=== PATIENT | female | born 1940 | race Caucasian/White ===

== ENCOUNTER 2020-12-05 07:46 | Outpatient (REF) | payer MEDICARE, SELFPAY ==
--- NOTE | 2020-12-11 08:42 | MHC.AU.ANO ---
Adult Audiological Evaluation Date of Visit: 12/05/20 Traveling Passenger Agent Used: Not Applicable Reason for Appointment: Audiologic evaluation due to increasing hearing difficulties and understanding speech, particularly when background noise is present Does patient feel they have a hearing loss?: Yes If Yes, Which Ear?: Both Ears Has hearing been tested previously?: Yes Previous Hearing Test Results: [facility] many years ago. Test results are not available for review Hearing Handicap Inventory: HHIE SCORE: 20 Based on HHIE score, patient has: Mild to moderate perceived hearing handicap Ear History: Family History of Hearing Loss?: Yes: Father Ear Infections in Childhood: Both Ears History of Ear Wax Buildup: Both Ears Tinnitus/Ringing/Noises in Ears: Both Ears Ear used on the phone: Left Ear Blocked/Full Sensation in Ear(s): Right Ear History of occupational noise exposure?: No Medical History: Medical History: Thyroid Disease, Left Breast Cancer treated with surgery and radiation, Graves Disease Medication List: Procardia, Bentyl, Levothyroxine, Meclizine, Gabapentin, Claritin, Flonase, Fiber, Cranberry pills, Calcium, Vitamins C and D Otoscopy: Right Ear: Unremarkable Left Ear: Small amount of non-occluding cerumen Tympanometry: Tympanometry performed due to: To assess integrity of the middle ear system Right Ear: Normal Middle Ear System (Type A) Left Ear: Normal Middle Ear System (Type A) Otoacoustic Emissions Right Ear Results: Not performed at today's visit. Left Ear Results: Not performed at today's visit. Hearing Evaluation: Transducer(s) Used: Insert Earphones Bone Conduction Method: Conventional Audiometry Stimuli Used: Right Ear: Description of Hearing: Mild dropping to severe sensorineural hearing loss Left Ear: Description of Hearing: Borderline normal dropping to severe sensorineural hearing loss Speech Recognition Threshold (SRT): Method Used: Monitored Live Voice Stimuli Used: Spondee Words Right Ear: 35 dB HL Left Ear: 25 dB HL Word Discrimination: Method: Recorded Lists Word Lists Used: NU-6 Right Ear: 84% at 75 dB HL Left Ear: 84% at 65 dB HL QuickSIN: Binaural Quick SIN Test: 13 dB SNR Loss suggesting Hortensia experiences a moderately-severe degree of difficulty understanding speech with increasing levels of background noise. Recommendations: Trial with amplification is recommended. Medical clearance from a physician is required before fitting. HAE scheduled for 12/12/2020 Provided literature for Phonak hearing aids Audiological re-evaluation in one year. Will send a reminder card. Diagnosis: Primary Diagnosis: H90.3 Bilateral Sensorineural Hearing Loss Secondary Diagnosis: H93.13 Tinnitus, Bilateral Services Performed: Comprehensive Audiological Evaluation (CPT 75218) Tympanometry (CPT 43542) Signature: Provider: Aurelio Sutton, AYAZ-A
--- NOTE | 2020-12-11 08:47 | MHC.AU.MED ---
Medical Clearance for Hearing Instrumentation Date: 12/11/20 Patient Name: Hortensia Godoy Date of : 1940 Primary Care Provider: Referring Provider: Maria Teresa Mathur MD We have seen your patient on 12/05/20 and have determined that they are a candidate for amplification (See accompanying report). Specifically, they would benefit from: Hearing aid use in both ears There is a statute that addresses Medical Evaluation Requirements prior to fitting a patient with a hearing aid. According to [place] statute 265 CMR:6.03(1), (a) General. Except as provided in 265 CMR 6.03(1)(b), a hurl shaker shall not sell a hearing aid unless the prospective user has presented to the hurl shaker a written statement signed by a licensed physician that states that the patient's hearing loss has been medically evaluated and the patient may be considered a candidate for a hearing aid. The medical evaluation must have taken place within the preceding six months. Please note: Due to the [place] Statute referenced above, we cannot accept a signature other than that of a licensed physician. COMSEC MANAGER and PA signatures cannot be accepted. I am in agreement with the above recommendation. There is no medical contraindication for hearing instrumentation. Physician Signature Date Physician Name (Printed)
== END 2020-12-05 07:47 | disposition home or self-care (01) ==
LOC: HO.SH 07:46
PROVIDERS: Visit Provider Internal Medicine
DX: H93.13 Tinnitus, bilateral (principal)
CPT/HCPCS: 92557; 92567

== ENCOUNTER 2020-12-05 08:26 | Outpatient (REF) | payer SELFPAY | END 2020-12-05 08:27 | disposition home or self-care (01) | LOC: HO.HAP 08:26 | PROVIDERS: Visit Provider Internal Medicine Endocrinology, Diabetes & Metabolism | DX: Z13.89 Encounter for screening for other disorder (principal) ==

== ENCOUNTER 2020-12-12 09:50 | Outpatient (REF) | payer SELFPAY ==
--- NOTE | 2020-12-12 11:29 | MHC.AU.HAS ---
Hearing Aid Evaluation Date of Visit: 12/12/20 Astrochemist Used: Not Applicable Historical Information: Description of Hearing: Right Ear - Mild sloping to severe sensorineural hearing loss Left Ear - Borderline normal sloping to severe sensorineural hearing loss. 84% speech understanding in quiet with a score of 13 dB SNR Loss in noise strongly suggesting higher level hearing aid technology would be beneficial. Current personal amplification information, if applicable: None Summary: Hearing Aid Prescription: Based on the individual?s shared listening needs, communication environments, dexterity, desire for connectivity, and personal preferences, the following prescription for amplification has been made: Right ear: Tableman: PhonuberVU Model: Authentic8eo P 90 13T Battery Size: 13 Color: Silver Madden Firesetter: #2 Medium Type of Dome: Vented or power Left ear: Left ear prescription to be same as Right Hearing Aid above: Tableman: Phonak Model: Audeo P 90 13T Battery Size: 13 Color: Silver Madden Firesetter: #2 Medium Type of Dome: Vented Accessories/Assistive Technology Recommended: Promo TV Connector Plan of Care: Patient wishes to purchase hearing aids as prescribed Action Taken/Action Needed: Medical Clearance to be requested from PCP/ENT Comments: Hearing Aid Fitting scheduled for 12/26/2020 Primary Diagnosis: H90.3 Bilateral Sensorineural Hearing Loss Signature: Provider: Aurelio Sutton CCC-A
== END 2020-12-12 09:51 | disposition home or self-care (01) ==
LOC: HO.HAP 09:50
PROVIDERS: Visit Provider Internal Medicine Endocrinology, Diabetes & Metabolism
DX: Z46.1 Encounter for fitting and adjustment of hearing aid (principal); H90.3 Sensorineural hearing loss, bilateral
CPT/HCPCS: 92591

== ENCOUNTER 2020-12-26 09:44 | Outpatient (REF) | payer SELFPAY | END 2020-12-26 09:45 | disposition home or self-care (01) | LOC: HO.HAP 09:44 | PROVIDERS: Visit Provider Internal Medicine Endocrinology, Diabetes & Metabolism | DX: Z46.1 Encounter for fitting and adjustment of hearing aid (principal); H90.3 Sensorineural hearing loss, bilateral | CPT/HCPCS: V5261 ==

== ENCOUNTER 2021-01-09 11:36 | Outpatient (REF) | payer SELFPAY | END 2021-01-09 11:37 | disposition home or self-care (01) | LOC: HO.HAP 11:36 | PROVIDERS: Visit Provider Internal Medicine | DX: Z13.89 Encounter for screening for other disorder (principal) ==

== ENCOUNTER 2021-07-02 09:18 | Outpatient (REF) | payer SELFPAY ==
--- NOTE | 2021-07-02 09:33 | MHC.AU.P13 ---
Hearing Instrument Maintenance Date of Visit: 07/02/21 Right Ear: Remnants Cutter: Phonak Model: Audeo P 90 13T Serial Number: [id number] Repair Warranty: 03/15/2024 Loss and Damage Warranty: 03/15/2024 Battery Size: 13 Color: Silver Madden Granite Chip Terrazzo Finisher: #2 Medium Type of Dome: Medium Vented Type of Wax Guard: CeruShield Dispensed By: [facility] Date of Fittin12/26/2020 Left Ear: Remnants Cutter: Phonak Model: Audeo P 90 13T Serial Number: [id number] Repair Warranty: 03/15/2024 Loss and Damage Warranty: 03/15/2024 Battery Size: 13 Color: Silver Madden Granite Chip Terrazzo Finisher: #2 Medium Type of Dome: Medium Vented Type of Wax Guard: CeruShield Dispensed By: [facility] Date of Fittin12/26/2020 Follow-Up Summary: TANNER Maint - Hearing aids cleaned - wax guards and medium vented domes replaced - both amplifying clearly. Recommendations: Recommendations: Hearing instrument follow-up or maintenance as needed. Diagnosis Code(s): Primary Diagnosis: H90.3 Bilateral Sensorineural Hearing Loss Signature: Provider: NAHID Cadena-HIS
== END 2021-07-02 09:19 | disposition home or self-care (01) ==
LOC: HO.HAP 09:18
PROVIDERS: Visit Provider Internal Medicine
DX: Z13.89 Encounter for screening for other disorder (principal)

== ENCOUNTER 2022-01-07 10:50 | Outpatient (REF) | payer MEDICARE, SELFPAY ==
--- NOTE | 2022-01-13 16:47 | MHC.AU.AHA ---
Adult Audiological Evaluation Date of Visit: 01/07/22 Reason for Appointment: Audiologic re-evaluation to monitor hearing thresholds due to history of Thyroid Disorder which may increase hearing loss. Hortensia has a history of bilateral hearing loss and uses binaural hearing aids. Previous Hearing Test Results: 12/05/2020 [facility] Right ear: Mild sloping to severe sensorineural hearing loss with 84% speech understanding at 75 dB HL Left ear: Borderline normal sloping to severe sensorineural hearing loss with 84% speech discrimination at 65 dB HL. Ear History: Family History of Hearing Loss?: Yes: Father Ear Infections in Childhood: Both Ears History of occupational noise exposure?: No Medical History: Medical History: Cancer, Thyroid Disease, Left Breast Cancer treated with surgery and radiation, Graves Disease Medication List: Bentyl, Levothyroxine, Meclizine, Gabapentin, Claritin, Flonase, Calcium, Vitamins C & D. Muscle Relaxer Hearing Instrument History- Right Ear: Pedigree Researcher: [employer] Component Model: BlogBus P 90 13T Serial Number: [id number] Battery Size: 13 Repair Warranty: 03/15/2024 Loss and Damage Warranty: 03/15/2024 Dispensed By: [facility] Date of Fittin12/26/2020 Hearing Instrument History- Left Ear: Pedigree Researcher: aisle411ak Model: Clarieo P 90 13T Serial Number: [id number] Battery Size: 13 Warranty: 03/15/2024 Loss and Damage Warranty: 03/15/2024 Dispensed By: [facility] Date of Fittin12/26/2020 Otoscopy: Right Ear: Unremarkable Left Ear: Unremarkable Tympanometry: Did not test, previous results indicated normal middle ear function Hearing Evaluation: Transducer(s) Used: Insert Earphones Method: Conventional Audiometry Stimuli Used: Pure Tones Right Ear: Description of Hearing: Mild sloping to severe sensorineural hearing loss Left Ear: Description of Hearing: Borderline normal sloping to severe sensorineural hearing loss Speech Recognition Threshold (SRT): Method Used: Monitored Live Voice Stimuli Used: Spondee Words Right Ear: 30 dB HL Left Ear: 25 dB HL Word Discrimination: Method: Recorded Lists Word Lists Used: NU-6 Right Ear: 80% at 70 dB HL Left Ear: 92% at 65 dB HL Comparison: Compared to the most recent evaluation: Hearing is stable. Recommendations: Audiological re-evaluation in one year. Will send a reminder card. Hearing aid maintenance performed today. Diagnosis: Primary Diagnosis: H90.3 Bilateral Sensorineural Hearing Loss Secondary Diagnosis: H93.13 Tinnitus, Bilateral Services Performed: Pure Tone- Air (CPT 83521) Speech Audiometry Threshold, with Speech Recognition (CPT 24948) Signature: Provider: Aurelio Sutton, AYAZ-A
== END 2022-01-07 10:51 | disposition home or self-care (01) ==
LOC: HO.SH 10:50
PROVIDERS: Visit Provider Internal Medicine
DX: Z01.118 Encounter for examination of ears and hearing with other abnormal findings (principal); H90.3 Sensorineural hearing loss, bilateral; H93.13 Tinnitus, bilateral
CPT/HCPCS: 92552; 92556

== ENCOUNTER 2022-08-28 19:28 | Inpatient (IN) | payer MEDICARE, SELFPAY ==
--- NOTE | 2022-08-28 | ECG_ITS ---
Test Reason : CHEST PAIN Blood Pressure : / mmHG Vent. Rate : 053 BPM Atrial Rate : 052 BPM P-R Int : 000 ms QRS Dur : 080 ms QT Int : 462 ms P-R-T Axes : 000 036 077 degrees QTc Int : 433 ms Junctional bradycardia Cannot rule out Inferior infarct , age undetermined Cannot rule out Anterior infarct , age undetermined Abnormal ECG No previous ECGs available Referred By: Generic ED Physician Electronically Signed By:Sampson Pisano
--- NOTE | ~2022-08-28 | FL_ITS ---
EXAMINATION: XR FLUOROSCOPY WITH IMAGES CLINICAL INFORMATION: Pacer placement. COMPARISON: Chest radiographs 08/30/2022, 08/29/2022. TECHNIQUE: Fluoroscopy Supervised By: Dr. Crystal Martin. Fluoroscopy Time: Under 3 minutes. Cumulative Dose: 48.5 mGy. DAP: 11.3 Gycm2. Images: 1. FINDINGS: There is bipolar pacemaker with atrial and ventricular leads.
--- NOTE | ~2022-08-28 | CT_ITS ---
EXAMINATION: CT ANGIOGRAM OF THE CHEST WITH AND WITHOUT CONTRAST (CT PULMONARY ANGIOGRAM FOR PE) CLINICAL INFORMATION: Reason for Exam tachycardic, elevated dimer, Sob COMPARISON: None TECHNIQUE: Prior to contrast administration, noncontrast localization images were obtained. Subsequently, multidetector volumetric imaging was performed from the thoracic inlet to below the diaphragms following the administration of 80 mL Omnipaque 350 intravenous contrast. No contrast reaction reported Sagittal, coronal, and MIP oblique sagittal reformatted images were obtained on the CT workstation, uploaded to PACS, and reviewed. This CT examination was performed using dose optimization techniques as appropriate, variously including the following: *Automated exposure control *Adjustment of mA and/or kV according to patient size (this includes techniques or standardized protocols for targeted exams where dose is matched to indication/reason for exam; i.e. extremities or head) *Use of iterative reconstruction technique Total exam dose-length product 410 mGy-cm FINDINGS: QUALITY OF STUDY/CONTRAST BOLUS: Satisfactory. PULMONARY ARTERIES: There is no filling defect to suggest a pulmonary embolism. The thoracic inlet is within normal limits. Axillary regions are unremarkable. Partially visualized upper abdominal structures demonstrate a low-density lesion in the liver which is well circumscribed. Likely represents a cyst.. Centrally there is no bowing of the septum. There is no reflux into the hepatic veins. No bulky central adenopathy. Some mild nodes are noted. Some probable mild hilar nodes. Right lung; In the lungs areas of interstitial change and groundglass changes. May be consistent with small airways disease. Pulmonary edema would be a consideration. There is no effusion on the right. 3 mm nodule on image 20. Left lung; Again interstitial markings with areas of groundglass change. 4 mm nodule on image 25. Review of the bone windows does not demonstrate a suspicious finding. CT/CT angio chest PE protocol IMPRESSION: No filling defect to suggest a pulmonary embolism. Lung hankins are characterized by coarse interstitial markings with areas of groundglass change. This could be consistent with small airways disease or subtle areas of infiltrate. Pulmonary edema cannot be excluded. Some small areas of lung nodularity are noted. Low-dose noncontrast follow-up recommended in 6 months.
--- NOTE | ~2022-08-28 | XR_ITS ---
EXAMINATION: XR CHEST CLINICAL INFORMATION: Pacer COMPARISON: 08/29/2022 TECHNIQUE: Frontal view of the chest was obtained. FINDINGS: New left pectoral 2-lead pacemaker with contiguous, intact leads projecting over the expected location of the right atrium and right ventricle. Diffuse coarse interstitial opacity again seen. Small left pleural effusion. No pneumothorax. XR/XR chest 1V IMPRESSION: No pneumothorax after pacer placement.
--- NOTE | ~2022-08-28 | XR_ITS ---
EXAMINATION: XR CHEST CLINICAL INFORMATION: Hypoxia COMPARISON: 08/28/2022 TECHNIQUE: Frontal view of the chest was obtained. FINDINGS: Minimal left basilar opacity. Stable appearance the right upper lung. No evidence for failure The cardiac silhouette is similar to previous. XR/XR chest 1V IMPRESSION: Exam is comparable to previous. Minimal left basilar opacity may be a small acute area of atelectasis or infiltrate.
--- NOTE | ~2022-08-28 | XR_ITS ---
EXAMINATION: XR CHEST CLINICAL INFORMATION: Chest pain COMPARISON: None TECHNIQUE: Frontal view of the chest was obtained. FINDINGS: Some ill-defined opacity in the right upper lung. The left lung is grossly clear. Some markings in the lungs may be chronic. The hilar structures are mildly prominent. The cardiac silhouette is within normal limits. There is no effusion. XR/XR chest 1V IMPRESSION: Findings suggest right upper lobe infiltrate versus chronic changes. There are no films to compare. Follow-up films are recommended after treatment to continue assessment
[2022-08-28 19:39] VITALS: BP 147/87; PULSE 55; RESP 18; TEMP 36.2; O2SAT 97; BMI 25.7
[2022-08-28 19:45] LABS: MANUAL DIFF FLAG NO
[2022-08-28 19:55] LABS: Basophils Percent Auto 0.3 % (0-2); Eosinophils Absolute Auto 0.1 X10*3/uL (0.0-0.4); Eosinophils Percent Auto 1.1 % (0-4); Hematocrit 39.5 % (37.0-47.0); Hemoglobin 13.3 g/dl (12.0-16.0); Imm Gran Abs Auto 0.02 X10*3/uL (0.00-0.03); Imm Gran Pct Auto 0.2 % (0.0-0.4); Lymphocytes Percent Auto 17.6 % (20-40); Mean Corpuscular HGB Conc 33.7 g/dl (31.0-35.0); Mean Corpuscular Hemoglobin 29.7 pg (27.0-33.0); Mean Corpuscular Volume 88.2 fL (80.0-98.0); Mean Platelet Volume 11.1 fL (9.4-12.3); Monocytes Absolute Auto 1.2 X10*3/uL (0.1-1.2); Neutrophils Absolute Auto 7.8 x10*3/uL (2.0-8.3); Neutrophils Percent Auto 69.8 % (45-73); Platelet Count 206 X10*3/uL (160-400); Red Blood Count 4.48 X10*6/uL (4.20-5.50); Red Cell Distribution Width 12.6 % (11.0-16.0); White Blood Count 11.2 X10*3/uL (4.8-10.8)
[2022-08-28 20:05] LABS: Alanine Aminotransferase 10 U/L (0-31); Alkaline Phosphatase 56 U/L (39-117); Anion Gap 14 (12-20); Aspartate Amino Transferase 13 U/L (5-31); Bilirubin Total 0.5 mg/dL (0.0-1.0); Blood Urea Nitrogen 16 mg/dL (9-16); Calcium 9.2 mg/dL (8.4-10.2); Carbon Dioxide 22 mmol/L (22-29); Chloride 107 mmol/L (96-108); Estimated Glomerular Filt Rate > 60; Glucose Random 108 mg/dL (60-115); Potassium 3.9 mmol/L (3.3-5.1); Sodium 139 mmol/L (135-145); Total Protein 6.9 g/dL (6.5-8.0)
[2022-08-28 20:12] LABS: Troponin-I High Sensitivity 7.4 ng/L (<3.5-17.0)
[2022-08-28 21:48] VITALS: BP 124/54; PULSE 58; RESP 20; TEMP 36.7; O2SAT 95
[2022-08-28 21:59] LABS: COVID-19 Test Negative (Negative); IDNOW Serial# 16C4AD1C; IDNOW Serial# BCCEAD1C; Influenza A Negative (Negative); Influenza B2 Negative (Negative)
--- NOTE | 2022-08-28 22:06 | MHC.EDTECH ---
2200 rounding done ,vitals sign taken ,patient son at bedside.
--- NOTE | 2022-08-28 22:37 | ED.CHESTPAIN ---
HPI - Chest Pain General Chief Complaint: Chest Pain Stated Complaint: chest pain Time Seen by Provider: 08/28/22 20:52 Source: patient Mode of arrival: ambulatory Limitations: no limitations History of Present Illness HPI narrative: Patient comes emergency room complaining coughing and 2 days of bilateral chest pain. Patient states that she has been coughing a bit more than usual, no fever chills. Denies palpitations, no N/V/D. Related Data Home Medications Medication Instructions Recorded Confirmed atorvastatin 10 mg tablet 10 mg PO DAILY 03/11/21 dicyclomine 10 mg capsule 10 mg PO TID 03/11/21 fluticasone propionate 50 spray intranasal 03/11/21 mcg/actuation nasal spray,suspension gabapentin 300 mg capsule 300 mg PO TID 03/11/21 letrozole 2.5 mg tablet 2.5 mg PO DAILY 03/11/21 levothyroxine 137 mcg tablet 137 mcg PO DAILY 03/11/21 (Synthroid) meclizine 25 mg tablet 25 mg PO TID PRN 03/11/21 methocarbamol 500 mg tablet mg PO 03/11/21 nifedipine 10 mg capsule 10 mg PO TID 03/11/21 nitrofurantoin macrocrystal 50 mg mg PO 03/11/21 capsule omeprazole 20 mg capsule,delayed 20 mg PO DAILY 03/11/21 release tizanidine 4 mg tablet mg PO 03/11/21 Previous Rx's Medication Instructions Recorded azithromycin 250 mg tablet 250 mg PO DAILY 4 days #4 tabs 08/28/22 Allergies Allergy/AdvReac Type Severity Reaction Status Date / Time sulfamethoxazole Allergy unknown Verified 03/11/21 08:56 [From Bactrim] trimethoprim [From Bactrim] Allergy unknown Verified 03/11/21 08:56 Review of Systems Review of Systems: Constitutional : No Weight loss, No Fever, No Chills, No Night Sweats, No Fatigue, No Malaise ENT/Mouth : No Hearing loss, No Ear Pain, No Nasal Congestion, No Sinus Pain, No Hoarseness, No sore throat, No Rhinorrhea, No Swallowing Difficulty Eyes: No Eye Pain, No Swelling, No Redness, No Foreign Body, No Discharge, No Vision Changes Cardiovascular : By chest pain, no orthopnea, no edema no palpitations Respiratory : Complaining of mild cough, mild shortness of breath, no wheezing Gastrointestinal : No Nausea, No Vomiting, No Diarrhea, No Constipation, No abdominal Pain, No Hematochezia, No Melena Genitourinary : no irregular bleeding, No Dysuria, No Urinary Frequency, No Hematuria, No Urinary Incontinence, No Urgency, No Flank Pain, No Urinary Flow Changes, No Hesitancy Musculoskeletal : No joint pain, No Myalgias, No Joint Swelling Skin : No Skin Lesions, No rash Neuro : No Weakness, No Numbness, No Paresthesias, No Loss of Consciousness, No Dizziness, No Headache Psych : No Anxiety/Panic, No Depression, No SI/HI/AH/VH, No Social Issues, Heme/Lymph: No Bruising, No Bleeding,No Lymphadenopathy Endocrine : No Polyuria, No Polydipsia, No Temperature Intolerance [facility] Past Medical History Medical History (Updated 08/29/22 @ 00:50 by Carie Ohara MD) Hypothyroidism Social History Social History Alcohol intake: current Alcohol intake frequency: a few times a week Alcohol type: wine Smoked in Last 30 Days: No Use of substances other than those prescribed or required for medical reasons: No Advance Directives: No Advance Directives Information Provided: No Physical Exam Vital Signs: Vital Signs: Last Vital Signs Temp 98.1 F 08/28/22 21:48 Pulse 133 H 08/28/22 23:55 Resp 37 H 08/28/22 23:55 BP 112/57 L 08/28/22 23:55 Pulse Ox 93 08/28/22 23:55 O2 Del Method 08/28/22 23:55 BMI result Body Mass Index 25.7 Const: Other: Appearance: Alert. Oriented X3. No acute distress. Eyes: Pupils equal, round and reactive to light. ENT: Pharynx normal. Neck: Normal inspection. Neck supple. No lymph nodes noted. No crepitus CVS: Normal heart rate and rhythm. Pulses normal. Normal S1 and S2 Respiratory: No respiratory distress. Breath sounds normal. No Wheezing. No rales Abdomen: Soft and nontender. No rigidity. No distention. Skin: Skin warm and dry. Normal skin color. Normal skin turgor. Extremities: No lower extremity edema. No Lacerations. No Rash Neuro: Oriented X 3. No motor deficit. No sensory deficit. Moving all extremities. No slurred speech. CN 2 through 12 grossly intact Psych: calm, cooperative, anxious Medications Administered Generic Name Dose Route Start Last Admin Trade Name Osvaldo PRN Reason Stop Dose Admin Calcium Gluconate 2 gm in 100 mls @ 50 mls/hr 08/29/22 00:00 08/29/22 00:28 Calcium Gluconate IV 08/29/22 01:59 50 mls/hr ONCE ONE Administration Discontinued Medications Generic Name Dose Route Start Last Admin Trade Name Osvaldo PRN Reason Stop Dose Admin Acetaminophen 975 mg 08/28/22 23:01 08/28/22 23:06 Acetaminophen 325 Mg Tablet PO 08/28/22 23:02 975 mg ONCE ONE Administration Apixaban 5 mg 08/29/22 00:02 08/29/22 00:31 Apixaban 5 Mg Tablet PO 08/29/22 00:03 5 mg ONCE ONE Administration Azithromycin 500 mg 08/28/22 22:35 08/28/22 22:56 Azithromycin 500 Mg Tablet PO 08/28/22 22:36 500 mg ONCE ONE Administration Sodium Chloride 1,000 mls @ 999 mls/hr 08/28/22 23:16 08/28/22 23:20 Ns IVCONT 08/29/22 00:16 999 mls/hr .Q1H1M ONE Administration Iohexol 65 ml 08/29/22 00:29 08/29/22 00:30 Iohexol 350 Mg/Ml 100 Ml Infus..Btl IV 08/29/22 00:30 65 ml ONCE ONE Administration Metoprolol Tartrate 5 mg 08/28/22 23:59 08/29/22 00:26 Metoprolol Tartrate 5 Mg/5 Ml Vial IVPUSH 08/29/22 00:00 5 mg ONCE ONE Administration Medical Decision Making Medical Decision Making MDM Narrative: -patient's chest x-ray shows chronic changes versus right upper lobe infiltrate. -patient has had new symptoms, slightly elevated white blood cell count, we do not have any other chest x-rays to compare. -given the patient's labs and x-ray and physical presentation, we will go ahead and treat with antibiotics. Patient was given the 1st dose of azithromycin in the emergency room. -patient's oxygen saturation 97% on room air. -patient tested negative for COVID and influenza -troponin 1. Is negative, patient has had symptoms for 2 days, EKG does not show any acute findings -as patient was getting ready to be discharged, I was informed by the patient's nurse that the patient's heart rate went up to 130-150. -at the time of discharge, patient was havingnew onset of palpitations, EKG shows atrial fibrillation. Has no history of AFib. Patient's CHADS2 Vasc score is 3. I discussed with the patient's the risks versus benefits of being on anticoagulation. Patient is agreeable to start Eliquis. -patient's blood pressure is on the softer side, 112/57, heart rate 133. Patient will be given 5 mg IV of metoprolol. In case the patient may need Cardizem, we will treat at this time with calcium gluconate to prevent her blood pressure from dropping significantly Patient just received IV metoprolol, heart rate in the 120s, blood pressure 124 systolic -patient was given 1 dose of IV morphine 1mg -chest CTA pending. troponin #2 and BNP will be obtained shortly -I discussed the patient with Dr. Sol, pt will be admitted. I also asked Dr. Haq to f/u the CTA and the troponin -current vitals: Blood pressure 107/63, heart rate 115, oxygen saturation 93% on room air. -patient's heart rate 120-130 despite 1 dose of metoprolol. Blood pressure 102/62. We will give the patient 1 dose of 0.125 mg push of digoxin. -and the senna and transferring care to my colleague Dr. Haq, BP 101/59, HR 120-130, 97% RA -CTA negative for PE, Trop and BNP pending Differential Diagnosis Differential Diagnoses: The differential diagnosis associated with the presentation includes (COVID, influenza, viral syndrome, pneumonia) Lab Data MDM Lab Attestation statement: I reviewed the patient's lab results. 08/28/22 19:41 08/28/22 19:41 Labs: Lab Results 08/28/22 08/28/22 08/28/22 Range/Units 19:41 19:41 19:41 WBC 11.2 H (4.8-10.8) X10*3/uL RBC 4.48 (4.20-5.50) X10*6/uL Hgb 13.3 (12.0-16.0) g/dl Hct 39.5 (37.0-47.0) % MCV 88.2 (80.0-98.0) fL MCH 29.7 (27.0-33.0) pg MCHC 33.7 (31.0-35.0) g/dl RDW 12.6 (11.0-16.0) % Plt Count 206 (160-400) X10*3/uL MPV 11.1 (9.4-12.3) fL Immature Gran % (Auto) 0.2 (0.0-0.4) % Neut % (Auto) 69.8 (45-73) % Lymph % (Auto) 17.6 L (20-40) % [place] % (Auto) 11.0 (2-11) % Eos % (Auto) 1.1 (0-4) % Baso % (Auto) 0.3 (0-2) % Lymph # (Auto) 2.0 (1.2-4.9) X10*3/uL [place] # (Auto) 1.2 (0.1-1.2) X10*3/uL Eos # (Auto) 0.1 (0.0-0.4) X10*3/uL Baso # (Auto) 0.0 (0.0-0.2) X10*3/uL Abs Immat Gran (auto) 0.02 (0.00-0.03) X10*3/uL Absolute Neuts (auto) 7.8 (2.0-8.3) x10*3/uL Absolute Nucleated RBC 0.000 (0.0-0.012) X10*3/uL Nucleated RBC % (auto) 0.0 (0.0-0.2) /100WBC D-Dimer High Sensitivty NG/ML Sodium 139 (135-145) mmol/L Potassium 3.9 (3.3-5.1) mmol/L Chloride 107 (96-108) mmol/L Carbon Dioxide 22 (22-29) mmol/L Anion Gap 14 (12-20) BUN 16 (9-16) mg/dL Creatinine 0.76 (0.5-1.4) mg/dL Estim Creat Clear Calc 57.0 Estimated GFR > 60 Random Glucose 108 (60-115) mg/dL Calcium 9.2 (8.4-10.2) mg/dL Total Bilirubin 0.5 (0.0-1.0) mg/dL AST 13 (5-31) U/L ALT 10 (0-31) U/L Alkaline Phosphatase 56 (39-117) U/L Troponin I High Sens 7.4 (<3.5-17.0) ng/L Total Protein 6.9 (6.5-8.0) g/dL Albumin 4.0 (3.5-5.0) g/dL COVID-19 (LAZARO) (Negative) COVID-19 Clin Com Influenza Type A (STALIN) (Negative) Influenza Type B (STALIN) (Negative) Influenza A & B Note 08/28/22 08/28/22 08/28/22 Range/Units 21:18 21:18 23:18 WBC (4.8-10.8) X10*3/uL RBC (4.20-5.50) X10*6/uL Hgb (12.0-16.0) g/dl Hct (37.0-47.0) % MCV (80.0-98.0) fL MCH (27.0-33.0) pg MCHC (31.0-35.0) g/dl RDW (11.0-16.0) % Plt Count (160-400) X10*3/uL MPV (9.4-12.3) fL Immature Gran % (Auto) (0.0-0.4) % Neut % (Auto) (45-73) % Lymph % (Auto) (20-40) % [place] % (Auto) (2-11) % Eos % (Auto) (0-4) % Baso % (Auto) (0-2) % Lymph # (Auto) (1.2-4.9) X10*3/uL [place] # (Auto) (0.1-1.2) X10*3/uL Eos # (Auto) (0.0-0.4) X10*3/uL Baso # (Auto) (0.0-0.2) X10*3/uL Abs Immat Gran (auto) (0.00-0.03) X10*3/uL Absolute Neuts (auto) (2.0-8.3) x10*3/uL Absolute Nucleated RBC (0.0-0.012) X10*3/uL Nucleated RBC % (auto) (0.0-0.2) /100WBC D-Dimer High Sensitivty 426 NG/ML Sodium (135-145) mmol/L Potassium (3.3-5.1) mmol/L Chloride (96-108) mmol/L Carbon Dioxide (22-29) mmol/L Anion Gap (12-20) BUN (9-16) mg/dL Creatinine (0.5-1.4) mg/dL Estim Creat Clear Calc Estimated GFR Random Glucose (60-115) mg/dL Calcium (8.4-10.2) mg/dL Total Bilirubin (0.0-1.0) mg/dL AST (5-31) U/L ALT (0-31) U/L Alkaline Phosphatase (39-117) U/L Troponin I High Sens (<3.5-17.0) ng/L Total Protein (6.5-8.0) g/dL Albumin (3.5-5.0) g/dL COVID-19 (LAZARO) Negative (Negative) COVID-19 Clin Com See Note Influenza Type A (STALIN) Negative (Negative) Influenza Type B (STALIN) Negative (Negative) Influenza A & B Note See Note Independent Interpretation I performed an independent interpretation of an: Plain X-Ray (No infiltrates) Radiology Impression Discussion of test interpretation with radiology: I have reviewed the radiologist's reading. Radiologist Impression: IMPRESSION: Findings suggest right upper lobe infiltrate versus chronic changes. There are no films to compare. Follow-up films are recommended after treatment to continue assessment Critical Care Time Critical Care Time Critical Care Time: Yes Total Critical Care Time: 90 Attestation: I have personally provided critical care time. Time includes review of lab data, radiology results, discussion with consultants, and monitoring for potential decompensation. Intervention performed as documented. Discharge Plan Discharge Clinical Impression: Pneumonia, Atrial fibrillation with RVR Patient Disposition: Admitted As Inpatient Instructions: Pneumonia (ED) Additional Instructions: Please follow-up with your primary care physician tomorrow. If you have any worsening or new symptoms, please return to the emergency room or call 911 Prescriptions: New azithromycin 250 mg tablet 250 mg PO DAILY 4 Days Qty: 4 0RF Rx Instructions: start on day 2 of therapy No Action tizanidine 4 mg tablet PO nifedipine 10 mg capsule 10 mg PO TID nitrofurantoin macrocrystal 50 mg capsule PO omeprazole 20 mg capsule,delayed release(DR/EC) 20 mg PO DAILY gabapentin 300 mg capsule 300 mg PO TID atorvastatin 10 mg tablet 10 mg PO DAILY levothyroxine [Synthroid] 137 mcg tablet 137 mcg PO DAILY meclizine 25 mg tablet 25 mg PO TID PRN dicyclomine 10 mg capsule 10 mg PO TID methocarbamol 500 mg tablet PO fluticasone propionate 50 mcg/actuation spray,suspension intranasal letrozole 2.5 mg tablet 2.5 mg PO DAILY cephalexin 500 mg capsule 500 mg PO QID 7 Days Qty: 28 0RF Interventions: ED Discharge Assessment Last Done: 08/28/22 23:05
[2022-08-28 22:46] VITALS: BP 159/95; PULSE 140; RESP 29; O2SAT 94
[2022-08-28 22:56] VITALS: BP 100/85; PULSE 129; RESP 24; O2SAT 94
[2022-08-28] MEDS: Azithromycin 500 MG TABLET PO (22:56)
[2022-08-28] MEDS: Acetaminophen 325 MG TABLET 975 MG PO (23:06)
[2022-08-28] MEDS: 0.9 % Sodium Chloride 1,000 ML 999 ML IVCONT (23:20)
[2022-08-28 23:30] LABS: D Dimer High Sensitivity 426 NG/ML
[2022-08-28 23:55] VITALS: BP 112/57; PULSE 133; RESP 37; O2SAT 93
[2022-08-29] VITALS (39 sets, daily range): BP systolic 62–142; BP diastolic 29–73; PULSE 41–137; RESP 11–31; TEMP 36.9–38.3; O2SAT 90–98; BMI 27.0
--- NOTE | 2022-08-29 | ECG_ITS ---
Test Reason : chest pain Blood Pressure : / mmHG Vent. Rate : 131 BPM Atrial Rate : 000 BPM P-R Int : 000 ms QRS Dur : 080 ms QT Int : 308 ms P-R-T Axes : 000 080 018 degrees QTc Int : 454 ms Atrial fibrillation with rapid ventricular response Low voltage QRS Cannot rule out Anterior infarct (cited on or before 28-AUG-2022) Abnormal ECG When compared with ECG of 28-AUG-2022 19:32, Atrial fibrillation Present Nonspecific T wave abnormality now evident in Inferior leads Nonspecific T wave abnormality no longer evident in Lateral leads Referred By: Luba Sol Electronically Signed By:Sampson Pisano
--- NOTE | 2022-08-29 | ECG_ITS ---
Test Reason : REPEAT RIOS Blood Pressure : / mmHG Vent. Rate : 040 BPM Atrial Rate : 000 BPM P-R Int : 000 ms QRS Dur : 088 ms QT Int : 452 ms P-R-T Axes : 000 064 074 degrees QTc Int : 368 ms Junctional bradycardia Low voltage QRS Cannot rule out Anterior infarct (cited on or before 28-AUG-2022) Abnormal ECG When compared with ECG of 28-AUG-2022 23:24, Junctional rhythm has replaced Atrial fibrillation Vent. rate has decreased BY [address] no longer depressed in Anterior leads Nonspecific T wave abnormality no longer evident in Inferior leads Referred By: Jose Lopez Electronically Signed By:OBED SHEFFIELD MD
[2022-08-29] MEDS: Metoprolol Tartrate 5 MG/5 ML VIAL IVPUSH (00:26)
[2022-08-29] MEDS: Calcium Gluconate/NaCl,Iso-Osm 2 GM/100 ML PLAST..BAG IV (00:28)
[2022-08-29] MEDS: iohexoL 350 MG/ML 100 ML INFUS..BTL 65 ML IV (00:30)
[2022-08-29] MEDS: Apixaban 5 MG TABLET PO (00:31)
--- NOTE | 2022-08-29 00:49 | PC.NURSE ---
Pt blood pressure 124/70 at 0025. Pt ekg showed rapid afib. Administered Metoprolol 5 mg IV per order. Plan check blood pressures q [address] Ohara. Pt maintained approximately at 102/62. Pt c/o crushing/pressure 10/10 chest pain and sob oxygen saturation ranging 94% on room air. Rn applied oxygen suplementation 2 liters via nasal cannula.
[2022-08-29] MEDS: Digoxin 0.5 MG/2 ML AMPUL 0.125 MG IVPUSH (01:02)
[2022-08-29 01:34] LABS: B Type Natriuretic Peptide 438 pg/mL (<100)
--- NOTE | 2022-08-29 01:41 | MHC.EDTECH ---
i put the purewick on her so she doesnt have to get up due to her getting dizzy
[2022-08-29] MEDS: guaiFEN/Codeine SF 200/20/10ML 10 ML LIQUID PO (02:39)
[2022-08-29] MEDS: 0.9 % Sodium Chloride 1,000 ML 999 ML IV (02:39)
[2022-08-29] MEDS: dilTIAZem HCL 50 MG/10 ML VIAL 10 MG IVPUSH (02:42)
--- NOTE | 2022-08-29 03:10 | PC.NURSE ---
Post Cardizem IV administration pt bp is 103/52 pulse dips ocassionally to 74 up to 109. Cortext sent to Dr. Sol with update.
--- NOTE | 2022-08-29 03:31 | PC.NURSE ---
Pt found to be hypotensive (84/43) on the monitor. This RN entered the room to assess the patient. Pt sleeping in bed. Pt then woke up, denies any dizziness or lightheadedness. Pt reported sob only when coughing. Pt not coughing at time of assessment. Blood pressure recycled while awake, bed in slight trendelenburg's position to improve bp to 97/52 MAP 69.
--- NOTE | 2022-08-29 04:27 | PC.NURSE ---
This RN spoke to provider because there was concern about starting a cardizem drip on this pt with systolic BP below 100. Provider directed this RN to start the drip on a lower dose of 2.5 mg/hr compared to the normal starting rate of 10 mg/hr. This RN will continue to monitor pt's BP during infusion.
[2022-08-29] MEDS: ondansetron HCL 4 MG/2 ML VIAL IVPUSH ×2 (04:45→17:30)
[2022-08-29] MEDS: Heparin Sodium,Porcine 5,000 UNIT/ML VIAL 5000 UNIT SUBCUT ×2 (04:46→16:26)
[2022-08-29] MEDS: dilTIAZem HCL 125 MG in 0.9 % Sodium Chloride 100 ML IVCONT (04:50)
--- NOTE | 2022-08-29 05:35 | PC.NURSE ---
Pt being treated throughout the night for afib with RVR. This RN spoke with hospitalist about the pt's HR being consistently high despite previous interventions. Hospitalist directed this RN to give 250 mcg of digoxin in addition to the 2.5 mg/hr infusion of cardizem. Cardizem was disconnected from the pt prior to administration of digoxin. This RN was viewing the pt's HR (120 bpm) on the monitor just prior to the administration of digoxin when the monitor displayed a long pause and then returned with a rate of 37. This RN alerted ED provider and hospitalist. EKG was obtained and showed the pt in a junctional rhythm with rate of 40 BPM. ED provider ordered 0.5 mg of atropine to be given. Pt HR improved to 49 after receiving atropine, with BP of 60/30. Liter of fluid hung and infused with pressure bag. Pacer pads applied. Levophed ordered by ICU provider and administered at a starting rate of 0.05 mcg/kg/min. Levophed increased by 0.02 mcg/kg/min twice until pt's BP reflected a MAP of >65. Pt CAOx4 throughout the entire event. Complaining of mild chest pain, and extreme right shoulder pain. This RN continued to monitor pt with a HR at 52 bpm and BP of 80/40 until pt was transferred to the ICU.
[2022-08-29] MEDS: Atropine Sulfate 1 MG/ML VIAL 0.5 MG IVPUSH (05:45)
--- NOTE | 2022-08-29 06:00 | PC.NURSE ---
Levophed started @ 0600. ICU COMMUNITY MARKETING COORDINATOR @ bedside for primary eval.
[2022-08-29] MEDS: Norepinephrine Bitartrate/D5W 8 MG/250 ML PLAST..BAG 6.59 MG IV (06:02)
--- NOTE | 2022-08-29 06:02 | P.HPHOSP_ITS ---
History of Present Illness Date of Service: 08/29/22 Chief Complaint: chest pain, sob This is an 82-year-old female with past medical history of hypothyroidism, GERD, presents to the hospital with complaints of pleuritic chest pain as well as shortness of breath. Patient reports that she has midsternal chest pain radiating to the back, worse with taking deep inspirations as well as moving, patient reports she also has shortness of breath, dry cough, symptoms started 2 days ago the pain is 10/10, crushing pressure-like, and has been constant. No nausea or vomiting, no abdominal pain, no diarrhea constipation, no urinary symptoms and no lower extremity edema. No orthopnea or PND. On her initial arrival to the ED patient had a heart rate of 55, a blood pressure 147/87, patient was found to have pneumonia on chest x-ray, given antibiotic and was being discharged when her heart rate all of a sudden increase to 140s, with respiratory rate in the high 20s, blood pressure remained stable at that time. Received a call to admit patient for AFib with RVR, new onset. Patient herself and her at bedside deny having any cardiac history patient received 5 mg of metoprolol with no improvement her heart rate, she received 0.25 of digoxin with minimal affect, her blood pressure became hypotensive, but stable to started on small dose of Cardizem drip, patient then converted to bradycardia with a heart rate in the 30s, patient remained alert oriented throughout the episode. labs are significant for WBC count of 11.2, troponin of 7.4 and 14 respectively, BNP of 438, labs otherwise unremarkable CT angiogram of the chest showedNo PE, lungs showed interstitial markings with areas of ground-glass changes suggestive of pulmonary edema and subtle areas of infiltrate patient blood pressure dropped to the 70s over 30s with a heart rate in the 50s after receiving atropine 0.5 mg, ICU was informed and patient will be admitted to the ICU for further management Review of Systems Review of Systems: Yes all other systems are reviewed and are negative [facility] Medical History Hypothyroidism Social History Alcohol intake: current Alcohol intake frequency: a few times a week Alcohol type: wine Smoked in Last 30 Days: No Use of substances other than those prescribed or required for medical reasons: No Advance Directives: No Advance Directives Information Provided: No Meds Allergies Allergy/AdvReac Type Severity Reaction Status Date / Time sulfamethoxazole Allergy unknown Verified 03/11/21 08:56 [From Bactrim] trimethoprim [From Bactrim] Allergy unknown Verified 03/11/21 08:56 Active Medications: Current Medications Acetaminophen (Acetaminophen 325 Mg Tablet) 650 mg PO Q6H PRN PRN Reason: Pain, Mild (Pain Scale 1-3) Furosemide (Furosemide 40 Mg/4 Ml Vial) 40 mg IVPUSH DAILY [facility]; Protocol Heparin Sodium (Porcine) (Heparin Sodium,Porcine 5,000 Unit/Ml Vial) 5,000 unit SUBCUT Q12H [facility] Last Admin: 08/29/22 04:46 Dose: 5,000 unit Diltiazem HCl 125 mg/ Sodium (Chloride) 125 mls @ 0 mls/hr IVCONT .Q0M [facility]; Protocol Last Admin: 08/29/22 04:50 Dose: 2.5 mg/hr, 2.5 mls/hr Norepinephrine Bitartrate (Levophed) 8 mg in 250 mls @ 0 mls/hr IV .Q0M [facility]; Protocol Last Admin: 08/29/22 06:02 Dose: 0.05 mcg/kg/min, 6.59 mls/hr Ondansetron HCl (Ondansetron Hcl 4 Mg/2 Ml Vial) 4 mg IVPUSH Q8H PRN PRN Reason: Nausea Ondansetron HCl (Ondansetron Hcl 4 Mg/2 Ml Vial) 4 mg IVPUSH Q8H PRN PRN Reason: Nausea and Vomiting Last Admin: 08/29/22 04:45 Dose: 4 mg Sodium Chloride (0.9 % Sodium Chloride Flush 3 Ml Syringe) [facility] Medications Medication Instructions Recorded Confirmed Last Taken Type atorvastatin 10 mg tablet 10 mg PO DAILY 03/11/21 08/29/22 08/28/22 History dicyclomine 10 mg capsule 10 mg PO TID 03/11/21 08/29/22 08/28/22 History fluticasone propionate 50 50 mcg intranasal 03/11/21 08/28/22 History mcg/actuation nasal spray,suspension gabapentin 300 mg capsule 400 mg PO TID 03/11/21 08/29/22 08/28/22 History levothyroxine 137 mcg tablet 137 mcg PO DAILY 03/11/21 08/29/22 08/28/22 History (Synthroid) meclizine 25 mg tablet 25 mg PO TID PRN Motion Sickness 03/11/21 08/29/22 Unknown History methocarbamol 500 mg tablet 500 mg PO 3XD 03/11/21 08/29/22 Unknown History nitrofurantoin macrocrystal 50 mg 25 mg PO 3XW 03/11/21 08/29/22 Unknown History capsule omeprazole 20 mg capsule,delayed 20 mg PO DAILY 03/11/21 08/29/22 Unknown History release Physical Exam Vital Signs and Narrative: Vital Signs: Last Vital Signs Temp 98.4 F 08/29/22 04:14 Pulse 105 H 08/29/22 05:14 Resp 24 H 08/29/22 05:14 BP 101/61 08/29/22 05:14 Pulse Ox 94 08/29/22 05:14 O2 Del Method 08/29/22 05:14 O2 Flow Rate 2 08/29/22 05:14 BMI result Body Mass Index 25.7 Const: Other: patient is alert oriented, groaning and moaning, holding or chest General: cooperative and no acute distress Orientation/consciousness: patient oriented x3 Eyes: General: appearance normal, both eyes and all related structures Pupils: Equal, round and reactive pupils present Resp: Effort & Inspection: normal respiratory effort Cardio: Other: tachycardia, regular rhythm GI: Palpation (GI): Soft to palpation Auscultation: normal bowel sounds Skin: General skin exam: no rashes or lesions noted Neuro: General: patient oriented x3 Cranial nerves: Yes Equal, round and reactive pupils present Cognition (Neuro): normal cognition Extrem: Other: no pedal edema General: Yes normal to inspection and Yes no pedal edema Results Labs 08/28/22 19:41 08/28/22 19:41 Labs: Laboratory Results - last 24 hr 08/28/22 08/28/22 08/28/22 19:41 19:41 19:41 MCV 88.2 MCH 29.7 MCHC 33.7 RDW 12.6 Plt Count 206 MPV 11.1 Immature Gran % (Auto) 0.2 Neut % (Auto) 69.8 Lymph % (Auto) 17.6 L [place] % (Auto) 11.0 Eos % (Auto) 1.1 Baso % (Auto) 0.3 Lymph # (Auto) 2.0 [place] # (Auto) 1.2 Eos # (Auto) 0.1 Baso # (Auto) 0.0 Abs Immat Gran (auto) 0.02 Absolute Neuts (auto) 7.8 Absolute Nucleated RBC 0.000 Nucleated RBC % (auto) 0.0 D-Dimer High Sensitivty Anion Gap 14 Estim Creat Clear Calc 57.0 Estimated GFR > 60 Random Glucose 108 Calcium 9.2 Total Bilirubin 0.5 AST 13 ALT 10 Alkaline Phosphatase 56 Troponin I High Sens 7.4 B-Natriuretic Peptide Total Protein 6.9 Albumin 4.0 COVID-19 ([facility]ARO) COVID-19 Clin Com Influenza Type A (STALIN) Influenza Type B (STALIN) Influenza A & B Note 08/28/22 08/28/22 08/28/22 21:18 21:18 23:18 MCV MCH MCHC RDW Plt Count MPV Immature Gran % (Auto) Neut % (Auto) Lymph % (Auto) [place] % (Auto) Eos % (Auto) Baso % (Auto) Lymph # (Auto) [place] # (Auto) Eos # (Auto) Baso # (Auto) Abs Immat Gran (auto) Absolute Neuts (auto) Absolute Nucleated RBC Nucleated RBC % (auto) D-Dimer High Sensitivty 426 Anion Gap Estim Creat Clear Calc Estimated GFR Random Glucose Calcium Total Bilirubin AST ALT Alkaline Phosphatase Troponin I High Sens B-Natriuretic Peptide Total Protein Albumin COVID-19 (LAZARO) Negative COVID-19 Clin Com See Note Influenza Type A (STALIN) Negative Influenza Type B (STALIN) Negative Influenza A & B Note See Note 08/29/22 08/29/22 00:53 00:53 MCV MCH MCHC RDW Plt Count MPV Immature Gran % (Auto) Neut % (Auto) Lymph % (Auto) [place] % (Auto) Eos % (Auto) Baso % (Auto) Lymph # (Auto) [place] # (Auto) Eos # (Auto) Baso # (Auto) Abs Immat Gran (auto) Absolute Neuts (auto) Absolute Nucleated RBC Nucleated RBC % (auto) D-Dimer High Sensitivty Anion Gap Estim Creat Clear Calc Estimated GFR Random Glucose Calcium Total Bilirubin AST ALT Alkaline Phosphatase Troponin I High Sens 14.0 D B-Natriuretic Peptide 438 H Total Protein Albumin COVID-19 (LAZARO) COVID-19 Clin Com Influenza Type A (STALIN) Influenza Type B (STALIN) Influenza A & B Note Imaging Radiologist's Impressions: Impressions Chest X-Ray 08/28/22 21:07 IMPRESSION: Findings suggest right upper lobe infiltrate versus chronic changes. There are no films to compare. Follow-up films are recommended after treatment to continue assessment Chest CTA 08/29/22 00:24 IMPRESSION: No filling defect to suggest a pulmonary embolism. Lung hankins are characterized by coarse interstitial markings with areas of groundglass change. This could be consistent with small airways disease or subtle areas of infiltrate. Pulmonary edema cannot be excluded. Some small areas of lung nodularity are noted. Low-dose noncontrast follow-up recommended in 6 months. Assessment and Plan (1) Atrial fibrillation with RVR: Status: Acute (2) Pneumonia: Status: Acute (3) Elevated brain natriuretic peptide (BNP) level: Status: Acute (4) Pleuritic chest pain: Status: Acute Plan this is an 82-year-old female with past medical history of hypothyroidism presents to the hospital with complaints of chest pain and shortness of breath found to have pneumonia as well as new onset AFib with RVR # pleuritic chest pain - possibly secondary to pneumonia versus PE less likely as CT angiogram negative for PE, aortic dissection / aneurysm less likely, no evidence of CT angiogram - patient has evidence of pulmonary edema as well as infiltrates on CT of the chest - troponin negative x2 - no EKG suggestive of ACS # AFib with RVR - new onset - CHADSVASC score of 3 - patient possibly has sick sinus syndrome as her heart rate initially in the 50s went to the 130s, and now dropped to 30s after receiving various denita blockers - at this time being placed on pacer pads, received atropine with heart rate improving to the 50s, BP low, patient being transferred to ICU - cardiology consulted # elevated BNP - no clinical evidence of volume overload although has evidence of pulmonary edema as well as elevated BNP on lab/imaging - will monitor of Lasix given soft BP - cardiology consulted DVT prophylaxis: Eliquis given for AFib by ED at this time patient is being transferred to ICU for further manageme Time Spent With Patient Time: Total time managing care of this patient today ____ minutes. Quality Stroke Does the patient have a stroke diagnosis?: No VTE Prior VTE?: No VTE Risk Level:: Medical - moderate - high VTE Device Contraindication: Treatment Not Indicated VTE Drug Contraindication: N/A - Med Ordered
[2022-08-29 06:03] LABS: MANUAL DIFF FLAG NO
[2022-08-29 06:21] LABS: Lactic Acid 1.1 mmol/L (0.5-2.0)
[2022-08-29 06:26] LABS: Alanine Aminotransferase 7 U/L (0-31); Albumin Level 2.7 g/dL (3.5-5.0); Alkaline Phosphatase 34 U/L (39-117); Anion Gap 13 (12-20); Aspartate Amino Transferase 10 U/L (5-31); Bilirubin Total 0.7 mg/dL (0.0-1.0); Blood Urea Nitrogen 12 mg/dL (9-16); Calcium 7.3 mg/dL (8.4-10.2); Carbon Dioxide 14 mmol/L (22-29); Chloride 116 mmol/L (96-108); Creatinine Clr Calc Pharmacy 72.3; Estimated Glomerular Filt Rate > 60; Glucose Random 135 mg/dL (60-115); Potassium 3.8 mmol/L (3.3-5.1); Sodium 139 mmol/L (135-145); Total Protein 4.7 g/dL (6.5-8.0)
[2022-08-29 06:28] LABS: Basophils Percent Auto 0.2 % (0-2); Hematocrit 33.7 % (37.0-47.0); Hemoglobin 10.7 g/dl (12.0-16.0); Imm Gran Abs Auto 0.06 X10*3/uL (0.00-0.03); Imm Gran Pct Auto 0.4 % (0.0-0.4); Lymphocytes Absolute Auto 1.7 X10*3/uL (1.2-4.9); Lymphocytes Percent Auto 12.3 % (20-40); Mean Corpuscular HGB Conc 31.8 g/dl (31.0-35.0); Mean Corpuscular Hemoglobin 29.7 pg (27.0-33.0); Mean Corpuscular Volume 93.6 fL (80.0-98.0); Mean Platelet Volume 11.3 fL (9.4-12.3); Monocytes Absolute Auto 1.4 X10*3/uL (0.1-1.2); Monocytes Percent Auto 10.3 % (2-11); Neutrophils Absolute Auto 10.6 x10*3/uL (2.0-8.3); Neutrophils Percent Auto 76.8 % (45-73); Platelet Count 174 X10*3/uL (160-400); Red Cell Distribution Width 12.8 % (11.0-16.0); White Blood Count 13.8 X10*3/uL (4.8-10.8)
[2022-08-29 06:29] LABS: Troponin-I High Sensitivity 15.9 ng/L (<3.5-17.0)
--- NOTE | 2022-08-29 06:46 | PC.NURSE ---
Pt had 400 mL output collected from uMentioned.
[2022-08-29] MEDS: 0.9 % Sodium Chloride Flush 3 ML SYRINGE IVFLUSH ×2 (07:59→16:26)
[2022-08-29] MEDS: Acetaminophen 325 MG TABLET 650 MG PO (09:41)
[2022-08-29 10:16] LABS: Venous Blood Gas Refer to POC result
--- NOTE | 2022-08-29 10:27 | P.PNCC_ITS ---
Subjective Subjective Date of Service: 08/29/22 Interval History: 82-year-old lady with underlying history of hypothyroidism, bradycardia being worked by [facility], admitted on 08/29/2022 with complains of pleuritic chest pain and dyspnea. On ER evaluation patient with AFib with RVR given metoprolol, digoxin, and Cardizem for rate control with development of symptomatic bradycardia requiring initiation of pressor support, administration of atropine, and transferred to intensive care unit. CT angiogram chest with no pulmonary emboli asthma or large infiltrate, however with complaints of cough and mild leukocytosis, empirically covered with Levaquin for possible community- acquired pneumonia. Critical Care Time (minutes): 60 Physical Exam Vital Signs: Vital Signs: Last Vital Signs Temp 99.7 F 08/29/22 10:00 Pulse 47 L 08/29/22 10:00 Resp 14 08/29/22 10:00 BP 135/65 08/29/22 10:15 Pulse Ox 96 08/29/22 10:00 O2 Del Method 08/29/22 10:00 O2 Flow Rate 2 08/29/22 10:00 BMI result Body Mass Index 27.0 Const: General: no acute distress, alert and awake Eyes: Sclerae: sclerae normal EOM: EOMs intact bilaterally Neck: Neck: Yes no lymphadenopathy, Yes trachea midline and Yes supple Resp: Effort & Inspection: normal respiratory effort and no respiratory distress Auscultation: clear to auscultation bilaterally Cardio: Rate: bradycardic Rhythm: regular rhythm Heart sounds: no gallops, no murmurs and no rubs GI: Palpation (GI): Soft to palpation and Other GI palpation findings present ( Nontender) Auscultation: normal bowel sounds Extrem: General: No clubbing, No cyanosis and Yes edema ( Trace bilateral) Objective Data Labs 08/29/22 05:58 08/29/22 05:58 Labs: Laboratory Results - last 24 hr 08/28/22 08/28/22 08/28/22 19:41 19:41 19:41 WBC 11.2 H RBC 4.48 Hgb 13.3 Hct 39.5 MCV 88.2 MCH 29.7 MCHC 33.7 RDW 12.6 Plt Count 206 MPV 11.1 Immature Gran % (Auto) 0.2 Neut % (Auto) 69.8 Lymph % (Auto) 17.6 L [place] % (Auto) 11.0 Eos % (Auto) 1.1 Baso % (Auto) 0.3 Lymph # (Auto) 2.0 [place] # (Auto) 1.2 Eos # (Auto) 0.1 Baso # (Auto) 0.0 Abs Immat Gran (auto) 0.02 Absolute Neuts (auto) 7.8 Absolute Nucleated RBC 0.000 Nucleated RBC % (auto) 0.0 D-Dimer High Sensitivty Sodium 139 Potassium 3.9 Chloride 107 Carbon Dioxide 22 Anion Gap 14 BUN 16 Creatinine 0.76 Estim Creat Clear Calc 57.0 Estimated GFR > 60 Random Glucose 108 Lactic Acid Calcium 9.2 Total Bilirubin 0.5 AST 13 ALT 10 Alkaline Phosphatase 56 Troponin I High Sens 7.4 B-Natriuretic Peptide Total Protein 6.9 Albumin 4.0 COVID-19 (LAZARO) COVID-19 Clin Com Influenza Type A (STALIN) Influenza Type B (STALIN) Influenza A & B Note 08/28/22 08/28/22 08/28/22 21:18 21:18 23:18 WBC RBC Hgb Hct MCV MCH MCHC RDW Plt Count MPV Immature Gran % (Auto) Neut % (Auto) Lymph % (Auto) [place] % (Auto) Eos % (Auto) Baso % (Auto) Lymph # (Auto) [place] # (Auto) Eos # (Auto) Baso # (Auto) Abs Immat Gran (auto) Absolute Neuts (auto) Absolute Nucleated RBC Nucleated RBC % (auto) D-Dimer High Sensitivty 426 Sodium Potassium Chloride Carbon Dioxide Anion Gap BUN Creatinine Estim Creat Clear Calc Estimated GFR Random Glucose Lactic Acid Calcium Total Bilirubin AST ALT Alkaline Phosphatase Troponin I High Sens B-Natriuretic Peptide Total Protein Albumin COVID-19 (LAZARO) Negative COVID-19 Clin Com See Note Influenza Type A (STALIN) Negative Influenza Type B (STALIN) Negative Influenza A & B Note See Note 08/29/22 08/29/22 08/29/22 00:53 00:53 05:58 WBC RBC Hgb Hct MCV MCH MCHC RDW Plt Count MPV Immature Gran % (Auto) Neut % (Auto) Lymph % (Auto) [place] % (Auto) Eos % (Auto) Baso % (Auto) Lymph # (Auto) [place] # (Auto) Eos # (Auto) Baso # (Auto) Abs Immat Gran (auto) Absolute Neuts (auto) Absolute Nucleated RBC Nucleated RBC % (auto) D-Dimer High Sensitivty Sodium Cancelled Potassium Cancelled Chloride Cancelled Carbon Dioxide Cancelled Anion Gap Cancelled BUN Cancelled Creatinine Cancelled Estim Creat Clear Calc Cancelled Estimated GFR Cancelled Random Glucose Cancelled Lactic Acid Calcium Cancelled Total Bilirubin Cancelled AST Cancelled ALT Cancelled Alkaline Phosphatase Cancelled Troponin I High Sens 14.0 D B-Natriuretic Peptide 438 H Total Protein Cancelled Albumin Cancelled COVID-19 (LAZARO) COVID-19 Clin Com Influenza Type A (STALIN) Influenza Type B (STALIN) Influenza A & B Note 08/29/22 08/29/22 08/29/22 05:58 05:58 05:58 WBC 13.8 H RBC 3.60 L Hgb 10.7 L Hct 33.7 L MCV 93.6 D MCH 29.7 MCHC 31.8 RDW 12.8 Plt Count 174 MPV 11.3 Immature Gran % (Auto) 0.4 Neut % (Auto) 76.8 H Lymph % (Auto) 12.3 L [place] % (Auto) 10.3 Eos % (Auto) 0.0 Baso % (Auto) 0.2 Lymph # (Auto) 1.7 [place] # (Auto) 1.4 H Eos # (Auto) 0.0 Baso # (Auto) 0.0 Abs Immat Gran (auto) 0.06 H Absolute Neuts (auto) 10.6 H Absolute Nucleated RBC 0.000 Nucleated RBC % (auto) 0.0 D-Dimer High Sensitivty Sodium 139 Potassium 3.8 Chloride 116 H Carbon Dioxide 14 L Anion Gap 13 BUN 12 Creatinine 0.60 Estim Creat Clear Calc 72.3 Estimated GFR > 60 Random Glucose 135 H Lactic Acid 1.1 Calcium 7.3 L D Total Bilirubin 0.7 AST 10 ALT 7 Alkaline Phosphatase 34 L Troponin I High Sens B-Natriuretic Peptide Total Protein 4.7 L Albumin 2.7 L COVID-19 (LAZARO) COVID-19 Clin Com Influenza Type A (STALIN) Influenza Type B (STALIN) Influenza A & B Note 08/29/22 05:58 WBC RBC Hgb Hct MCV MCH MCHC RDW Plt Count MPV Immature Gran % (Auto) Neut % (Auto) Lymph % (Auto) [place] % (Auto) Eos % (Auto) Baso % (Auto) Lymph # (Auto) [place] # (Auto) Eos # (Auto) Baso # (Auto) Abs Immat Gran (auto) Absolute Neuts (auto) Absolute Nucleated RBC Nucleated RBC % (auto) D-Dimer High Sensitivty Sodium Potassium Chloride Carbon Dioxide Anion Gap BUN Creatinine Estim Creat Clear Calc Estimated GFR Random Glucose Lactic Acid Calcium Total Bilirubin AST ALT Alkaline Phosphatase Troponin I High Sens 15.9 B-Natriuretic Peptide Total Protein Albumin COVID-19 (LAZARO) COVID-19 Clin Com Influenza Type A (STALIN) Influenza Type B (STALIN) Influenza A & B Note Progress Note: A&P Assessment and plan (1) Symptomatic bradycardia: Status: Acute (2) Atrial fibrillation with RVR: Status: Acute Plan Assessment: 82-year-old lady admitted with symptomatic bradycardia, 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 Plan: Neuro: No acute issues. 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 cardiology service appreciated. 2D echocardiogram is pending. Possible underlying congestive heart failure. Pulmonary: No acute issues. Renal: No acute issues. Endo: No acute issues. GI: No acute issues. ID: May have a component of community-acquired pneumonia, empirically covered with Levaquin. Cultures are pending. Heme/Onc: No acute issues. Psych: No acute issues. Miscellaneous: No acute issues. Prophylaxis: Heparin Diet: regular Critical care time spent: 60 minutes Quality Stroke Does the patient have a stroke diagnosis?: No VTE Prior VTE?: No VTE Risk Level:: Medical - moderate - high VTE Device Contraindication: Treatment Not Indicated VTE Drug Contraindication: N/A - Med Ordered
[2022-08-29 10:30] LABS: VBG Base Excess -6.4 mmol/L; VBG HCO3 17 mmol/L (22-26); VBG pCO2 29 mmHg; VBG pH 7.37 (7.32-7.43); VBG pO2 74 mmHg
[2022-08-29] MEDS: levoFLOXacin/D5W 750 MG/150 ML PIGGYBACK 100 MG IV (10:34)
[2022-08-29 10:37] LABS: Anion Gap 13 (12-20); Blood Urea Nitrogen 13 mg/dL (9-16); Calcium 8.8 mg/dL (8.4-10.2); Carbon Dioxide 19 mmol/L (22-29); Chloride 109 mmol/L (96-108); Creatinine Clr Calc Pharmacy 58.3; Estimated Glomerular Filt Rate > 60; Glucose Random 178 mg/dL (60-115); Magnesium 1.5 mg/dL (1.6-2.6); Phosphorus 3.2 mg/dL (2.7-4.5); Sodium 137 mmol/L (135-145)
[2022-08-29 10:40] LABS: B Type Natriuretic Peptide 763 pg/mL (<100)
[2022-08-29 10:42] LABS: Troponin-I High Sensitivity 14.3 ng/L (<3.5-17.0)
--- NOTE | 2022-08-29 10:45 | PHA.MEDREC ---
Pharmacy Consult ? Medication Reconciliation Pharmacy has completed the medication reconciliation. Patient and family member confirmed medications at bedside. Had list from [employer] on their phone.
--- NOTE | 2022-08-29 11:07 | P.CONCA_ITS ---
History of Present Illness History of Present Illness Date of Service: 08/29/22 Requesting physician: Jose Lopez Chief complaint: Tachy-pako syndrome Narrative: 82-year-old female who follows with [facility] for bradycardia. She has asymptomatic sinus bradycardia for long time and previously had discussion about pacemaker placement but did not have significant symptoms and was being monitored by her report. She is presenting with pneumonia. She was complaining of sharp chest pains and shortness of breath. PE was ruled out. She was started on antibiotics. She developed atrial fibrillation with rapid ventricular response. She was given metoprolol IV, digoxin and subsequently was also given Cardizem. She developed symptomatic bradycardia after that with heart rate in 50s. By EKG she was and junctional rhythm but hard to know whether that was atrial fibrillation with complete heart block or not. In any case she has recovered from that and currently has sinus bradycardia. She has been on Levophed. She is denying any dizziness or lightheadedness. No syncope in the past. She is saying she is overall feeling little better. [facility] Past Medical History Medical History (Updated 08/29/22 @ 10:38 by Jose Lopez MD) Graves disease History of radioactive iodine thyroid ablation Hypothyroidism Surgical History Surgical History History of appendectomy History of lumpectomy of left breast Social History Social History Household Members: Spouse Housing: House Do you presently have visiting nurse or other home services: No Alcohol intake: current Alcohol intake frequency: a few times a week Alcohol type: wine Patient Tobacco Use Status: Former Tobacco user Tobacco use type: Cigarette e-Cigarette/Vaping Use: Never Used Second Hand Smoke Exposure: No Meds Allergies Allergy/AdvReac Type Severity Reaction Status Date / Time sulfamethoxazole Allergy unknown Verified 03/11/21 08:56 [From Bactrim] trimethoprim [From Bactrim] Allergy unknown Verified 03/11/21 08:56 Active Medications: Current Medications Acetaminophen (Acetaminophen 325 Mg Tablet) 650 mg PO Q6H PRN PRN Reason: Pain, Mild (Pain Scale 1-3) Last Admin: 08/29/22 09:41 Dose: 650 mg Heparin Sodium (Porcine) (Heparin Sodium,Porcine 5,000 Unit/Ml Vial) 5,000 unit SUBCUT Q12H [facility] Last Admin: 08/29/22 04:46 Dose: 5,000 unit Norepinephrine Bitartrate (Levophed) 8 mg in 250 mls @ 0 mls/hr IV .Q0M [facility]; Protocol Last Titration: 08/29/22 10:15 Dose: 0 mcg/kg/min, 0 mls/hr Levofloxacin (Levaquin) 750 mg in 150 mls @ 100 mls/hr IV Q24H [facility] Last Admin: 08/29/22 10:34 Dose: 100 mls/hr Ondansetron HCl (Ondansetron Hcl 4 Mg/2 Ml Vial) 4 mg IVPUSH Q8H PRN PRN Reason: Nausea Ondansetron HCl (Ondansetron Hcl 4 Mg/2 Ml Vial) 4 mg IVPUSH Q8H PRN PRN Reason: Nausea and Vomiting Last Admin: 08/29/22 04:45 Dose: 4 mg Sodium Chloride (0.9 % Sodium Chloride Flush 3 Ml Syringe) 3 [facility] Last Admin: 08/29/22 07:59 Dose: 3 ml Home Medications Medication Instructions Recorded Confirmed Last Taken Type atorvastatin 10 mg tablet 10 mg PO DAILY 03/11/21 08/29/22 08/28/22 09:00 History dicyclomine 10 mg capsule 10 mg PO TID 03/11/21 08/29/22 08/28/22 09:00 History fluticasone propionate 50 2 spray intranasal BID 03/11/21 08/29/22 08/28/22 09:00 History mcg/actuation nasal spray,suspension levothyroxine 137 mcg tablet 137 mcg PO DAILY@0603/11/21 08/29/22 08/28/22 09:00 History (Synthroid) meclizine 25 mg tablet 25 mg PO TID PRN Motion Sickness 03/11/21 08/29/22 Unknown History methocarbamol 500 mg tablet 500 mg PO TID PRN back spasm 03/11/21 08/29/22 08/28/22 09:00 History nitrofurantoin macrocrystal 50 mg 50 mg PO MOWEFR@0903/11/21 08/29/22 08/27/22 History capsule omeprazole 20 mg capsule,delayed 20 mg PO DAILY@0630 03/11/21 08/29/22 08/28/22 09:00 History release ascorbic acid (vitamin C) 500 mg 500 mg PO BID 08/29/22 08/29/22 08/28/22 09:00 History tablet (Vitamin C) calcium carbonate 600 mg-vitamin 1 tab PO DAILY 08/29/22 08/29/22 08/28/22 09:00 History D3 5 mcg (200 unit) tablet cholecalciferol (vitamin D3) 25 25 mcg PO MOWEFR@0900 08/29/22 08/29/22 08/27/22 History mcg (1,000 unit) tablet (Vitamin D3) cranberry 500 mg capsule 500 mg PO DAILY 08/29/22 08/29/22 08/28/22 09:00 History gabapentin 400 mg capsule 400 mg PO TID 08/29/22 08/29/22 Unknown History meloxicam 15 mg tablet 1 tab PO DAILY PRN pain 08/29/22 08/29/22 Unknown History Physical Exam Vital Signs: Vital Signs: Last Vital Signs Temp 99.9 F 08/29/22 10:57 Pulse 42 L 08/29/22 10:57 Resp 23 H 08/29/22 10:57 BP 115/52 L 08/29/22 10:57 Pulse Ox 94 08/29/22 10:57 O2 Del Method 08/29/22 10:57 O2 Flow Rate 2 08/29/22 10:57 BMI result Body Mass Index 27.0 GENERAL APPEARANCE: in no acute distress, pleasant. NECK: no carotid bruit, no jugular venous distention. SKIN: no suspicious lesions, warm and dry. HEART: no murmurs, regular rate and rhythm. Bradycardic. LUNGS: clear to auscultation anteriorly. ABDOMEN: soft, nontender. EXTREMITIES: no edema. PERIPHERAL PULSES: equal. NEUROLOGIC: No gross deficits, AAO X 3 Objective Labs and Meds 08/29/22 05:58 08/29/22 10:04 Lab results: Laboratory Results - last 24 hr 08/28/22 08/28/22 08/28/22 19:41 19:41 19:41 WBC 11.2 H RBC 4.48 Hgb 13.3 Hct 39.5 MCV 88.2 MCH 29.7 MCHC 33.7 RDW 12.6 Plt Count 206 MPV 11.1 Immature Gran % (Auto) 0.2 Neut % (Auto) 69.8 Lymph % (Auto) 17.6 L [place] % (Auto) 11.0 Eos % (Auto) 1.1 Baso % (Auto) 0.3 Lymph # (Auto) 2.0 [place] # (Auto) 1.2 Eos # (Auto) 0.1 Baso # (Auto) 0.0 Abs Immat Gran (auto) 0.02 Absolute Neuts (auto) 7.8 Absolute Nucleated RBC 0.000 Nucleated RBC % (auto) 0.0 D-Dimer High Sensitivty VBG pH VBG pCO2 VBG pO2 VBG HCO3 VBG O2 Saturation VBG Base Excess Sodium 139 Potassium 3.9 Chloride 107 Carbon Dioxide 22 Anion Gap 14 BUN 16 Creatinine 0.76 Estim Creat Clear Calc 57.0 Estimated GFR > 60 Random Glucose 108 Lactic Acid Calcium 9.2 Phosphorus Magnesium Total Bilirubin 0.5 AST 13 ALT 10 Alkaline Phosphatase 56 Troponin I High Sens 7.4 B-Natriuretic Peptide Total Protein 6.9 Albumin 4.0 COVID-19 (LAZARO) COVID-19 Clin Com Influenza Type A (STALIN) Influenza Type B (STALIN) Influenza A & B Note 08/28/22 08/28/22 08/28/22 21:18 21:18 23:18 WBC RBC Hgb Hct MCV MCH MCHC RDW Plt Count MPV Immature Gran % (Auto) Neut % (Auto) Lymph % (Auto) [place] % (Auto) Eos % (Auto) Baso % (Auto) Lymph # (Auto) [place] # (Auto) Eos # (Auto) Baso # (Auto) Abs Immat Gran (auto) Absolute Neuts (auto) Absolute Nucleated RBC Nucleated RBC % (auto) D-Dimer High Sensitivty 426 VBG pH VBG pCO2 VBG pO2 VBG HCO3 VBG O2 Saturation VBG Base Excess Sodium Potassium Chloride Carbon Dioxide Anion Gap BUN Creatinine Estim Creat Clear Calc Estimated GFR Random Glucose Lactic Acid Calcium Phosphorus Magnesium Total Bilirubin AST ALT Alkaline Phosphatase Troponin I High Sens B-Natriuretic Peptide Total Protein Albumin COVID-19 (LAZARO) Negative COVID-[facility] Clin Com See Note Influenza Type A (STALIN) Negative Influenza Type B (STALIN) Negative Influenza A & B Note See Note 08/29/22 08/29/22 08/29/22 00:53 00:53 05:58 WBC RBC Hgb Hct MCV MCH MCHC RDW Plt Count MPV Immature Gran % (Auto) Neut % (Auto) Lymph % (Auto) [place] % (Auto) Eos % (Auto) Baso % (Auto) Lymph # (Auto) [place] # (Auto) Eos # (Auto) Baso # (Auto) Abs Immat Gran (auto) Absolute Neuts (auto) Absolute Nucleated RBC Nucleated RBC % (auto) D-Dimer High Sensitivty VBG pH VBG pCO2 VBG pO2 VBG HCO3 VBG O2 Saturation VBG Base Excess Sodium Cancelled Potassium Cancelled Chloride Cancelled Carbon Dioxide Cancelled Anion Gap Cancelled BUN Cancelled Creatinine Cancelled Estim Creat Clear Calc Cancelled Estimated GFR Cancelled Random Glucose Cancelled Lactic Acid Calcium Cancelled Phosphorus Magnesium Total Bilirubin Cancelled AST Cancelled ALT Cancelled Alkaline Phosphatase Cancelled Troponin I High Sens 14.0 D B-Natriuretic Peptide 438 H Total Protein Cancelled Albumin Cancelled COVID-19 (LAZARO) COVID-19 Clin Com Influenza Type A (STALIN) Influenza Type B (STALIN) Influenza A & B Note 08/29/22 08/29/22 08/29/22 05:58 05:58 05:58 WBC 13.8 H RBC 3.60 L Hgb 10.7 L Hct 33.7 L MCV 93.6 D MCH 29.7 MCHC 31.8 RDW 12.8 Plt Count 174 MPV 11.3 Immature Gran % (Auto) 0.4 Neut % (Auto) 76.8 H Lymph % (Auto) 12.3 L [place] % (Auto) 10.3 Eos % (Auto) 0.0 Baso % (Auto) 0.2 Lymph # (Auto) 1.7 [place] # (Auto) 1.4 H Eos # (Auto) 0.0 Baso # (Auto) 0.0 Abs Immat Gran (auto) 0.06 H Absolute Neuts (auto) 10.6 H Absolute Nucleated RBC 0.000 Nucleated RBC % (auto) 0.0 D-Dimer High Sensitivty VBG pH VBG pCO2 VBG pO2 VBG HCO3 VBG O2 Saturation VBG Base Excess Sodium 139 Potassium 3.8 Chloride 116 H Carbon Dioxide 14 L Anion Gap 13 BUN 12 Creatinine 0.60 Estim Creat Clear Calc 72.3 Estimated GFR > 60 Random Glucose 135 H Lactic Acid 1.1 Calcium 7.3 L D Phosphorus Magnesium Total Bilirubin 0.7 AST 10 ALT 7 Alkaline Phosphatase 34 L Troponin I High Sens B-Natriuretic Peptide Total Protein 4.7 L Albumin 2.7 L COVID-19 (LAZARO) COVID-19 Clin Com Influenza Type A (STALIN) Influenza Type B (STALIN) Influenza A & B Note 08/29/22 08/29/22 08/29/22 05:58 10:04 10:04 WBC RBC Hgb Hct MCV MCH MCHC RDW Plt Count MPV Immature Gran % (Auto) Neut % (Auto) Lymph % (Auto) [place] % (Auto) Eos % (Auto) Baso % (Auto) Lymph # (Auto) [place] # (Auto) Eos # (Auto) Baso # (Auto) Abs Immat Gran (auto) Absolute Neuts (auto) Absolute Nucleated RBC Nucleated RBC % (auto) D-Dimer High Sensitivty VBG pH VBG pCO2 VBG pO2 VBG HCO3 VBG O2 Saturation VBG Base Excess Sodium 137 Potassium 4.0 Chloride 109 H Carbon Dioxide 19 L Anion Gap 13 BUN 13 Creatinine 0.76 Estim Creat Clear Calc 58.3 Estimated GFR > 60 Random Glucose 178 H Lactic Acid Calcium 8.8 D Phosphorus 3.2 Magnesium 1.5 L Total Bilirubin AST ALT Alkaline Phosphatase Troponin I High Sens 15.9 14.3 B-Natriuretic Peptide Total Protein Albumin COVID-19 (LAZARO) COVID-19 Clin Com Influenza Type A (STALIN) Influenza Type B (STALIN) Influenza A & B Note 08/29/22 08/29/22 10:04 10:12 WBC RBC Hgb Hct MCV MCH MCHC RDW Plt Count MPV Immature Gran % (Auto) Neut % (Auto) Lymph % (Auto) [place] % (Auto) Eos % (Auto) Baso % (Auto) Lymph # (Auto) [place] # (Auto) Eos # (Auto) Baso # (Auto) Abs Immat Gran (auto) Absolute Neuts (auto) Absolute Nucleated RBC Nucleated RBC % (auto) D-Dimer High Sensitivty VBG pH 7.37 VBG pCO2 29 VBG pO2 74 VBG HCO3 17 L VBG O2 Saturation 94.0 VBG Base Excess -6.4 Sodium Potassium Chloride Carbon Dioxide Anion Gap BUN Creatinine Estim Creat Clear Calc Estimated GFR Random Glucose Lactic Acid Calcium Phosphorus Magnesium Total Bilirubin AST ALT Alkaline Phosphatase Troponin I High Sens B-Natriuretic Peptide 763 H Total Protein Albumin COVID-19 (LAZARO) COVID-19 Clin Com Influenza Type A (STALIN) Influenza Type B (STALIN) Influenza A & B Note Imaging Radiologist's impression: Impressions Chest X-Ray 08/28/22 21:07 IMPRESSION: Findings suggest right upper lobe infiltrate versus chronic changes. There are no films to compare. Follow-up films are recommended after treatment to continue assessment Chest CTA 08/29/22 00:24 IMPRESSION: No filling defect to suggest a pulmonary embolism. Lung hankins are characterized by coarse interstitial markings with areas of groundglass change. This could be consistent with small airways disease or subtle areas of infiltrate. Pulmonary edema cannot be excluded. Some small areas of lung nodularity are noted. Low-dose noncontrast follow-up recommended in 6 months. Assessment and Plan (1) Tachy-pako syndrome: Status: Acute (2) Symptomatic bradycardia: Status: Acute Plan 82-year-old female with known history of asymptomatic sinus bradycardia who is presenting with pneumonia. She developed atrial fibrillation with rapid ventricular response and was given medications to control her heart rate and developed bradycardia with hypotension. She was brought to the ICU and was started on Levophed. EKGs documented that system have shown atrial fibrillation and junctional rhythm after that. Difficult to say whether it was junctional rhythm or complete heart block with atrial fibrillation the background. In any case she has recovered from the junctional rhythm is currently in sinus bradycardia. This is her usual rhythm. She has no symptoms. Depending on blood pressure please titrate the Levophed and stop if she can tolerated. Continue medications as before. She had 1 episode of atrial fibrillation so far. Her chads Vasc score is at least 3 based on age and gender. Assess ejection fraction with echocardiography tomorrow. If she has recurrent atrial fibrillation episodes or LV dysfunction on echocardiography out strongly consider anticoagulation in that case. Alternatively she has tears were as of 3 and can be anticoagulated based on the risk score regardless of further workup. I had a detailed discussion with the patient and her family that previously she had asymptomatic sinus bradycardia but with tachy-pako syndrome sometimes a heart rates can fluctuate too much and to safely treat the faster heart rhythms we may have to place a permanent pacemaker. Right now she is stable and does not need it and we can wait and see how her clinical situation evolves. Currently not in heart failure clinically. Thank you for allowing me to participate in the care of your patient. Please feel free to contact me if you have any questions. Time Spent With Patient Time: Total time managing care of this patient today ____ minutes. Procedures Date of Service Date of Service: 08/29/22
[2022-08-29] MEDS: Magnesium Sulfate/H2O 2 GM/50 ML PIGGYBACK IV (12:56)
[2022-08-29] MEDS: Albumin Human 25 % 100 ML IV (12:56)
[2022-08-29] MEDS: Furosemide 20 MG/2 ML VIAL IVPUSH (12:56)
--- NOTE | 2022-08-29 15:44 | MHC.CM.PN ---
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 Met with patient in ICU. She is A+OX4. She lives with her spouse. She is independent with all functional mobility. She does not require DME. Her is her HCP. A copy has been requested. She has been vaccinated x 4. DP home self care. She is open to post hospital services if needed. She will arrange for transportation at discharge.
--- NOTE | 2022-08-29 18:36 | PC.NURSE ---
Pt arrived to the unit from ED at the start of the shift. Pt continues to be on Levophed gtt, unable to wean off at this time. Pt continues to be SB with 1st*AVB on tele (rates from 30s-50s); MD aware. Pt midshift making 0-20cc UO, more concentrated, made aware, IV Lasix 20mg, albumin and 2g of Mg given as ordered; improved UO. Pt initially incontinent of soft pasty stool, able to use bed beard and now is able to get up to the commode with an assist. No distress noted when OOB. Pt weaned off O2 supplement, on RA currently and satting in the mid 90s. Pt continued to c/o of mid sternal CP, unchanged, PRN Tylenol given with minimal effect, MD aware. PRN Nausea given for nausea with good effect, no emesis noted. Pt currently resting in bed with no acute distress. Family members visiting at bedside, updated and all question answered. Will continue to monitor.
[2022-08-29] MEDS: Ketorolac Tromethamine 15 MG/ML VIAL IVPUSH (19:59)
[2022-08-29] MEDS: LORazepam 0.5 MG TABLET PO (20:30)
[2022-08-30] VITALS (23 sets, daily range): BP systolic 94–139; BP diastolic 36–71; PULSE 42–158; RESP 14–28; TEMP 36.8–37.9; O2SAT 91–99; BMI 25.8
[2022-08-30 00:13] LABS: VBG Base Excess -3.3 mmol/L; VBG HCO3 19 mmol/L (22-26); VBG pCO2 28 mmHg; VBG pH 7.44 (7.32-7.43); VBG pO2 90 mmHg
[2022-08-30] MEDS: 0.9 % Sodium Chloride Flush 3 ML SYRINGE IVFLUSH ×3 (00:16→23:47)
[2022-08-30] MEDS: Morphine Sulfate 2 MG/ML CARTRIDGE 1 MG IVPUSH (00:19)
[2022-08-30 00:20] LABS: Basophils Percent Auto 0.2 % (0-2); Eosinophils Percent Auto 0.2 % (0-4); Hematocrit 35.7 % (37.0-47.0); Hemoglobin 11.9 g/dl (12.0-16.0); Imm Gran Abs Auto 0.05 X10*3/uL (0.00-0.03); Imm Gran Pct Auto 0.4 % (0.0-0.4); Lymphocytes Absolute Auto 3.2 X10*3/uL (1.2-4.9); Lymphocytes Percent Auto 22.6 % (20-40); MANUAL DIFF FLAG SCAN; Mean Corpuscular HGB Conc 33.3 g/dl (31.0-35.0); Mean Corpuscular Hemoglobin 29.4 pg (27.0-33.0); Mean Corpuscular Volume 88.1 fL (80.0-98.0); Mean Platelet Volume 11.2 fL (9.4-12.3); Monocytes Absolute Auto 1.5 X10*3/uL (0.1-1.2); Monocytes Percent Auto 10.8 % (2-11); Neutrophils Absolute Auto 9.3 x10*3/uL (2.0-8.3); Neutrophils Percent Auto 65.8 % (45-73); Platelet Count 192 X10*3/uL (160-400); Red Blood Count 4.05 X10*6/uL (4.20-5.50); Red Cell Distribution Width 12.9 % (11.0-16.0); SCAN SMEAR FLAG 1; White Blood Count 14.2 X10*3/uL (4.8-10.8)
[2022-08-30 00:23] LABS: SLIDE REVIEW VERIFIED
[2022-08-30 00:41] LABS: Anion Gap 14 (12-20); Blood Urea Nitrogen 15 mg/dL (9-16); Calcium 8.5 mg/dL (8.4-10.2); Carbon Dioxide 19 mmol/L (22-29); Chloride 107 mmol/L (96-108); Creatinine Clr Calc Pharmacy 54.7; Estimated Glomerular Filt Rate > 60; Glucose Random 100 mg/dL (60-115); Magnesium 1.9 mg/dL (1.6-2.6); Phosphorus 2.3 mg/dL (2.7-4.5); Potassium 3.4 mmol/L (3.3-5.1); Sodium 137 mmol/L (135-145)
[2022-08-30 00:42] LABS: B Type Natriuretic Peptide 740 pg/mL (<100)
[2022-08-30 00:49] LABS: Troponin-I High Sensitivity 133.5 ng/L (<3.5-17.0)
[2022-08-30] MEDS: Potassium Phosphate/NS 15 MMOL/250 ML PLAST..BAG 62.5 MMOL IV (01:08)
[2022-08-30] MEDS: Furosemide 20 MG/2 ML VIAL IVPUSH (01:08)
[2022-08-30 01:13] LABS: Venous Blood Gas Refer to POC result
--- NOTE | 2022-08-30 04:32 | PC.NURSE ---
Addendum entered by Reanna Harris RN 08/30/22 06:19: pt had 6.6 second pause on Dawit mccrary at bedside, new orders for calcium and mag. pacer pads placed on pt. Original Note: assumed care at 1900. pt A&O, c/o tightness in chest, dry cough, sats 88% on room air, lung sounds dim, Dawit Desilverizer made aware new order for toradol 15mg IV, sats remain 90-87%. pt placed on 3L NC no improvment, placed on oxymask 5L, new order for 0.5mg ativan, CXR and labs. BNP 740 new order for 20mg lasix, and new order for morphine 1mg to decreased work of breathing as VBGS showed hyperventilation and 02 decreased to 3LNc . 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
[2022-08-30] MEDS: Heparin Sodium,Porcine 5,000 UNIT/ML VIAL 5000 UNIT SUBCUT (05:16)
[2022-08-30 05:20] LABS: VBG Base Excess -1.1 mmol/L; VBG HCO3 21 mmol/L (22-26); VBG pCO2 27 mmHg; VBG pH 7.48 (7.32-7.43); VBG pO2 76 mmHg
[2022-08-30] MEDS: Norepinephrine Bitartrate/D5W 8 MG/250 ML PLAST..BAG 5.27 MG IV (05:20)
[2022-08-30 05:28] LABS: Venous Blood Gas Refer to POC result
[2022-08-30 05:40] LABS: MANUAL DIFF FLAG NO
[2022-08-30 05:41] LABS: Basophils Absolute Auto 0.1 X10*3/uL (0.0-0.2); Basophils Percent Auto 0.4 % (0-2); Eosinophils Absolute Auto 0.1 X10*3/uL (0.0-0.4); Eosinophils Percent Auto 0.8 % (0-4); Hematocrit 35.7 % (37.0-47.0); Imm Gran Abs Auto 0.04 X10*3/uL (0.00-0.03); Imm Gran Pct Auto 0.3 % (0.0-0.4); Lymphocytes Percent Auto 24.1 % (20-40); Mean Corpuscular HGB Conc 33.6 g/dl (31.0-35.0); Mean Corpuscular Volume 89.3 fL (80.0-98.0); Mean Platelet Volume 11.8 fL (9.4-12.3); Monocytes Absolute Auto 1.1 X10*3/uL (0.1-1.2); Monocytes Percent Auto 8.9 % (2-11); Neutrophils Absolute Auto 8.2 x10*3/uL (2.0-8.3); Neutrophils Percent Auto 65.5 % (45-73); Platelet Count 193 X10*3/uL (160-400); Red Cell Distribution Width 12.8 % (11.0-16.0); White Blood Count 12.5 X10*3/uL (4.8-10.8)
[2022-08-30 05:57] LABS: Albumin Level 3.5 g/dL (3.5-5.0); Anion Gap 13 (12-20); Blood Urea Nitrogen 13 mg/dL (9-16); Calcium 8.2 mg/dL (8.4-10.2); Carbon Dioxide 21 mmol/L (22-29); Chloride 109 mmol/L (96-108); Creatinine Clr Calc Pharmacy 59.8; Estimated Glomerular Filt Rate > 60; Glucose Random 89 mg/dL (60-115); Magnesium 1.7 mg/dL (1.6-2.6); Phosphorus 3.1 mg/dL (2.7-4.5); Potassium 3.6 mmol/L (3.3-5.1); Sodium 139 mmol/L (135-145)
[2022-08-30 06:02] LABS: Troponin-I High Sensitivity 72.1 ng/L (<3.5-17.0)
[2022-08-30] MEDS: Magnesium Sulfate/H2O 2 GM/50 ML PIGGYBACK IV (06:27)
[2022-08-30] MEDS: Calcium Gluconate/NaCl,Iso-Osm 1 GM/50 ML PLAST..BAG IV (06:27)
[2022-08-30] MEDS: DOPamine HCL/D5W 400 MG/250 ML PLAST..BAG 13.2 MG IVCONT (08:09)
--- NOTE | 2022-08-30 09:53 | HO.ANESPROP2 ---
HPI - Anesthesia Eval Consult details Narrative: 82yo female patient for dual pacemaker insertion. H/o hypothyroidism ?thyroid function tests? Used to see nuclear operations specialist but ? retired or left . No follow up recently. Pre-op echocardiogram unable to be done due to increased HR. 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 Thought to be euvolemic. EF reportedly 70%(unsure when from). Hypotension most likely from arrhythmia. Some significant pauses. Needs pacemaker urgently per cardiology. [facility] Active Problems Active Problems: All Active Problems (Updated 08/29/22 @ 10:59 by Sabi Connelly MD) Symptomatic bradycardia (Acute) Tachy-pako syndrome (Acute) Wound infection (Acute) Pneumonia (Acute) Atrial fibrillation with RVR (Acute) Elevated brain natriuretic peptide (BNP) level (Acute) Pleuritic chest pain (Acute) Hypotensive- on levophed, dopamine H/o shingles along sciatic nerve distribution Past Medical History Medical History (Updated 08/30/22 @ 11:25 by Jose Lopez MD) Graves disease History of radioactive iodine thyroid ablation Hypothyroidism Family History Family history of problems with anesthesia: No Surgical History Surgical History (Updated 08/30/22 @ 11:00 by Sabi Connelly MD) History of appendectomy History of lumpectomy of left breast History of tonsillectomy and adenoidectomy History of Problems with Anesthesia: No Social History Social History Household Members: Spouse Housing: House Do you presently have visiting nurse or other home services: No Alcohol intake: current Alcohol intake frequency: a few times a week Alcohol type: wine Patient Tobacco Use Status: Former Tobacco user Tobacco use type: Cigarette e-Cigarette/Vaping Use: Never Used Second Hand Smoke Exposure: No service: No Current occupational status: retired Meds Allergies Allergy/AdvReac Type Severity Reaction Status Date / Time sulfamethoxazole Allergy unknown Verified 03/11/21 08:56 [From Bactrim] trimethoprim [From Bactrim] Allergy unknown Verified 03/11/21 08:56 Active Medications: Current Medications Acetaminophen (Acetaminophen 325 Mg Tablet) 650 mg PO Q6H PRN PRN Reason: Pain, Mild (Pain Scale 1-3) Last Admin: 08/29/22 09:41 Dose: 650 mg Heparin Sodium (Porcine) (Heparin Sodium,Porcine 5,000 Unit/Ml Vial) 5,000 unit SUBCUT Q12H [facility] Last Admin: 08/30/22 05:16 Dose: 5,000 unit Norepinephrine Bitartrate (Levophed) 8 mg in 250 mls @ 0 mls/hr IV .Q0M [facility]; Protocol Last Titration: 08/30/22 09:05 Dose: 0.03 mcg/kg/min, 3.96 mls/hr Levofloxacin (Levaquin) 750 mg in 150 mls @ 100 mls/hr IV Q24H [facility] Last Infusion: 08/29/22 12:04 Dose: Infused Dopamine HCl/Dextrose (Dopamine Hcl/D5w) 400 mg in 250 mls @ 0 mls/hr IVCONT .Q0M [facility]; Protocol Last Titration: 08/30/22 09:03 Dose: 2.5 mcg/kg/min, 6.6 mls/hr Ondansetron HCl (Ondansetron Hcl 4 Mg/2 Ml Vial) 4 mg IVPUSH Q8H PRN PRN Reason: Nausea Last Admin: 08/29/22 17:30 Dose: 4 mg Ondansetron HCl (Ondansetron Hcl 4 Mg/2 Ml Vial) 4 mg IVPUSH Q8H PRN PRN Reason: Nausea and Vomiting Last Admin: 08/29/22 04:45 Dose: 4 mg Sodium Chloride (0.9 % Sodium Chloride Flush 3 Ml Syringe) 3 ml IVFLUSH QSHIFT [facility] Last Admin: 08/30/22 09:08 Dose: Not Given Home Medications Medication Instructions Recorded Confirmed Last Taken Type atorvastatin 10 mg tablet 10 mg PO DAILY 03/11/21 08/29/22 08/28/22 09:00 History dicyclomine 10 mg capsule 10 mg PO TID 03/11/21 08/29/22 08/28/22 09:00 History fluticasone propionate 50 2 spray intranasal BID 03/11/21 08/29/22 08/28/22 09:00 History mcg/actuation nasal spray,suspension levothyroxine 137 mcg tablet 137 mcg PO DAILY@0600 03/11/21 08/29/22 08/28/22 09:00 History (Synthroid) meclizine 25 mg tablet 25 mg PO TID PRN Motion Sickness 03/11/21 08/29/22 Unknown History methocarbamol 500 mg tablet 500 mg PO TID PRN back spasm 03/11/21 08/29/22 08/28/22 09:00 History nitrofurantoin macrocrystal 50 mg 50 mg PO MOWEFR@0900 03/11/21 08/29/22 08/27/22 History capsule omeprazole 20 mg capsule,delayed 20 mg PO DAILY@0630 03/11/21 08/29/22 08/28/22 09:00 History release ascorbic acid (vitamin C) 500 mg 500 mg PO BID 08/29/22 08/29/22 08/28/22 09:00 History tablet (Vitamin C) calcium carbonate 600 mg-vitamin 1 tab PO DAILY 08/29/22 08/29/22 08/28/22 09:00 History D3 5 mcg (200 unit) tablet cholecalciferol (vitamin D3) 25 25 mcg PO MOWEFR@0900 08/29/22 08/29/22 08/27/22 History mcg (1,000 unit) tablet (Vitamin D3) cranberry 500 mg capsule 500 mg PO DAILY 08/29/22 08/29/22 08/28/22 09:00 History gabapentin 400 mg capsule 400 mg PO TID 08/29/22 08/29/22 Unknown History meloxicam 15 mg tablet 1 tab PO DAILY PRN pain 08/29/22 08/29/22 Unknown History Exam Exam Date and Time: August 30, 2022 0953 Height,Weight and Vital Signs: Height 5 ft 5 in Weight 70.4 kg Vital Signs Temp Pulse Resp BP Pulse Ox O2 Del Method O2 Flow Rate 08/30/22 11:37 150 H 08/30/22 11:00 100.2 F 127 H 27 H 110/49 L 93 Nasal Cannula 3 08/30/22 09:03 157 H 08/30/22 10:00 100.0 F 135 H 22 H 111/64 91 L Nasal Cannula 3.0 08/30/22 09:00 99.9 F 158 H 22 H 122/69 92 Nasal Cannula 3.0 08/30/22 08:00 99.9 F 99 27 H 98/71 95 Nasal Cannula 3.0 08/30/22 07:00 99.9 F 111 H 24 H 129/69 94 Nasal Cannula 3.0 08/30/22 00:21 139/49 L 08/30/22 05:55 99.7 F 116 H 28 H 94/64 95 Nasal Cannula 3 08/30/22 04:55 99.9 F 119 H 22 H 109/61 95 Nasal Cannula 3 08/30/22 03:58 99.7 F 125 H 26 H 133/36 L 93 Nasal Cannula 3 08/30/22 02:55 99.5 F 113 H 22 H 118/70 93 Nasal Cannula 3 08/30/22 02:00 99.5 F 110 H 23 H 111/69 94 Nasal Cannula 3 08/30/22 00:57 99.9 F 42 L 19 117/48 L 97 Nasal Cannula 3 08/29/22 23:56 45 L 25 H 131/50 L 90 L Nasal Cannula 6 08/29/22 23:00 100.2 F 46 L 26 H 137/49 L 94 Nasal Cannula 3 08/29/22 22:00 100.4 F 48 L 25 H 123/47 L 93 Nasal Cannula 3 08/29/22 21:00 100.8 F H 45 L 24 H 126/46 L 92 Nasal Cannula 3 08/29/22 20:00 100.9 F H 48 L 15 124/43 L 90 L Room Air 08/29/22 19:00 100.4 F 54 18 133/43 L 90 L Room Air 08/29/22 17:00 100.4 F 48 L 22 H 108/39 L 94 Room Air 08/29/22 16:00 100.2 F 51 19 96/44 L 94 Nasal Cannula 3 08/29/22 15:00 99.9 F 47 L 18 122/29 L 94 Nasal Cannula 3 08/29/22 14:00 99.7 F 47 L 24 H 112/42 L 96 Nasal Cannula 3 08/29/22 13:00 99.7 F 48 L 11 L 109/46 L 98 Nasal Cannula 3 08/29/22 12:22 87/53 L 08/29/22 12:00 99.9 F 48 L 25 H 91/45 L 94 Nasal Cannula 3 08/29/22 18:00 100.8 F H 49 L 24 H 118/67 96 Room Air Last Vital Signs Temp 99.9 F 08/30/22 09:00 Pulse 157 H 08/30/22 09:03 Resp 22 H 08/30/22 09:00 BP 122/69 08/30/22 09:00 Pulse Ox 92 08/30/22 09:00 O2 Del Method 08/30/22 09:00 O2 Flow Rate 3.0 08/30/22 09:00 Pertinent Lab Results Pertinent Lab Results: Laboratory Tests 08/28/22 08/28/22 08/28/22 19:41 19:41 19:41 WBC 11.2 H RBC 4.48 Hgb 13.3 Hct 39.5 MCV 88.2 MCH 29.7 MCHC 33.7 RDW 12.6 Plt Count 206 MPV 11.1 Immature Gran % (Auto) 0.2 Neut % (Auto) 69.8 Lymph % (Auto) 17.6 L [place] % (Auto) 11.0 Eos % (Auto) 1.1 Baso % (Auto) 0.3 Lymph # (Auto) 2.0 [place] # (Auto) 1.2 Eos # (Auto) 0.1 Baso # (Auto) 0.0 Abs Immat Gran (auto) 0.02 Absolute Neuts (auto) 7.8 Absolute Nucleated RBC 0.000 Nucleated RBC % (auto) 0.0 Smear Tech's Comments D-Dimer High Sensitivty VBG pH VBG pCO2 VBG pO2 VBG HCO3 VBG O2 Saturation VBG Base Excess Sodium 139 Potassium 3.9 Chloride 107 Carbon Dioxide 22 Anion Gap 14 BUN 16 Creatinine 0.76 Estim Creat Clear Calc 57.0 Estimated GFR > 60 Random Glucose 108 Lactic Acid Calcium 9.2 Phosphorus Magnesium Total Bilirubin 0.5 AST 13 ALT 10 Alkaline Phosphatase 56 Troponin I High Sens 7.4 B-Natriuretic Peptide Total Protein 6.9 Albumin 4.0 COVID-19 ([facility]) COVID-19 Clin Com Influenza Type A (STALIN) Influenza Type B (STALIN) Influenza A & B Note 08/28/22 08/28/22 08/28/22 21:18 21:18 23:18 WBC RBC Hgb Hct MCV MCH MCHC RDW Plt Count MPV Immature Gran % (Auto) Neut % (Auto) Lymph % (Auto) [place] % (Auto) Eos % (Auto) Baso % (Auto) Lymph # (Auto) [place] # (Auto) Eos # (Auto) Baso # (Auto) Abs Immat Gran (auto) Absolute Neuts (auto) Absolute Nucleated RBC Nucleated RBC % (auto) Smear Tech's Comments D-Dimer High Sensitivty 426 VBG pH VBG pCO2 VBG pO2 VBG HCO3 VBG O2 Saturation VBG Base Excess Sodium Potassium Chloride Carbon Dioxide Anion Gap BUN Creatinine Estim Creat Clear Calc Estimated GFR Random Glucose Lactic Acid Calcium Phosphorus Magnesium Total Bilirubin AST ALT Alkaline Phosphatase Troponin I High Sens B-Natriuretic Peptide Total Protein Albumin COVID-19 ([facility]ARO) Negative COVID-19 Clin Com See Note Influenza Type A (STALIN) Negative Influenza Type B (STALIN) Negative Influenza A & B Note See Note 08/29/22 08/29/22 08/29/22 00:53 00:53 05:58 WBC RBC Hgb Hct MCV MCH MCHC RDW Plt Count MPV Immature Gran % (Auto) Neut % (Auto) Lymph % (Auto) [place] % (Auto) Eos % (Auto) Baso % (Auto) Lymph # (Auto) [place] # (Auto) Eos # (Auto) Baso # (Auto) Abs Immat Gran (auto) Absolute Neuts (auto) Absolute Nucleated RBC Nucleated RBC % (auto) Smear Tech's Comments D-Dimer High Sensitivty VBG pH VBG pCO2 VBG pO2 VBG HCO3 VBG O2 Saturation VBG Base Excess Sodium Cancelled Potassium Cancelled Chloride Cancelled Carbon Dioxide Cancelled Anion Gap Cancelled BUN Cancelled Creatinine Cancelled Estim Creat Clear Calc Cancelled Estimated GFR Cancelled Random Glucose Cancelled Lactic Acid Calcium Cancelled Phosphorus Magnesium Total Bilirubin Cancelled AST Cancelled ALT Cancelled Alkaline Phosphatase Cancelled Troponin I High Sens 14.0 D B-Natriuretic Peptide 438 H Total Protein Cancelled Albumin Cancelled COVID-19 ([facility]ARO) COVID-19 Clin Com Influenza Type A (STALIN) Influenza Type B (STALIN) Influenza A & B Note 08/29/22 08/29/22 08/29/22 05:58 05:58 05:58 WBC 13.8 H RBC 3.60 L Hgb 10.7 L Hct 33.7 L MCV 93.6 D MCH 29.7 MCHC 31.8 RDW 12.8 Plt Count 174 MPV 11.3 Immature Gran % (Auto) 0.4 Neut % (Auto) 76.8 H Lymph % (Auto) 12.3 L [place] % (Auto) 10.3 Eos % (Auto) 0.0 Baso % (Auto) 0.2 Lymph # (Auto) 1.7 [place] # (Auto) 1.4 H Eos # (Auto) 0.0 Baso # (Auto) 0.0 Abs Immat Gran (auto) 0.06 H Absolute Neuts (auto) 10.6 H Absolute Nucleated RBC 0.000 Nucleated RBC % (auto) 0.0 Smear Tech's Comments D-Dimer High Sensitivty VBG pH VBG pCO2 VBG pO2 VBG HCO3 VBG O2 Saturation VBG Base Excess Sodium 139 Potassium 3.8 Chloride 116 H Carbon Dioxide 14 L Anion Gap 13 BUN 12 Creatinine 0.60 Estim Creat Clear Calc 72.3 Estimated GFR > 60 Random Glucose 135 H Lactic Acid 1.1 Calcium 7.3 L D Phosphorus Magnesium Total Bilirubin 0.7 AST 10 ALT 7 Alkaline Phosphatase 34 L Troponin I High Sens B-Natriuretic Peptide Total Protein 4.7 L Albumin 2.7 L COVID-19 ([facility]O) COVID-19 Clin Com Influenza Type A (STALIN) Influenza Type B (STALIN) Influenza A & B Note 08/29/22 08/29/22 08/29/22 05:58 10:04 10:04 WBC RBC Hgb Hct MCV MCH MCHC RDW Plt Count MPV Immature Gran % (Auto) Neut % (Auto) Lymph % (Auto) [place] % (Auto) Eos % (Auto) Baso % (Auto) Lymph # (Auto) [place] # (Auto) Eos # (Auto) Baso # (Auto) Abs Immat Gran (auto) Absolute Neuts (auto) Absolute Nucleated RBC Nucleated RBC % (auto) Smear Tech's Comments D-Dimer High Sensitivty VBG pH VBG pCO2 VBG pO2 VBG HCO3 VBG O2 Saturation VBG Base Excess Sodium 137 Potassium 4.0 Chloride 109 H Carbon Dioxide 19 L Anion Gap 13 BUN 13 Creatinine 0.76 Estim Creat Clear Calc 58.3 Estimated GFR > 60 Random Glucose 178 H Lactic Acid Calcium 8.8 D Phosphorus 3.2 Magnesium 1.5 L Total Bilirubin AST ALT Alkaline Phosphatase Troponin I High Sens 15.9 14.3 B-Natriuretic Peptide Total Protein Albumin COVID-19 ([facility]O) COVID-19 Clin Com Influenza Type A (STALIN) Influenza Type B (STALIN) Influenza A & B Note 08/29/22 08/29/22 08/30/22 10:04 10:12 00:01 WBC RBC Hgb Hct MCV MCH MCHC RDW Plt Count MPV Immature Gran % (Auto) Neut % (Auto) Lymph % (Auto) [place] % (Auto) Eos % (Auto) Baso % (Auto) Lymph # (Auto) [place] # (Auto) Eos # (Auto) Baso # (Auto) Abs Immat Gran (auto) Absolute Neuts (auto) Absolute Nucleated RBC Nucleated RBC % (auto) Smear Tech's Comments D-Dimer High Sensitivty VBG pH 7.37 VBG pCO2 29 VBG pO2 74 VBG HCO3 17 L VBG O2 Saturation 94.0 VBG Base Excess -6.4 Sodium 137 Potassium 3.4 Chloride 107 Carbon Dioxide 19 L Anion Gap 14 BUN 15 Creatinine 0.81 Estim Creat Clear Calc 54.7 Estimated GFR > 60 Random Glucose 100 Lactic Acid Calcium 8.5 Phosphorus 2.3 L Magnesium 1.9 Total Bilirubin AST ALT Alkaline Phosphatase Troponin I High Sens B-Natriuretic Peptide 763 H Total Protein Albumin COVID-19 ([facility]O) COVID-19 Clin Com Influenza Type A (STALIN) Influenza Type B (STALIN) Influenza A & B Note 08/30/22 08/30/22 08/30/22 00:01 00:01 00:01 WBC 14.2 H RBC 4.05 L Hgb 11.9 L Hct 35.7 L MCV 88.1 D MCH 29.4 MCHC 33.3 RDW 12.9 Plt Count 192 MPV 11.2 Immature Gran % (Auto) 0.4 Neut % (Auto) 65.8 Lymph % (Auto) 22.6 [place] % (Auto) 10.8 Eos % (Auto) 0.2 Baso % (Auto) 0.2 Lymph # (Auto) 3.2 [place] # (Auto) 1.5 H Eos # (Auto) 0.0 Baso # (Auto) 0.0 Abs Immat Gran (auto) 0.05 H Absolute Neuts (auto) 9.3 H Absolute Nucleated RBC 0.000 Nucleated RBC % (auto) 0.0 Smear Tech's Comments VERIFIED D-Dimer High Sensitivty VBG pH VBG pCO2 VBG pO2 VBG HCO3 VBG O2 Saturation VBG Base Excess Sodium Potassium Chloride Carbon Dioxide Anion Gap BUN Creatinine Estim Creat Clear Calc Estimated GFR Random Glucose Lactic Acid Calcium Phosphorus Magnesium Total Bilirubin AST ALT Alkaline Phosphatase Troponin I High Sens 133.5 H* D B-Natriuretic Peptide 740 H Total Protein Albumin COVID-19 ([facility]O) COVID-19 Clin Com Influenza Type A (STALIN) Influenza Type B (STALIN) Influenza A & B Note 08/30/22 08/30/22 08/30/22 00:05 05:12 05:15 WBC 12.5 H RBC 4.00 L Hgb 12.0 Hct 35.7 L MCV 89.3 MCH 30.0 MCHC 33.6 RDW 12.8 Plt Count 193 MPV 11.8 Immature Gran % (Auto) 0.3 Neut % (Auto) 65.5 Lymph % (Auto) 24.1 [place] % (Auto) 8.9 Eos % (Auto) 0.8 Baso % (Auto) 0.4 Lymph # (Auto) 3.0 [place] # (Auto) 1.1 Eos # (Auto) 0.1 Baso # (Auto) 0.1 Abs Immat Gran (auto) 0.04 H Absolute Neuts (auto) 8.2 Absolute Nucleated RBC 0.000 Nucleated RBC % (auto) 0.0 Smear Tech's Comments D-Dimer High Sensitivty VBG pH 7.44 H 7.48 H VBG pCO2 28 27 VBG pO2 90 76 VBG HCO3 19 L 21 L VBG O2 Saturation 97.0 95.0 VBG Base Excess -3.3 -1.1 Sodium Potassium Chloride Carbon Dioxide Anion Gap BUN Creatinine Estim Creat Clear Calc Estimated GFR Random Glucose Lactic Acid Calcium Phosphorus Magnesium Total Bilirubin AST ALT Alkaline Phosphatase Troponin I High Sens B-Natriuretic Peptide Total Protein Albumin COVID-19 ([facility]O) COVID-19 Clin Com Influenza Type A (STALIN) Influenza Type B (STALIN) Influenza A & B Note 08/30/22 08/30/22 05:15 05:15 WBC RBC Hgb Hct MCV MCH MCHC RDW Plt Count MPV Immature Gran % (Auto) Neut % (Auto) Lymph % (Auto) [place] % (Auto) Eos % (Auto) Baso % (Auto) Lymph # (Auto) [place] # (Auto) Eos # (Auto) Baso # (Auto) Abs Immat Gran (auto) Absolute Neuts (auto) Absolute Nucleated RBC Nucleated RBC % (auto) Smear Tech's Comments D-Dimer High Sensitivty VBG pH VBG pCO2 VBG pO2 VBG HCO3 VBG O2 Saturation VBG Base Excess Sodium 139 Potassium 3.6 Chloride 109 H Carbon Dioxide 21 L Anion Gap 13 BUN 13 Creatinine 0.74 Estim Creat Clear Calc 59.8 Estimated GFR > 60 Random Glucose 89 Lactic Acid Calcium 8.2 L Phosphorus 3.1 Magnesium 1.7 Total Bilirubin AST ALT Alkaline Phosphatase Troponin I High Sens 72.1 H* B-Natriuretic Peptide Total Protein Albumin 3.5 COVID-19 ([facility]) COVID-19 Clin Com Influenza Type A (STALIN) Influenza Type B (STALIN) Influenza A & B Note Narrative Narrative: Date of Service: 08/28/22 Procedure(s): XR chest 1V CLINICAL INFORMATION: Chest pain FINDINGS: Some ill-defined opacity in the right upper lung. The left lung is grossly clear. Some markings in the lungs may be chronic. The hilar structures are mildly prominent. The cardiac silhouette is within normal limits. There is no effusion. IMPRESSION: Findings suggest right upper lobe infiltrate versus chronic changes. There are no films to compare. Follow-up films are recommended after treatment to continue assessment Date of Service: 08/29/22 Procedure(s): CT angio chest PE protocol IMPRESSION: No filling defect to suggest a pulmonary embolism. ? Lung hankins are characterized by coarse interstitial markings with areas of groundglass change. This could be consistent with small airways disease or subtle areas of infiltrate. Pulmonary edema cannot be excluded. ? Some small areas of lung nodularity are noted. Low-dose noncontrast follow-up recommended in 6 months. Airway Mallampati Class: III (Small mouth. Narrow palate) TM Dist: >3cm Neck ROM: Limited (Some limitation but acceptable extension) Loose/Missing/Broken Teeth: No (Denies broken,loose, missing teeth) Heart: Irregular Lungs: CTAB Assessment and Plan Assessment Anesthesia Assessment: Anesthesia Plan Discussed and Chart Reviewed Final Anesthetic Review Family History of Problems with Anesthesia: No History of Problems with Anesthesia: No NPO: Yes ASA Class: IV and Emergency Final Preanesthetic Review: No Changes in Pt Med Stat, Meds/Allgs Chart Reviewed, Consent Obtained/Reviewed and Anes Risks/Benef Reviewed Patient Risk: High Procedure Risk: High Assessment/Block/Sedation in SS: Assess/Block/Sedation-SS Anesthetic Plan Anesthetic Plan: MAC: Disposition: Inp. Admit - ICU
--- NOTE | 2022-08-30 10:09 | P.PNCA_ITS ---
Subjective Subjective Date of Service: 08/30/22 Principal diagnosis: tachy-pako syndrome Interval history: this morning patient developed significant pauses with 7 seconds some pauses appear to be post-conversion pauses followed by junctional rhythm some pauses were following sinus rhythm. She was then started on dopamine to maintain heart rate because she is symptomatic with dropping in a blood pressure in the 90s. This led to atrial fibrillation rapid ventricular response. She symptomatic with this and complains of palpitations not feeling well overall and uncomfortable. Denies any shortness of breath or chest pain. She has been treated for pneumonia at this point in time. Review of Systems Constitutional: Reports no additional constitutional complaints Cardiovascular: Denies chest pain, Denies lightheadedness, Denies Loss of Consciousness, Reports palpitations and Denies dyspnea Respiratory: Reports no additional respiratory complaints and Denies dyspnea Gastrointestinal: Reports no additional gastrointestinal complaints Genitourinary: Reports no additional female genitourinary complaints Musculoskeletal: Reports no additional musculoskeletal complaints Skin/Breast: Reports system reviewed and no additional complaints, except as docu Endocrine: Reports palpitations Physical Exam Vital Signs: Last Vital Signs Temp 99.9 F 08/30/22 09:00 Pulse 157 H 08/30/22 09:03 Resp 22 H 08/30/22 09:00 BP 122/69 08/30/22 09:00 Pulse Ox 92 08/30/22 09:00 O2 Del Method 08/30/22 09:00 O2 Flow Rate 3.0 08/30/22 09:00 BMI result Body Mass Index 25.8 Const General: cooperative, no acute distress, alert, awake and anxious Nutritional Appearance: average body habitus Orientation/consciousness: patient oriented x3 Neck Neck: Yes trachea midline, Yes supple and Yes no JVD Resp Effort & Inspection: normal respiratory effort Auscultation: clear to auscultation bilaterally Cardio Jugular venous distension: no JVD Rate: tachycardic Rhythm: abnormal rhythm irregularly irregular Heart sounds: S1 normal heart sound present, S2 normal heart sound present, no click, no gallops and no murmurs GI Auscultation: normal bowel sounds Skin General skin exam: no rashes or lesions noted Neuro General: patient oriented x3 and no focal motor deficits Extrem General: Yes no clubbing, cyanosis or edema Objective Labs and Meds 08/30/22 05:15 08/30/22 05:15 Lab results: Laboratory Results - last 24 hr 08/29/22 08/29/22 08/29/22 10:04 10:04 10:04 WBC RBC Hgb Hct MCV MCH MCHC RDW Plt Count MPV Immature Gran % (Auto) Neut % (Auto) Lymph % (Auto) [place] % (Auto) Eos % (Auto) Baso % (Auto) Lymph # (Auto) [place] # (Auto) Eos # (Auto) Baso # (Auto) Abs Immat Gran (auto) Absolute Neuts (auto) Absolute Nucleated RBC Nucleated RBC % (auto) Smear Tech's Comments VBG pH VBG pCO2 VBG pO2 VBG HCO3 VBG O2 Saturation VBG Base Excess Sodium 137 Potassium 4.0 Chloride 109 H Carbon Dioxide 19 L Anion Gap 13 BUN 13 Creatinine 0.76 Estim Creat Clear Calc 58.3 Estimated GFR > 60 Random Glucose 178 H Calcium 8.8 D Phosphorus 3.2 Magnesium 1.5 L Troponin I High Sens 14.3 B-Natriuretic Peptide 763 H Albumin 08/29/22 08/30/22 08/30/22 10:12 00:01 00:01 WBC RBC Hgb Hct MCV MCH MCHC RDW Plt Count MPV Immature Gran % (Auto) Neut % (Auto) Lymph % (Auto) [place] % (Auto) Eos % (Auto) Baso % (Auto) Lymph # (Auto) [place] # (Auto) Eos # (Auto) Baso # (Auto) Abs Immat Gran (auto) Absolute Neuts (auto) Absolute Nucleated RBC Nucleated RBC % (auto) Smear Tech's Comments VBG pH 7.37 VBG pCO2 29 VBG pO2 74 VBG HCO3 17 L VBG O2 Saturation 94.0 VBG Base Excess -6.4 Sodium 137 Potassium 3.4 Chloride 107 Carbon Dioxide 19 L Anion Gap 14 BUN 15 Creatinine 0.81 Estim Creat Clear Calc 54.7 Estimated GFR > 60 Random Glucose 100 Calcium 8.5 Phosphorus 2.3 L Magnesium 1.9 Troponin I High Sens 133.5 H* D B-Natriuretic Peptide Albumin 08/30/22 08/30/22 08/30/22 00:01 00:01 00:05 WBC 14.2 H RBC 4.05 L Hgb 11.9 L Hct 35.7 L MCV 88.1 D MCH 29.4 MCHC 33.3 RDW 12.9 Plt Count 192 MPV 11.2 Immature Gran % (Auto) 0.4 Neut % (Auto) 65.8 Lymph % (Auto) 22.6 [place] % (Auto) 10.8 Eos % (Auto) 0.2 Baso % (Auto) 0.2 Lymph # (Auto) 3.2 [place] # (Auto) 1.5 H Eos # (Auto) 0.0 Baso # (Auto) 0.0 Abs Immat Gran (auto) 0.05 H Absolute Neuts (auto) 9.3 H Absolute Nucleated RBC 0.000 Nucleated RBC % (auto) 0.0 Smear Tech's Comments VERIFIED VBG pH 7.44 H VBG pCO2 28 VBG pO2 90 VBG HCO3 19 L VBG O2 Saturation 97.0 VBG Base Excess -3.3 Sodium Potassium Chloride Carbon Dioxide Anion Gap BUN Creatinine Estim Creat Clear Calc Estimated GFR Random Glucose Calcium Phosphorus Magnesium Troponin I High Sens B-Natriuretic Peptide 740 H Albumin 08/30/22 08/30/22 08/30/22 05:12 05:15 05:15 WBC 12.5 H RBC 4.00 L Hgb 12.0 Hct 35.7 L MCV 89.3 MCH 30.0 MCHC 33.6 RDW 12.8 Plt Count 193 MPV 11.8 Immature Gran % (Auto) 0.3 Neut % (Auto) 65.5 Lymph % (Auto) 24.1 [place] % (Auto) 8.9 Eos % (Auto) 0.8 Baso % (Auto) 0.4 Lymph # (Auto) 3.0 [place] # (Auto) 1.1 Eos # (Auto) 0.1 Baso # (Auto) 0.1 Abs Immat Gran (auto) 0.04 H Absolute Neuts (auto) 8.2 Absolute Nucleated RBC 0.000 Nucleated RBC % (auto) 0.0 Smear Tech's Comments VBG pH 7.48 H VBG pCO2 27 VBG pO2 76 VBG HCO3 21 L VBG O2 Saturation 95.0 VBG Base Excess -1.1 Sodium 139 Potassium 3.6 Chloride 109 H Carbon Dioxide 21 L Anion Gap 13 BUN 13 Creatinine 0.74 Estim Creat Clear Calc 59.8 Estimated GFR > 60 Random Glucose 89 Calcium 8.2 L Phosphorus 3.1 Magnesium 1.7 Troponin I High Sens B-Natriuretic Peptide Albumin 3.5 08/30/22 05:15 WBC RBC Hgb Hct MCV MCH MCHC RDW Plt Count MPV Immature Gran % (Auto) Neut % (Auto) Lymph % (Auto) [place] % (Auto) Eos % (Auto) Baso % (Auto) Lymph # (Auto) [place] # (Auto) Eos # (Auto) Baso # (Auto) Abs Immat Gran (auto) Absolute Neuts (auto) Absolute Nucleated RBC Nucleated RBC % (auto) Smear Tech's Comments VBG pH VBG pCO2 VBG pO2 VBG HCO3 VBG O2 Saturation VBG Base Excess Sodium Potassium Chloride Carbon Dioxide Anion Gap BUN Creatinine Estim Creat Clear Calc Estimated GFR Random Glucose Calcium Phosphorus Magnesium Troponin I High Sens 72.1 H* B-Natriuretic Peptide Albumin Imaging Radiologist's impression: Impressions Chest X-Ray 08/29/22 23:40 IMPRESSION: Exam is comparable to previous. Minimal left basilar opacity may be a small acute area of atelectasis or infiltrate. Progress Note: A&P Assessment and plan (1) Sick sinus syndrome: Status: Acute Assessment and Plan: patient with prior history of sinus bradycardia presents with pneumonia and chest pain and noted to have marked pauses followed by rapid heart rate. Overall findings consistent with sick sinus syndrome. She requires pacemaker placement, dual chamber and then subsequent management of her tachyarrhythmia. I had a very detailed discussion with her and her family members at bedside about the need for pacemaker including risk, benefits, alternatives 2nd opinion. Discussed with Dr. Martin and will be implanting pacemaker later today. Patient is agreeable to this management plan. Continue to hold anticoagulation. Continue NPO. Once the pacemaker is implanted we will be able to pursue rate control more aggressively to improve her symptoms. Also once cleared for anticoagulation can pursue rhythm control at that point time but will require EIML prior to pursuing that including cardioversion. (2) Atrial fibrillation with RVR: Status: Acute Assessment and Plan: Symptomatic atrial fibrillation rapid ventricular response might be exacerbated by use of dopamine. Please is lower the dose of dopamine infusion. Continue Levophed and low-dose dopamine to maintain blood pressure. For now void any rate lowering medications given her significant pauses. Also hold off on oral anticoagulation till cleared by thoracic surgery. Once pacemaker is implanted will pursue more aggressive rate control approach. Will continue to follow with you. Time Spent With Patient Time: Total time managing care of this patient today ____ minutes. Progress Note: Quality Stroke Does the patient have a stroke diagnosis?: No Procedures Date of Service Date of Service: 08/30/22
[2022-08-30] MEDS: levoFLOXacin/D5W 750 MG/150 ML PIGGYBACK 100 MG IV (11:23)
--- NOTE | 2022-08-30 11:23 | PM.CCPN ---
Subjective Subjective Date of Service: 08/30/22 Interval History: 82-year-old lady with underlying history of hypothyroidism, bradycardia being worked by [facility], admitted on 08/29/2022 with complains of pleuritic chest pain and dyspnea. On ER evaluation patient with AFib with RVR given metoprolol, digoxin, and Cardizem for rate control with development of symptomatic bradycardia requiring initiation of pressor support, administration of atropine, and transferred to intensive care unit. CT angiogram chest with no pulmonary emboli asthma or large infiltrate, however with complaints of cough and mild leukocytosis, empirically covered with Levaquin for possible community-acquired pneumonia. Overnight switching between tachycardia and bradycardia, better response to dopamine. Critical Care Time (minutes): 45 Physical Exam Vital Signs: Vital Signs: Last Vital Signs Temp 100.2 F 08/30/22 11:00 Pulse 127 H 08/30/22 11:00 Resp 27 H 08/30/22 11:00 BP 110/49 L 08/30/22 11:00 Pulse Ox 93 08/30/22 11:00 O2 Del Method 08/30/22 11:00 O2 Flow Rate 3 08/30/22 11:00 BMI result Body Mass Index 25.8 Const: General: no acute distress, alert and awake Eyes: Sclerae: sclerae normal EOM: EOMs intact bilaterally Neck: Neck: Yes no lymphadenopathy, Yes trachea midline and Yes supple Resp: Effort & Inspection: normal respiratory effort and no respiratory distress Auscultation: clear to auscultation bilaterally Cardio: Rate: Other ( Tachy-pako) Rhythm: regular rhythm and abnormal rhythm Heart sounds: no gallops, no murmurs and no rubs GI: Palpation (GI): Soft to palpation and Other GI palpation findings present ( Nontender) Auscultation: normal bowel sounds Extrem: General: No clubbing, No cyanosis and Yes edema ( trace bilateral) Objective Data Labs 08/30/22 05:15 08/30/22 05:15 Labs: Laboratory Results - last 24 hr 08/30/22 08/30/22 08/30/22 00:01 00:01 00:01 WBC RBC Hgb Hct MCV MCH MCHC RDW Plt Count MPV Immature Gran % (Auto) Neut % (Auto) Lymph % (Auto) [place] % (Auto) Eos % (Auto) Baso % (Auto) Lymph # (Auto) [place] # (Auto) Eos # (Auto) Baso # (Auto) Abs Immat Gran (auto) Absolute Neuts (auto) Absolute Nucleated RBC Nucleated RBC % (auto) Smear Tech's Comments VBG pH VBG pCO2 VBG pO2 VBG HCO3 VBG O2 Saturation VBG Base Excess Sodium 137 Potassium 3.4 Chloride 107 Carbon Dioxide 19 L Anion Gap 14 BUN 15 Creatinine 0.81 Estim Creat Clear Calc 54.7 Estimated GFR > 60 Random Glucose 100 Calcium 8.5 Phosphorus 2.3 L Magnesium 1.9 Troponin I High Sens 133.5 H* D B-Natriuretic Peptide 740 H Albumin 08/30/22 08/30/22 08/30/22 00:01 00:05 05:12 WBC 14.2 H RBC 4.05 L Hgb 11.9 L Hct 35.7 L MCV 88.1 D MCH 29.4 MCHC 33.3 RDW 12.9 Plt Count 192 MPV 11.2 Immature Gran % (Auto) 0.4 Neut % (Auto) 65.8 Lymph % (Auto) 22.6 [place] % (Auto) 10.8 Eos % (Auto) 0.2 Baso % (Auto) 0.2 Lymph # (Auto) 3.2 [place] # (Auto) 1.5 H Eos # (Auto) 0.0 Baso # (Auto) 0.0 Abs Immat Gran (auto) 0.05 H Absolute Neuts (auto) 9.3 H Absolute Nucleated RBC 0.000 Nucleated RBC % (auto) 0.0 Smear Tech's Comments VERIFIED VBG pH 7.44 H 7.48 H VBG pCO2 28 27 VBG pO2 90 76 VBG HCO3 19 L 21 L VBG O2 Saturation 97.0 95.0 VBG Base Excess -3.3 -1.1 Sodium Potassium Chloride Carbon Dioxide Anion Gap BUN Creatinine Estim Creat Clear Calc Estimated GFR Random Glucose Calcium Phosphorus Magnesium Troponin I High Sens B-Natriuretic Peptide Albumin 08/30/22 08/30/22 08/30/22 05:15 05:15 05:15 WBC 12.5 H RBC 4.00 L Hgb 12.0 Hct 35.7 L MCV 89.3 MCH 30.0 MCHC 33.6 RDW 12.8 Plt Count 193 MPV 11.8 Immature Gran % (Auto) 0.3 Neut % (Auto) 65.5 Lymph % (Auto) 24.1 [place] % (Auto) 8.9 Eos % (Auto) 0.8 Baso % (Auto) 0.4 Lymph # (Auto) 3.0 [place] # (Auto) 1.1 Eos # (Auto) 0.1 Baso # (Auto) 0.1 Abs Immat Gran (auto) 0.04 H Absolute Neuts (auto) 8.2 Absolute Nucleated RBC 0.000 Nucleated RBC % (auto) 0.0 Smear Tech's Comments VBG pH VBG pCO2 VBG pO2 VBG HCO3 VBG O2 Saturation VBG Base Excess Sodium 139 Potassium 3.6 Chloride 109 H Carbon Dioxide 21 L Anion Gap 13 BUN 13 Creatinine 0.74 Estim Creat Clear Calc 59.8 Estimated GFR > 60 Random Glucose 89 Calcium 8.2 L Phosphorus 3.1 Magnesium 1.7 Troponin I High Sens 72.1 H* B-Natriuretic Peptide Albumin 3.5 Progress Note: A&P Assessment and plan (1) Raynauds phenomenon: Status: Acute (2) Sick sinus syndrome: Status: Acute (3) Atrial fibrillation with RVR: Status: Acute Plan Assessment: 82-year-old lady admitted with symptomatic bradycardia, 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 Plan: Neuro: No acute issues. Cardiac: Symptomatic bradycardia requiring pressor support, underlying tachy-pako syndrome, planned for placement of permanent pacemaker today. Cardiology service appreciated. 2D echocardiogram is pending. Possible underlying congestive heart failure. Pulmonary: No acute issues. Renal: No acute issues. Endo: No acute issues. GI: No acute issues. ID: May have a component of community-acquired pneumonia, empirically covered with Levaquin. Cultures are pending. Heme/Onc: No acute issues. Psych: No acute issues. Miscellaneous: No acute issues. Prophylaxis: Heparin Diet: regular Critical care time spent: 45 minutes Quality Stroke Does the patient have a stroke diagnosis?: No VTE Prior VTE?: No VTE Risk Level:: Medical - moderate - high VTE Device Contraindication: Treatment Not Indicated VTE Drug Contraindication: N/A - Med Ordered
--- NOTE | 2022-08-30 13:25 | PC.NURSE ---
Addendum entered by Ольга Clark RN 08/30/22 20:11: INCISION SITE C/D/I, OPEN TO AIR, SLING IN PLACE LEVOPHED AND DOPAMINE GTT TURNED OFF AT 1614 TITRATED 02 FROM 3L - 2L NC HEART RHYTHM GOES FROM APACED IN THE 60S TO AFIB 130S - MD AWARE Original Note: OFF UNIT TO OR FOR PACEMAKER
[2022-08-30 13:56] LABS: Thyroid Stimulating Hormone 2.33 uIU/mL (0.32-4.0)
--- NOTE | 2022-08-30 15:03 | W.PM.OPN ---
Operative Note Operative Note Date of Service: 08/30/22 Narrative: Preoperative diagnosis: Sick sinus syndrome Postoperative diagnosis: Same Operation: Placement of dual-chamber permanent pacemaker with fluoroscopic guidance Surgeon: Crystal Martin MD Specimens: None EBL: 5 cc Operative findings: The pacemaker placed was a [employer] MRI serial [id number]. The atrial lead was a [employer] serial number [id number] . The ventricular lead was a [employer] serial number [id number]. Parameters in the right atrial lead sensing was 1.5 atrial flutter with impedance of 480. In the ventricular lead threshold was 0.5 volts at 0.4 milliseconds with an impedance of 499 Ohms. Patient tolerated procedure well. Operation in detail: The patient was brought to the operating room, placed supine on the operating room table, anesthesia moderate of ices were placed, and the patient was gently sedated. A time-out was performed confirming the correct patient site and procedure. After injection of local anesthetic, a 3 cm incision was made in the left infraclavicular region and carried down to the pectoralis fascia with electrocautery. The patient was then placed in Trendelenburg and an 18 gauge needle was used to access subclavian vein on the 1st take. And a wire was placed into the right atrium under fluoroscopic guidance. A 2nd 18 gauge needle was then used to access the subclavian vein again on the 1st ache and a wire was placed under fluoroscopic guidance and parked in the right atrium. The patient was then taken out of Trendelenburg and a pocket was formed using blunt and electrocautery dissection. The 1st 6 [place] sheath was then placed over wire and the wire and dilator were removed. The ventricular lead was then placed through the sheath and parked in the right atrium and the peel-away sheath was removed. After several attempts using a curved stylet we were eventually able to access the right ventricle and the tip of the lead was positioned at the right ventricular apex. The endocardial screw was deployed and the lead was tested with excellent parameters above. This lead was then secured with silk sutures to the pectoralis fascia. The 2nd 6 [place] sheath was then placed over the 2nd wire and a wire dilator removed. The atrial lead was then placed and parked in the right atrium. AJ stylet was used to position this in the right atrial appendage. The endocardial screws deployed and the lead was tested with excellent parameters above. This lead was also secured with silk sutures to the pectoralis fascia. The pocket was then copiously irrigated with antibiotic solution. The leads were then placed in their appropriate receptacles and the pacemaker was tested again with excellent parameters. The generator and excess lead was then placed into the pocket. The wound was then closed with a deep running 3-0 Vicryl suture followed by running 3-0 Vicryl suture and Dermabond glue in the skin. The patient was then brought back to the ICU in stable condition.
--- NOTE | 2022-08-30 15:09 | PM.CNGS ---
History of Present Illness Consult details Consult date: 08/30/22 Requesting physician: Jl Starks Narrative: 82-year-old woman with baseline heart rate in the 50s did develop atrial fibrillation with rates as high as 150s. She was admitted to the hospital and with rate control medicines she did have significant pauses that were symptomatic. When I saw are in the ICU she is alert and oriented looking well but on dopamine and Levophed. While speaking to her, her heart rate did vary from 40 for to 150s in atrial fibrillation. She denies chest pain, syncope, presyncopal symptoms, shortness of breath but does report a intermittent cough without hemoptysis. Other than above, 12 point review of systems was done and documented separately in the office chart with detailed social and family history. [facility] Past Medical History Medical History Graves disease History of radioactive iodine thyroid ablation Hypothyroidism Surgical History Surgical History History of appendectomy History of lumpectomy of left breast History of tonsillectomy and adenoidectomy Social History Social History Household Members: Spouse Housing: House Do you presently have visiting nurse or other home services: No Alcohol intake: current Alcohol intake frequency: a few times a week Alcohol type: wine Patient Tobacco Use Status: Former Tobacco user Tobacco use type: Cigarette e-Cigarette/Vaping Use: Never Used Second Hand Smoke Exposure: No service: No Current occupational status: retired Meds Allergies Allergy/AdvReac Type Severity Reaction Status Date / Time sulfamethoxazole Allergy unknown Verified 03/11/21 08:56 [From Bactrim] trimethoprim [From Bactrim] Allergy unknown Verified 03/11/21 08:56 Active Medications: Current Medications Acetaminophen (Acetaminophen 325 Mg Tablet) 650 mg PO Q6H PRN PRN Reason: Pain, Mild (Pain Scale 1-3) Last Admin: 08/29/22 09:41 Dose: 650 mg Heparin Sodium (Porcine) (Heparin Sodium,Porcine 5,000 Unit/Ml Vial) 5,000 unit SUBCUT Q12H ELIANE Last Admin: 08/30/22 11:36 Dose: Not Given Norepinephrine Bitartrate (Levophed) 8 mg in 250 mls @ 0 mls/hr IV .Q0M [facility]; Protocol Last Titration: 08/30/22 09:05 Dose: 0.03 mcg/kg/min, 3.96 mls/hr Levofloxacin (Levaquin) 750 mg in 150 mls @ 100 mls/hr IV Q24H [facility] Last Infusion: 08/30/22 12:57 Dose: Infused Dopamine HCl/Dextrose (Dopamine Hcl/D5w) 400 mg in 250 mls @ 0 mls/hr IVCONT .Q0M [facility]; Protocol Last Titration: 08/30/22 11:37 Dose: 1 mcg/kg/min, 2.64 mls/hr Lactated Ringer's (Lr) 500 mls @ 20 mls/hr IVCONT .Q24H ELIANE Levothyroxine Sodium 112 mcg/ (Levothyroxine Sodium 25 mcg) 137 mcg PO DAILY@0600 [facility] Ondansetron HCl (Ondansetron Hcl 4 Mg/2 Ml Vial) 4 mg IVPUSH Q8H PRN PRN Reason: Nausea Last Admin: 08/29/22 17:30 Dose: 4 mg Ondansetron HCl (Ondansetron Hcl 4 Mg/2 Ml Vial) 4 mg IVPUSH Q8H PRN PRN Reason: Nausea and Vomiting Last Admin: 08/29/22 04:45 Dose: 4 mg Sodium Chloride (0.9 % Sodium Chloride Flush 3 Ml Syringe) [facility] Last Admin: 08/30/22 09:08 Dose: Not Given Home Medications Medication Instructions Recorded Confirmed Last Taken Type atorvastatin 10 mg tablet 10 mg PO DAILY 03/11/21 08/29/22 08/28/22 09:00 History dicyclomine 10 mg capsule 10 mg PO TID 03/11/21 08/29/22 08/28/22 09:00 History fluticasone propionate 50 2 spray intranasal BID 03/11/21 08/29/22 08/28/22 09:00 History mcg/actuation nasal spray,suspension levothyroxine 137 mcg tablet 137 mcg PO DAILY@0600 03/11/21 08/29/22 08/28/22 09:00 History (Synthroid) meclizine 25 mg tablet 25 mg PO TID PRN Motion Sickness 03/11/21 08/29/22 Unknown History methocarbamol 500 mg tablet 500 mg PO TID PRN back spasm 03/11/21 08/29/22 08/28/22 09:00 History nitrofurantoin macrocrystal 50 mg 50 mg PO MOWEFR@0900 03/11/21 08/29/22 08/27/22 History capsule omeprazole 20 mg capsule,delayed 20 mg PO DAILY@0630 03/11/21 08/29/22 08/28/22 09:00 History release ascorbic acid (vitamin C) 500 mg 500 mg PO BID 08/29/22 08/29/22 08/28/22 09:00 History tablet (Vitamin C) calcium carbonate 600 mg-vitamin 1 tab PO DAILY 08/29/22 08/29/22 08/28/22 09:00 History D3 5 mcg (200 unit) tablet cholecalciferol (vitamin D3) 25 25 mcg PO MOWEFR@0900 08/29/22 08/29/22 08/27/22 History mcg (1,000 unit) tablet (Vitamin D3) cranberry 500 mg capsule 500 mg PO DAILY 08/29/22 08/29/22 08/28/22 09:00 History gabapentin 400 mg capsule 400 mg PO TID 08/29/22 08/29/22 Unknown History meloxicam 15 mg tablet 1 tab PO DAILY PRN pain 08/29/22 08/29/22 Unknown History Physical Exam Vital Signs: Vital Signs: Last Vital Signs Temp 100.2 F 08/30/22 13:00 Pulse 55 08/30/22 13:00 Resp 24 H 08/30/22 13:00 BP 112/52 L 08/30/22 13:00 Pulse Ox 96 08/30/22 13:00 O2 Del Method 08/30/22 13:00 O2 Flow Rate 3 08/30/22 13:00 BMI result Body Mass Index 25.8 General: No acute distress HEENT: Moist mucous membranes, normocephalic, pupils equal round and reactive to light. Neck: No thyromegaly, supple, no JVD Lymph: No cervical, supraclavicular, or other lymphadenopathy Chest: No chest wall abnormalities or deformities Heart: Irregular in at time of exam 140 to 50 as a rate Lungs: Clear to auscultation bilaterally Abdomen: Soft, nontender, normal bowel sounds Extremities: No edema, cyanosis, or clubbing. Full range of motion Neuro: Grossly intact, alert and oriented x3, and nonfocal Skin: Warm and dry no rashes Affect: Normal Results Labs 08/30/22 05:15 08/30/22 05:15 Labs: Abnormal lab results 08/30/22 08/30/22 08/30/22 Range/Units 00:01 00:01 00:01 WBC (4.8-10.8) X10*3/uL RBC (4.20-5.50) X10*6/uL Hgb (12.0-16.0) g/dl Hct (37.0-47.0) % [place] # (Auto) (0.1-1.2) X10*3/uL Abs Immat Gran (auto) (0.00-0.03) X10*3/uL Absolute Neuts (auto) (2.0-8.3) x10*3/uL VBG pH (7.32-7.43) VBG HCO3 (22-26) mmol/L Chloride (96-108) mmol/L Carbon Dioxide 19 L (22-29) mmol/L Calcium (8.4-10.2) mg/dL Phosphorus 2.3 L (2.7-4.5) mg/dL Troponin I High Sens 133.5 H* D (<3.5-17.0) ng/L B-Natriuretic Peptide 740 H (<100) pg/mL 08/30/22 08/30/22 08/30/22 Range/Units 00:01 00:05 05:12 WBC 14.2 H (4.8-10.8) X10*3/uL RBC 4.05 L (4.20-5.50) X10*6/uL Hgb 11.9 L (12.0-16.0) g/dl Hct 35.7 L (37.0-47.0) % [place] # (Auto) 1.5 H (0.1-1.2) X10*3/uL Abs Immat Gran (auto) 0.05 H (0.00-0.03) X10*3/uL Absolute Neuts (auto) 9.3 H (2.0-8.3) x10*3/uL VBG pH 7.44 H 7.48 H (7.32-7.43) VBG HCO3 19 L 21 L (22-26) mmol/L Chloride (96-108) mmol/L Carbon Dioxide (22-29) mmol/L Calcium (8.4-10.2) mg/dL Phosphorus (2.7-4.5) mg/dL Troponin I High Sens (<3.5-17.0) ng/L B-Natriuretic Peptide (<100) pg/mL 08/30/22 08/30/22 08/30/22 Range/Units 05:15 05:15 05:15 WBC 12.5 H (4.8-10.8) X10*3/uL RBC 4.00 L (4.20-5.50) X10*6/uL Hgb (12.0-16.0) g/dl Hct 35.7 L (37.0-47.0) % [place] # (Auto) (0.1-1.2) X10*3/uL Abs Immat Gran (auto) 0.04 H (0.00-0.03) X10*3/uL Absolute Neuts (auto) (2.0-8.3) x10*3/uL VBG pH (7.32-7.43) VBG HCO3 (22-26) mmol/L Chloride 109 H (96-108) mmol/L Carbon Dioxide 21 L (22-29) mmol/L Calcium 8.2 L (8.4-10.2) mg/dL Phosphorus (2.7-4.5) mg/dL Troponin I High Sens 72.1 H* (<3.5-17.0) ng/L B-Natriuretic Peptide (<100) pg/mL Short CBC 08/30/22 08/30/22 Range/Units 00:01 05:15 WBC 14.2 H 12.5 H (4.8-10.8) X10*3/uL Hgb 11.9 L 12.0 (12.0-16.0) g/dl Hct 35.7 L 35.7 L (37.0-47.0) % Plt Count 192 193 (160-400) X10*3/uL BMP 08/30/22 08/30/22 00:01 05:15 Sodium 137 139 Potassium 3.4 3.6 Chloride 107 109 H Carbon Dioxide 19 L 21 L BUN 15 13 Creatinine 0.81 0.74 Calcium 8.5 8.2 L Liver Function 08/30/22 Range/Units 05:15 Albumin 3.5 (3.5-5.0) g/dL All other labs normal. Imaging Chest x-ray: image reviewed EKG: report reviewed and image reviewed Assessment and Plan (1) Sick sinus syndrome: Status: Acute 82-year-old woman with sick sinus syndrome with significant pauses when there was any treatment of her rapid atrial fibrillation. Does appear after rate limiting medicine given that she was in a junctional rhythm quite possibly complete heart block during that time. I discussed all of this with the patient and her family which they seemed understand. I do agree that a dual-chamber permanent pacemaker needs to be placed on urgent basis. I discussed the risks, benefits, and alternatives of a dual-chamber pacemaker which she understood and agreed to proceed. The risks discussed include but are not limited to infection, bleeding, pneumothorax, arrhythmia, and . She has been NPO and plan is to go to the operating room shortly. We will afterwards, she will need a sling for the left arm for 2 days and will have restrictions on movement of that left arm above the level of her shoulder or reaching behind herself for 6 weeks. The leads will be tested again tomorrow morning. (2) Symptomatic bradycardia: Status: Acute Time Spent With Patient Time: Total time managing care of this patient today ____ minutes. Procedures Date of Service Date of Service: 08/30/22
[2022-08-30] MEDS: guaiFEN/Codeine SF 200/20/10ML 10 ML LIQUID 5 ML PO (16:47)
[2022-08-30] MEDS: Lactated Ringers 500 ML 20 ML IVCONT (16:49)
[2022-08-30] MEDS: LORazepam 0.5 MG TABLET PO (21:35)
[2022-08-31] VITALS (15 sets, daily range): BP systolic 97–143; BP diastolic 61–92; PULSE 62–140; RESP 15–18; TEMP 36.4–36.7; O2SAT 91–96; BMI 27.1
[2022-08-31] MEDS: Heparin Sodium,Porcine 5,000 UNIT/ML VIAL 5000 UNIT SUBCUT ×2 (04:46→15:30)
[2022-08-31] MEDS: Levothyroxine Sodium 112 MCG, Levothyroxine Sodium 25 MCG 137 MCG PO (04:47)
[2022-08-31] MEDS: guaiFEN/Codeine SF 200/20/10ML 10 ML LIQUID 5 ML PO (04:49)
--- NOTE | 2022-08-31 04:50 | MHC.PIE ---
P.Afib I.Pt rhythm returned to AFIB,HR 107-130,BP 127/92.Pt sleeping,denied palpitations/symptoms.Dr Coronado updated at which point pt converted back to APACED rhythm.No new orders at this time. E.Cont to monitor
[2022-08-31 06:39] LABS: MANUAL DIFF FLAG NO
[2022-08-31 06:43] LABS: Venous Blood Gas Refer to POC result
[2022-08-31 06:44] LABS: VBG Base Excess -1.8 mmol/L; VBG HCO3 21 mmol/L (22-26); VBG pCO2 29 mmHg; VBG pH 7.45 (7.32-7.43); VBG pO2 99 mmHg
[2022-08-31 06:52] LABS: Basophils Percent Auto 0.2 % (0-2); Eosinophils Absolute Auto 0.2 X10*3/uL (0.0-0.4); Eosinophils Percent Auto 2.2 % (0-4); Hematocrit 36.1 % (37.0-47.0); Imm Gran Abs Auto 0.02 X10*3/uL (0.00-0.03); Imm Gran Pct Auto 0.2 % (0.0-0.4); Lymphocytes Absolute Auto 1.9 X10*3/uL (1.2-4.9); Lymphocytes Percent Auto 21.3 % (20-40); Mean Corpuscular HGB Conc 33.2 g/dl (31.0-35.0); Mean Corpuscular Volume 87.2 fL (80.0-98.0); Mean Platelet Volume 10.7 fL (9.4-12.3); Monocytes Absolute Auto 0.7 X10*3/uL (0.1-1.2); Neutrophils Absolute Auto 6.2 x10*3/uL (2.0-8.3); Neutrophils Percent Auto 68.1 % (45-73); Platelet Count 200 X10*3/uL (160-400); Red Blood Count 4.14 X10*6/uL (4.20-5.50); Red Cell Distribution Width 12.5 % (11.0-16.0); White Blood Count 9.1 X10*3/uL (4.8-10.8)
--- NOTE | 2022-08-31 07:00 | CA_ITS ---
Transthoracic Echocardiogram Patient (Last, First, Middle): Hortensia Godoy, Gender: Female Date of : 1940 Age: 82 Procedure Date: 08/31/2022 Procedure Type: Transthoracic Echocardiogram Location: [facility] [place] Height: 165.1 cm Weight: 70.31 kg BSA: 1.78 m2 Heart Rate: bpm BP: 131 / 67 mmHg Supervisor Fine Grading: TO Referring MD: oJse Lopez MD Director Channel: Jl Starks MD Symptoms: hypoxia, AFib Study Quality: Technically Difficult ECG Rhythm: Atrial Fibrillation with intermittent ventricular Conclusions: - 1. Technically difficult study due to rapid heart rate as well as off axis views 2. LV systolic function is mildly to moderately depressed, could be underestimated due to rapid atrial fibrillation 3. Mildly dilated left atrium 4. Poorly visualized cardiac valves with normal cardiac valvular Doppler 5. Normal calculated RV systolic pressure Findings Procedure Information Contrast agent, definity, is being given per protocol without apparent complications. The study quality is limited by the presence of bandages. Left Ventricle The left ventricular systolic function is mild to moderately decreased. The visually estimated ejection fraction is between 40-45%. There is paradoxical septal motion consistent with a right ventricular pacemaker. Diastolic function is indeterminate on the basis of available data. Right Ventricle Normal right ventricular cavity size. There is a pacemaker wire seen in the right ventricle. Atria The left atrium is mildly dilated. Interatrial shunt cannot be excluded. The right atrium was not well visualized. Aortic Valve The aortic valve was not well visualized. There is mild calcification of the aortic valve. There is no aortic valve stenosis. There is no aortic valve regurgitation. Mitral Valve The mitral valve was not well visualized. There is mild mitral annular calcification. There is trace mitral valve regurgitation. There is no mitral valve stenosis. Pulmonic Valve The pulmonic valve was not well visualized. Tricuspid Valve The tricuspid valve was not well visualized. There is trace tricuspid valve regurgitation. The right ventricular systolic pressure is normal. The right ventricular systolic pressure is 25 mmHg. Normal right atrial pressure. Great Vessels All visible segments of the aorta are normal in size. The pulmonary artery was not well visualized. Venous The inferior vena cava is normal in size and collapses greater than 50% with inspiration. Prior Study Comparison No prior study available for comparison. Measurements 2D Linear Measurements IVSd: 1.35 0.6-0.9/0.6-1.0 cm LVIDd: 3.94 3.9-5.3/4.2-5.9 cm LVIDd Index: 2.21 2.4-3.2/2.2-3.1 cm/m2 LVIDs: 3.02 2.0-3.6 cm LVPWd: 0.91 0.7-1.1 cm LA Diam: 3.20 2.7-3.8/3.0-4.0 cm LAIDs Index: 1.80 1.5-2.3 cm/m2 LV Mass: 184.13 67-162/88-224 g LV Mass Index: 103.44 43-95/49-115 g/m2 LVOT Diam: 2.00 3.0+(-)1.3 cm 2D Systolic Function EF 4C: 41.90 >55% EF 2C: 48.90 >55% EF BiP: 42.40 >55% Mitral Valve MV Pk E: 0.78 MV Decel Time: 242.00 E'Lateral: 10.00 E/E' Lat: 7.80 PHT: 71.00 MVA PHT: 3.10 Decel Routt: 3.21 Aortic Valve AoV Pk Nato: 1.03 AoV Pk Grad: 4.00 LVOT LVOT Pk Nato: 0.83 LVOT Mn [place]ato: 0.57 LVOT VTI: 0.12 LVOT Pk Grad: 3.00 LVOT Mn Grad: 2.00 LVOT Diam: 2.00 LVOT Area: 3.14 Diastolic Function MV Pk E: 0.78 E' Laterial: 10.00 E/E' Lat: 7.80 Right Ventricle TAPSE (mm): 16.50 TVS' Nato: 8.99 Tricuspid Valve TR Pk [place]: 2.35 TR Pk Grad: 22.00 RA Press: 3.00 RVSP: 25.00 Great Vessels Aorta Sinus of Valsalva: 3.97 2.0-3.[address] [place]: 2.69 1.7-3.4 cm Ao Asc: 3.30 2.1-3.4 cm Updated in Other Vendor System with Status of Final Jl Starks MD electronically signed on 08/31/2022 4:51:13 PM with status of Final
[2022-08-31 07:52] LABS: Albumin Level 3.2 g/dL (3.5-5.0); Anion Gap 14 (12-20); Blood Urea Nitrogen 14 mg/dL (9-16); Carbon Dioxide 20 mmol/L (22-29); Chloride 107 mmol/L (96-108); Creatinine Clr Calc Pharmacy 68.3; Estimated Glomerular Filt Rate > 60; Glucose Random 82 mg/dL (60-115); Magnesium 1.9 mg/dL (1.6-2.6); Phosphorus 2.2 mg/dL (2.7-4.5); Potassium 3.6 mmol/L (3.3-5.1); Sodium 137 mmol/L (135-145)
[2022-08-31] MEDS: Ascorbic Acid 500 MG TABLET PO ×2 (08:57→21:21)
[2022-08-31] MEDS: Gabapentin 100 MG CAPSULE 200 MG PO ×3 (08:57→21:21)
[2022-08-31] MEDS: Dicyclomine HCl 10 MG CAPSULE PO ×3 (08:57→21:21)
[2022-08-31] MEDS: Atorvastatin Calcium 10 MG TABLET PO (08:57)
[2022-08-31] MEDS: Acetaminophen 325 MG TABLET 650 MG PO ×3 (08:58→21:52)
[2022-08-31] MEDS: 0.9 % Sodium Chloride Flush 3 ML SYRINGE IVFLUSH ×2 (09:04→15:32)
[2022-08-31] MEDS: Meclizine HCl 25 MG TABLET PO (09:04)
[2022-08-31] MEDS: levoFLOXacin/D5W 750 MG/150 ML PIGGYBACK 100 MG IV (09:22)
[2022-08-31] MEDS: ondansetron HCL 4 MG/2 ML VIAL IVPUSH (09:32)
[2022-08-31] MEDS: Digoxin 0.5 MG/2 ML AMPUL 0.25 MG IVPUSH (10:06)
[2022-08-31] MEDS: Metoprolol Tartrate 25 MG TABLET PO (13:13)
--- NOTE | 2022-08-31 13:29 | PM.PNCARD ---
Subjective Subjective Date of Service: 08/31/22 Principal diagnosis: tachy-pako syndrome Interval history: patient having mild symptoms related atrial fibrillation still flow is fluttering chest pain no lightheadedness. Underwent dual-chamber pacemaker yesterday. Pacer pocket appears benign. Pacemaker lead function is stable. Remains in atrial fibrillation rapid ventricular response with softer blood pressure. No lightheadedness. Review of Systems Constitutional: Reports no additional constitutional complaints Cardiovascular: Denies chest pain, Denies leg edema, Denies lightheadedness, Denies Loss of Consciousness, Reports palpitations and Denies dyspnea Respiratory: Reports no additional respiratory complaints and Denies dyspnea Gastrointestinal: Reports no additional gastrointestinal complaints Genitourinary: Reports no additional female genitourinary complaints Musculoskeletal: Reports no additional musculoskeletal complaints Endocrine: Reports no additional endocrine complaints and Reports palpitations Physical Exam Vital Signs: Last Vital Signs Temp 97.6 F 08/31/22 12:00 Pulse 134 H 08/31/22 13:12 Resp 18 08/31/22 13:12 BP 116/86 08/31/22 13:12 Pulse Ox 93 08/31/22 13:12 O2 Del Method 08/31/22 13:12 O2 Flow Rate 2 08/31/22 04:00 BMI result Body Mass Index 27.1 Const General: cooperative, comfortable, no acute distress, awake and Physically active Nutritional Appearance: average body habitus Orientation/consciousness: patient oriented x3 Neck Neck: Yes trachea midline, Yes supple and Yes no JVD Resp Effort & Inspection: normal respiratory effort Auscultation: no crackles, no rales and diminished lung sounds Cardio Jugular venous distension: no JVD Rate: tachycardic Rhythm: abnormal rhythm irregularly irregular Heart sounds: S1 normal heart sound present, S2 normal heart sound present, no click, no gallops and no murmurs GI Auscultation: normal bowel sounds Skin General skin exam: no rashes or lesions noted Neuro General: patient oriented x3 and no focal motor deficits Extrem General: Yes no clubbing, cyanosis or edema Objective Labs and Meds 08/31/22 06:35 08/31/22 06:35 Lab results: Laboratory Results - last 24 hr 08/30/22 08/31/22 08/31/22 05:15 06:35 06:35 WBC 9.1 RBC 4.14 L Hgb 12.0 Hct 36.1 L MCV 87.2 MCH 29.0 MCHC 33.2 RDW 12.5 Plt Count 200 MPV 10.7 Immature Gran % (Auto) 0.2 Neut % (Auto) 68.1 Lymph % (Auto) 21.3 [place] % (Auto) 8.0 Eos % (Auto) 2.2 Baso % (Auto) 0.2 Lymph # (Auto) 1.9 [place] # (Auto) 0.7 Eos # (Auto) 0.2 Baso # (Auto) 0.0 Abs Immat Gran (auto) 0.02 Absolute Neuts (auto) 6.2 Absolute Nucleated RBC 0.000 Nucleated RBC % (auto) 0.0 VBG pH VBG pCO2 VBG pO2 VBG HCO3 VBG O2 Saturation VBG Base Excess Sodium 137 Potassium 3.6 Chloride 107 Carbon Dioxide 20 L Anion Gap 14 BUN 14 Creatinine 0.65 Estim Creat Clear Calc 68.3 Estimated GFR > 60 Random Glucose 82 Calcium 8.0 L Phosphorus 2.2 L Magnesium 1.9 Albumin 3.2 L TSH 2.33 08/31/22 06:38 WBC RBC Hgb Hct MCV MCH MCHC RDW Plt Count MPV Immature Gran % (Auto) Neut % (Auto) Lymph % (Auto) [place] % (Auto) Eos % (Auto) Baso % (Auto) Lymph # (Auto) [place] # (Auto) Eos # (Auto) Baso # (Auto) Abs Immat Gran (auto) Absolute Neuts (auto) Absolute Nucleated RBC Nucleated RBC % (auto) VBG pH 7.45 H VBG pCO2 29 VBG pO2 99 VBG HCO3 21 L VBG O2 Saturation 99.0 VBG Base Excess -1.8 Sodium Potassium Chloride Carbon Dioxide Anion Gap BUN Creatinine Estim Creat Clear Calc Estimated GFR Random Glucose Calcium Phosphorus Magnesium Albumin TSH Imaging Radiologist's impression: Impressions Chest X-Ray 08/30/22 15:20 IMPRESSION: No pneumothorax after pacer placement. Progress Note: A&P Assessment and plan (1) Sick sinus syndrome: Status: Acute Assessment and Plan: Sick sinus syndrome with significant pauses status post dual-chamber pacemaker placement. Pacemaker is working well. Will continue monitor after cardioversion to assess for atrial sensing and ventricular sensing which is appropriate as well as pacing lead impedance. Long-term follow-up in the clinic in 6 weeks times. (2) Atrial fibrillation with RVR: Status: Acute Assessment and Plan: Atrial fibrillation rapid ventricular response, symptomatic. Blood pressure is on the softer side. No signs or symptoms of heart failure. P.o. metoprolol 12.5 mg q.6 hours, closely monitor blood pressure. Also start IV digoxin 0.25 mg q.6 hours x3 doses. If rate remains difficult to control may require EMIL guided cardioversion, Only after clearance by thoracic surgery for oral anticoagulation therapy which I hope can be started this evening. Keep her NPO past midnight. Plan was discussed in details with the patient and patient's family at bedside. They understand agree. Will continue to follow with you. Time Spent With Patient Time: Total time managing care of this patient today ____ minutes. Progress Note: Quality Stroke Does the patient have a stroke diagnosis?: No Procedures Date of Service Date of Service: 08/31/22
--- NOTE | 2022-08-31 14:15 | HO.POSTANES ---
Post Anesthesia Evaluation Post Anesthesia Evaluation Vital Signs: Vital Signs Temp Pulse Resp BP Pulse Ox O2 Del Method O2 Flow Rate 08/31/22 13:58 127 H 131/67 08/31/22 13:49 133 H 08/31/22 13:12 134 H 18 116/86 93 Room Air 08/31/22 12:00 97.6 F 120 H 18 128/68 94 Room Air 08/31/22 10:34 133 H 18 117/82 94 Room Air 08/31/22 10:19 138 H 16 127/67 91 L Room Air 08/31/22 09:39 140 H 18 97/76 93 Room Air 08/31/22 07:43 97.6 F 75 18 96 Room Air 08/31/22 04:00 97.9 F 126 H 18 127/92 H 94 Nasal Cannula 2 Anesthesia: Monitored Mental Status: Awake Pain Control: Satisfactory Nausea/Vomiting: None Hydration: Adequate Anesthesia-Related Issues: No Anes. Related Issues
--- NOTE | 2022-08-31 14:56 | HO.PM.IMPN ---
Subjective Subjective Date of Service: 08/31/22 Interval History: the patient was seen and evaluated this morning Laying in bed, feels comfortable overall HR running fast 120-140s , Afib w rvr Denies any fever, chills or shortness of breath No reported other overnight events. Review of Systems Review of Systems: Yes all other systems are reviewed and are negative Physical Exam Vital Signs: Vital Signs: Last Vital Signs Temp 97.6 F 08/31/22 12:00 Pulse 127 H 08/31/22 13:58 Resp 18 08/31/22 13:12 BP 131/67 08/31/22 13:58 Pulse Ox 93 08/31/22 13:12 O2 Del Method 08/31/22 13:12 O2 Flow Rate 2 08/31/22 04:00 BMI result Body Mass Index 27.1 Const: Other: Constitutional : Awake, interactive, not in distress Neck : Normal inspection, Supple Cardiovascular : Irregular irregular, tachycardia, no JVP, no lower extremity edema Respiratory : good bilateral air entry, no crackles, wheezes or rhonchi Gastrointestinal: soft, lax, Normal bowel sounds, Non tender Skin : Warm, Dry, chest wall surgical wound looks clean, no drainage noted Neurological : Alert & oriented x3, No focal deficit Objective Data Active Medications Acetaminophen (Acetaminophen 325 Mg Tablet) 650 mg PO Q6H PRN PRN Reason: Pain, Mild (Pain Scale 1-3) Last Admin: 08/31/22 08:58 Dose: 650 mg Documented By: ROM Ascorbic Acid (Ascorbic Acid 500 Mg Tablet) 500 mg PO BID [facility] Last Admin: 08/31/22 08:57 Dose: 500 mg Documented By: ROM Atorvastatin Calcium (Atorvastatin Calcium 10 Mg Tablet) 10 mg PO DAILY [facility] Last Admin: 08/31/22 08:57 Dose: 10 mg Documented By: ROM Dicyclomine HCl (Dicyclomine Hcl 10 Mg Capsule) 10 mg PO TID [facility] Last Admin: 08/31/22 08:57 Dose: 10 mg Documented By: ROM Digoxin (Digoxin 0.5 Mg/2 Ml Ampul) 0.125 mg IVPUSH Q6H [facility] Stop: 08/31/22 22:01 Fluticasone Propionate (Fluticasone Propionate Nasal 16 Gm [place]) 2 spray NOSTRIL-B BID [facility] Last Admin: 08/31/22 09:44 Dose: Not Given Documented By: ROM Non-Admin Reason: Med Not Available Gabapentin (Gabapentin 100 Mg Capsule) 200 mg PO TID [facility] Last Admin: 08/31/22 08:57 Dose: 200 mg Documented By: ROM Guaifenesin/Codeine Phosphate (Guaifen/Codeine Sf 200/20/10ml 10 Ml Liquid) 5 ml PO Q4H PRN PRN Reason: Cough Last Admin: 08/31/22 04:49 Dose: 5 ml Documented By: NEAL Heparin Sodium (Porcine) (Heparin Sodium,Porcine 5,000 Unit/Ml Vial) 5,000 unit SUBCUT Q12H [facility] Last Admin: 08/31/22 04:46 Dose: 5,000 unit Documented By: NEAL Levofloxacin (Levaquin) 750 mg in 150 mls @ 100 mls/hr IV Q24H [facility] Last Infusion: 08/31/22 11:05 Dose: 0 mls/hr Documented By: ROM Levothyroxine Sodium 112 mcg/ (Levothyroxine Sodium 25 mcg) 137 mcg PO DAILY@0600 [facility] Last Admin: 08/31/22 04:47 Dose: 137 mcg Documented By: NEAL Meclizine HCl (Meclizine Hcl 25 Mg Tablet) 25 mg PO TID PRN PRN Reason: Motion Sickness Last Admin: 08/31/22 09:04 Dose: 25 mg Documented By: ROM Metoprolol Tartrate (Metoprolol Tartrate 25 Mg Tablet) 25 mg PO BID [facility]; Protocol Last Admin: 08/31/22 13:13 Dose: 25 mg Documented By: ROM Omeprazole (Omeprazole 20 Mg Capsule.Dr) 20 mg PO DAILY@0630 [facility] Ondansetron HCl (Ondansetron Hcl 4 Mg/2 Ml Vial) 4 mg IVPUSH Q8H PRN PRN Reason: Nausea Last Admin: 08/31/22 09:32 Dose: 4 mg Documented By: ROM Ondansetron HCl (Ondansetron Hcl 4 Mg/2 Ml Vial) 4 mg IVPUSH Q8H PRN PRN Reason: Nausea and Vomiting Last Admin: 08/29/22 04:45 Dose: 4 mg Documented By: SUKH Sodium Chloride (0.9 % Sodium Chloride Flush 3 Ml Syringe) 3 ml IVFLUSH QSHIFT [facility] Last Admin: 08/31/22 09:04 Dose: 3 ml Documented By: ROM Vitamin D (Cholecalciferol (Vitamin D3) 25 Mcg Tablet) 25 mcg PO MOWEFR@0900 [facility] Labs 08/31/22 06:35 08/31/22 06:35 Labs: Laboratory Results - last 24 hr 08/31/22 08/31/22 08/31/22 06:35 06:35 06:38 MCV 87.2 MCH 29.0 MCHC 33.2 RDW 12.5 Plt Count 200 MPV 10.7 Immature Gran % (Auto) 0.2 Neut % (Auto) 68.1 Lymph % (Auto) 21.3 [place] % (Auto) 8.0 Eos % (Auto) 2.2 Baso % (Auto) 0.2 Lymph # (Auto) 1.9 [place] # (Auto) 0.7 Eos # (Auto) 0.2 Baso # (Auto) 0.0 Abs Immat Gran (auto) 0.02 Absolute Neuts (auto) 6.2 Absolute Nucleated RBC 0.000 Nucleated RBC % (auto) 0.0 VBG pH 7.45 H VBG pCO2 29 VBG pO2 99 VBG HCO3 21 L VBG O2 Saturation 99.0 VBG Base Excess -1.8 Anion Gap 14 Estim Creat Clear Calc 68.3 Estimated GFR > 60 Random Glucose 82 Calcium 8.0 L Phosphorus 2.2 L Magnesium 1.9 Albumin 3.2 L Microbiology Microbiology Results: Microbiology 08/29/22 10:04 Blood Culture - Preliminary Blood - Venous No growth after 48 hours. 08/29/22 10:04 Blood Culture - Preliminary Blood - Venous No growth after 48 hours. Assessment and Plan (1) Sick sinus syndrome: Status: Acute (2) Atrial fibrillation with RVR: Status: Acute (3) Pneumonia: Status: Acute Plan An 82 years old lady with PMH of hypothyroidism, tachy-pako syndrome admitted for pleuritic chest pain and dyspnea. Found to be in AFib with RVR in ED, received metoprolol digoxin Cardizem which goes symptomatic bradycardia requiring initiation of pressor support. Symptomatic bradycardia 2/2 tachy-pako syndrome post ppm placement Pod 1 Pending to echo Thoracic surgery to decide when to restart anticoagulation Atrial fibrillation with RVR Loaded with digoxin Low-dose metoprolol Cardiology team following To start anticoagulation once cleared by thoracic team Community-acquired pneumonia On room air Continue Levaquin HLD Continue statin Hypothyroidism Continue levothyroxine DVT PPX SCDs The patient will need overnight hospital stay for management of AFib with RVR. Time Spent With Patient Time: Total time managing care of this patient today ____ minutes. Quality Stroke Does the patient have a stroke diagnosis?: No VTE Prior VTE?: No VTE Risk Level:: Medical - moderate - high VTE Device Contraindication: Treatment Not Indicated VTE Drug Contraindication: N/A - Med Ordered
[2022-08-31] MEDS: Digoxin 0.5 MG/2 ML AMPUL 0.125 MG IVPUSH ×2 (15:31→21:21)
--- NOTE | 2022-08-31 17:06 | PC.NURSE ---
Beasley out at this time.
[2022-08-31] MEDS: Metoprolol Tartrate 12.5 MG HALFTAB PO (18:03)
[2022-08-31] MEDS: Fluticasone Propionate Nasal 16 GM SPRAY 2 SPRAY NOSTRIL-B (21:35)
[2022-08-31] MEDS: diphenhydrAMINE HCL 25 MG CAPSULE 50 MG PO (21:52)
[2022-09-01] VITALS: BP 131/68; PULSE 63; RESP 20; TEMP 36.7; O2SAT 94
[2022-09-01] MEDS: Metoprolol Tartrate 12.5 MG HALFTAB PO ×3 (01:25→12:20)
[2022-09-01] MEDS: 0.9 % Sodium Chloride Flush 3 ML SYRINGE IVFLUSH ×2 (01:25→10:00)
[2022-09-01 03:09] VITALS: BP 150/70; PULSE 61; RESP 20; TEMP 36.4; O2SAT 93
[2022-09-01] MEDS: Omeprazole 20 MG CAPSULE.DR PO (05:08)
[2022-09-01] MEDS: Levothyroxine Sodium 112 MCG, Levothyroxine Sodium 25 MCG 137 MCG PO (05:08)
[2022-09-01] MEDS: Heparin Sodium,Porcine 5,000 UNIT/ML VIAL 5000 UNIT SUBCUT (05:09)
[2022-09-01 05:13] VITALS: BMI 28.2
[2022-09-01 06:55] LABS: Hemoglobin 12.9 g/dl (12.0-16.0); Mean Corpuscular HGB Conc 33.9 g/dl (31.0-35.0); Mean Corpuscular Hemoglobin 29.3 pg (27.0-33.0); Mean Corpuscular Volume 86.4 fL (80.0-98.0); Mean Platelet Volume 10.8 fL (9.4-12.3); Platelet Count 192 X10*3/uL (160-400); Red Cell Distribution Width 12.4 % (11.0-16.0); White Blood Count 8.2 X10*3/uL (4.8-10.8)
[2022-09-01 07:14] LABS: Anion Gap 13 (12-20); Blood Urea Nitrogen 13 mg/dL (9-16); Calcium 8.3 mg/dL (8.4-10.2); Carbon Dioxide 20 mmol/L (22-29); Chloride 108 mmol/L (96-108); Creatinine Clr Calc Pharmacy 69.6; Estimated Glomerular Filt Rate > 60; Glucose Random 84 mg/dL (60-115); Potassium 4.3 mmol/L (3.3-5.1); Sodium 137 mmol/L (135-145)
[2022-09-01 07:51] VITALS: BP 136/75; PULSE 71; RESP 20; TEMP 36.6; O2SAT 94
--- NOTE | 2022-09-01 09:41 | MHC.CM.PN ---
DP Home self care. Patient will arrange for transportation home. She is an ICU step down. DX Tacky-Carlos syndrome. CM will follow for a change in needs @ discharge.
[2022-09-01] MEDS: Ascorbic Acid 500 MG TABLET PO (09:44)
[2022-09-01] MEDS: Cholecalciferol (Vitamin D3) 25 MCG TABLET PO (09:44)
[2022-09-01] MEDS: Atorvastatin Calcium 10 MG TABLET PO (09:44)
[2022-09-01] MEDS: Dicyclomine HCl 10 MG CAPSULE PO ×2 (09:44→15:03)
[2022-09-01] MEDS: Gabapentin 100 MG CAPSULE 200 MG PO ×2 (09:44→15:03)
[2022-09-01] MEDS: levoFLOXacin/D5W 750 MG/150 ML PIGGYBACK 100 MG IV (09:45)
[2022-09-01] MEDS: Fluticasone Propionate Nasal 16 GM SPRAY 2 SPRAY NOSTRIL-B (09:51)
--- NOTE | 2022-09-01 10:49 | P.PNCA_ITS ---
Subjective Subjective Date of Service: 09/01/22 Principal diagnosis: tachy-pako syndrome Interval history: Patient converted to sinus rhythm last evening. Currently not having any cardiac symptoms. Denies any irregular fast heart rate. Denies any shortness of breath or chest pain. No lightheadedness. Remains in a paced rhythm. Review of Systems Constitutional: Reports no additional constitutional complaints Cardiovascular: Reports no additional cardiovascular complaints Respiratory: Reports cough Gastrointestinal: Reports no additional gastrointestinal complaints Genitourinary: Reports no additional female genitourinary complaints Skin/Breast: Reports system reviewed and no additional complaints, except as docu Psychiatric: Reports anxiety Physical Exam Vital Signs: Last Vital Signs Temp 97.9 F 09/01/22 07:51 Pulse 71 09/01/22 07:51 Resp 20 09/01/22 07:51 BP 136/75 09/01/22 07:51 Pulse Ox 94 09/01/22 07:51 O2 Del Method 09/01/22 07:51 O2 Flow Rate 2 08/31/22 04:00 BMI result Body Mass Index 28.2 Const General: cooperative, comfortable, no acute distress, alert and awake Nutritional Appearance: average body habitus Orientation/consciousness: patient oriented x3 Limitations: no limitations Neck Neck: Yes trachea midline, Yes supple and Yes no JVD Resp Effort & Inspection: normal respiratory effort Auscultation: clear to auscultation bilaterally Cardio Jugular venous distension: no JVD Rate: regular rate Rhythm: regular rhythm Heart sounds: S1 normal heart sound present, S2 normal heart sound present, no click, no gallops, no murmurs and no rubs Skin General skin exam: no rashes or lesions noted Neuro General: patient oriented x3 and no focal motor deficits Extrem General: Yes no clubbing, cyanosis or edema Objective Labs and Meds 09/01/22 06:12 09/01/22 06:12 Lab results: Laboratory Results - last 24 hr 09/01/22 09/01/22 06:12 06:12 WBC 8.2 RBC 4.40 Hgb 12.9 Hct 38.0 MCV 86.4 MCH 29.3 MCHC 33.9 RDW 12.4 Plt Count 192 MPV 10.8 Absolute Nucleated RBC 0.000 Nucleated RBC % (auto) 0.0 Sodium 137 Potassium 4.3 Chloride 108 Carbon Dioxide 20 L Anion Gap 13 BUN 13 Creatinine 0.65 Estim Creat Clear Calc 69.6 Estimated GFR > 60 Random Glucose 84 Calcium 8.3 L Progress Note: A&P Assessment and plan (1) Sick sinus syndrome: Status: Acute Assessment and Plan: Patient with sick sinus syndrome with significant pauses symptoms and hypertension. Status post dual-chamber [employer] pacemaker which is working well. Programmed adequately. Will follow up in the clinic for chronic program in 6 weeks time. (2) Paroxysmal atrial fibrillation: Status: Acute Assessment and Plan: Paroxysmal atrial fibrillation which has persisted for few days, most likely triggered by her acute medical illness. Clinically doing well and converted to sinus rhythm. Start Eliquis 5 mg b.i.d.. Switch to Multaq 400 mg b.i.d. as antiarrhythmic due to maintain rhythm. Switch to metoprolol 25 mg b.i.d.. From cardiac perspective can be discharged home. Will set up for follow-up in the clinic in 2 weeks time (3) Cardiomyopathy: Status: Acute Assessment and Plan: [id number] LV systolic dysfunction most likely related to atrial fibrillation. No signs or symptoms of heart failure. Will pursue rhythm c ontrol as above. Metoprolol for neurohormonal modulation. No signs or symptoms of heart failure at this point time. Follow-up with limited echo of and 6 weeks time. Will sign of the case and follow-up as outpatient. Time Spent With Patient Time: Total time managing care of this patient today ____ minutes. Progress Note: Quality Stroke Does the patient have a stroke diagnosis?: No Procedures Date of Service Date of Service: 09/01/22
[2022-09-01 11:26] VITALS: BP 151/70; PULSE 65; RESP 20; TEMP 37.1; O2SAT 95
[2022-09-01] MEDS: Acetaminophen 325 MG TABLET 650 MG PO (12:14)
--- NOTE | 2022-09-01 12:25 | P.DS_ITS ---
DS: Providers Provider Date of Service: 09/01/22 Date of admission: 08/29/22 04:25 Primary care physician: Maria Teresa Mathur MD Consults: 08/29/22 05:39 Consult to Cardiology Routine Consulting Provider: Sampson Pisano Reason for consultation: a fib chf Has provider been notified: No DS: Diagnosis Discharge Diagnosis (1) Sick sinus syndrome: Status: Acute (2) Paroxysmal atrial fibrillation: Status: Acute (3) Cardiomyopathy: Status: Acute DS: Summary Hospital Course Hospital Course: from initial hpi: ?82-year-old female with past medical history of hypothyroidism, GERD, presents to the hospital with complaints of pleuritic chest pain as well as shortness of breath.? Patient reports that she has midsternal chest pain radiating to the back, worse with taking deep inspirations as well as moving, ? patient reports she also has shortness of breath, dry cough, symptoms started 2 days ago the pain is 10/10, crushing pressure-like, and has been constant.? No nausea or vomiting, no abdominal pain, no diarrhea constipation, no urinary symptoms and no lower extremity edema.? No orthopnea or PND. On her initial arrival to the ED patient had a heart rate of 55, a blood pressure 147/87, patient was found to have pneumonia on chest x-ray, given antibiotic and was being discharged when her heart rate all of a sudden increase to 140s, with respiratory rate in the high 20s, blood pressure remained stable at that time.? Received a call to admit patient for AFib with RVR, new onset.? Patient herself and her at bedside deny having any cardiac history ?patient received 5 mg of metoprolol with no improvement her heart rate, she received 0.25 of digoxin with minimal affect, her blood pressure became hypo tensive, but stable to started on small dose of Cardizem drip, patient then converted to bradycardia with a heart rate in the 30s, patient remained alert oriented throughout the episode. ?labs are significant for WBC count of 11.2, troponin of? 7.4 and 14 respectively, BNP of 438, labs otherwise unremarkable ? CT angiogram of the chest showedNo PE, lungs showed interstitial markings with areas of ground-glass changes suggestive of pulmonary edema and subtle areas of infiltrate ?patient blood pressure dropped to the 70s over 30s with a heart rate in the 50s after receiving atropine 0.5 mg, ICU was informed and patient will be admitted to the ICU for further management hospital course: Patient was admitted for paroxysmal atrial fibrillation with rapid ventricular response complicated by sinus bradycardia and hypotension requiring ICU pressor support. She was then weaned off pressors and downgraded to medical floor. Patient underwent pacemaker placement. Echocardiogram revealed cardiomyopathy likely related AFib. Patient then converted spontaneously while on metoprolol. She will continue metoprolol 25 mg b.i.d., started on Multaq 400 mg b.i.d., Eliquis 5 mg b.i.d. on admission is concern for community-acquired pneumonia. She was treated with levofloxacin, will continue 3 more days of cefuroxime. For hyperlipidemia she was continued on statin. For hypothyroidism she was continued on Synthroid. Patient is feeling much better will be discharged home. Time Spent with Patient Time attestation: Total time managing care of this patient today ____ minutes. Discharge coordination time: Greater than 30 minutes Quality: Safe Use of Opioids Does Pt have an Active Cancer Diagnosis on the Problem List?: No Quality: Stroke Does the patient have a stroke diagnosis?: No Physical Exam Vital Signs: Vital Signs: Last Vital Signs Temp 98.8 F 09/01/22 11:26 Pulse 65 09/01/22 11:26 Resp 20 09/01/22 11:26 BP 151/70 H 09/01/22 11:26 Pulse Ox 95 09/01/22 11:26 O2 Del Method 09/01/22 11:26 O2 Flow Rate 2 08/31/22 04:00 BMI result Body Mass Index 28.2 Const: General: cooperative, comfortable, no acute distress, alert and awake Nutritional Appearance: average body habitus Orientation/consciousness: patient oriented x3 Limitations: no limitations Neck: Neck: Yes trachea midline, Yes supple and Yes no JVD Resp: Effort & Inspection: normal respiratory effort Auscultation: clear to auscultation bilaterally Cardio: Jugular venous distension: no JVD Rate: regular rate Rhythm: regular rhythm Heart sounds: S1 normal heart sound present, S2 normal heart sound present, no click, no gallops, no murmurs and no rubs Skin: General skin exam: no rashes or lesions noted Neuro: General: patient oriented x3 and no focal motor deficits Extrem: General: Yes no clubbing, cyanosis or edema DS: Data Data Completed and Pending Labs on day of discharge: Laboratory Results - last 24 hr 09/01/22 09/01/22 06:12 06:12 WBC 8.2 RBC 4.40 Hgb 12.9 Hct 38.0 MCV 86.4 MCH 29.3 MCHC 33.9 RDW 12.4 Plt Count 192 MPV 10.8 Absolute Nucleated RBC 0.000 Nucleated RBC % (auto) 0.0 Sodium 137 Potassium 4.3 Chloride 108 Carbon Dioxide 20 L Anion Gap 13 BUN 13 Creatinine 0.65 Estim Creat Clear Calc 69.6 Estimated GFR > 60 Random Glucose 84 Calcium 8.3 L Preliminary micro results at discharge 08/29/22 10:04 Blood Culture - Preliminary Blood - Venous No growth after 48 hours. 08/29/22 10:04 Blood Culture - Preliminary Blood - Venous No growth after 48 hours. Discharge Plan Discharge Anticipated Discharge Date/Time: 09/01/22 12:21 Patient Disposition: Home, Self-Care Discharge Diagnosis: afib - tachy pako Referrals: Maria Teresa Mathur MD [Primary Care Provider] - 1 Week Discharge Medications: New Eliquis 5 mg Tablet 5 mg PO BID Qty: 60 0RF Multaq 400 mg Tablet 400 mg PO BID Qty: 60 0RF cefuroxime axetil 500 mg tablet 500 mg PO BID Qty: 6 0RF metoprolol tartrate 25 mg tablet 25 mg PO BID Qty: 60 0RF Continued meloxicam 15 mg tablet 1 tab PO DAILY PRN (Reason: pain) calcium carbonate-vitamin D3 600 mg-5 mcg (200 unit) Tablet 1 tab PO DAILY ascorbic acid (vitamin C) [Vitamin C] 500 mg Tablet 500 mg PO BID cranberry 500 mg Capsule 500 mg PO DAILY Rx Instructions: administer with meals cholecalciferol (vitamin D3) [Vitamin D3] 25 mcg (1,000 unit) Tablet 25 mcg PO MOWEFR@0900 gabapentin 400 mg Capsule 400 mg PO TID nitrofurantoin macrocrystal 50 mg capsule 50 mg PO MOWEFR@0900 Rx Instructions: Tuesday omeprazole 20 mg capsule,delayed release(DR/EC) 20 mg PO DAILY@0630 atorvastatin 10 mg tablet 10 mg PO DAILY levothyroxine [Synthroid] 137 mcg tablet 137 mcg PO DAILY@0600 meclizine 25 mg tablet 25 mg PO TID PRN (Reason: Motion Sickness) dicyclomine 10 mg capsule 10 mg PO TID methocarbamol 500 mg tablet 500 mg PO TID PRN (Reason: back spasm) fluticasone propionate 50 mcg/actuation spray,suspension 2 spray intranasal BID Rx Instructions: inhale 2 sprays into each nostril Discharge Orders: Discharge Order (Routine); Ordered 09/01/22 Ordered By: Miguel A Bardales Diet: Advance to usual diet Activity on Discharge: As tolerated Stand Alone Forms: Patient Portal Discharge page Activity Restrictions/Additional Instructions: Please follow-up with your primary care physician tomorrow. If you have any worsening or new symptoms, please return to the emergency room or call 911 Post-Pacemaker Insertion Instructions: ACTIVITY: * ARM MOVEMENT RESTRICTIONS: No lifting your left arm over your head or behind your back, no pushing/pulling/lifting anything >10lb with your left arm for 6- 8 weeks. This ensures the pacemaker wires stay in place and do not get pulled out accidentally. Make sure you are doing gentle range of motion exercises with the left arm (such as pendulum exercise) to make sure your elbow and shoulder do not get frozen up. * ARM SLING: Keep the sling on until 09/02/2022. You may then take the sling off and leave it off. HOWEVER, if you are noticing a difficulty limiting your left arm movement (as outline above) then wear your sling during the day to make sure you are adhering to the restrictions above. * Ask your doctor when you can expect to return to work. * You can still exercise. It is good for your body and your heart. Talk with your doctor about an exercise plan. INCISION CARE: * You may shower starting 09/02/2022. Sponge bathe only until then. * Do not submerge yourself in water (baths, pools, etc.) for 2 weeks. * Monitor the incision for increased redness, swelling, bruising, pain, open area, or drainage. OTHER PRECAUTIONS: * Before you receive any treatment, tell all healthcare providers (including your dentist) that you have a pacemaker. * You will be given an ID card that contains information about your pacemaker. Always carry this card with you. You can show this card if your pacemaker sets off a metal detector. You should also show it to avoid screening with a hand-held security wand. * Keep your cell phone away from your pacemaker. Do not carry the phone in your shirt pocket, even it if is turned off. * Avoid strong magnets. Examples are those used in MRI's or in hand-held security wands. * Avoid strong electrical hankins. Examples are those made by radio transmitting towers, ham radios, and heavy-duty electrical equipment. * Avoid leaning over the open glez of a running car. A running engine creates an electrical field. Most household and yard appliances will not cause any problems. If you use any large power tools, such as an industrial agricultural research technologist, talk with your doctor. WHEN TO CALL YOUR DOCTOR: Call your doctor immediately if you have any of the following: * Dizziness * Chest pain * Lack of energy * Fainting spells * Twitching chest muscles * Rapid pule or pounding heartbeat * Shortness of breath * Pain around your pacemaker * Fever above 100.4 F (38 C) or other signs of infection (redness, swelling, drainage, or warmth at the incision site). * Hiccups that will not stop FOLLOWUP APPOINTMENTS: * You have an appointment with Dr. Martin at the [facility] on 09/17/2022 @ 11:15am to followup on your pacemaker. [facility], 1st floor near Main entrance [facility] * The Thoracic Surgery office number is if you have any questions or concerns. * Call your bottle carrier to make an appointment for the next couple weeks. Make regular follow-up appointments with your doctor. He or she will check the pacemaker to make sure it is working properly. Care Plan Goals: recovery Health Concerns: afib tachy pako, pna Plan of Treatment: 3 more days of ceftin, meds as above Assessment: see above Patient Instructions: Pneumonia (ED)
--- NOTE | 2022-09-01 12:52 | MHC.CM.PN ---
IMM 09/01/22 Patient has been evaluated by PT. The recommendation is home self care. No services indicated. Patient will transport home via family transport, this afternoon.
== END 2022-09-01 15:30 | disposition home or self-care (01) | DRG 242 ==
LOC: HO.ED 08-29 00:50 → HO.EDOVER 08-29 04:29 → HO.ICU 08-29 06:40 → HO.IMC 08-30 19:45
PROVIDERS: Internal Medicine Pulmonary Disease; Registered Nurse Community Health; Student in an Organized Health Care Education/Training Program; Surgery; Admitting Provider Internal Medicine; Emergency Provider Emergency Medicine; PCP Internal Medicine; Visit Provider Internal Medicine
PROC: 0JH606Z Insertion of Pacemaker, Dual Chamber into Chest Subcutaneous Tissue and Fascia, Open Approach (ICD-10-PCS; principal; 2022-08-30 13:00)
DX: I49.5 Sick sinus syndrome (principal); J18.9 Pneumonia, unspecified organism; I73.00 Raynaud's syndrome without gangrene; I48.0 Paroxysmal atrial fibrillation; I42.9 Cardiomyopathy, unspecified; E89.0 Postprocedural hypothyroidism; I95.9 Hypotension, unspecified; Z20.822 Contact with and (suspected) exposure to COVID-19; Z87.891 Personal history of nicotine dependence; Z88.2 Allergy status to sulfonamides; Z79.51 Long term (current) use of inhaled steroids; Z79.890 Hormone replacement therapy; Z79.899 Other long term (current) drug therapy
CPT/HCPCS: 36415; 71045; 71275; 80048; 80053; 82040; 82803; 83605; 83735; 83880; 84100; 84443; 84484; 85025; 85027; 85379; 87040; 87502; 87635; 93005; 93306; 97162; 99285; C1758; C1785; C1892; C1898; J0461; J0611; J0690; J1160; J1265; J1643; J1885; J1940; J1956; J2250; J2270; J2405; J2795; J3010; J3370; J3475; P9047; Q9957; Q9967

== ENCOUNTER → 2022-09-17 11:11 | Outpatient (BNVA) | payer MEDICARE, SELFPAY | PROVIDERS: PCP Internal Medicine; Visit Provider Surgery | DX: Z13.89 Encounter for screening for other disorder (principal) ==

== ENCOUNTER → 2022-09-22 14:51 | Outpatient (BNVA) | payer MEDICARE, SELFPAY | PROVIDERS: PCP Internal Medicine; Visit Provider Nurse Practitioner Family | DX: I49.5 Sick sinus syndrome (principal); I42.9 Cardiomyopathy, unspecified; I48.0 Paroxysmal atrial fibrillation; Z95.0 Presence of cardiac pacemaker | CPT/HCPCS: 93005; 99212 ==

== ENCOUNTER → 2022-10-12 08:48 | Outpatient (REF) | payer MEDICARE, SELFPAY ==
--- NOTE | 2022-10-12 08:51 | CA_ITS ---
Transthoracic Echocardiogram Limited Patient (Last, First, Middle): Hortensia Godoy, Gender: Female Date of : 1940 Age: 82 Procedure Date: 10/12/2022 Procedure Type: Transthoracic Echocardiogram Limited Location: OP Height: 165.1 cm Weight: 70.31 kg BSA: 1.78 m2 Heart Rate: bpm BP: 122 / 68 mmHg Chainer: LEVI Referring MD: Jl Starks MD Caretaker Grounds: Jl Starks MD Symptoms: I42.9 - Cardiomyopathy, unspecified Study Quality: Fair/Good on Apical views ECG Rhythm: Sinus Conclusions: - Normal LV systolic function with mild LVH with impaired relaxation filling pattern Findings Left Ventricle Normal left ventricular size and systolic function. There is mildly increased left ventricular wall thickness. The visually estimated ejection fraction is between 60-65%. Spectral Doppler is indicative of an impaired relaxation filling pattern. E/E prime ratio is between 8 and 15 consistent with indeterminate filling pressures. Peak GLS is -17.1%, within normal limits Right Ventricle Normal right ventricular cavity size and systolic function. Tricuspid Valve The right ventricular systolic pressure is normal. The right ventricular systolic pressure is 30 mmHg. Prior Study Comparison Significant changes compared to prior study dated: 08/31/2022. LV systolic function is normalized Measurements 2D Linear Measurements IVSd: 1.20 0.6-0.9/0.6-1.0 cm LVIDd: 3.39 3.9-5.3/4.2-5.9 cm LVIDd Index: 1.90 2.4-3.2/2.2-3.1 cm/m2 LVIDs: 2.18 2.0-3.6 cm LVPWd: 1.21 0.7-1.1 cm LV Mass: 162.40 67-162/88-224 g LV Mass Index: 91.24 43-95/49-115 g/m2 LVOT Diam: 2.00 3.0+(-)1.3 cm 2D Systolic Function EF 4C: 56.30 >55% EF 2C: 58.40 >55% LVOT LVOT Diam: 2.00 LVOT Area: 3.14 Right Ventricle TAPSE (mm): 20.00 TVS' [place]: 11.00 Tricuspid Valve TR Pk [place]: 2.61 TR Pk Grad: 27.00 RA Press: 3.00 RVSP: 30.00 Updated in Other Vendor System with Status of Final Jl Starks MD electronically signed on 10/14/2022 8:36:57 AM with status of Final
== END ==
LOC: HO.CARD 08:48
PROVIDERS: PCP Internal Medicine; Visit Provider Internal Medicine Cardiovascular Disease
DX: I42.9 Cardiomyopathy, unspecified (principal); I48.0 Paroxysmal atrial fibrillation; I49.5 Sick sinus syndrome
CPT/HCPCS: 93308; 93356

== ENCOUNTER → 2022-10-18 13:59 | Outpatient (BNVA) | payer MEDICARE, SELFPAY | PROVIDERS: PCP Internal Medicine; Visit Provider Nurse Practitioner Family | DX: I48.0 Paroxysmal atrial fibrillation (principal); I42.9 Cardiomyopathy, unspecified; Z45.018 Encounter for adjustment and management of other part of cardiac pacemaker; Z86.79 Personal history of other diseases of the circulatory system; Z79.01 Long term (current) use of anticoagulants; Z79.899 Other long term (current) drug therapy | CPT/HCPCS: 93280; 99212 ==

== ENCOUNTER 2022-11-12 14:49 | Outpatient (REF) | payer MEDICARE, SELFPAY ==
--- NOTE | 2022-11-12 15:18 | MHC.AU.HA3 ---
Hearing Instrument Follow-Up- Binaural Date of Visit: 11/12/22 Right Ear: Vickey, Model, Color, Serial Number: Good Roman [id number] SN: [id number] Color: Silver Madden Tube Machine Operator Repair Warranty: 03/15/2024 Tube Machine Operator Loss and Damage Warranty: 03/15/2024 Battery Size: 13 Director Of Casino Marketing/Slim Tube: #2 Medium Earmold/Dome/CShell/SlimTip:Medium vented dome Type of Wax Guard: CeruShield Dispensed By: [facility] Date of Fittin12/26/2020 Left Ear: Vickey, Model, Color, Serial Number: Good Roman [id number] SN: [id number] Color: Silver Madden Tube Machine Operator Repair Warranty: 03/15/2024 Tube Machine Operator Loss and Damage Warranty: 03/15/2024 Battery Size: 13 Director Of Casino Marketing/Slim Tube: #2 Medium Earmold/Dome/CShell/SlimTip: Medium vented dome Type of Wax Guard: CeruShield Dispensed By: [facility] Date of Fittin12/26/2020 Follow-Up Summary: Right airborne mission systems wire broken into two pieces. Left airborne mission systems flimsy and discolored. Cleaned both hearing aids and replaced both receivers under warranty. Also replaced domes and retention tails. Provided Hortensia with printed instruction booklet at her request for directions on how to clean her hearing aids. Advised that manual is for rechargeable hearing aids; however, cleaning instructions are the same for her 13T hearing aids. Otherwise, she is happy with her hearing aids and has no other concerns at this time. Ordered replacement receivers under warranty to replace used stock. Recommendations: Hearing instrument maintenance in 6 months, or sooner if needed. Please contact our clinic with any questions or concerns. Diagnosis Code(s): Primary Diagnosis: H90.3 Bilateral Sensorineural Hearing Loss Signature: Provider: Lucy Funez, [facility]
== END 2022-11-12 14:50 | disposition home or self-care (01) ==
LOC: HO.HAP 14:49
PROVIDERS: Visit Provider Internal Medicine
DX: Z13.89 Encounter for screening for other disorder (principal)

== ENCOUNTER → 2023-01-25 08:52 | Outpatient (BNVA) | payer MEDICARE, SELFPAY | PROVIDERS: Visit Provider Nurse Practitioner Family | DX: I45.89 Other specified conduction disorders (principal) | CPT/HCPCS: 93005; 99211 ==

== ENCOUNTER 2023-04-25 11:07 | Outpatient (AMB) | payer MEDICARE, SELFPAY ==
[2023-04-25 11:09] VITALS: BP 120/70; PULSE 61; BMI 26.0
--- NOTE | 2023-04-25 11:09 | A.OFFVIS_ITS ---
Intake Vital Signs 04/25/23 11:09 Height 5 ft 5 in Weight 156 lb 8.451 oz BMI 26.0 BP 120/70 Blood Pressure Location Lt brachial Position Sitting Pulse 61 Intake Visit Reasons: 6 mth f/u with pacer check Intake Note: 6 month follow-up [facility] c/o diarrhea weekly and butter fly in chest at times and cough Robotics Mechanic Required: No Cephalometric Technician: Cephalometric Technician Present Accompanied by: Son Allergies sulfamethoxazole [From Bactrim] Allergy (Verified 09/22/22 15:15) unknown trimethoprim [From Bactrim] Allergy (Verified 09/22/22 15:15) unknown Medication List - Last Reconciled 04/25/23 by Jl Starks MD albuterol sulfate 90 mcg/actuation 2 puffs inhalation Q6H PRN apixaban (Eliquis) 5 mg PO BID ascorbic acid (vitamin C) (Vitamin C) 500 mg PO BID atorvastatin 10 mg PO DAILY calcium carbonate-vitamin D3 600 mg-5 mcg (200 unit) 1 tab PO DAILY cholecalciferol (vitamin D3) (Vitamin D3) 25 mcg PO MOWEFR@0900 cranberry 500 mg PO DAILY dicyclomine 10 mg PO BID dronedarone (Multaq) 400 mg PO BID fluticasone propionate 50 mcg/actuation 2 sprays intranasal BID PRN gabapentin 400 mg PO TID hyoscyamine sulfate 0.125 mg PO Q4H PRN levothyroxine 150 mcg PO DAILY loratadine (Allergy Relief (loratadine)) 10 mg PO DAILY PRN meclizine 25 mg PO TID PRN meloxicam 15 mg PO DAILY PRN methocarbamol 500 mg PO TID PRN metoprolol tartrate 25 mg PO BID nitrofurantoin macrocrystal 50 mg PO MOWEFR@0900 omeprazole 20 mg PO DAILY@0630 pantoprazole 20 mg PO DAILY HPI HPI Comments History of Present Illness Details Hortensia comes for follow-up. She is accompanied by her son. She has been doing well from cardiac perspective. No recurrent hospitalization related to heart failure atrial fibrillation. Denies any prolonged palpitations. Remains active. Comes for pacemaker evaluation today. No bleeding issues or neurologic events. Denies orthopnea, PND, leg edema. [facility] Medical History Osteopenia Pacemaker (~08/2022) Graves disease History of radioactive iodine thyroid ablation Hypothyroidism Surgical History History of basal cell carcinoma (BCC) excision History of pacemaker (~2022) History of tonsillectomy and adenoidectomy History of appendectomy History of lumpectomy of left breast Family History Mother Breast cancer Father Hypertension Social History Household Members: Spouse Housing: House Do you presently have visiting nurse or other home services: No Alcohol intake: current Alcohol intake frequency: a few times a week Alcohol type: wine Patient Tobacco Use Status: Former Tobacco user Tobacco use type: Cigarette e-Cigarette/Vaping Use: Never Used Second Hand Smoke Exposure: No service: No Current occupational status: retired Review of Systems Const Denies chills, Denies fatigue, Denies fever(s), Denies frequent falls, Denies weakness, Denies weight gain and Denies weight loss ENT Denies dizziness Card Denies chest pain, Denies leg edema, Denies lightheadedness, Denies palpitation s, Denies dyspnea, Denies dyspnea on exertion, Denies orthopnea and Denies other (loss of consciousness) Resp Denies cough, Denies dyspnea and Denies dyspnea on exertion GI Denies hematochezia and Denies change in stool character Musc Denies abnormal gait, Denies muscle weakness, Denies numbness, Denies radiating pain into limb and Denies tingling Neuro Denies abnormal gait, Denies dizziness, Denies frequent falls, Denies numbness, Denies tingling and Denies weakness Endo Denies fatigue and Denies palpitations Physical Exam Vital Signs: Last Vital Signs Pulse 61 04/25/23 11:09 BP 120/70 04/25/23 11:09 BMI result Body Mass Index 26.0 Const General: cooperative, healthy appearing, comfortable and no acute distress Orientation/consciousness: patient oriented x3 Neck Neck: Yes normal visual inspection Chest Other: pacemaker site Left upper chest intact, well healed, no swelling, nontender Resp Effort & Inspection: normal respiratory effort Auscultation: clear to auscultation bilaterally, no crackles, no rales, no rhonchi and no wheezes Cardio Jugular venous distension: no JVD Rate: regular rate Rhythm: regular rhythm Heart sounds: S1 normal heart sound present, S2 normal heart sound present and no rubs GI Inspection: Yes normal to inspection Neuro General: patient oriented x3 Extrem General: Yes normal to inspection, No no pedal edema and No calf tenderness Psych Appearance: grossly normal Mental Status: mental status grossly normal Speech and movement: Normal speech and movement present Office Procedures Cardiac Device Check Cardiac Device Check Details: Dual-chamber [facility] pacemaker in place. Programmed in DDDR at 60 beats per minute. Atrial pacing 100% of time. Minimal ventricular pacing noted. No episodes of atrial fibrillation noted. Atrial ventricular pacing thresholds adequate and in our capture mode. Atrial sensing could not be checked. Ventricular sensing was adequate. Pacing lead impedance is stable. Battery life is excellent about 10 and half years 22116-[id number] Cardiac Device Check, pacemaker dual lead Procedure code (CPT) selection complete EKG Details: EKG shows atrially paced, ventricular sensed rhythm with low-voltage QRS. QT i nterval is within normal limits [id number], Complete Assessment & Plan Assessment & Plan (1) Pacemaker: Onset Date: ~08/2022 Comment: ([facility] DCPP - placed 08/30/2022) Code(s): Z95.0 - Presence of cardiac pacemaker Plan: Cardiac pacemaker in-situ with patient pacer dependent in the atrium. Pacemaker is working well. Reprogrammed for adequate function. Will follow up in the clinic in 6 months time. Follow-up remotely in 3 months time. (2) Paroxysmal atrial fibrillation: Onset Date: ~08/2022 Code(s): I48.0 - Paroxysmal atrial fibrillation Plan: Paroxysmal atrial fibrillation doing very well with rhythm control approach. Currently tolerating Multaq therapy. Continue the same. Will check remote telemetry every 3 months to assess atrial fibrillation burden. Otherwise follow up in the clinic in 6 months time with EKG. Continue full oral anticoagulation, currently on Eliquis 5 mg b.i.d.. Semi annual renal function test should be pursued. Avoidance of stimulants was discussed continue aggressive blood pressure control. 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 However ischemia needs to be ruled out will suggest exercise myocardial perfusion imaging if tolerated otherwise follow with vasodilating myocardial perfusion imaging. Continue aggressive risk factor modification. Continue rhythm control approach as above. Continue metoprolol therapy. Signs and symptoms of heart failure were discussed. Follow up in the clinic in 6 months time, sooner p.r.n.. Thank you for allowing me to partake in her care Orders: Orders CA stress test Today I42.9 - Cardiomyopathy, unspecified NM cardiolite stress test 2 Weeks I42.9 - Cardiomyopathy, unspecified Coding Level of Care Code Est Pt Level 4 (12643) Diagnoses Pacemaker Z95.0 Paroxysmal atrial fibrillation I48.0 Cardiomyopathy I42.9 CPT Codes Cardiac Device Check - Cardiac Device 2: 05421-[id number] Cardiac Device Check, pacemaker dual lead ([id number]) EKG - CPT: 92094-Ycjabanvfrhulbgzy, Complete ([id number])
== END 2023-04-25 11:35 | disposition home or self-care (01) ==
PROVIDERS: Visit Provider Internal Medicine Cardiovascular Disease
DX: I48.0 Paroxysmal atrial fibrillation (principal); I42.9 Cardiomyopathy, unspecified; Z95.0 Presence of cardiac pacemaker
CPT/HCPCS: 93280; 99214

== ENCOUNTER → 2023-04-25 11:07 | Outpatient (BNVA) | payer MEDICARE, SELFPAY | PROVIDERS: Visit Provider Internal Medicine Cardiovascular Disease | DX: I48.0 Paroxysmal atrial fibrillation (principal); I42.9 Cardiomyopathy, unspecified; Z79.01 Long term (current) use of anticoagulants; Z79.899 Other long term (current) drug therapy; Z45.018 Encounter for adjustment and management of other part of cardiac pacemaker | CPT/HCPCS: 93005; 93280; 99212 ==

== ENCOUNTER 2023-05-18 14:09 | Outpatient (REF) | payer SELFPAY | END 2023-05-18 14:10 | disposition home or self-care (01) | LOC: HO.HAP 14:09 | PROVIDERS: Visit Provider Internal Medicine | DX: Z46.1 Encounter for fitting and adjustment of hearing aid (principal); H90.3 Sensorineural hearing loss, bilateral | CPT/HCPCS: 92592 ==

== ENCOUNTER → 2023-06-21 07:56 | Outpatient (REF) | payer MEDICARE, SELFPAY ==
--- NOTE | ~2023-06-21 | NM_ITS ---
Myocardial perfusion study Indication: Cardiomyopathy to evaluate for myocardial ischemia Technique: The patient was brought in for a Lexiscan perfusion study on 06/21/2023. Patient performed low-level exercise and was injected 0.4 mg of Lexiscan intravenously. Within a minute of injection, 25 mCi of sestamibi was given intravenously. Images were obtained using the SPECT gamma camera interlaced with the gating device. Images were obtained in supine position. Resting perfusion study was performed on 06/22/2023. Patient was administered 25 mCi of sestamibi intravenously at rest. Images were then obtained in supine position. Images obtained with and without CT attenuation. Total DLP 157 mGy-cm Images were processed with the software and compared side to side in short axis, horizontal long axis and vertical long axis views. Findings: The stress perfusion study showed non attenuated images show mildly reduced though inferolateral and lateral wall of the LV myocardium. Remainder of the LV myocardium is normally perfused. Attenuation corrected images show mildly reduced uptake in the distal inferolateral and lateral wall of the LV myocardium as well as mildly reduced uptake in the apex of the LV myocardium.. The gated study shows normal LV systolic function with calculated LVEF of 71%. LV cavity is normal size. The gated study shows normal systolic wall thickening and contraction of segments. Resting study shows non attenuated images show normal uptake of radiotracer in all segments of LV myocardium corrected images show mildly reduced uptake in the apex of the LV myocardium. Gating at rest reveals normal systolic wall motion with ejection fraction at 71%. The findings are consistent with mild intensity small size reversible defect in the basal inferolateral lateral wall of the LV myocardium is just of ischemia. NM/NM cardiolite stress test Impression: 1. Myocardial perfusion imaging study shows small size mild intensity basal inferolateral and lateral wall ischemia 2. Gated LVEF is 71% 3. Transient ischemic dilatation not present EKG is nondiagnostic for ischemia
--- NOTE | 2023-06-21 08:00 | CA_ITS ---
Acquisition Time: 2023-06-21 08:07:27 Total Exercise Time: 00:02:15 Test Indications: CARDIOMYOPATHY Medications: Protocol: EDILBERTO Max HR: 088 BPM 63% of Pred: 138 BPM Max BP: 126/058 mmHG Max Work Load: 4.6 METS Exercise wstress test exercise 2 min 15 sec of Edilberto protcol achieving 61% MPHR, with mild to moderate SOB, no chest discomfort, without arrhythmias, with normotensive response to exercise, with nondiagnoisitic EKGs. Once breathing returned to normal test changed to Lexiscan. Pharmacolgical stress test with Lexiscan injection while sitting and kicking her legs, without anginal symptoms, without arrhythmias, with normotensive response to injection, with nopndiagnlosiitic EKGs. Aminophylline 75mg IVP given to reverse Lexiscan. Nuclear images pending. Test reviewed with Dr. Starks, Referred By: Jl Starks Overread By: Mary Kate White
== END ==
LOC: HO.CARD 07:56
PROVIDERS: PCP Internal Medicine; Visit Provider Internal Medicine Cardiovascular Disease
DX: I42.9 Cardiomyopathy, unspecified (principal)
CPT/HCPCS: 78452; 93017; A9500; J0280; J2785

== ENCOUNTER → 2023-06-21 08:00 | Outpatient (BNV) | payer MEDICARE, SELFPAY | PROVIDERS: PCP Internal Medicine; Visit Provider Nurse Practitioner | DX: I25.10 Atherosclerotic heart disease of native coronary artery without angina pectoris (principal) | CPT/HCPCS: 78452; 93016; 93018 ==

== ENCOUNTER 2023-07-13 07:55 | Outpatient (REF) | payer MEDICARE, SELFPAY ==
--- NOTE | 2023-07-13 12:50 | MHC.AU.HA3 ---
Hearing Instrument Follow-Up- Binaural Date of Visit: 07/13/23 Right Ear: Vickey, Model, Color, Serial Number: Good Roman [id number] SN: [id number] Color: Silver Madden Cranberry Farm Supervisor Repair Warranty: 03/15/2024 Cranberry Farm Supervisor Loss and Damage Warranty: 03/15/2024 Battery Size: 13 Air Value Tester/Slim Tube: 2M Earmold/Dome/CShell/SlimTip:Medium power dome with retention tail Type of Wax Guard: CeruShield Dispensed By: [facility] Date of Fittin12/26/2020 Left Ear: Vickey, Model, Color, Serial Number: Good Roman [id number] SN: [id number] Color: Silver Madden Cranberry Farm Supervisor Repair Warranty: 03/15/2024 Cranberry Farm Supervisor Loss and Damage Warranty: 03/15/2024 Battery Size: 13 Air Value Tester/Slim Tube: #2 Medium Earmold/Dome/CShell/SlimTip: Medium power dome with retention tail Type of Wax Guard: CeruShield Dispensed By: [facility] Date of Fittin12/26/2020 Follow-Up Summary: Hortensia returned for updated hearing test and reprogramming. Hortensia noted over the past few months, she has not been hearing as well, even with her hearing aids. Initial feedback curve was limiting high frequency gain significantly. Switched to medium power dome with improvement in feedback curve. Reran real ear measures with more appropriate match to target. Then decreased to 90% gain level due to perceived loudness. Hortensia noticed an immediate improvement in sound quality. Provided 6 extra power domes. Recommendations: Hearing instrument follow-up or maintenance as needed. Please contact our clinic with any questions or concerns. Patient will call if problems persist. Diagnosis Code(s): Primary Diagnosis: H90.3 Bilateral Sensorineural Hearing Loss Signature: Provider: Lucy Funez, [facility]
== END 2023-07-13 07:56 | disposition home or self-care (01) ==
LOC: HO.SH 07:55
PROVIDERS: Visit Provider Internal Medicine
DX: Z01.118 Encounter for examination of ears and hearing with other abnormal findings (principal); H90.3 Sensorineural hearing loss, bilateral
CPT/HCPCS: 92557

== ENCOUNTER 2023-11-01 10:49 | Outpatient (AMB) | payer MEDICARE, SELFPAY ==
[2023-11-01 10:52] VITALS: BP 130/72; PULSE 60; BMI 24.9
--- NOTE | 2023-11-01 10:52 | A.OFFVIS_ITS ---
Intake Vital Signs 11/01/23 10:52 Height 5 ft 5 in Weight 149 lb 14.629 oz BMI 24.9 BP 130/72 Blood Pressure Location Lt brachial Position Sitting Pulse 60 Intake Visit Reasons: 6 mth fu w/ [facility] Intake Note: 6 month follow-up with [facility] feeling good Filing Or Registry Clerk Required: No Tomb Maker Helper: Tomb Maker Helper Present Accompanied by: Son Allergies sulfamethoxazole [From Bactrim] Allergy (Verified 09/22/22 15:15) unknown trimethoprim [From Bactrim] Allergy (Verified 09/22/22 15:15) unknown Medication List - Last Reconciled 11/01/23 by Jl Starks MD albuterol sulfate 90 mcg/actuation 2 puffs inhalation Q6H PRN apixaban (Eliquis) 5 mg PO BID ascorbic acid (vitamin C) (Vitamin C) 500 mg PO BID atorvastatin 10 mg PO DAILY calcium carbonate-vitamin D3 600 mg-5 mcg (200 unit) 1 tab PO DAILY cholecalciferol (vitamin D3) (Vitamin D3) 25 mcg PO MOWEFR@0900 cranberry 500 mg PO DAILY dicyclomine 10 mg PO BID dronedarone (Multaq) 400 mg PO BID fluticasone propionate 50 mcg/actuation 2 sprays intranasal BID PRN gabapentin 400 mg PO TID hyoscyamine sulfate 0.125 mg PO Q4H PRN levothyroxine 150 mcg PO DAILY loratadine (Allergy Relief (loratadine)) 10 mg PO DAILY PRN meclizine 25 mg PO TID PRN meloxicam 15 mg PO DAILY PRN methocarbamol 500 mg PO TID PRN metoprolol tartrate 25 mg PO BID nitrofurantoin macrocrystal 50 mg PO MOWEFR@0900 omeprazole 20 mg PO DAILY@0630 HPI HPI Comments History of Present Illness Details Hortensia comes for follow-up, accompanied by her son. She has been overall doing well. She says she has been getting more tired and also short of breath when she goes up a flight of stairs. She does not exercise much. Denies any orthopnea, PND, leg edema. Denies any bleeding issues or neurologic events. She has issues with balance but has not had any falls. She denies any prolonged palpitations irregular heartbeat. [facility], [facility] Medical History Osteopenia Pacemaker (~08/2022) Graves disease History of radioactive iodine thyroid ablation Hypothyroidism Surgical History History of basal cell carcinoma (BCC) excision History of pacemaker (~2022) History of tonsillectomy and adenoidectomy History of appendectomy History of lumpectomy of left breast Family History Mother Breast cancer Father Hypertension Social History Household Members: Spouse Housing: House Do you presently have visiting nurse or other home services: No Alcohol intake: current Alcohol intake frequency: a few times a week Alcohol type: wine Patient Tobacco Use Status: Former Tobacco user Tobacco use type: Cigarette e-Cigarette/Vaping Use: Never Used Second Hand Smoke Exposure: No service: No Current occupational status: retired Review of Systems Const Denies chills, Denies fatigue, Denies fever(s), Denies frequent falls, Denies weakness, Denies weight gain and Denies weight loss ENT Denies dizziness Card Denies chest pain, Denies leg edema, Denies lightheadedness, Denies palpitations, Denies dyspnea, Denies dyspnea on exertion, Denies orthopnea and Denies other (loss of consciousness) Resp Denies cough, Denies dyspnea and Denies dyspnea on exertion GI Denies hematochezia and Denies change in stool character Musc Denies abnormal gait, Denies muscle weakness, Denies numbness, Denies radiating pain into limb and Denies tingling Neuro Denies abnormal gait, Denies dizziness, Denies frequent falls, Denies numbness, Denies tingling and Denies weakness Endo Denies fatigue and Denies palpitations Physical Exam Vital Signs: Last Vital Signs Pulse 60 11/01/23 10:52 BP 130/72 11/01/23 10:52 BMI result Body Mass Index 24.9 Const General: cooperative, healthy appearing, comfortable and no acute distress Orientation/consciousness: patient oriented x3 Neck Neck: Yes normal visual inspection Chest Other: pacemaker site Left upper chest intact, well healed, no swelling, nontender Resp Effort & Inspection: normal respiratory effort Auscultation: clear to auscultation bilaterally, no crackles, no rales, no rhonchi and no wheezes Cardio Jugular venous distension: no JVD Rate: regular rate Rhythm: regular rhythm Heart sounds: S1 normal heart sound present, S2 normal heart sound present and no rubs GI Inspection: Yes normal to inspection Neuro General: patient oriented x3 Extrem General: Yes normal to inspection, No no pedal edema and No calf tenderness Psych Appearance: grossly normal Mental Status: mental status grossly normal Speech and movement: Normal speech and movement present Office Procedures Cardiac Device Check Cardiac Device Check Details: [facility] dual-chamber pacemaker in place with pacing mode DDDR with aggressive rate response. Atrial ventricular pacing thresholds are adequate and in our capture mode. Atrial sensing could not be checked. Ventricular sensing is adequate. Pacing lead impedance is stable. No episodes of atrial fibrillation noted. Atrial pacing almost 100% of the time. Battery life is excellent at 10 and half years 50150-[id number] Cardiac Device Check, pacemaker dual lead Procedure code (CPT) selection complete EKG Details: EKG shows atrially paced ventricularly sensed rhythm with low-voltage QRS poor poor R-wave progression due to lead placement with normal QT interval [id number], Complete Assessment & Plan Assessment & Plan (1) Paroxysmal atrial fibrillation: Onset Date: ~08/2022 Code(s): I48.0 - Paroxysmal atrial fibrillation Plan: Paroxysmal atrial fibrillation which has done very well with rhythm control approach with no recurrence on current antiarrhythmic drug therapy with Multaq. Continue the same. Will continue monitor for development of atrial fibrillation by pacer telemetry. Follow up in the clinic in 6 months time. Continue full oral anticoagulation with Eliquis. Require semi annual renal function test and annual CBC. This will be scheduled today. (2) Pacemaker: Onset Date: ~08/2022 Comment: ([facility] DCPP - placed 08/30/2022) Code(s): Z95.0 - Presence of cardiac pacemaker Plan: Cardiac pacemaker in-situ for sick sinus syndrome. Pacemaker is working well. Patient is atrially pacer dependent. Pacemaker will be followed every 3 months remotely. Follow up in the clinic in 6 months time. (3) Cardiomyopathy: Onset Date: ~08/2022 Code(s): I42.9 - Cardiomyopathy, unspecified Plan: Cardiomyopathy process in the setting of atrial fibrillation. LV systolic function has normalized. Follow-up echocardiogram in 6 months time. Continue metoprolol therapy for neurohormonal modulation. Continue rhythm control approach as above. Avoidance of cardiotoxic agent was discussed. Her shortness of breath and fatigue most likely related to deconditioning. Encouraged to maintain activity level. Will follow up in the clinic in 6 months time, sooner p.r.n.. Thank you for allowing me to partake in her care Orders: Orders Complete Blood Count no Diff Today I42.9 - Cardiomyopathy, unspecified, I48.0 - Paroxysmal atrial fibrillation, I49.5 - Sick sinus syndrome Basic Metabolic Panel Today I42.9 - Cardiomyopathy, unspecified, I48.0 - Paroxysmal atrial fibrillation, I49.5 - Sick sinus syndrome B Type Natriuretic Peptide Today I42.9 - Cardiomyopathy, unspecified, I48.0 - Paroxysmal atrial fibrillation, I49.5 - Sick sinus syndrome Coding Level of Care Code Est Pt Level 4 (40689) Diagnoses Paroxysmal atrial fibrillation I48.0 Pacemaker Z95.0 Cardiomyopathy I42.9 CPT Codes Cardiac Device Check - Cardiac Device 2: [id number] Cardiac Device Check, pacemaker dual lead ([id number]) EKG - CPT: 87272-Iekianeutdiwzpzlk, Complete ([id number])
== END 2023-11-01 11:16 | disposition home or self-care (01) ==
PROVIDERS: PCP Internal Medicine; Visit Provider Internal Medicine Cardiovascular Disease
DX: I48.0 Paroxysmal atrial fibrillation (principal); I42.9 Cardiomyopathy, unspecified; Z95.0 Presence of cardiac pacemaker
CPT/HCPCS: 93010; 93280; 99214

== ENCOUNTER 2023-11-01 10:49 | Outpatient (REF) | payer MEDICARE, SELFPAY ==
[2023-11-01 12:46] LABS: Hematocrit 39.7 % (37.0-47.0); Hemoglobin 13.1 g/dl (12.0-16.0); Mean Corpuscular Hemoglobin 30.2 pg (27.0-33.0); Mean Corpuscular Volume 91.5 fL (80.0-98.0); Mean Platelet Volume 10.3 fL (9.4-12.3); Platelet Count 216 X10*3/uL (160-400); Red Blood Count 4.34 X10*6/uL (4.20-5.50); Red Cell Distribution Width 13.2 % (11.0-16.0); White Blood Count 6.8 X10*3/uL (4.8-10.8)
[2023-11-01 13:13] LABS: B Type Natriuretic Peptide 234 pg/mL (<100)
[2023-11-01 13:23] LABS: Anion Gap 13 (12-20); Blood Urea Nitrogen 8 mg/dL (9-16); Calcium 8.9 mg/dL (8.4-10.2); Carbon Dioxide 23 mmol/L (22-29); Chloride 109 mmol/L (96-108); Estimated Glomerular Filt Rate > 60; Glucose Random 88 mg/dL (60-115); Potassium 4.7 mmol/L (3.3-5.1); Sodium 140 mmol/L (135-145)
== END 2023-11-01 10:50 | disposition home or self-care (01) ==
LOC: HO.LAB 10:49
PROVIDERS: PCP Internal Medicine; Visit Provider Internal Medicine Cardiovascular Disease
DX: I49.5 Sick sinus syndrome (principal); I48.0 Paroxysmal atrial fibrillation; I42.9 Cardiomyopathy, unspecified; Z45.018 Encounter for adjustment and management of other part of cardiac pacemaker
CPT/HCPCS: 36415; 80048; 83880; 85027; 93005; 93280; 99212

== ENCOUNTER 2024-01-11 08:22 | Outpatient (REF) | payer SELFPAY | END 2024-01-11 08:23 | disposition home or self-care (01) | LOC: HO.HAP 08:22 | PROVIDERS: Visit Provider Internal Medicine | DX: Z13.89 Encounter for screening for other disorder (principal) ==

== ENCOUNTER 2024-01-18 09:00 | Outpatient (RCR) | payer MEDICARE, SELFPAY | END 2024-01-18 09:58 | disposition home or self-care (01) | LOC: HO.PT 09:00 | PROVIDERS: PCP Internal Medicine; Visit Provider Student in an Organized Health Care Education/Training Program | DX: M54.16 Radiculopathy, lumbar region (principal) | CPT/HCPCS: 97110; 97140; 97161 ==

== ENCOUNTER 2024-01-24 12:39 | Outpatient (REF) | payer MEDICARE, SELFPAY | END 2024-01-24 12:40 | disposition home or self-care (01) | LOC: HO.HAP 12:39 | PROVIDERS: Visit Provider Internal Medicine | DX: Z13.89 Encounter for screening for other disorder (principal) ==

== ENCOUNTER → 2024-04-26 09:08 | Outpatient (REF) | payer MEDICARE, SELFPAY ==
--- NOTE | 2024-04-26 09:14 | CA_ITS ---
Transthoracic Echocardiogram Patient (Last, First, Middle): Hortensia Godoy, Gender: Female Date of : 1940 Age: 84 Procedure Date: 04/26/2024 Procedure Type: Transthoracic Echocardiogram Location: OP Height: 165.1 cm Weight: 64.86 kg BSA: 1.72 m2 Heart Rate: bpm BP: 130 / 78 mmHg [employer] Office Route Aide: TO Referring MD: Jl Starks MD [place]: Jl Starks MD Symptoms: I42.9 - Cardiomyopathy, unspecified Study Quality: Fair ECG Rhythm: Sinus Conclusions: - 1. Low normal LV ejection fraction 50-55% with impaired relaxation filling pattern 2. Normal cardiac valvular Dopplers 3. Normal RV systolic pressure 4. No gross pericardial effusion Findings Procedure Information The study quality is limited by lung artifact. Left Ventricle Normal left ventricular cavity size. There is normal left ventricular wall thickness. The left ventricular systolic function is low normal. The visually estimated ejection fraction is between 50-55%. Spectral Doppler is indicative of an impaired relaxation filling pattern. Elevated filling pressures. E/E prime ratio is >15, consistent with elevated filling pressures. Right Ventricle Normal right ventricular cavity size and systolic function. There is a pacemaker wire seen in the right ventricle. Atria The left atrium is normal in size. Interatrial shunt cannot be excluded. The right atrium was not well visualized. Aortic Valve Normal aortic valve structure and function. There is no aortic valve stenosis. There is no aortic valve regurgitation. Mitral Valve There is mild anterior and posterior mitral leaflet thickening. There is mild mitral annular calcification. There is trace mitral valve regurgitation. There is no mitral valve stenosis. Pulmonic Valve The pulmonic valve was not well visualized. Tricuspid Valve Likely normal tricuspid valve structure and function. There is trace tricuspid valve regurgitation. The right ventricular systolic pressure is normal. The right ventricular systolic pressure is 28 mmHg. Normal right atrial pressure. There is no evidence of pulmonary hypertension. Great Vessels All visible segments of the aorta are normal in size. The pulmonary artery was not well visualized. There is no dilatation of the ascending aorta measuring 3.20 cm. Venous The inferior vena cava is normal in size and collapses greater than 50% with inspiration. Pericardium/Pleural There is no evidence of pericardial effusion. Prior Study Comparison Changes noted compared to prior study dated: 10/12/2022. LV systolic function is reduced Measurements 2D Linear Measurements IVSd: 1.13 0.6-0.9/0.6-1.0 cm LVIDd: 3.99 3.9-5.3/4.2-5.9 cm LVIDd Index: 2.32 2.4-3.2/2.2-3.1 cm/m2 LVIDs: 2.83 2.0-3.6 cm LVPWd: 0.83 0.7-1.1 cm LA Diam: 3.60 2.7-3.8/3.0-4.0 cm LAIDs Index: 2.09 1.5-2.3 cm/m2 LV Mass: 152.90 67-162/88-224 g LV Mass Index: 88.89 43-95/49-115 g/m2 LVOT Diam: 2.00 3.0+(-)1.3 cm 2D Systolic Function EF 4C: 50.00 >55% EF 2C: 52.00 >55% EF BiP: 50.60 >55% Mitral Valve MV Pk E: 0.65 MV PK A: 1.04 MV Decel Time: 323.00 E/A: 0.60 E'Lateral: 3.15 E'Medial: 3.15 E/E' Med: 20.70 E/E' Lat: 20.70 PHT: 94.00 MVA PHT: 2.34 Decel Grayson: 2.02 Aortic Valve AoV Pk Nato: 1.32 AoV Mn Nato: 0.88 AoV VTI: 0.26 AoV Pk Grad: 7.00 Aov Mn Grad: 4.00 USHA Cont.VTI: 2.11 LVOT LVOT Pk Nato: 0.89 LVOT Mn Nato: 0.54 LVOT VTI: 0.18 LVOT Pk Grad: 3.00 LVOT Mn Grad: 1.00 LVOT Diam: 2.00 LVOT Area: 3.14 Diastolic Function MV Pk E: 0.65 MV Pk A: 1.04 E/A: 0.60 E'Medial: 3.15 E/E' Med: 20.70 E' Laterial: 3.15 E/E' Lat: 20.70 Right Ventricle TAPSE (mm): 23.90 TVS' Nato: 12.40 Tricuspid Valve TR Pk Nato: 2.52 TR Pk Grad: 25.00 RA Press: 3.00 RVSP: 28.00 Great Vessels Aorta Sinus of Valsalva: 3.78 2.0-3.[address] [place]: 2.84 1.7-3.4 cm Ao Asc: 3.20 2.1-3.4 cm Ao Arch: 2.70 Updated in Other Vendor System with Status of Final Jl Starks MD electronically signed on 04/26/2024 3:24:39 PM with status of Final
== END ==
LOC: HO.CARD 09:08
PROVIDERS: PCP Internal Medicine; Visit Provider Internal Medicine Cardiovascular Disease
DX: I42.9 Cardiomyopathy, unspecified (principal)
CPT/HCPCS: 93306

== ENCOUNTER → 2024-04-26 09:14 | Outpatient (BNV) | payer MEDICARE, SELFPAY | PROVIDERS: PCP Internal Medicine; Visit Provider Internal Medicine Cardiovascular Disease | DX: I34.81 Nonrheumatic mitral (valve) annulus calcification (principal) | CPT/HCPCS: 93306 ==

== ENCOUNTER 2024-05-07 10:16 | Outpatient (AMB) | payer MEDICARE, SELFPAY ==
[2024-05-07 10:21] VITALS: BP 128/78; PULSE 74; BMI 24.2
--- NOTE | 2024-05-07 10:21 | A.OFFVIS_ITS ---
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 Accompanied by: Son Allergies sulfamethoxazole [From Bactrim] Allergy (Verified 09/22/22 15:15) unknown trimethoprim [From Bactrim] Allergy (Verified 09/22/22 15:15) unknown Medication List - Last Reconciled 05/07/24 by Jl Starks MD albuterol sulfate 90 mcg/actuation 2 puffs inhalation Q6H PRN apixaban (Eliquis) TAKE 1 TABLET (5 MG) ORALLY 2 TIMES A DAY ascorbic acid (vitamin C) (Vitamin C) 500 mg PO BID atorvastatin 10 mg PO DAILY calcium carbonate-vitamin D3 600 mg-5 mcg (200 unit) 1 tab PO DAILY cholecalciferol (vitamin D3) (Vitamin D3) 25 mcg PO MOWEFR@0900 cranberry 500 mg PO DAILY dicyclomine 10 mg PO BID dronedarone (Multaq) 400 mg PO BID fluticasone propionate 50 mcg/actuation 2 sprays intranasal BID PRN gabapentin 400 mg PO TID hyoscyamine sulfate 0.125 mg PO Q4H PRN levothyroxine 150 mcg PO DAILY loratadine (Allergy Relief (loratadine)) 10 mg PO DAILY PRN meclizine 25 mg PO TID PRN meloxicam 15 mg PO DAILY PRN methocarbamol 500 mg PO TID PRN metoprolol tartrate 25 mg PO BID nitrofurantoin macrocrystal 50 mg PO MOWEFR@0900 omeprazole 20 mg PO DAILY@0630 HPI Comments Details: Hortensia comes for follow-up, accompanied by her son. She has been doing very well from cardiac perspective. She denies any worsening symptoms of heart failure. No prolonged palpitation irregular heartbeat. No bleeding issues or neurologic events. She maintains activity of daily living without issues. She does not participate in regular physical exercise. Although denies any chest pain. No lightheadedness, syncope. No bleeding issues or neurologic events. She does have issues with cost of medications although she is able to acquire them. [facility] Medical History Osteopenia Pacemaker (~08/2022) Graves disease History of radioactive iodine thyroid ablation Hypothyroidism Surgical History History of basal cell carcinoma (BCC) excision History of pacemaker (~2022) History of tonsillectomy and adenoidectomy History of appendectomy History of lumpectomy of left breast Family History Mother Breast cancer Father Hypertension Social History Household Members: Spouse Housing: House Do you presently have visiting nurse or other home services: No Alcohol intake: current Alcohol intake frequency: a few times a week Alcohol type: wine Patient Tobacco Use Status: Former Tobacco user Tobacco use type: Cigarette e-Cigarette/Vaping Use: Never Used Second Hand Smoke Exposure: No service: No Current occupational status: retired Review of Systems Const Denies chills, Denies fatigue, Denies fever(s), Denies frequent falls, Denies weakness, Denies weight gain and Denies weight loss ENT Denies dizziness Card Denies chest pain, Denies leg edema, Denies lightheadedness, Denies palpitatio ns, Denies dyspnea, Denies dyspnea on exertion, Denies orthopnea and Denies other (loss of consciousness) Resp Denies cough, Denies dyspnea and Denies dyspnea on exertion GI Denies hematochezia and Denies change in stool character Musc Denies abnormal gait, Denies muscle weakness, Denies numbness, Denies radiating pain into limb and Denies tingling Neuro Denies abnormal gait, Denies dizziness, Denies frequent falls, Denies numbness, Denies tingling and Denies weakness Endo Denies fatigue and Denies palpitations Physical Exam Vital Signs: Last Vital Signs Pulse 74 05/07/24 10:21 BP 128/78 05/07/24 10:21 BMI result Body Mass Index 24.2 Const General: cooperative, healthy appearing, comfortable and no acute distress Orientation/consciousness: patient oriented x3 Neck Neck: Yes normal visual inspection Chest Other: pacemaker site Left upper chest intact, well healed, no swelling, nontender Resp Effort & Inspection: normal respiratory effort Auscultation: clear to auscultation bilaterally, no crackles, no rales, no rhonchi and no wheezes Cardio Jugular venous distension: no JVD Rate: regular rate Rhythm: regular rhythm Heart sounds: S1 normal heart sound present, S2 normal heart sound present and no rubs GI Inspection: Yes normal to inspection Neuro General: patient oriented x3 Extrem General: Yes normal to inspection, No no pedal edema and No calf tenderness Psych Appearance: grossly normal Mental Status: mental status grossly normal Speech and movement: Normal speech and movement present Office Procedures Cardiac Device Check Cardiac Device Check Details: Dual-chamber [facility]ir pacemaker in place. Programmed in DDDR at 60 beats per minute. Atrial pacing 100% time. One very brief episodes of atrial fibrillation noted lasted 10 seconds. Atrial ventricular capture thresholds excellent and in our capture mode. Atrial ventricular sensing is adequate. Pacing lead impedance is stable. Battery life is 8.8 years. [id number] Cardiac Device Check, pacemaker dual lead Procedure code (CPT) selection complete EKG Details: EKG shows atrially paced, ventricularly sensed rhythm with PACs with poor R-wave progression most likely lead placement [id number], Complete Assessment & Plan Assessment & Plan (1) Paroxysmal atrial fibrillation: Onset Date: ~08/2022 Code(s): I48.0 - Paroxysmal atrial fibrillation Category: Medical Plan: Paroxysmal atrial fibrillation has done extremely well with rhythm control approach with improved advised LV systolic function by echocardiogram. See below. Continue aggressive rhythm control approach. Has tolerated Multaq therapy well. Continue the same. I would avoid changing her therapy at this point time unless cost comes significant issues. We discussed the options with sotalol/Tikosyn and/or amiodarone. Continue full oral anticoagulation, currently on Eliquis 5 mg b.i.d.. Semi annual renal function test should be pursued. Will continue monitor for atrial fibrillation through pacer telemetry. Avoidance of stimulants was discussed. (2) Pacemaker: Onset Date: ~08/2022 Comment: (St. Abdulkadir DCPP - placed 08/30/2022) Code(s): Z95.0 - Presence of cardiac pacemaker Category: Medical Plan: Cardiac pacemaker in-situ for sick sinus syndrome. Pacemaker working well. Will follow remotely every 3 months. (3) Cardiomyopathy: Onset Date: ~08/2022 Code(s): I42.9 - Cardiomyopathy, unspecified Category: Medical Plan: Cardiomyopathy process with last echocardiogram showing low normal LV ejection fraction. This has normalized since maintaining rhythm. She is doing clinically very well from this perspective. Continue aggressive rhythm control approach. Continue metoprolol therapy for neurohormonal modulation. Avoidance of cardiotoxic agent was discussed. Signs and symptoms of heart failure were discussed. Follow up in the clinic in 6 months time, sooner p.r.n.. Thank you for allowing me to partake in the care Coding Level of Care Code Est Pt Level 4 (02666) Diagnoses Paroxysmal atrial fibrillation I48.0 Pacemaker Z95.0 Cardiomyopathy I42.9 CPT Codes Cardiac Device Check - Cardiac Device 2: [id number] Cardiac Device Check, pacemaker dual lead ([id number]) EKG - CPT: 76344-[id number], Complete ([id number])
== END 2024-05-07 10:56 | disposition home or self-care (01) ==
PROVIDERS: PCP Internal Medicine; Visit Provider Internal Medicine Cardiovascular Disease
DX: I48.0 Paroxysmal atrial fibrillation (principal); Z95.0 Presence of cardiac pacemaker; I42.9 Cardiomyopathy, unspecified
CPT/HCPCS: 93010; 93280; 99214

== ENCOUNTER → 2024-05-07 10:16 | Outpatient (BNVA) | payer MEDICARE, SELFPAY | PROVIDERS: PCP Internal Medicine; Visit Provider Internal Medicine Cardiovascular Disease | DX: I48.0 Paroxysmal atrial fibrillation (principal); I42.9 Cardiomyopathy, unspecified; I49.1 Atrial premature depolarization | CPT/HCPCS: 93005; 93280; 99212 ==

== ENCOUNTER 2024-07-26 08:47 | Outpatient (AMB) | payer MEDICARE, SELFPAY ==
[2024-07-26 08:50] VITALS: BP 126/69; PULSE 59; BMI 24.4
--- NOTE | 2024-07-26 08:50 | MHC.OFFVIS ---
Vital Signs 07/26/24 08:50 Height 5 ft 5 in Weight 146 lb 13.246 oz BMI 24.4 BP 126/69 Blood Pressure Location Rt brachial Position Sitting Pulse 59 Intake Visit Reasons: Unintentional weight loss Intake Note: New patient in office today referred to GI for unintentional weight loss. CC: Patient states that she had lost 10 lb in over a year but she gained them back. She reports having diarrhea since she began taking her heart medications. She has tried Metamucil and probiotics but has not seen any improvement. Per patient she has diarrhea 2-3 per week. Last colonoscopy about 7 years ago per Pt at [facility]. Denies other GI symptoms today. 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 Accompanied by: Self / Same As Patient Allergies Sulfa (Sulfonamide Antibiotics) Allergy (Unknown, Verified 07/26/24 09:00) Unknown sulfamethoxazole [From Bactrim] Allergy (Verified 07/26/24 09:00) unknown trimethoprim [From Bactrim] Allergy (Verified 07/26/24 09:00) unknown Medication List - Last Reconciled 07/26/24 by TC Hunt albuterol sulfate 90 mcg/actuation 2 puffs inhalation Q6H PRN apixaban (Eliquis) TAKE 1 TABLET (5 MG) ORALLY 2 TIMES A DAY ascorbic acid (vitamin C) (Vitamin C) 500 mg PO .qd atorvastatin 10 mg PO DAILY calcium carbonate-vitamin D3 600 mg-5 mcg (200 unit) 1 tab PO DAILY cholecalciferol (vitamin D3) (Vitamin D3) 25 mcg PO MOWEFR@0900 cranberry 500 mg PO DAILY dronedarone (Multaq) 400 mg PO BID fluticasone propionate 50 mcg/actuation 2 sprays intranasal BID PRN gabapentin 400 mg PO TID hyoscyamine sulfate 0.125 mg PO Q4H PRN levothyroxine 150 mcg PO DAILY loperamide (Imodium A-D) 2 mg PO Q6H PRN loratadine (Allergy Relief (loratadine)) 10 mg PO DAILY PRN meclizine 25 mg PO TID PRN metoprolol tartrate 25 mg PO BID nitrofurantoin macrocrystal 50 mg PO MOWEFR@0900 omeprazole 20 mg PO DAILY@0630 HPI HPI Unintentional weight loss: Details: 84-year-old female here for initial evaluation of weight loss. She is referred by [facility] in [place]. PMX AFib Sick sinus syndrome Asthma History of breast cancer Raynaud's disease Lumbar degenerative disc disease with history of compression fracture History of basal cell carcinoma Osteopenia IBS Hypothyroid/status post treatment for Graves disease GERD High cholesterol * SURGICAL HISTORY Thyroid ablation via radioactive iodine Pacemaker incision Tonsillectomy and adenoidectomy Appendectomy Lumpectomy left breast Basal cell carcinoma excision * ALLERGIES Bactrim * [employer] LABS: Laboratory Tests 11/01/23 11:54 WBC 6.8 Hgb 13.1 Hct 39.7 Plt Count 216 Estimated GFR > 60 NO CHEM PANEL OR THYROID!! -FRIENDSHIP 03/2024 CT ABDOMEN AND PELVIS UPPER ABDOMEN: The liver is decreased in attenuation when compared with the spleen. There are multiple, too small to characterize, hypodensities within the liver. There is a 1.0 cm left hepatic lobe cyst. Trace intrahepatic biliary dilation. Gallbladder, pancreas and spleen are within normal limits. Small hiatal hernia. LOWER GI: The bowel was without obstruction or inflammation. Mild diverticulosis without diverticulitis. There is no free air or free fluid. The terminal ileum is within normal limits. Subcentimeter lymph nodes within the abdomen and pelvis. A 1.1 cm portacaval node. TODAY'S VISIT Apparently she has had diarrhea since starting Eliquis and metoprolol, and Multaq. She has been taking imodium but irregularly, this has been a problem for a out 2 years. She knows that when she has a soft bowel movement then she the next movement will be diarrheal. However she does have unexpected bouts of diarrhea like for instance when she went to a holiday republican. This makes it very hard for her to plan her life understandably. This is been going on for over 2 years so the possibility of an infection is remote at best. There is no known family history of severe bowel disorder such as IBD, and she does still have a gallbladder so I feel this probably is a medication/iatrogenic side effect. I reassure her that there is nothing wrong with taking Imodium and it probably is 1 of the better medications that will not interact with her important anticoagulation drugs etc.. I encouraged her to try to find a schedule to take it on so that her bowels are more regular in her life is more predictable. She can do anything from half a tablet today to 1 tablet a day to a half alternating for the tablet etc. etc. whatever her body seems to require. With this she will experiment with this for about 8 weeks milk it back together and I will see what I can do to help her refined the process if she still having troubles. [facility] Medical History (Updated 07/26/24 @ 14:21 by TC Hunt) IBS (irritable bowel syndrome) Basal cell carcinoma Lumbar compression fracture History of breast cancer Osteopenia Pacemaker (~08/2022) Graves disease History of radioactive iodine thyroid ablation Hypothyroidism Surgical History H/O colonoscopy History of basal cell carcinoma (BCC) excision History of pacemaker (~2022) History of tonsillectomy and adenoidectomy History of appendectomy History of lumpectomy of left breast Family History Mother Breast cancer Father Hypertension Social History Household Members: Spouse Housing: House Do you presently have visiting nurse or other home services: No Alcohol intake: current Alcohol intake frequency: a few times a week Alcohol type: wine Patient Tobacco Use Status: Former Tobacco user Tobacco use type: Cigarette e-Cigarette/Vaping Use: Never Used Second Hand Smoke Exposure: No service: No Current occupational status: retired Review of Systems Const Denies fatigue, Denies fever(s), Denies night sweats, Denies poor appetite and Denies weight loss Eyes Details: glasses Reports requires corrective lenses ENT Reports Normal hearing present, Denies dental pain, Denies dysphagia, Denies hearing loss, Denies mouth pain, Denies odynophagia, Denies throat swelling, Denies tongue swelling and Reports other (Dentition adequate) Card Reports no additional complaints Resp Reports no additional complaints GI Details: Denies abdominal pain, Denies melena, Denies bloating, Denies hematochezia, Denies constipation, Denies GI cramping, Denies dysphagia, Denies excessive flatus, Denies early satiety, Denies heartburn, Reports diarrhea, Denies nausea, Denies odynophagia, Denies vomiting and Denies hematemesis Skin/Breast Denies pruritus, Denies lesions, Denies rash and Denies jaundice Neuro Reports Normal hearing present and Denies Abnormal speech present Endo Denies fatigue Aller/Immun Denies throat swelling and Denies tongue swelling Physical Exam Vital Signs: Last Vital Signs Pulse 59 07/26/24 08:50 BP 126/69 07/26/24 08:50 BMI result Body Mass Index 24.4 Const General: cooperative, no acute distress, well developed and well groomed Nutritional Appearance: average body habitus and well nourished Orientation/consciousness: oriented to person, oriented to place and oriented to time Limitations: No language barrier HEENT Head: Yes normocephalic and Yes atraumatic Eyes General: appearance normal, both eyes and all related structures Pupils: Equal, round and reactive pupils present Neck Neck: Yes normal visual inspection and Yes no lymphadenopathy Thyroid: Thyroid normal Resp Effort & Inspection: normal respiratory effort and able to speak in complete sentences Auscultation: clear to auscultation bilaterally Cardio Rate: regular rate Rhythm: regular rhythm Heart sounds: Normal, physiologic split S2 sound present Peripheral pulses: radial pulses present and posterior tibial pulses present GI Inspection: No distended, No Abdominal panniculus present and Yes scar Palpation (GI): Soft to palpation, nontender, no guarding, not rigid and No hepatosplenomegaly present Percussion: Yes normal to percussion Auscultation: normal bowel sounds Rectal Exam - Female: deferred Abdomen image: 1. surgical scar Skin General skin exam: no rashes or lesions noted, turgor normal, skin not dry, no jaundice, No spider nevi and no striae Rashes: no rashes Nails: normal Neuro General: oriented to person, oriented to place and oriented to time Cranial nerves: Yes Equal, round and reactive pupils present and Yes Normal hearing present Speech: No Abnormal speech present Extrem General: Yes normal to inspection, No clubbing, No cyanosis and No edema Psych Appearance: grossly normal and well kempt Mental Status: mental status grossly normal Speech and movement: Normal speech and movement present Affect: normal affect Attitude: cooperative Thought process: Normal thought process present and not confabulating Thought content: Normal thought content present Insight: Fair insight present (Psych) Judgement: Fair judgement present (Psych) Assessment & Plan Assessment & Plan (1) Diarrhea due to drug: Code(s): K52.1 - Toxic gastroenteritis and colitis Category: Medical (2) Weight loss: Comment: Seems to have resolved Code(s): R63.4 - Abnormal weight loss Category: Medical Plan Apparently she has had diarrhea since starting Eliquis and metoprolol, and Multaq. She has been taking imodium but irregularly, this has been a problem for a out 2 years. She knows that when she has a soft bowel movement then she the next movement will be diarrheal. However she does have unexpected bouts of diarrhea like for instance when she went to a holiday republican. This makes it very hard for her to plan her life understandably. This is been going on for over 2 years so the possibility of an infection is remote at best. There is no known family history of severe bowel disorder such as IBD, and she does still have a gallbladder so I feel this probably is a medication/iatrogenic side effect. I reassure her that there is nothing wrong with taking Imodium and it probably is 1 of the better medications that will not interact with her important anticoagulation drugs etc.. I encouraged her to try to find a schedule to take it on so that her bowels are more regular in her life is more predictable. She can do anything from half a tablet today to 1 tablet a day to a half alternating for the tablet etc. etc. whatever her body seems to require. With this she will experiment with this for about 8 weeks milk it back together and I will see what I can do to help her refined the process if she still having troubles. Coding Level of Care Code New Pt Level 3 (06824) Diagnoses Diarrhea due to drug K52.1 Weight loss R63.4
--- OUTSIDE RECORDS SUMMARY | 2024-07-26 09:02 | XMS_ITS | Clinical Summary ---
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 Name Role Phone FRANCOISE JACINTO, DIANE Unavailable Unavailable MARISOL FRONT OFFICE COORDINATOR, BENJAMIN Unavailable Unavailable RAFAEL ESPINOSA, GERMAINE Unavailable Unavailable CHLOE FRONT OFFICE COORDINATOR, MARTY Unavailable Unavailabl e KALETINA FRONT OFFICE COORDINATOR, VINCENT Unavailable Unavailab le Payers Payer Name Policy Type Policy Number Effective Date Expira tion Date [facility] ADV [id number] MEDICARE - [facility]/OR - PD [id number] Problems Condition Name Condition Details Condition Category Status Onset Date Resolution Date Last Treatment Date Treating Clinician Comments ENCNTR FOR SURGICAL AFTCR FOLLOWING SURGERY ON THE CIRC SYS Active 08-30 00:00: 00 SICK SINUS SYNDROME Active 08-15 00:00: 00 PAROXYSMAL ATRIAL FIBRILLATION Active 08-15 00:00: 00 CARDIOMYOPAT HY, UNSPECIFIED Active 08-15 00:00: 00 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 08-15 00:00: 00 HYPERTENSIVE HEART DISEASE WITHOUT HEART FAILURE Active 08-15 00:00: 00 HYPOTENSION, UNSPECIFIED Active 08-15 00:00: 00 HYPOTHYROIDI SM, UNSPECIFIED Active 08-15 00:00: 00 GASTRO-ESOPH AGEAL REFLUX DISEASE WITHOUT ESOPHAGITIS Active 08-15 00:00: 00 HYPERLIPIDEM IA, UNSPECIFIED Active 08-15 00:00: 00 PRESENCE OF CARDIAC PACEMAKER Active 08-15 00:00: 00 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 Ordering Clinician Indication Dosage Frequency Signature (SIG) Comments Components cefuroxime axetil 500 mg tablet 09-01 00:00: 00 09-08 00:00 :00 No [id number] Per instruc tions Per instructio ns (route: oral) Med Classific ation: Anti-Infe ctive Agents Eliquis 5 mg tablet 09-01 00:00: 00 Yes [id number] 1 tablet 2 TIMES DAILY 1 tablet 2 TIMES DAILY (route: oral) Med Classific ation: Hematolog ical Agents metoprolol tartrate 25 mg tablet 09-01 00:00: 00 Yes [id number] 1 tablet 2 TIMES DAILY 1 tablet 2 TIMES DAILY (route: oral) Med Classific ation: Cardiovas cular Therapy Agents Multaq 400 mg tablet 09-01 00:00: 00 Yes [id number] 1 tablet 2 TIMES DAILY 1 tablet 2 TIMES DAILY (route: oral) Med Classific ation: Cardiovas cular Therapy Agents azithromyci n 250 mg tablet 08-29 00:00: 00 09-08 00:00 :00 No [id number] Per instruc tions Per instructio ns (route: oral) Med Classific ation: Anti-Infe ctive Agents methocarbam ol 500 mg tablet 08-15 00:00: 00 Yes [id number] Per instruc tions 3 (THREE) TIMES A DAY NEEDED Per instructio ns 3 (THREE) TIMES A DAY NEEDED (route: oral) Med Classific ation: Locomotor System omeprazole 20 mg capsule,del ayed release 2021-08 00:00: 00 Yes [id number] 1 capsule DAILY 1 capsule DAILY (route: oral) Med Classific ation: Gastroint estinal Therapy Agents albuterol sulfate HFA 90 mcg/actuati on aerosol inhaler 09-08 00:00: 00 Yes [id number] 2 puff 4 TIMES DAILY 2 puff 4 TIMES DAILY (route: inhalation ) Med Classific ation: Respirato ry Therapy Agents calcium carbonate 320 mg calcium (750 mg) chewable tablet 09-08 00:00: 00 Yes [id number] 1 tablet DAILY 1 tablet DAILY (route: oral) Med Classific ation: Gastroint estinal Therapy Agents dicyclomine 10 mg capsule 09-08 00:00: 00 Yes [id number] 1 capsule 3 TIMES DAILY 1 capsule 3 TIMES DAILY (route: oral) Med Classific ation: Gastroint estinal Therapy Agents Flonase Allergy Relief 50 mcg/actuati on nasal spray,suspe nsion 09-08 00:00: 00 Yes [id number] 2 spray 2 TIMES DAILY 2 spray 2 TIMES DAILY (route: nasal) Med Classific ation: Respirato ry Therapy Agents gabapentin 400 mg capsule 09-08 00:00: 00 Yes [id number] 1 capsule 3 TIMES DAILY 1 capsule 3 TIMES DAILY (route: oral) Med Classific ation: Central Nervous System Agents Levo-T 137 mcg tablet 09-08 00:00: 00 Yes [id number] 1 tablet DAILY 1 tablet DAILY (route: oral) Med Classific ation: Endocrine Lipitor 10 mg tablet 09-08 00:00: 00 Yes [id number] 1 tablet DAILY 1 tablet DAILY (route: oral) Med Classific ation: Cardiovas cular Therapy Agents loratadine 10 mg tablet 09-08 00:00: 00 Yes [id number] 1 tablet DAILY 1 tablet DAILY (route: oral) Med Classific ation: Respirato ry Therapy Agents Macrodantin 25 mg capsule 09-08 00:00: 00 Yes [id number] 1 capsule 3 TIMES A WEEK 1 capsule 3 TIMES A WEEK (route: oral) Med Classific ation: Genitouri nary Therapy meclizine 25 mg tablet 09-08 00:00: 00 Yes [id number] 1 tablet DAILY 1 tablet DAILY (route: oral) Med Classific ation: Gastroint estinal Therapy Agents Tylenol Extra Strength 500 mg tablet 09-08 00:00: 00 Yes [id number] 2 tablet 4 TIMES DAILY 2 tablet 4 TIMES DAILY (route: oral) Med Classific ation: Analgesic , Anti-infl ammatory or Antipyret ic Vitamin C 1,000 mg tablet 09-08 00:00: 00 Yes [id number] 1 tablet 2 TIMES DAILY 1 tablet 2 TIMES DAILY (route: oral) Med Classific ation: Electroly te Balance-N utritiona l Products Vitamin D3 25 mcg (1,000 unit) tablet 09-08 00:00: 00 Yes [id number] 1 tablet 3 TIMES A WEEK 1 tablet 3 TIMES A WEEK (route: oral) Med Classific ation: Electroly te Balance-N utritiona l Products Vital Signs Vital Name Observation Time Observation Value Commen ts Temperature 2022-10-13 09:09:00.000 97.6 [degF] Temperature 2022-10-06 18:07:00.000 98.6 [degF] Temperature 2022-09-29 08:05:00.000 97.5 [degF] Temperature 2022-09-21 19:43:00.000 98.6 [degF] Temperature 2022-09-15 18:18:00.000 98.6 [degF] Temperature 2022-09-13 14:04:00.000 96.6 [degF] Temperature 2022-09-08 19:55:00.000 98.1 [degF] BMI (%) 2022-09-08 19:55:00.000 25 kg/m2 Height 2022-09-08 19:55:00.000 65 [in_us] Pulse 2022-10-13 09:09:00.000 60 /min Pulse 2022-10-06 18:07:00.000 60 /min Pulse 2022-09-29 08:05:00.000 66 /min Pulse 2022-09-21 19:43:00.000 62 /min Pulse 2022-09-15 18:21:00.000 62 /min Pulse 2022-09-13 14:04:00.000 60 /min Pulse 2022-09-08 19:55:00.000 60 /min O2 Saturation (%) 2022-10-13 09:09:00.000 98 % O2 Saturation (%) 2022-09-13 14:04:00.000 99 % O2 Saturation (%) 2022-09-08 19:55:00.000 100 % Respirations 2022-10-13 09:09:00.000 20 /min Respirations 2022-10-06 18:07:00.000 18 /min Respirations 2022-09-29 08:05:00.000 18 /min Respirations 2022-09-21 19:43:00.000 18 /min Respirations 2022-09-15 18:18:00.000 18 /min Respirations 2022-09-13 14:04:00.000 20 /min Respirations 2022-09-08 19:55:00.000 20 /min Weight (lbs) 2022-09-15 19:19:00.000 155 [lb_av] Weight (lbs) 2022-09-08 19:55:00.000 155 [lb_av] Systolic Blood Pressure 2022-10-13 09:09:00.000 116 mm [Hg] Systolic Blood Pressure 2022-10-06 18:07:00.000 112 mm [Hg] Systolic Blood Pressure 2022-09-29 08:05:00.000 140 mm [Hg] Systolic Blood Pressure 2022-09-21 19:43:00.000 128 mm [Hg] Systolic Blood Pressure 2022-09-15 18:20:00.000 126 mm [Hg] Systolic Blood Pressure 2022-09-13 14:04:00.000 100 mm [Hg] Systolic Blood Pressure 2022-09-08 19:55:00.000 124 mm [Hg] Diastolic Blood Pressure 2022-10-13 09:09:00.000 72 mm [Hg] Diastolic Blood Pressure 2022-10-06 18:07:00.000 60 mm [Hg] Diastolic Blood Pressure 2022-09-29 08:05:00.000 80 mm [Hg] Diastolic Blood Pressure 2022-09-21 19:43:00.000 78 mm [Hg] Diastolic Blood Pressure 2022-09-15 18:20:00.000 72 mm [Hg] Diastolic Blood Pressure 2022-09-13 14:04:00.000 60 mm [Hg] Diastolic Blood Pressure 2022-09-08 19:55:00.000 78 mm [Hg] Plan of Treatment Planned Activity Planned Date Details Comments Future Scheduled Test SKILLED NU RSE TO EVALUATE PATIENT, IDENTIFY PRIMARY AND CO-MORBID CONDITIONS CODED PER CODING GUIDELINES, AND DEVELOP PATIENT SPECIFIC PLAN OF CARE THAT INCLUDES PATIENT GOAL FOR HOME HEALTH. CLINICAL SUMMARY (SOC THE PATIENT IS RECEIVING HOMECARE DUE TO RECENT PACEMAKER PLACEMENT, NEW AFIB, RECENT PNEUMONIA. RECENT HOSPITALIZATION/INPATIENT ADMISSION RELATED TO: SHORTNESS OF BREATH, TACKY RIOS SYNDROME, AFIB, PACEMAKER SURGERY AND PNEUMONIA NEW OR CHANGED MEDICATIONS: ELOQUIS, METOPROLOL AND MECLIZINE. ANTIBIOTICS DISCONTINUED YESTERDAY THE DAY BEFORE THIS ADMISSION PATIENT LIVING SITUATION/CAREGIVER STATUS: LIVES WITH SPOUSE RECENT FALLS: NO FALLS SUMMARIZE SKILLED NEED: ASSESS AND TEACH DISEASE PROCESS FOR SICK SINUS SYNDROME, AFIB AND PNEUMONIA. MEDICATION TEACH AND RESPONSE, TEACH DIETARY NEEDS FOR CARDIAC, PAIN MANAGEMENT, HOME SAFETY, AND FALL PREVENTION. TEACH DEEP BREATHING, AND ADVERSE SYMPTOMS TO NOTIFY MD / HEALTHCARE ADDITIONAL DISCIPLINES NEEDED OR DECLINED ORDERED SERVICES: PHYSICAL THERAPY EVAL NEEDED [code = SKILLED NURSE TO EVALUATE PATIENT, IDENTIFY PRIMARY AND CO-MORBID CONDITIONS CODED PER CODING GUIDELINES, AND DEVELOP PATIENT SPECIFIC PLAN OF CARE THAT INCLUDES PATIENT GOAL FOR HOME HEALTH. CLINICAL SUMMARY (SOC THE PATIENT IS RECEIVING HOMECARE DUE TO RECENT PACEMAKER PLACEMENT, NEW AFIB, RECENT PNEUMONIA. RECENT HOSPITALIZATION/INPATIENT ADMISSION RELATED TO: SHORTNESS OF BREATH, TACKY RIOS SYNDROME, AFIB, PACEMAKER SURGERY AND PNEUMONIA NEW OR CHANGED MEDICATIONS: ELOQUIS, METOPROLOL AND MECLIZINE. ANTIBIOTICS DISCONTINUED YESTERDAY THE DAY BEFORE THIS ADMISSION PATIENT LIVING SITUATION/CAREGIVER STATUS: LIVES WITH SPOUSE RECENT FALLS: NO FALLS SUMMARIZE SKILLED NEED: ASSESS AND TEACH DISEASE PROCESS FOR SICK SINUS SYNDROME, AFIB AND PNEUMONIA. MEDICATION TEACH AND RESPONSE, TEACH DIETARY NEEDS FOR CARDIAC, PAIN MANAGEMENT, HOME SAFETY, AND FALL PREVENTION. TEACH DEEP BREATHING, AND ADVERSE SYMPTOMS TO NOTIFY MD / HEALTHCARE ADDITIONAL DISCIPLINES NEEDED OR DECLINED ORDERED SERVICES: PHYSICAL THERAPY EVAL NEEDED] Future Scheduled Test SKILLED NU RSE TO REVIEW PATIENT MEDICATIONS. INSTRUCT PATIENT/CAREGIVER ON MONITORING OF EFFECTIVENESS, ADVERSE DRUG REACTIONS, SIDE EFFECTS OF ALL MEDICATIONS (PRESCRIPTION/-OTC), AND HOW AND WHEN TO REPORT PROBLEMS. [code = SKILLED NURSE TO REVIEW PATIENT MEDICATIONS. INSTRUCT PATIENT/CAREGIVER ON MONITORING OF EFFECTIVENESS, ADVERSE DRUG REACTIONS, SIDE EFFECTS OF ALL MEDICATIONS (PRESCRIPTION/-OTC), AND HOW AND WHEN TO REPORT PROBLEMS.] Future Scheduled Test SKILLED NU RSE TO PERFORM HOME SAFETY AND FALL ASSESSMENT AND PROVIDE INSTRUCTION TO IMPLEMENT HOME SAFETY AND FALL PREVENTION STRATEGIES. [code = SKILLED NURSE TO PERFORM HOME SAFETY AND FALL ASSESSMENT AND PROVIDE INSTRUCTION TO IMPLEMENT HOME SAFETY AND FALL PREVENTION STRATEGIES.] Future Scheduled Test PATIENT TANNER S A RISK OF HOSPITALIZATION AND ED USE. SKILLED NURSE TO ESTABLISH SUPPORT MEASURES TO MINIMIZE RISK OF HOSPITALIZATION AND ED USE, AND INSTRUCT PATIENT/CAREGIVER ON METHODS TO REDUCE AVOIDABLE HOSPITALIZATION AND ED USE. [code = PATIENT HAS A RISK OF HOSPITALIZATION AND ED USE. SKILLED NURSE TO ESTABLISH SUPPORT MEASURES TO MINIMIZE RISK OF HOSPITALIZATION AND ED USE, AND INSTRUCT PATIENT/CAREGIVER ON METHODS TO REDUCE AVOIDABLE HOSPITALIZATION AND ED USE.] Future Scheduled Test SKILLED NU RSE TO PROVIDE INSTRUCTION TO PATIENT/CAREGIVER RELATED TO DISCHARGE PLANNING. [code = SKILLED NURSE TO PROVIDE INSTRUCTION TO PATIENT/CAREGIVER RELATED TO DISCHARGE PLANNING. ] Future Scheduled Test SKILLED NU RSE FOR O/A, TEACHING, AND MANAGEMENT OF SSS, TACHY/BRADYCARDIA, CARDIOMYOPATHY, PACEMAKER, HYPERTENSIVE HEART DISEASE WITHOUT HEART FAILURE [code = SKILLED NURSE FOR O/A, TEACHING, AND MANAGEMENT OF SSS, TACHY/BRADYCARDIA, CARDIOMYOPATHY, PACEMAKER, HYPERTENSIVE HEART DISEASE WITHOUT HEART FAILURE] Future Scheduled Test SKILLED NU RSE FOR OBSERVATION AND ASSESSMENT OF PATIENTS PAIN LEVEL AND EFFECTIVENESS OF PAIN MANAGEMENT REGIMEN. SKILLED NURSE TO INSTRUCT PATIENT/CAREGIVER REGARDING PHARMACOLOGIC AND NON-PHARMACOLOGIC PAIN CONTROL MEASURES. SKILLED NURSE TO REPORT TO PHYSICIAN IF PAIN IS UNCONTROLLED WITH CURRENT PAIN MANAGEMENT REGIMEN. [code = SKILLED NURSE FOR OBSERVATION AND ASSESSMENT OF PATIENTS PAIN LEVEL AND EFFECTIVENESS OF PAIN MANAGEMENT REGIMEN. SKILLED NURSE TO INSTRUCT PATIENT/CAREGIVER REGARDING PHARMACOLOGIC AND NON-PHARMACOLOGIC PAIN CONTROL MEASURES. SKILLED NURSE TO REPORT TO PHYSICIAN IF PAIN IS UNCONTROLLED WITH CURRENT PAIN MANAGEMENT REGIMEN.] Future Scheduled Test SKILLED NU RSE FOR O/A, TEACHING RELATED TO GERD FOR EARLY IDENTIFICATION OF EXACERBATION OF DISEASE PROCESS. [code = SKILLED NURSE FOR O/A, TEACHING RELATED TO GERD FOR EARLY IDENTIFICATION OF EXACERBATION OF DISEASE PROCESS.] Future Scheduled Test SKILLED NU RSE FOR O/A AND TEACHING OF ENDOCRINE SYSTEM TO IDENTIFY CHANGES ASSOCIATED WITH EXACERBATION OF HYPOTHYROIDISM FOR EARLY INTERVENTION OF COMPLICATIONS. [code = SKILLED NURSE FOR O/A AND TEACHING OF ENDOCRINE SYSTEM TO IDENTIFY CHANGES ASSOCIATED WITH EXACERBATION OF HYPOTHYROIDISM FOR EARLY INTERVENTION OF COMPLICATIONS.] Future Scheduled Test SKILLED NU RSE TO ASSESS PATIENT'S SKIN INTEGRITY AND INSTRUCT PATIENT/CAREGIVER ON MEASURES TO PREVENT PRESSURE ULCERS [code = SKILLED NURSE TO ASSESS PATIENT'S SKIN INTEGRITY AND INSTRUCT PATIENT/CAREGIVER ON MEASURES TO PREVENT PRESSURE ULCERS] Future Scheduled Test PHYSICAL T HERAPIST TO EVALUATE PATIENT FOR STRENGTH AND GAIT TRAINING [code = PHYSICAL THERAPIST TO EVALUATE PATIENT FOR STRENGTH AND GAIT TRAINING ] Future Scheduled Test INSTRUCTED PATIENT/CAREGIVER ON SIGNS AND SYMPTOMS, RISK FACTORS, COMPLICATIONS, AND MANAGEMENT OF ATRIAL FIBRILLATION. [code = INSTRUCTED PATIENT/CAREGIVER ON SIGNS AND SYMPTOMS, RISK FACTORS, COMPLICATIONS, AND MANAGEMENT OF ATRIAL FIBRILLATION.] Future Scheduled Test VIRTUAL SIT FREQUENCY: 1-5 PER WEEK X 2 WEEKS, AND 5 PRN VIRTUAL VISITS MAY BE PERFORMED UTILIZING TELECOMMUNICATIONS SYSTEM TO OPTIMIZE SKILLED SERVICES FURNISHED ON THE PLAN OF CARE. SKILLED NURSE TO ESTABLISH SUPPORT MEASURES TO MINIMIZE RISK OF REHOSPITALIZATION, AND INSTRUCT PATIENT/CAREGIVER ON METHODS TO REDUCE AVOIDABLE HOSPITALIZATION. [code = VIRTUAL VISIT FREQUENCY: 1-5 PER WEEK X 2 WEEKS, AND 5 PRN VIRTUAL VISITS MAY BE PERFORMED UTILIZING TELECOMMUNICATIONS SYSTEM TO OPTIMIZE SKILLED SERVICES FURNISHED ON THE PLAN OF CARE. SKILLED NURSE TO ESTABLISH SUPPORT MEASURES TO MINIMIZE RISK OF REHOSPITALIZATION, AND INSTRUCT PATIENT/CAREGIVER ON METHODS TO REDUCE AVOIDABLE HOSPITALIZATION.] Future Scheduled Test PHYSICAL T HERAPY TO EVALUATE AND TREAT. PHYSICAL THERAPY EVALUATION PERFORMED. NO ADDITIONAL VISITS REQUIRED. 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 DX: NEW AFIB, RECENT PNEUMONIA. PACEMAKER PLACEMENT, NEW AFIB AND RECENT PNEUMONIA. PLOF: ACTIVE, AMB WITHOUT AD INCLUDING WALKS AROUND THE BLOCK, INDEP WITH STAIR NEGOTIATION, DROVE. PATIENT REPORTS NO RECENT FALLS. PATIENT LIVES IN 2 STORY HOME WITH EDUIN. 7 STEPS WITH RAIL PLUS 1 THRESHOLD STEP TO ENTER/EXIT HOME. 16 STAIRS WITH RAIL TO 2ND FLOOR, TO ACCESS FULL BATH AND BEDROOM. CLOF: DME: RAISED TOILET SEAT, HAS VARIOUS DME IN BASEMENT BUT NOT USING BILAT LE WFL, BILAT LE STRENGTH: 4 TO 5/5 INDEPENDENT WITH TRANSFERS, INDEPENDENT AMB IN HOME, INDEPENDENT WITH STAIR NEGOTIATION. TUG =12 SEC. SAFETY EDUCATION: PATIENT STATED DESIRE TO RETURN TO WALKING AROUND NEIGHBORHOOD WITH NEIGHBOR, ADVISED PATIENT TO CARRY CELL PHONE REVIEWED PRECAUTIONS LEFT LE S/P PACEMAKER PLACEMENT WITH PATIENT STATING SOMETIMES FORGETS. PATIENT IS AT HIGH FUNCTIONAL LEVEL, INDEPENDENT WITH TRANSFERS, AMBULATION AND STAIR NEGOTIATION, PHYSICAL THERAPY EVALUATION ONLY WITH NO ADDITIONAL VISITS REQUIRED AT THIS TIME. PATIENT INFORMED ABOUT PATIENT STATUS AND EVALUATION ONLY, VERBALIZED ACCEPTANCE. MD NOTIFIED ABOUT PATIENT STATUS AND EVALUATION ONLY. PATIENT CURRENTLY HOMEBOUND OUTDOOR AMBULATION DISTANCE LIMITED BY RECENT PACEMAKER PLACEMENT. [code = PHYSICAL THERAPY TO EVALUATE AND TREAT. PHYSICAL THERAPY EVALUATION PERFORMED. NO ADDITIONAL VISITS REQUIRED. 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 MD DX: NEW AFIB, RECENT PNEUMONIA. PACEMAKER PLACEMENT, NEW AFIB AND RECENT PNEUMONIA. PLOF: ACTIVE, AMB WITHOUT AD INCLUDING WALKS AROUND THE BLOCK, INDEP WITH STAIR NEGOTIATION, DROVE. PATIENT REPORTS NO RECENT FALLS. PATIENT LIVES IN 2 STORY HOME WITH EDUIN. 7 STEPS WITH RAIL PLUS 1 THRESHOLD STEP TO ENTER/EXIT HOME. 16 STAIRS WITH RAIL TO 2ND FLOOR, TO ACCESS FULL BATH AND BEDROOM. CLOF: DME: RAISED TOILET SEAT, HAS VARIOUS DME IN BASEMENT BUT NOT USING BILAT LE WFL, BILAT LE STRENGTH: 4 TO 5/5 INDEPENDENT WITH TRANSFERS, INDEPENDENT AMB IN HOME, INDEPENDENT WITH STAIR NEGOTIATION. TUG =12 SEC. SAFETY EDUCATION: PATIENT STATED DESIRE TO RETURN TO WALKING AROUND NEIGHBORHOOD WITH NEIGHBOR, ADVISED PATIENT TO CARRY CELL PHONE REVIEWED PRECAUTIONS LEFT LE S/P PACEMAKER PLACEMENT WITH PATIENT STATING SOMETIMES FORGETS. PATIENT IS AT HIGH FUNCTIONAL LEVEL, INDEPENDENT WITH TRANSFERS, AMBULATION AND STAIR NEGOTIATION, PHYSICAL THERAPY EVALUATION ONLY WITH NO ADDITIONAL VISITS REQUIRED AT THIS TIME. PATIENT INFORMED ABOUT PATIENT STATUS AND EVALUATION ONLY, VERBALIZED ACCEPTANCE. MD NOTIFIED ABOUT PATIENT STATUS AND EVALUATION ONLY. PATIENT CURRENTLY HOMEBOUND OUTDOOR AMBULATION DISTANCE LIMITED BY RECENT PACEMAKER PLACEMENT.] Future Scheduled Test SKILLED NU RSE FOR O/A RELATED TO SIGNS AND SYMPTOMS OF INFECTION AND TO PROVIDE TEACHING REGARDING INFECTION CONTROL MEASURES DUE TO RECURRENT PNA. [code = SKILLED NURSE FOR O/A RELATED TO SIGNS AND SYMPTOMS OF INFECTION AND TO PROVIDE TEACHING REGARDING INFECTION CONTROL MEASURES DUE TO RECURRENT PNA.] Future Scheduled Test SKILLED NU RSE FOR O/A AND SKILLED TEACHING IN MANAGEMENT OF RAYNAUD'S SYNDROME [code = SKILLED NURSE FOR O/A AND SKILLED TEACHING IN MANAGEMENT OF RAYNAUD'S SYNDROME] Future Scheduled Test SKILLED NU RSE FOR O/A AND TEACHING ON SIGNS AND SYMPTOMS AND MANAGEMENT OF HYPOTENSION [code = SKILLED NURSE FOR O/A AND TEACHING ON SIGNS AND SYMPTOMS AND MANAGEMENT OF HYPOTENSION] Goal 2022-10-13 Patient Goal - MORE ACTIVITY Goal Provider Goal - A PLAN OF CARE WILL BE ESTABLISHED THAT MEETS PATIENT'S PRISON NEEDS AND INCLUDES PATIENT GOAL FOR HOME HEALTH. Goal Provider Goal - PATIENT/CAREGIVER WILL VERBALIZE UNDERSTANDING OF EDUCATION PROVIDED ON MEDICATIONS BY THE END OF THE CERTIFICATION PERIOD. Goal Provider Goal - PATIENT/CAREGIVER WILL VERBALIZE/DEMONSTRATE EFFECTIVE HOME SAFETY AND FALL PREVENTION STRATEGIES THROUGHOUT CERTIFICATION PERIOD. Goal Provider Goal - PATIENT WILL HAVE SUPPORT MEASURES ESTABLISHED TO PREVENT HOSPITALIZATION AND ED USE AND PATIENT/CAREGIVER WILL VERBALIZE/DEMONSTRATE METHODS TO REDUCE AVOIDABLE HOSPITALIZATION AND ED USE BY THE END OF THE EPISODE. Goal Provider Goal - PATIENT/CAREGIVER WILL VERBALIZE UNDERSTANDING OF DISCHARGE PLANNING INSTRUCTIONS BY DATE OF DISCHARGE. Goal Provider Goal - PATIENT/CAREGIVER WILL VERBALIZE/DEMONSTRATE MANAGEMENT OF CARDIAC DISEASE PROCESS AND EXACERBATIONS WILL BE IDENTIFIED AND PROMPTLY REPORTED THROUGHOUT THE CERTIFICATION PERIOD. Goal Provider Goal - PATIENT/CAREGIVER WILL DEMONSTRATE UNDERSTANDING OF PHARMACOLOGIC AND NONPHARMACOLOGIC PAIN CONTROL MEASURES AND PATIENT WILL HAVE IMPROVEMENT IN PAIN INTERFERING WITH ACTIVITY EVIDENCED BY PAIN CONTROLLED AT LEVEL OF 7 OR LESS BY END OF CERTIFICATION PERIOD. Goal Provider Goal - EXACERBATIONS OF GASTROINTESTINAL DISEASE WILL BE PROMPTLY IDENTIFIED AND INTERVENTIONS IMPLEMENTED TO MINIMIZE RISKS TO PATIENT BY THE END OF THE EPISODE. Goal Provider Goal - PATIENT/CAREGIVER WILL VERBALIZE SIGNS AND SYMPTOMS OF EXACERBATION TO REPORT TO NURSE/PHYSICIAN. CHANGES IN ENDOCRINE SYSTEM WILL BE IDENTIFIED AND REPORTED TO PHYSICIAN FOR PROMPT INTERVENTION THROUGHOUT THE CERTIFICATION PERIOD. Goal Provider Goal - PATIENT/CAREGIVER WILL VERBALIZE UNDERSTANDING OF PRESSURE ULCER PREVENTION BY END OFCERTIFICATION. Goal Provider Goal - A PHYSICAL THERAPY EVALUATION TO BE COMPLETED WITH RECOMMENDATIONS AND/OR WRITTEN PLAN OF TREATMENT ESTABLISHED FOR PHYSICIANS SIGNATURE. Goal Provider Goal - PATIENT/CAREGIVER WILL VERBALIZE UNDERSTANDING OF SIGNS AND SYMPTOMS, COMPLICATIONS, AND MANAGEMENT OF ATRIAL FIBRILLATION THROUGHOUT THE CERTIFICATION PERIOD. Goal Provider Goal - PATIENT/CAREGIVER WILL UTILIZE VIRTUAL VISITS TO ACHIEVE GOALS OUTLINED ON THE PLAN OF CARE. PATIENT WILL HAVE SUPPORT MEASURES ESTABLISHED TO PREVENT HOSPITALIZATION AND PATIENT/CAREGIVER WILL VERBALIZE/DEMONSTRATE METHODS TO REDUCE AVOIDABLE HOSPITALIZATION THROUGHOUT THE CERTIFICATION PERIOD. Goal Provider Goal - NONE Goal Provider Goal - PATIENT/CAREGIVER WILL VERBALIZE/DEMONSTRATE INFECTION CONTROL MEASURES AND SIGNS AND SYMPTOMS OF INFECTION WILL BE IDENTIFIED AND PHYSICIAN NOTIFIED FOR PROMPT INTERVENTION THROUGHOUT THE CERTIFICATION PERIOD. Goal Provider Goal - EXACERBATIONS/COMPLICATIONS OF CIRCULATORY PROBLEMS WILL BE IDENTIFIED AND INTERVENTIONS INITIATED TO AVOID COMPLICATIONS THROUGHOUT THE CERTIFICATION PERIOD. Goal Provider Goal - PATIENT/CAREGIVER WILL VERBALIZE SIGNS AND SYMPTOMS OF HYPOTENSION AND WILL BE ABLE TO DEMONSTRATE ABILITY TO MANAGE EXACERBATION BY END OF EPISODE Reason for Visit INDEPENDENT IN THE COMMUNITY Encounters Start Date/Time End Date/Time Encounter Type Admission Type Attending [facility] Care Department Encounter ID Discharge Date Discharge Status Discharge Condition Discharge Reason Percent Goals Met 2022-09-08 00:00:00 2022-10-13 00:00:00 Outpatient NEW ADMISSION [facility] [id number] 00:00:00 DISCHARGE TO HOME OR SELF CARE INDEPENDEN T IN THE COMMUNITY GOALS MET ( ONLY) 100.00
== END 2024-07-26 10:25 | disposition home or self-care (01) ==
PROVIDERS: PCP Internal Medicine; Visit Provider Nurse Practitioner
DX: K52.1 Toxic gastroenteritis and colitis (principal); R63.4 Abnormal weight loss
CPT/HCPCS: 99203

== ENCOUNTER → 2024-07-26 08:47 | Outpatient (BNVA) | payer MEDICARE, SELFPAY | PROVIDERS: PCP Internal Medicine; Visit Provider Nurse Practitioner | DX: K52.1 Toxic gastroenteritis and colitis (principal); R63.4 Abnormal weight loss | CPT/HCPCS: 99202 ==

== ENCOUNTER 2024-08-18 09:46 | Emergency (ER) | payer MEDICARE, SELFPAY ==
--- NOTE | ~2024-08-18 | XR_ITS ---
CLINICAL HISTORY: cough, cp 2 views chest Comparison: CR/AK/SR - XR CHEST 1V - 08/30/22 15:13 EST Findings: Cardiac and mediastinal contours are stable. Mild interstitial prominence with scattered peribronchial thickening. No focal consolidation. No effusion. No pneumothorax. No acute osseous finding. Impression: Mild interstitial prominence with scattered peribronchial thickening. No focal consolidation. This document has been electronically signed by: Ney Albert MD on 08/18/2024 10:26:15
--- OUTSIDE RECORDS SUMMARY | 2024-08-18 09:49 | XMS_ITS | Data Portability ---
Demographics Address [address] [place] [address] Home Phone Email Address Preferred Language en Marital Status Congregational Affiliation Unknown Race White Ethnic Group Not or Lati no Author Organization [place] - [employer] [facility], [id number] Address [address] [facility] [address] [place] [address] Care Team Providers Care Domestic Maid Name Role Phone DIANE OWUSU Primary Care Provider Assessment Encounter Date Assessment Date Assessment LastModified by Organization Details LastModified Time 07/17/2024 07/17/2024 -OF NOTE, patient is on ANTI-COAGULATI ON (ELIQUIS) -patient doing well with her radicular pain, after most recent MOSES; encouraged continuing with PT/HEP -continue gabapentin 400mg??BID -continue tizanidine 2mg TID PRN -f/up in??3 months -10??minutes was used for chart review, interviewing/e xamining, and counseling the patient during today's visit, and patient denies having any other further questions/conc erns ?? Thank you for allowing us to participate in your patient's care. Please do not hesitate to contact me if you have any questions or concerns regarding her treatment. [email or web address] Not available 07/17/2024 11:52:28 Plan of Treatment Reminders Order Date Submit Date Provider Last Modified By Organization Details Last Modified Time Details Appointments None recorded. Lab None recorded. Referral None recorded. Procedures None recorded. Surgeries None recorded. Imaging None recorded. Medication Orders gabapentin 400 mg capsule 2023 024 [facility], [facility], [place], [address], 11:53:08 Patient TargetsNo targets recorded. Patient InstructionsNo instructions recorded. Reason for Referral None Reported. Problems Name Problem SNOMED Code Status Onset Date Resolution Date Notes Provider Name and Address Organization Details Recorded Time Lumbar radiculopathy 897671417 Active 2023 Dennis Gonzalez MD null, [facility] 4 11:51:55 Lumbar spondylosis 030083153 Active 2023 Dennis Gonzalez MD null, [facility] 4 11:52:02 Problem Notes None recorded. Medical Equipment None Reported. Allergies Allergen ID Allergen Name Allergen Category Reaction Reaction Severity Criticality Documentation Date Start Date Code Code System Note Provider Name and Address Organization Details Recorded Time 1860 Bactrim medicatio n Not available Not available Not available 07/16/2024 49231 9 RxNorm Gina Garibay null, [facility] 4 10:36:16 Medications Name Sig Start Date Stop Date Status Note LastModified by Organization Details LastModified Time methocarbamol 500 mg tablet active Not Available Not Availabl e Not Available nitrofurantoi n macrocrystal 50 mg capsule active Not Available Not Availabl e Not Available tizanidine 2 mg tablet TAKE 1 TABLET BY MOUTH 3 (THREE) TIMES A DAY NEEDED (MUSCLE SPASMS). active Not Available Not Available No t Available clindamycin HCl 300 mg capsule TAKE 1 CAPSULE BY MOUTH THREE TIMES A DAY active Not Available Not Available No t Available atorvastatin 10 mg tablet active Not Available Not Available Not Available gabapentin 400 mg capsule Take 1 capsule twice a day by oral route. 2023 active Not Available Not Available Not Avai lable meclizine 25 mg tablet active Not Available Not Available No t Available cephalexin 500 mg capsule TAKE 1 CAPSULE BY MOUTH TWICE A DAY FOR 10 DAYS active Not Available Not Available No t Available levothyroxine 150 mcg tablet TAKE 1 TABLET BY MOUTH EVERY DAY active Not Available Not Available No t Available omeprazole 20 mg capsule,delay ed release active Not Available Not Available N ot Available albuterol sulfate HFA 90 mcg/actuation aerosol inhaler INHALE 2 PUFFS INTO THE LUNGS EVERY 4 HOURS NEEDED FOR COUGH OR WHEEZING. active Not Available Not Available No t Available fluticasone propionate 50 mcg/actuation nasal spray,suspens ion active Not Available Not Available Not Available amoxicillin 875 mg-potassium clavulanate 125 mg tablet TAKE 1 TABLET BY MOUTH 2 TIMES A DAY FOR 7 DAYS. TAKE WITH A DAILY PROBIOTIC active Not Available Not Available No t Available metoprolol tartrate 25 mg tablet TAKE 1 TABLET BY MOUTH TWICE A DAY active Not Available Not Available No t Available Multaq 400 mg tablet TAKE 1 TABLET BY MOUTH TWICE A DAY active Not Available Not Available No t Available Eliquis 5 mg tablet TAKE 1 TABLET (5 MG) ORALLY 2 TIMES A DAY active Not Available Not Available No t Available Vitals None Recorded Social History None recorded. Functional Status None recorded. Mental Status None recorded. Family History Nothing Reported. Medical History No medical history recorded. Gynecological HistoryNo gynecological history recorded. Obstetrics History GPAL:G 0 P 0 0 0 0 Past Encounters Encounter ID Performer Location Encounter Start Date Encounter Closed Date Diagnosis/Indication Diagnosis SNOMED-CT Code Diagnosis ICD10 Code 6092 Dennis Gonzalez MD [id number] [address] [facility] [address] [place] [address] 07/17/2024 07:24:54 07/17/2024 12:02:21 Lumbar radiculopathy 305890505 M54.16 Lumbar spondylosis 82381 0009 M47.896 Health Concerns Section Related Observation LastModified by Organization Detai ls LastModified Time None Recorded Concern Status LastModified by Organization Details LastModified Time None Recorded Advance Directives Directive None Recorded Payers Encounter Date Sequence Insurance Name Policy Number Policy Talbot Covered Member ID Talbot Member ID Guarantor Name 07/17/2024 1 [facility]: [place] P[place] BLUE (MEDICARE REPLACEMENT PPO) [id number] Hortensia Ames Page [id number] Notes Date Note Type Note Provider Name and Address Organization Details Recorded Time 07/17/2024 text/html [place] [facility]??is a pleasant 84??y.o.??year old female, who?has a past medical history of Breast cancer (HCC), Disease of thyroid gland, GERD (gastroesophageal reflux disease), Graves disease, and Skin cancer, a-fib s/p pacemaker and ON ANTI-COAGULATION.??w ho presents with moderate??low back and bilateral feet/lower calf??pain. ??She states the low back pain has been present for >10 years, and the feet/lower calf pain has been present for ~1-2 months.??Current pain medications:??OTC NSAID's, gabapentin??400mg??B ID, tizanidine??Previous Medications and doses tried/effect:??tizan idine--sleepy, methocarbamol--insur ance no longer covers??Previous Nerve Block or Injection:??L5/S1 MOSES (2019): did help, but patient was having different symptoms at that timeRight-sided L3/4, L4/5, and L5/S1 facet joint steroid injection (04/23/21): >90% pain relief??for several monthsRight-sided L3/4, L4/5, and L5/S1 facet joint steroid injection (11/20/21): minimal relief (performed by different pain MD)Right-sided L3/4, L4/5, and L5/S1 facet joint steroid injection (03/24/22): >90% pain relief??for several monthsL5/S1 interlaminar MOSES (R>L) (05/17/23): 80% reliefL4/5 interlaminar MOSES (R>L) (12/13/23): 75% relief?I personally reviewed prior radiological services. I also obtained relevant old records and reviewed lab data.??Imaging Studies:??MRI lumbar spine (02/2021):??FINDINGS: Conus medullaris terminates at the [L2-3] level, and demonstrates normal signal. There is no abnormal thickening or clumping of the cauda equina nerve roots. There is normal alignment of the lumbar spine. Mild compression L1 vertebral body is stable. There is signal change of the bone marrow the endplates at L4-5 and L5-S1, consistent with degenerative change.There is disc desiccation at every level. At T12-L1, no significant disc herniation or central spinal canal stenosis. ??There is mild disc ??bulging, mild left neural foraminal narrowing, ligamentous bulging and mild facet arthropathy.At L1-L2, no significant disc herniation, central spinal canal stenosis or neuroforaminal narrowing. ??There is mild disc bulging, ligamentous bulging and mild facet arthropathy.At L2-L3, no significant disc herniation or central spinal canal stenosis. ??There is mild left neural foraminal narrowing, ligamentous bulging and facet arthropathy.At L3-L4, there is disc bulging with bilateral lateral disc bulging, marked ligamentous bulging, mild facet arthropathy, and moderate bilateral neural foraminal narrowing. There is no ??central spinal canal stenosis.At L4-L5, there is severe disc space narrowing, marked ligamentous bulging, moderate facet arthropathy, and moderate bilateral neural foraminal narrowing. ??There is no central spinal canal stenosis.At L5-S1, there is severe disc space narrowing,, posterior and lateral disc bulging, ligamentous bulging, moderate facet arthropathy, and moderate bilateral neural foraminal narrowing, right greater than left. ??There is no central spinal canal stenosis.There are perineural cysts in the neural foramen bilaterally at the T10-T11 level on the sagittal sequences. There is a perineural cyst near the right neural foramen at the T11-T12 level on the sagittal sequences. There is a 1.2 x 1.3 cm perineural cyst in the right side of the canal at the S2 level. There is a 1.1 x 1.5 cm perineural cyst in the canal at the S3 level.??IMPRESSION: ??Multilevel bony and discogenic degenerative changes as described. ??This is not significantly changed compared with the previous study.?05/02/24: Spoke with patient over telephone. She reports that her pain is relatively well-controlled. She is currently taking gabapentin 400 mg twice daily. She denies any side effects associated with her current medication regimen. No drowsiness, tiredness, sleepiness, or sedation. She did find that when she tried to decrease the dosage of the gabapentin even more she was starting to notice more pain in her legs. She does also occasionally take the tizanidine to help with her muscle spasms, which have been helpful. She reports that her pain is currently a 2 out of 10. This is a medically necessary visit as the patient would typically be seen in the office, however, due to the current COVID-19 pandemic, the patient verbally agreed to a virtual phone visit in place of a physical appointment.??The patient was informed that provider would take precautions to ensure privacy of PHI as much as possible. The patient was informed that??they??can opt out or refuse services at anytime.??Visit included:- substantial medical advice- revising treatment plan- prescribing/revising medications, if prescribed.- providing self-care/patient education information for new and/or chronic health problem 07/17/24: Spoke with patient over telephone. She reports that overall pain is relatively well-controlled. She is currently taking gabapentin twice a day. She denies any side effects associated with her current medication regimen. She denies any weakness in her lower extremities. No bowel or bladder incontinence. No saddle anesthesia. She reports her pain is currently a 1 out of 10. Dennis Gonzalez MD [facility], [place] - [facility] 07/17/2024 11:53:31 OBGyn Episode No OBEpisode recorded.
--- OUTSIDE RECORDS SUMMARY | 2024-08-18 09:49 | XMS_ITS | Clinical Summary ---
Demographics Address [address] [place] [address] Preferred Language [place]an Marital Status Unknown Confucianist Affiliation Unknown Race Unknown Ethnic Group Unknown Author Organization Unknown Care Team Providers Care Plant Taxonomy Teacher Name Role Phone FRANCOISE JACINTO, DIANE Unavailable Unavailable MARISOL BIOMETRICS INSTRUCTOR, BENJAMIN Unavailable Unavailable RAFAEL ESPINOSA, GERMAINE Unavailable Unavailable CHLOE BIOMETRICS INSTRUCTOR, MARTY Unavailable Unavailabl e KALETINA BIOMETRICS INSTRUCTOR, VINCENT Unavailable Unavailab le Payers Payer Name Policy Type Policy Number Effective Date Expira tion Date [facility] ADV [id number] MEDICARE - [facility] [id number] Problems Condition Name Condition Details Condition Category [...] OF CARDIAC PACEMAKER Active 08-15 00:00: 00 ASSISTED (CURRENT) USE OF ANTICOAGULAN TS Active 08-15 00:00: 00 ASSISTED (CURRENT) USE OF ANTIBIOTICS Active 08-15 00:00: [...] 09-01 00:00: 00 09-08 00:00 :00 No [id number] Per instruc tions Per instructio ns (route: oral) Med Classific ation: Anti-Infe ctive Agents Eliquis 5 mg tablet 09-01 00:00: 00 Yes [id number] 1 tablet 2 TIMES DAILY 1 tablet 2 TIMES DAILY (route: oral) Med Classific ation: Hematolog ical Agents metoprolol tartrate 25 mg tablet 09-01 00:00: 00 Yes [id number] 1 tablet 2 TIMES DAILY 1 tablet 2 TIMES DAILY (route: oral) Med Classific ation: Cardiovas cular Therapy Agents Multaq 400 mg tablet 09-01 00:00: 00 Yes [id number] 1 tablet 2 TIMES DAILY 1 tablet 2 TIMES DAILY (route: oral) Med Classific ation: Cardiovas cular Therapy Agents azithromyci n 250 mg tablet 08-29 00:00: 00 09-08 00:00 :00 No [id number] Per instruc tions Per instructio ns (route: oral) Med Classific ation: Anti-Infe ctive Agents methocarbam ol 500 mg tablet 08-15 00:00: 00 Yes [id number] Per instruc tions 3 (THREE) TIMES A DAY NEEDED Per instructio ns 3 (THREE) TIMES A DAY NEEDED (route: oral) Med Classific ation: Locomotor System omeprazole 20 mg capsule,del ayed release 2021-08 00:00: 00 Yes [id number] 1 capsule DAILY 1 capsule DAILY (route: oral) Med Classific ation: Gastroint estinal Therapy Agents albuterol sulfate HFA 90 mcg/actuati on aerosol inhaler 09-08 00:00: 00 Yes [id number] 2 puff 4 TIMES DAILY 2 puff 4 TIMES DAILY (route: inhalation ) Med Classific ation: Respirato ry Therapy Agents calcium carbonate 320 mg calcium (750 mg) chewable tablet 09-08 00:00: 00 Yes [id number] 1 tablet DAILY 1 tablet DAILY (route: oral) Med Classific ation: Gastroint estinal Therapy Agents dicyclomine 10 mg capsule 09-08 00:00: 00 Yes [id number] 1 capsule 3 TIMES DAILY 1 capsule 3 TIMES DAILY (route: oral) Med Classific ation: Gastroint estinal Therapy Agents Flonase Allergy Relief 50 mcg/actuati on nasal spray,suspe nsion 09-08 00:00: 00 Yes [id number] 2 spray 2 TIMES DAILY 2 spray 2 TIMES DAILY (route: nasal) Med Classific ation: Respirato ry Therapy Agents gabapentin 400 mg capsule 09-08 00:00: 00 Yes [id number] 1 capsule 3 TIMES DAILY 1 capsule 3 TIMES DAILY (route: oral) Med Classific ation: Central Nervous System Agents Levo-T 137 mcg tablet 09-08 00:00: 00 Yes [id number] 1 tablet DAILY 1 tablet DAILY (route: oral) Med Classific ation: Endocrine Lipitor 10 mg tablet 09-08 00:00: 00 Yes [id number] 1 tablet DAILY 1 tablet DAILY (route: oral) Med Classific ation: Cardiovas cular Therapy Agents loratadine 10 mg tablet 09-08 00:00: 00 Yes [id number] 1 tablet DAILY 1 tablet DAILY (route: oral) Med Classific ation: Respirato ry Therapy Agents Macrodantin 25 mg capsule 09-08 00:00: 00 Yes [id number] 1 capsule 3 TIMES A WEEK 1 capsule 3 TIMES A WEEK (route: oral) Med Classific ation: Genitouri nary Therapy meclizine 25 mg tablet 09-08 00:00: 00 Yes [id number] 1 tablet DAILY 1 tablet DAILY (route: oral) Med Classific ation: Gastroint estinal Therapy Agents Tylenol Extra Strength 500 mg tablet 09-08 00:00: 00 Yes [id number] 2 tablet 4 TIMES DAILY 2 tablet 4 TIMES DAILY (route: oral) Med Classific ation: Analgesic , Anti-infl ammatory or Antipyret ic Vitamin C 1,000 mg tablet 09-08 00:00: 00 Yes [id number] 1 tablet 2 TIMES DAILY 1 tablet 2 TIMES DAILY (route: oral) Med Classific ation: Electroly te Balance-N utritiona l Products Vitamin D3 25 mcg (1,000 unit) tablet 09-08 00:00: 00 Yes [id number] 1 tablet 3 TIMES A WEEK 1 [...] 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 [place] [facility] [place] RELATED TO SOB, TACHY RIOS [...] 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 [place] [facility] [place]09[facility]01[place]22 RELATED TO SOB, TACHY RIOS [...] CARE WILL BE ESTABLISHED THAT MEETS PATIENT'S [facility] NEEDS AND INCLUDES PATIENT GOAL FOR HOME [...] End Date/Time Encounter Type Admission Type Attending [facility] Care Department Encounter ID Discharge Date Discharge Status Discharge Condition Discharge Reason Percent Goals Met 2022-09-08 00:00:00 2022-10-13 00:00:00 Outpatient NEW ADMISSION [facility] [id number] 0614-03-01 00:00:00 DISCHARGE TO HOME OR SELF CARE INDEPENDEN T IN THE COMMUNITY GOALS MET ( ONLY) 100.00
--- OUTSIDE RECORDS SUMMARY | 2024-08-18 09:49 | XMS_ITS | Continuity of Care Document ---
Demographics Address [address] [place] [address] Home Phone Email Address Preferred Language en Marital Status Confucianism Affiliation Unknown Race White Ethnic Group Not or Lati no Author Organization [place] - [email or web address] [facility] [id number] Address [address] [address] Care Team Providers Care Industrial Engineer Name Role Phone DIANE OWUSU Primary Care Provider [phone] Assessment Encounter Date Assessment Date Assessment LastModified [...] any questions or concerns regarding her treatment. [email or web address] Not available 07/17/2024 11:52:28 Plan of Treatment Reminders Order Date Submit Date Provider Last Modified By Organization Details Last Modified Time Details Appointments None recorded. Lab None recorded. Referral None recorded. Procedures None recorded. Surgeries None recorded. Imaging None recorded. Medication Orders gabapentin 400 mg capsule 2023 024 [facility], [facility], [place], [address], 11:53:08 Patient TargetsNo targets recorded. Patient InstructionsNo instructions recorded. Reason for Referral None Reported. Problems Name Problem SNOMED Code Status Onset Date Resolution Date Notes Provider Name and Address Organization Details Recorded Time Lumbar radiculopathy 513863509 Active 2023 Dennis Gonzalez MD null, [facility] 4 11:51:55 Lumbar spondylosis 517740421 Active 2023 Dennis Gonzalez MD null, [facility] 4 11:52:02 Problem Notes None recorded. Medical Equipment None Reported. Allergies Allergen ID Allergen Name Allergen Category Reaction Reaction Severity Criticality Documentation Date Start Date Code Code System Note Provider Name and Address Organization Details Recorded Time 1860 Bactrim medicatio n Not available Not available Not available 07/16/2024 73373 9 RxNorm Gina Garibay null, [facility] 4 10:36:16 Medications Name Sig Start Date [...] Diagnosis ICD10 Code 6092 Dennis Gonzalez MD [id number] [address] [facility] [address] [place] [address] 07/17/2024 07:24:54 07/17/2024 12:02:21 Lumbar radiculopathy 783834198 M54.16 Lumbar spondylosis 50859 0009 M47.896 Health Concerns Section Related Observation LastModified by Organization Detai ls LastModified Time None Recorded Concern Status LastModified by Organization Details LastModified Time None Recorded Payers Encounter Date Sequence Insurance Name Policy Number Policy Talbot Covered Member ID Talbot Member ID Guarantor Name 07/17/2024 1 [facility] BLUE (MEDICARE REPLACEMENT PPO) [id number] Hortensia Ames Page [id number] [place] Page Notes Date Note Type Note Provider Name and Address Organization Details Recorded Time 07/17/2024 text/html [place] [facility]??is a pleasant 84??y.o.??year old female, who?has [...] 1 out of 10. Dennis Gonzalez MD [facility], [place] [facility] 07/17/2024 11:53:31 OBGyn Episode No OBEpisode recorded.
--- OUTSIDE RECORDS SUMMARY | 2024-08-18 09:49 | XMS_ITS | Clinical Summary ---
Demographics Address [address] [place] [address] Preferred Language Romanian Marital Status Unknown Adventist Affiliation Unknown Race Unknown Ethnic Group Unknown Author Organization Unknown Care Team Providers Care Pipe Fitter Gas Pipe Name Role Phone FRANCOISE JACINTO, DIANE Unavailable Unavailable MARISOL GYROSCOPIC INSTRUMENT TESTER, BENJAMIN Unavailable Unavailable RAFAEL ESPINOSA, GERMAINE Unavailable Unavailable CHLOE GYROSCOPIC INSTRUMENT TESTER, MARTY Unavailable Unavailabl e KALETINA GYROSCOPIC INSTRUMENT TESTER, VINCENT Unavailable Unavailab le Payers Payer Name Policy Type Policy Number Effective Date Expira tion Date [facility] ADV [id number] MEDICARE - [facility] - [place] [id number] Problems Condition Name Condition Details Condition Category [...] OF CARDIAC PACEMAKER Active 08-15 00:00: 00 CORRECTION (CURRENT) USE OF ANTICOAGULAN TS Active 08-15 00:00: 00 CORRECTION (CURRENT) USE OF ANTIBIOTICS Active 08-15 00:00: [...] 09-01 00:00: 00 09-08 00:00 :00 No [id number] Per instruc tions Per instructio ns (route: oral) Med Classific ation: Anti-Infe ctive Agents Eliquis 5 mg tablet 09-01 00:00: 00 Yes [id number] 1 tablet 2 TIMES DAILY 1 tablet 2 TIMES DAILY (route: oral) Med Classific ation: Hematolog ical Agents metoprolol tartrate 25 mg tablet 09-01 00:00: 00 Yes [id number] 1 tablet 2 TIMES DAILY 1 tablet 2 TIMES DAILY (route: oral) Med Classific ation: Cardiovas cular Therapy Agents Multaq 400 mg tablet 09-01 00:00: 00 Yes [id number] 1 tablet 2 TIMES DAILY 1 tablet 2 TIMES DAILY (route: oral) Med Classific ation: Cardiovas cular Therapy Agents azithromyci n 250 mg tablet 08-29 00:00: 00 09-08 00:00 :00 No [id number] Per instruc tions Per instructio ns (route: oral) Med Classific ation: Anti-Infe ctive Agents methocarbam ol 500 mg tablet 08-15 00:00: 00 Yes [id number] Per instruc tions 3 (THREE) TIMES A DAY NEEDED Per instructio ns 3 (THREE) TIMES A DAY NEEDED (route: oral) Med Classific ation: Locomotor System omeprazole 20 mg capsule,del ayed release 2021-08 00:00: 00 Yes [id number] 1 capsule DAILY 1 capsule DAILY (route: oral) Med Classific ation: Gastroint estinal Therapy Agents albuterol sulfate HFA 90 mcg/actuati on aerosol inhaler 09-08 00:00: 00 Yes [id number] 2 puff 4 TIMES DAILY 2 puff 4 TIMES DAILY (route: inhalation ) Med Classific ation: Respirato ry Therapy Agents calcium carbonate 320 mg calcium (750 mg) chewable tablet 09-08 00:00: 00 Yes [id number] 1 tablet DAILY 1 tablet DAILY (route: oral) Med Classific ation: Gastroint estinal Therapy Agents dicyclomine 10 mg capsule 09-08 00:00: 00 Yes [id number] 1 capsule 3 TIMES DAILY 1 capsule 3 TIMES DAILY (route: oral) Med Classific ation: Gastroint estinal Therapy Agents Flonase Allergy Relief 50 mcg/actuati on nasal spray,suspe nsion 09-08 00:00: 00 Yes [id number] 2 spray 2 TIMES DAILY 2 spray 2 TIMES DAILY (route: nasal) Med Classific ation: Respirato ry Therapy Agents gabapentin 400 mg capsule 09-08 00:00: 00 Yes [id number] 1 capsule 3 TIMES DAILY 1 capsule 3 TIMES DAILY (route: oral) Med Classific ation: Central Nervous System Agents Levo-T 137 mcg tablet 09-08 00:00: 00 Yes [id number] 1 tablet DAILY 1 tablet DAILY (route: oral) Med Classific ation: Endocrine Lipitor 10 mg tablet 09-08 00:00: 00 Yes [id number] 1 tablet DAILY 1 tablet DAILY (route: oral) Med Classific ation: Cardiovas cular Therapy Agents loratadine 10 mg tablet 09-08 00:00: 00 Yes [id number] 1 tablet DAILY 1 tablet DAILY (route: oral) Med Classific ation: Respirato ry Therapy Agents Macrodantin 25 mg capsule 09-08 00:00: 00 Yes [id number] 1 capsule 3 TIMES A WEEK 1 capsule 3 TIMES A WEEK (route: oral) Med Classific ation: Genitouri nary Therapy meclizine 25 mg tablet 09-08 00:00: 00 Yes [id number] 1 tablet DAILY 1 tablet DAILY (route: oral) Med Classific ation: Gastroint estinal Therapy Agents Tylenol Extra Strength 500 mg tablet 09-08 00:00: 00 Yes [id number] 2 tablet 4 TIMES DAILY 2 tablet 4 TIMES DAILY (route: oral) Med Classific ation: Analgesic , Anti-infl ammatory or Antipyret ic Vitamin C 1,000 mg tablet 09-08 00:00: 00 Yes [id number] 1 tablet 2 TIMES DAILY 1 tablet 2 TIMES DAILY (route: oral) Med Classific ation: Electroly te Balance-N utritiona l Products Vitamin D3 25 mcg (1,000 unit) tablet 09-08 00:00: 00 Yes [id number] 1 tablet 3 TIMES A WEEK 1 [...] 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 AFTER [facility] [facility] [place]09[place]22 RELATED TO SOB, TACHY RIOS [...] 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 [facility] [place]/28-09/01/22 RELATED TO SOB, TACHY RIOS [...] CARE WILL BE ESTABLISHED THAT MEETS PATIENT'S NURSING HOME NEEDS AND INCLUDES PATIENT GOAL FOR HOME [...] End Date/Time Encounter Type Admission Type Attending [facility] Care Department Encounter ID Discharge Date Discharge Status Discharge Condition Discharge Reason Percent Goals Met 2022-09-08 00:00:00 2022-10-13 00:00:00 Outpatient NEW ADMISSION [facility] [id number] 00:00:00 DISCHARGE TO HOME OR SELF CARE INDEPENDEN T IN THE COMMUNITY GOALS MET ( ONLY) 100.00
[2024-08-18 09:51] VITALS: BP 142/56; PULSE 61; RESP 18; TEMP 36.7; O2SAT 94; BMI 24.1
--- NOTE | 2024-08-18 09:58 | ECG_ITS ---
Test Reason : CHEST PAIN/SOB Blood Pressure : / mmHG Vent. Rate : 061 BPM Atrial Rate : 061 BPM P-R Int : 210 ms QRS Dur : 068 ms QT Int : 420 ms P-R-T Axes : 050 037 023 degrees QTc Int : 422 ms Atrial-paced rhythm with prolonged AV conduction with Fusion complexes Low voltage QRS Cannot rule out Anterior infarct (cited on or before 28-AUG-2022) Abnormal ECG When compared with ECG of 29-AUG-2022 05:35, Electronic atrial pacemaker has replaced Junctional rhythm Vent. rate has increased BY [address] now depressed in Anterior leads T wave inversion now evident in Anterior leads QT has lengthened Referred By: Generic ED Physician Electronically Signed By:OBED SHEFFIELD MD
[2024-08-18 10:43] LABS: IDNOW Serial# 58CA691E; Strep A Nucleic Acid Negative (Negative)
--- OUTSIDE RECORDS SUMMARY | 2024-08-18 10:45 | XMS_ITS | Clinical Summary ---
Demographics Address [address] [place] [address] Preferred Language Iranian Marital Status Unknown Jain Affiliation Unknown Race Unknown Ethnic Group Unknown Author Organization Unknown Care Team Providers Care Car Seat Upholsterer Name Role Phone FRANCOISE JACINTO, DIANE Unavailable Unavailable MARISOL WANIGAN CLERK, BENJAMIN Unavailable Unavailable RAFAEL ESPINOSA, GERMAINE Unavailable Unavailable CHLOE WANIGAN CLERK, MARTY Unavailable Unavailabl e KALETINA WANIGAN CLERK, VINCENT Unavailable Unavailab le Payers Payer Name Policy Type Policy Number Effective Date Expira tion Date [facility] ADV [id number] MEDICARE - [facility] - [place] [id number] Problems Condition Name Condition Details Condition Category [...] OF CARDIAC PACEMAKER Active 08-15 00:00: 00 SHELTER (CURRENT) USE OF ANTICOAGULAN TS Active 08-15 00:00: 00 SHELTER (CURRENT) USE OF ANTIBIOTICS Active 08-15 00:00: [...] 09-01 00:00: 00 09-08 00:00 :00 No [id number] Per instruc tions Per instructio ns (route: oral) Med Classific ation: Anti-Infe ctive Agents Eliquis 5 mg tablet 09-01 00:00: 00 Yes [id number] 1 tablet 2 TIMES DAILY 1 tablet 2 TIMES DAILY (route: oral) Med Classific ation: Hematolog ical Agents metoprolol tartrate 25 mg tablet 09-01 00:00: 00 Yes [id number] 1 tablet 2 TIMES DAILY 1 tablet 2 TIMES DAILY (route: oral) Med Classific ation: Cardiovas cular Therapy Agents Multaq 400 mg tablet 09-01 00:00: 00 Yes [id number] 1 tablet 2 TIMES DAILY 1 tablet 2 TIMES DAILY (route: oral) Med Classific ation: Cardiovas cular Therapy Agents azithromyci n 250 mg tablet 08-29 00:00: 00 09-08 00:00 :00 No [id number] Per instruc tions Per instructio ns (route: oral) Med Classific ation: Anti-Infe ctive Agents methocarbam ol 500 mg tablet 08-15 00:00: 00 Yes [id number] Per instruc tions 3 (THREE) TIMES A DAY NEEDED Per instructio ns 3 (THREE) TIMES A DAY NEEDED (route: oral) Med Classific ation: Locomotor System omeprazole 20 mg capsule,del ayed release 2021-08 00:00: 00 Yes [id number] 1 capsule DAILY 1 capsule DAILY (route: oral) Med Classific ation: Gastroint estinal Therapy Agents albuterol sulfate HFA 90 mcg/actuati on aerosol inhaler 09-08 00:00: 00 Yes [id number] 2 puff 4 TIMES DAILY 2 puff 4 TIMES DAILY (route: inhalation ) Med Classific ation: Respirato ry Therapy Agents calcium carbonate 320 mg calcium (750 mg) chewable tablet 09-08 00:00: 00 Yes [id number] 1 tablet DAILY 1 tablet DAILY (route: oral) Med Classific ation: Gastroint estinal Therapy Agents dicyclomine 10 mg capsule 09-08 00:00: 00 Yes [id number] 1 capsule 3 TIMES DAILY 1 capsule 3 TIMES DAILY (route: oral) Med Classific ation: Gastroint estinal Therapy Agents Flonase Allergy Relief 50 mcg/actuati on nasal spray,suspe nsion 09-08 00:00: 00 Yes [id number] 2 spray 2 TIMES DAILY 2 spray 2 TIMES DAILY (route: nasal) Med Classific ation: Respirato ry Therapy Agents gabapentin 400 mg capsule 09-08 00:00: 00 Yes [id number] 1 capsule 3 TIMES DAILY 1 capsule 3 TIMES DAILY (route: oral) Med Classific ation: Central Nervous System Agents Levo-T 137 mcg tablet 09-08 00:00: 00 Yes [id number] 1 tablet DAILY 1 tablet DAILY (route: oral) Med Classific ation: Endocrine Lipitor 10 mg tablet 09-08 00:00: 00 Yes [id number] 1 tablet DAILY 1 tablet DAILY (route: oral) Med Classific ation: Cardiovas cular Therapy Agents loratadine 10 mg tablet 09-08 00:00: 00 Yes [id number] 1 tablet DAILY 1 tablet DAILY (route: oral) Med Classific ation: Respirato ry Therapy Agents Macrodantin 25 mg capsule 09-08 00:00: 00 Yes [id number] 1 capsule 3 TIMES A WEEK 1 capsule 3 TIMES A WEEK (route: oral) Med Classific ation: Genitouri nary Therapy meclizine 25 mg tablet 09-08 00:00: 00 Yes [id number] 1 tablet DAILY 1 tablet DAILY (route: oral) Med Classific ation: Gastroint estinal Therapy Agents Tylenol Extra Strength 500 mg tablet 09-08 00:00: 00 Yes [id number] 2 tablet 4 TIMES DAILY 2 tablet 4 TIMES DAILY (route: oral) Med Classific ation: Analgesic , Anti-infl ammatory or Antipyret ic Vitamin C 1,000 mg tablet 09-08 00:00: 00 Yes [id number] 1 tablet 2 TIMES DAILY 1 tablet 2 TIMES DAILY (route: oral) Med Classific ation: Electroly te Balance-N utritiona l Products Vitamin D3 25 mcg (1,000 unit) tablet 09-08 00:00: 00 Yes [id number] 1 tablet 3 TIMES A WEEK 1 [...] 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 [place] [facility] [facility] [place] [facility] [place] 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 [place] [facility] [...] CARE WILL BE ESTABLISHED THAT MEETS PATIENT'S FDC NEEDS AND INCLUDES PATIENT GOAL FOR HOME [...] End Date/Time Encounter Type Admission Type Attending [facility] Care Department Encounter ID Discharge Date Discharge Status Discharge Condition Discharge Reason Percent Goals Met 2022-09-08 00:00:00 2022-10-13 00:00:00 Outpatient NEW ADMISSION [facility] [id number] 3549-03-01 00:00:00 DISCHARGE TO HOME OR SELF CARE INDEPENDEN T IN THE COMMUNITY GOALS MET ( ONLY) 100.00
--- OUTSIDE RECORDS SUMMARY | 2024-08-18 10:45 | XMS_ITS | Clinical Summary ---
Demographics Address [address] [place] [address] Preferred Language [place] Marital Status Unknown Advent Affiliation Unknown Race Unknown Ethnic Group Unknown Author Organization Unknown Care Team Providers Care Allocation Analyst Name Role Phone FRANCOISE JACINTO, DIANE Unavailable Unavailable MARISOL PHYSICIAN CODING SPECIALIST, BENJAMIN Unavailable Unavailable RAFAEL ESPINOSA, GERMAINE Unavailable Unavailable CHLOE PHYSICIAN CODING SPECIALIST, MARTY Unavailable Unavailabl e KALETINA PHYSICIAN CODING SPECIALIST, VINCENT Unavailable Unavailab le Payers Payer Name Policy Type Policy Number Effective Date Expira tion Date [facility] ADV [id number] MEDICARE - [facility] [id number] Problems Condition Name Condition Details Condition Category [...] OF CARDIAC PACEMAKER Active 08-15 00:00: 00 [facility] (CURRENT) USE OF ANTICOAGULAN TS Active 08-15 00:00: 00 [facility] (CURRENT) USE OF ANTIBIOTICS Active 08-15 00:00: [...] 09-01 00:00: 00 09-08 00:00 :00 No [id number] Per instruc tions Per instructio ns (route: oral) Med Classific ation: Anti-Infe ctive Agents Eliquis 5 mg tablet 09-01 00:00: 00 Yes [id number] 1 tablet 2 TIMES DAILY 1 tablet 2 TIMES DAILY (route: oral) Med Classific ation: Hematolog ical Agents metoprolol tartrate 25 mg tablet 09-01 00:00: 00 Yes [id number] 1 tablet 2 TIMES DAILY 1 tablet 2 TIMES DAILY (route: oral) Med Classific ation: Cardiovas cular Therapy Agents Multaq 400 mg tablet 09-01 00:00: 00 Yes [id number] 1 tablet 2 TIMES DAILY 1 tablet 2 TIMES DAILY (route: oral) Med Classific ation: Cardiovas cular Therapy Agents azithromyci n 250 mg tablet 08-29 00:00: 00 09-08 00:00 :00 No [id number] Per instruc tions Per instructio ns (route: oral) Med Classific ation: Anti-Infe ctive Agents methocarbam ol 500 mg tablet 08-15 00:00: 00 Yes [id number] Per instruc tions 3 (THREE) TIMES A DAY NEEDED Per instructio ns 3 (THREE) TIMES A DAY NEEDED (route: oral) Med Classific ation: Locomotor System omeprazole 20 mg capsule,del ayed release 2021-08 00:00: 00 Yes [id number] 1 capsule DAILY 1 capsule DAILY (route: oral) Med Classific ation: Gastroint estinal Therapy Agents albuterol sulfate HFA 90 mcg/actuati on aerosol inhaler 09-08 00:00: 00 Yes [id number] 2 puff 4 TIMES DAILY 2 puff 4 TIMES DAILY (route: inhalation ) Med Classific ation: Respirato ry Therapy Agents calcium carbonate 320 mg calcium (750 mg) chewable tablet 09-08 00:00: 00 Yes [id number] 1 tablet DAILY 1 tablet DAILY (route: oral) Med Classific ation: Gastroint estinal Therapy Agents dicyclomine 10 mg capsule 09-08 00:00: 00 Yes [id number] 1 capsule 3 TIMES DAILY 1 capsule 3 TIMES DAILY (route: oral) Med Classific ation: Gastroint estinal Therapy Agents Flonase Allergy Relief 50 mcg/actuati on nasal spray,suspe nsion 09-08 00:00: 00 Yes [id number] 2 spray 2 TIMES DAILY 2 spray 2 TIMES DAILY (route: nasal) Med Classific ation: Respirato ry Therapy Agents gabapentin 400 mg capsule 09-08 00:00: 00 Yes [id number] 1 capsule 3 TIMES DAILY 1 capsule 3 TIMES DAILY (route: oral) Med Classific ation: Central Nervous System Agents Levo-T 137 mcg tablet 09-08 00:00: 00 Yes [id number] 1 tablet DAILY 1 tablet DAILY (route: oral) Med Classific ation: Endocrine Lipitor 10 mg tablet 09-08 00:00: 00 Yes [id number] 1 tablet DAILY 1 tablet DAILY (route: oral) Med Classific ation: Cardiovas cular Therapy Agents loratadine 10 mg tablet 09-08 00:00: 00 Yes [id number] 1 tablet DAILY 1 tablet DAILY (route: oral) Med Classific ation: Respirato ry Therapy Agents Macrodantin 25 mg capsule 09-08 00:00: 00 Yes [id number] 1 capsule 3 TIMES A WEEK 1 capsule 3 TIMES A WEEK (route: oral) Med Classific ation: Genitouri nary Therapy meclizine 25 mg tablet 09-08 00:00: 00 Yes [id number] 1 tablet DAILY 1 tablet DAILY (route: oral) Med Classific ation: Gastroint estinal Therapy Agents Tylenol Extra Strength 500 mg tablet 09-08 00:00: 00 Yes [id number] 2 tablet 4 TIMES DAILY 2 tablet 4 TIMES DAILY (route: oral) Med Classific ation: Analgesic , Anti-infl ammatory or Antipyret ic Vitamin C 1,000 mg tablet 09-08 00:00: 00 Yes [id number] 1 tablet 2 TIMES DAILY 1 tablet 2 TIMES DAILY (route: oral) Med Classific ation: Electroly te Balance-N utritiona l Products Vitamin D3 25 mcg (1,000 unit) tablet 09-08 00:00: 00 Yes [id number] 1 tablet 3 TIMES A WEEK 1 [...] 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 [place] [facility] [place] RELATED TO SOB, TACHY RIOS [...] 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 [place] [facility] [place]09[place]01/22 RELATED TO SOB, TACHY RIOS [...] CARE WILL BE ESTABLISHED THAT MEETS PATIENT'S SNF NEEDS AND INCLUDES PATIENT GOAL FOR HOME [...] End Date/Time Encounter Type Admission Type Attending [facility] Care Department Encounter ID Discharge Date Discharge Status Discharge Condition Discharge Reason Percent Goals Met 2022-09-08 00:00:00 2022-10-13 00:00:00 Outpatient NEW ADMISSION [facility] [id number] 00:00:00 DISCHARGE TO HOME OR SELF CARE INDEPENDEN T IN THE COMMUNITY GOALS MET ( ONLY) 100.00
--- NOTE | 2024-08-18 10:50 | ED.URI ---
HPI - URI/Sore Throat General Chief Complaint: Upper Respiratory Symptoms Stated Complaint: diff breathing Time Seen by Provider: 08/18/24 10:42 Source: patient and family Mode of arrival: ambulatory Limitations: no limitations History of Present Illness ED Provider: Rica Pandya APRN HPI Narrative: 84 yo female with history of afib on eliquis, pacemaker, asthma, hypothyroidism, high cholesterol here with complaints of 3 days of cough, congestion, hoarse voice, sore throat, chest discomfort with coughing. Initially, had temp of 100F. No shortness of breath, vomiting, diarrhea, abdominal pain, chills, body aches, skin rash, leg swelling or leg pain. No recent travel/sick contact. Related Data Home Medications ?Medication ?Instructions ?Recorded ?Confirmed atorvastatin 10 mg tablet 10 mg PO DAILY 03/11/21 07/26/24 meclizine 25 mg tablet 25 mg PO TID PRN Motion Sickness 03/11/21 07/26/24 nitrofurantoin macrocrystal 50 mg 50 mg PO MOWEFR@0900 03/11/21 07/26/24 capsule omeprazole 20 mg capsule,delayed 20 mg PO DAILY@0630 03/11/21 07/26/24 release calcium 600 mg (as 1 tab PO DAILY 08/29/22 07/26/24 carbonate)-vitamin D3 5 mcg (200 unit) tablet cholecalciferol (vitamin D3) 25 25 mcg PO MOWEFR@0900 08/29/22 07/26/24 mcg (1,000 unit) tablet (Vitamin D3) cranberry 500 mg capsule 500 mg PO DAILY 08/29/22 07/26/24 gabapentin 400 mg capsule 400 mg PO TID 08/29/22 07/26/24 albuterol sulfate 90 mcg/actuation 2 puff inhalation Q6H PRN 09/22/22 07/26/24 aerosol inhaler fluticasone propionate 50 2 spray intranasal BID PRN 09/22/22 07/26/24 mcg/actuation nasal spray,suspension loratadine 10 mg tablet (Allergy 10 mg PO DAILY PRN 09/22/22 07/26/24 Relief (loratadine)) hyoscyamine sulfate 0.125 mg tablet 0.125 mg PO Q4H PRN cramps 04/25/23 07/26/24 levothyroxine 150 mcg tablet 150 mcg PO DAILY 04/25/23 07/26/24 ascorbic acid (vitamin C) 500 mg 500 mg PO .qd 07/26/24 07/26/24 tablet (Vitamin C) loperamide 2 mg tablet (Imodium 2 mg PO Q6H PRN 07/26/24 07/26/24 A-D) Previous Rx's ?Medication ?Instructions ?Recorded apixaban 5 mg tablet (Eliquis) See Rx Instructions .Route 03/19/24 .COMPLEX #60 tabs dronedarone 400 mg tablet (Multaq) 400 mg PO BID #180 tabs 07/09/24 metoprolol tartrate 25 mg tablet 25 mg PO BID #180 tabs 07/30/24 Allergies Allergy/AdvReac Type Severity Reaction Status Date / Time Sulfa (Sulfonamide Allergy Unknown Unknown Verified 08/18/24 09:53 Antibiotics) sulfamethoxazole Allergy unknown Verified 08/18/24 09:53 [From Bactrim] trimethoprim [From Bactrim] Allergy unknown Verified 08/18/24 09:53 Review of Systems Review of Systems: Yes all other systems are reviewed and are negative Constitutional: Constitutional: Reports no additional constitutional complaints, Denies body ache(s), Denies chills, Reports fever(s), Denies headache(s) and Denies weakness Eyes: Eyes: Reports no additional eye complaints and Denies change in vision ENT: Reports system reviewed and no additional complaints, except as documented, Denies dizziness, Denies headache(s), Denies nasal congestion, Denies nasal discharge, Denies neck pain and Reports sore throat Cardiovascular: Cardiovascular: Reports no additional cardiovascular complaints, Reports chest pain, Denies leg edema and Denies dyspnea Respiratory: Respiratory: Reports no additional respiratory complaints, Reports cough and Denies dyspnea Gastrointestinal: Gastrointestinal: Reports no additional gastrointestinal complaints, Denies abdominal pain, Denies diarrhea, Denies nausea and Denies vomiting Genitourinary: Genitourinary: Reports no additional female genitourinary complaints and Denies urinary incontinence Musculoskeletal: Musculoskeletal: Reports no additional musculoskeletal complaints, Denies back pain, Denies arthralgias, Denies joint swelling, Denies neck pain, Denies numbness and Denies tingling Integumentary/Breasts: Skin/Breast: Reports system reviewed and no additional complaints, except as docu and Denies rash Neurologic: Reports system reviewed and no additional complaints, except as documented, Denies Abnormal speech present, Denies dizziness, Denies headache(s), Denies numbness, Denies tingling and Denies weakness PMFSH Past Medical History Attestation statement: The following information was validated with the patient. Source: old records reviewed and nursing notes reviewed Medical History IBS (irritable bowel syndrome) Basal cell carcinoma Lumbar compression fracture History of breast cancer Osteopenia Pacemaker (~08/2022) Graves disease History of radioactive iodine thyroid ablation Hypothyroidism Surgical History H/O colonoscopy History of basal cell carcinoma (BCC) excision History of pacemaker (~2022) History of tonsillectomy and adenoidectomy History of appendectomy History of lumpectomy of left breast Family History Family History Mother Breast cancer Father Hypertension Social History Social History Household Members: Spouse Housing: House Do you presently have visiting nurse or other home services: No Alcohol intake: current Alcohol intake frequency: a few times a week Alcohol type: wine Patient Tobacco Use Status: Former Tobacco user Tobacco use type: Cigarette e-Cigarette/Vaping Use: Never Used Second Hand Smoke Exposure: No Advance Directives: Yes Advance Directives on File: Yes Advance Directives Date on File: 08/18/24 Do you have a plan to hurt others: No Plan service: No Current occupational status: retired Physical Exam Vital Signs: Vital Signs: Last Vital Signs Temp 98.1 F 08/18/24 09:51 Pulse 61 08/18/24 09:51 Resp 18 08/18/24 09:51 BP 142/56 H 08/18/24 09:51 Pulse Ox 94 08/18/24 09:51 O2 Del Method Room Air 08/18/24 09:51 BMI result Body Mass Index 24.1 Const: General: cooperative, healthy appearing, comfortable and no acute distress Orientation/consciousness: patient oriented x3 Limitations: no limitations HEENT: Head: Yes normal to inspection Ears: hearing grossly normal bilaterally and TM's normal bilaterally General nose exam: Normal external nose present Face and sinus: Yes normal facial exam Mouth: Normal oral and palatal mucosa present Throat: Yes posterior oropharynx normal, Yes tonsils normal and Yes uvula midline Eyes: General: appearance normal, both eyes and all related structures Pupils: Equal, round and reactive pupils present Neck: Neck: Yes normal visual inspection, Yes full ROM, Yes no lymphadenopathy and Yes no meningeal signs Chest: Chest palpation & inspection: normal inspection of the chest Resp: Effort & Inspection: normal respiratory effort Auscultation: clear to auscultation bilaterally Cardio: Rate: regular rate Rhythm: regular rhythm Peripheral pulses: Peripheral pulses 2+ throughout GI: Inspection: Yes normal to inspection Palpation (GI): Soft to palpation and nontender Auscultation: normal bowel sounds Back/Spine/Pelvis: Thoracic/Lumbar Spine: thoracic and lumbar spine normal to inspection Skin: General skin exam: no rashes or lesions noted Neuro: General: patient oriented x3, no meningeal signs, no focal motor deficits and normal sensation to monofilament Cranial nerves: Yes Equal, round and reactive pupils present Cognition (Neuro): normal cognition Speech: No Abnormal speech present Gait exam (Neuro): Normal gait present Motor exam (neuro): 5/5 motor strength present throughout Extrem: General: Yes normal to inspection, Yes no pedal edema and Yes no calf tenderness Course Course Course Narrative: Influenza A positive. Patient did several laps around the emergency room with oxygen at lowest 90% but feels well. I believe she can go home and continue supportive measures. Reviewed this with the patient and the family. They are comfortable plan of care. Reviewed worrisome signs and symptoms of when to return to the emergency room. Comfortable plan for discharge home Medical Decision Making Medical Decision Making MDM Narrative: 84 yo female with history of afib on eliquis, pacemaker, asthma, hypothyroidism, high cholesterol here with complaints of 3 days of cough, congestion, hoarse voice, sore throat, chest discomfort with coughing. Initially, had temp of 100F. Exam is benign. VSS Likely viral syndrome Will obtain CXR, viral testing Differential Diagnosis Differential Diagnoses: The differential diagnosis associated with the presentation includes viral syndrome, PNA, influenza Admission/Observation Consideration of admission/observation: Escalation of care including admission/observation considered Flu A positive. No hypoxia or tachypnea requiring supplemental oxygen or admission. Will discharge home with supportive measures Lab Data MDM Lab Attestation statement: I reviewed the patient's lab results. Labs: Lab Results 08/18/24 Range/Units 10:20 Influenza Type A (PCR) POSITIVE A (Negative) Influenza Type B (PCR) NEGATIVE (Negative) RSV RNA Qual (PCR) NEGATIVE (Negative) SARS-CoV-2 RNA (RT-PCR) NEGATIVE (Negative) S. pyogenes GrpA STALIN Negative (Negative) Independent Interpretation I performed an independent interpretation of an: EKG and Plain X-Ray Interpretation: I independently reviewed the EKG which shows an a paced rhythm with a rate of 60 I independently reviewed the chest x-ray and agree with the radiologist's Radiology Impression Discussion of test interpretation with radiology: I have reviewed the radiologist's reading. Radiologist Impression: [place] [id number] XRay Report Signed Patient: Hortensia Godoy MR#: [id number] : 1940 Acct:[id number] Age/Sex: 84 / F ADM Date: 08/18/24 Loc: .ED Attending Dr: Ordering Physician: Generic ED Physician Date of Service: 08/18/24 Procedure(s): XR chest 2V Accession Number(s): [id number] cc: Generic ED Physician; Maria Teresa Mathur MD~ CLINICAL HISTORY: cough, cp 2 views chest Comparison: CR/NH/SR - XR CHEST 1V - 08/30/22 15:13 EST Findings: Cardiac and mediastinal contours are stable. Mild interstitial prominence with scattered peribronchial thickening. No focal consolidation. No effusion. No pneumothorax. No acute osseous finding. Impression: Mild interstitial prominence with scattered peribronchial thickening. No focal consolidation. This document has been electronically signed by: Ney Albert MD on 08/18/2024 10:26:15 Independent Historian Clinical information obtained from an independent historian. History obtained from or confirmed by: Other (Son) Tests considered The following testing was considered but not selected: No risk factors for PE. No hypoxia or tachypnea or clinical findings concerning for DVT requiring CT imaging Prescription Management I considered prescription management with: Antibiotic Discussed Tamiflu. patient declined after we spoke of possible side effects Discharge Plan Discharge Clinical Impression: Influenza Patient Disposition: Home, Self-Care Instructions: Influenza (ED) Additional Instructions: Take Tylenol for pain as needed Increase fluids at home You may buy [id number] cough medication or use a tbsp of honey to help with cough You may also use your albuterol 2 puffs every 4 hours as needed Return to the emergency room for any worsening symptoms Prescriptions: No Action Eliquis 5 mg tablet See Rx Instructions .ROUTE .COMPLEX Qty: 60 5RF Dose Instruction: TAKE 1 TABLET (5 MG) ORALLY 2 TIMES A DAY Rx Instructions: TAKE 1 TABLET (5 MG) ORALLY 2 TIMES A DAY Multaq 400 mg tablet 400 mg PO BID Qty: 180 3RF metoprolol tartrate 25 mg tablet 25 mg PO BID Qty: 180 3RF calcium carbonate-vitamin D3 600 mg-5 mcg (200 unit) Tablet 1 tab PO DAILY cranberry 500 mg Capsule 500 mg PO DAILY Rx Instructions: administer with meals cholecalciferol (vitamin D3) [Vitamin D3] 25 mcg (1,000 unit) Tablet 25 mcg PO MOWEFR@0900 gabapentin 400 mg Capsule 400 mg PO TID ascorbic acid (vitamin C) [Vitamin C] 500 mg tablet 500 mg PO .qd nitrofurantoin macrocrystal 50 mg capsule 50 mg PO MOWEFR@0900 Rx Instructions: Tuesday omeprazole 20 mg capsule,delayed release(DR/EC) 20 mg PO DAILY@0630 atorvastatin 10 mg tablet 10 mg PO DAILY meclizine 25 mg tablet 25 mg PO TID PRN (Reason: Motion Sickness) fluticasone propionate 50 mcg/actuation spray,suspension 2 spray intranasal BID PRN Rx Instructions: inhale 2 sprays into each nostril hyoscyamine sulfate 0.125 mg tablet 0.125 mg PO Q4H PRN (Reason: cramps) levothyroxine 150 mcg tablet 150 mcg PO DAILY loratadine [Allergy Relief (loratadine)] 10 mg tablet 10 mg PO DAILY PRN albuterol sulfate 90 mcg/actuation HFA aerosol inhaler 2 puff inhalation Q6H PRN loperamide [Imodium A-D] 2 mg tablet 2 mg PO Q6H PRN Referrals: Maria Teresa Mathur MD [Primary Care Provider] - 1 week Print Language: [place]
[2024-08-18 11:23] LABS: Influenza A PCR POSITIVE (Negative); Influenza B PCR NEGATIVE (Negative); Resp Syncy Virus RNA Qual PCR NEGATIVE (Negative); SARS COV2 PCR INHOUSE NEGATIVE (Negative)
[2024-08-18 11:45] VITALS: BP 131/56; PULSE 60; RESP 20; TEMP 36.1; O2SAT 96
== END 2024-08-18 11:52 | disposition home or self-care (01) ==
PROVIDERS: Emergency Provider Emergency Medicine; PCP Internal Medicine
DX: J10.1 Influenza due to other identified influenza virus with other respiratory manifestations (principal); R05.9 Cough, unspecified; R06.02 Shortness of breath; Z03.818 Encounter for observation for suspected exposure to other biological agents ruled out
CPT/HCPCS: 0241U; 71046; 87651; 93005; 99283; 99284

== ENCOUNTER → 2024-08-18 09:58 | Outpatient (BNV) | payer MEDICARE, SELFPAY | PROVIDERS: Emergency Provider Emergency Medicine; PCP Internal Medicine; Visit Provider Internal Medicine Cardiovascular Disease | DX: I49.1 Atrial premature depolarization (principal) | CPT/HCPCS: 93010 ==

== ENCOUNTER → 2024-08-18 10:10 | Outpatient (BNV) | payer MEDICARE, SELFPAY | PROVIDERS: Emergency Provider Emergency Medicine; PCP Internal Medicine; Visit Provider Radiology Vascular & Interventional Radiology | DX: R07.9 Chest pain, unspecified (principal); R05.9 Cough, unspecified | CPT/HCPCS: 71046 ==

== ENCOUNTER 2024-11-02 09:34 | Outpatient (AMB) | payer MEDICARE, SELFPAY ==
[2024-11-02 09:41] VITALS: BP 122/62; PULSE 60; BMI 23.8
--- NOTE | 2024-11-02 09:41 | MHC.OFFVIS ---
Vital Signs 11/02/24 09:41 Height 5 ft 5 in Weight 143 lb 4.807 oz BMI 23.8 BP 122/62 Blood Pressure Location Rt radial Position Sitting Pulse 60 Pulse Source Monitor Intake Visit Reasons: 6 Mth/pacer check Allergies Sulfa (Sulfonamide Antibiotics) Allergy (Unknown, Verified 08/18/24 09:53) Unknown sulfamethoxazole [From Bactrim] Allergy (Verified 08/18/24 09:53) unknown trimethoprim [From Bactrim] Allergy (Verified 08/18/24 09:53) unknown Medication List - Last Reconciled 11/02/24 by Jl Starks MD albuterol sulfate 90 mcg/actuation 2 puffs inhalation Q6H PRN apixaban (Eliquis) 5 mg PO BID ascorbic acid (vitamin C) (Vitamin C) 500 mg PO .qd atorvastatin 10 mg PO DAILY calcium carbonate-vitamin D3 600 mg-5 mcg (200 unit) 1 tab PO DAILY cholecalciferol (vitamin D3) (Vitamin D3) 25 mcg PO MOWEFR@0900 cranberry 500 mg PO DAILY dronedarone (Multaq) 400 mg PO BID fluticasone propionate 50 mcg/actuation 2 sprays intranasal BID PRN gabapentin 400 mg PO TID hyoscyamine sulfate 0.125 mg PO Q4H PRN levothyroxine 150 mcg PO DAILY loperamide (Imodium A-D) 2 mg PO Q6H PRN loratadine (Allergy Relief (loratadine)) 10 mg PO DAILY meclizine 25 mg PO TID metoprolol tartrate 25 mg PO BID nitrofurantoin macrocrystal 50 mg PO MOWEFR@0900 omeprazole 20 mg PO DAILY@0630 HPI Comments Details: Hortensia comes for follow-up. She is accompanied by her son. She complains of orthostatic lightheadedness but has not had any falls or syncope related to it. She also has imbalance when she walks at a slower pace not when she walks with a fossa pace. No prolonged palpitation irregular heartbeat. No orthopnea, PND, leg edema. She complains of left-sided precordial dull ache radiating total left arm intermittently, happens on a daily basis lasting 5 minutes. This is not necessarily related to be under stressful situation with exercise. She does not drink much water during the day. [facility] Medical History IBS (irritable bowel syndrome) Basal cell carcinoma Lumbar compression fracture History of breast cancer Osteopenia Pacemaker (~08/2022) Graves disease History of radioactive iodine thyroid ablation Hypothyroidism Surgical History H/O colonoscopy History of basal cell carcinoma (BCC) excision History of pacemaker (~2022) History of tonsillectomy and adenoidectomy History of appendectomy History of lumpectomy of left breast Family History Mother Breast cancer Father Hypertension Social History Household Members: Spouse Housing: House Do you presently have visiting nurse or other home services: No Alcohol intake: current Alcohol intake frequency: a few times a week Alcohol type: wine Patient Tobacco Use Status: Former Tobacco user Tobacco use type: Cigarette e-Cigarette/Vaping Use: Never Used Second Hand Smoke Exposure: No Advance Directives Date on File: 08/18/24 service: No Current occupational status: retired Review of Systems Const Denies weakness ENT Denies dizziness Card Denies chest pain, Denies chest pain with activity, Denies syncope, Denies rapid heart rate, Denies pedal edema, Denies edema, Denies leg edema, Denies lightheadedness, Denies palpitations, Denies dyspnea, Denies dyspnea on exertion and Denies orthopnea Resp Denies cough, Denies dyspnea and Denies dyspnea on exertion GI Denies hematochezia and Denies change in stool character Musc Denies abnormal gait, Denies muscle cramps, Denies muscle weakness, Denies numbness, Denies radiating pain into limb and Denies tingling Neuro Denies abnormal gait, Denies dizziness, Denies syncope, Denies numbness, Denies tingling and Denies weakness Endo Denies palpitations Physical Exam Vital Signs: Last Vital Signs Pulse 60 11/02/24 09:41 BP 122/62 11/02/24 09:41 BMI result Body Mass Index 23.8 Const General: cooperative, healthy appearing, comfortable and no acute distress Orientation/consciousness: patient oriented x3 Neck Neck: Yes normal visual inspection Chest Other: pacemaker site Left upper chest intact, well healed, no swelling, nontender Resp Effort & Inspection: normal respiratory effort Auscultation: clear to auscultation bilaterally, no crackles, no rales, no rhonchi and no wheezes Cardio Jugular venous distension: no JVD Rate: regular rate Rhythm: regular rhythm Heart sounds: S1 normal heart sound present, S2 normal heart sound present and no rubs GI Inspection: Yes normal to inspection Neuro General: patient oriented x3 Extrem General: Yes normal to inspection, No no pedal edema and No calf tenderness Psych Appearance: grossly normal Mental Status: mental status grossly normal Speech and movement: Normal speech and movement present Office Procedures Cardiac Device Check Cardiac Device Check Details: Dual-chamber [employer] pacemaker in place. Programmed in DDDR at 60 beats per minute. Atrial pacing 100% time. No episodes of atrial fibrillation noted. Atrial ventricular pacing thresholds are adequate. Atrial ventricular sensing is adequate. Pacing lead impedance is stable. Battery life is at 8.3 years [id number] Cardiac Device Check, pacemaker dual lead Procedure code (CPT) selection complete EKG Details: EKG shows atrially paced, ventricularly sensed rhythm with low-voltage QRS with poor R-wave progression most likely lead placement [id number], Complete Assessment & Plan Assessment & Plan (1) Atypical chest pain: Code(s): R07.89 - Other chest pain Category: Medical Plan: Atypical chest pain this elderly woman this likely due with myocardial ischemia although this can not be entirely ruled out. Will suggest a vasodilating myocardial perfusion imaging to further assess for the same. (2) Orthostatic dizziness: Code(s): R42 - Dizziness and giddiness Plan: Orthostatic dizziness could be due to relative hypovolemia and poor oral intake of water. Advised to increase her water intake. Orthostatic precautions were discussed. Advised to monitor blood pressure at various times at home and provide us with a log in a month's time. May need adjustment of her antihypertensive therapy. (3) Paroxysmal atrial fibrillation: Onset Date: ~08/2022 Code(s): I48.0 - Paroxysmal atrial fibrillation Category: Medical Plan: Paroxysmal atrial fibrillation which has remained suppressed on current therapy with dronedarone metoprolol. Has done well with rhythm control approach with normalization of LV ejection fraction. Continue aggressive rhythm control approach. Will continue monitor by pacer telemetry. Continue full oral anticoagulation, currently on Eliquis 5 mg b.i.d.. Semi annual renal function test and annual CBC should be checked. Follow up with EKG in 6 months time. (4) Pacemaker: Onset Date: ~08/2022 Comment: ([employer]ulkad[employer] DCPP - placed 08/30/2022) Code(s): Z95.0 - Presence of cardiac pacemaker Category: Medical Plan: Cardiac pacemaker in-situ for sick sinus syndrome. Pacemaker is working well. Reprogrammed for adequate function. Will follow remotely every 3 months. Follow up in the clinic in 6 months time, sooner p.r.n.. Thank you for allowing me to partake in her care Orders: Orders Basic Metabolic Panel Today I48.0 - Paroxysmal atrial fibrillation CA lexiscan stress w sammy Today R07.89 - Other chest pain Coding Level of Care Code Est Pt Level 4 (03478) Complex EM visit Add On G2211 Diagnoses Atypical chest pain R07.89 Orthostatic dizziness R42 Paroxysmal atrial fibrillation I48.0 Pacemaker Z95.0 CPT Codes Cardiac Device Check - Cardiac Device 2: [id number] Cardiac Device Check, pacemaker dual lead ([id number]) EKG - CPT: 74966-[id number], Complete ([id number])
--- OUTSIDE RECORDS SUMMARY | 2024-11-02 10:55 | XMS_ITS | Clinical Summary ---
Demographics Address [address] [place] [address] Home Phone Email Address Preferred Language Romansh Marital Status Jehovah'S Witness Affiliation Unknown Race White Ethnic Group Not or Lati no Author Organization [facility] Address [address] [place] [address] Care Team Providers Care Back Up Scan Coordinator Name Role Phone Maria Teresa Mathur MD Primary Care Provider [phone] Allergies Active Allergy Reactions Criticality Noted Date Comments Sulfamethoxazole-Trimethoprim Hives 2019 Medications Medication Sig Dispensed Refills Start Date End Date Status nitrofurantoin (MACRODANTIN) 50 MG capsule Take 1 capsule (50 mg total) by mouth 3 (three) times a week. 0 Active fluticasone (FLONASE) 50 MCG/ACT nasal spray spray/apply 1 spray in each nostril daily. 0 Active dicyclomine (BENTYL) 10 MG capsule Take 10 mg by mouth 3 (three) times a day. 0 Active Levothyroxine Sodium 137 MCG CAPS Take 137 mcg by mouth daily. 0 Active omeprazole (PriLOSEC) 20 MG capsule Take 1 capsule (20 mg total) by mouth daily. 0 Active atorvastatin (LIPITOR) tablet 10 mg Take 1 tablet (10 mg total) by mouth every evening. 0 Active meclizine (ANTIVERT) 25 MG tablet Take 1 tablet (25 mg total) by mouth 3 (three) times a day as needed. 0 Active Albuterol Sulfate 108 (90 Base) MCG/ACT AEPB Inhale into the lungs. 0 Active aspirin EC 81 MG tablet Take 81 mg by mouth daily. 0 Active letrozole (FEMARA) 2.5 MG tablet Take 2.5 mg by mouth daily. 0 Active Ascorbic Acid ER 1000 MG TBCR Take 1 tablet (1,000 mg total) by mouth daily. 0 Active vitamin D3 (VITAMIN D3) 25 MCG (1000 UT) tablet Take 1 tablet (1,000 Units total) by mouth daily. 0 Active Naproxen Sodium 220 MG CAPS Take 220 mg by mouth 3 (three) times a day. 0 Active cetirizine (ZyrTEC) 10 MG tablet Take 10 mg by mouth daily. 0 Active Calcium Carbonate-Vit D-Min (CALCIUM 1200 PO) Take by mouth. 0 Active CRANBERRY PO Take by mouth. 0 Active meloxicam (MOBIC) 15 MG tablet TAKE 1 TABLET BY MOUTH EVERY DAY NEEDED FOR PAIN 30 tablet 0 08/18/2022 Active Additional Information Patient not taking.Reported on 01/13/2023 metaxalone (SKELAXIN) 800 MG tablet Take 1 tablet (800 mg total) by mouth 3 (three) times a day. 90 tablet 1 12/13/2023 Active gabapentin (NEURONTIN) 400 MG capsule Take 1 capsule (400 mg total) by mouth 2 (two) times a day. 180 capsule 1 05/02/2024 Active tiZANidine (ZANAFLEX) 2 MG tablet Take 1 tablet (2 mg total) by mouth 3 (three) times a day as needed (muscle spasms). 90 tablet 0 05/02/2024 Active Active Problems No known active problems Family History Medical History Relation Name Comments Breast cancer Mother Relation Name Status Comments Father Mother Social History Tobacco Use Types Packs/Day Years Used Date Smoking Tobacco: Former Cigarettes 1 16 Smokeless Tobacco: Never Alcohol Use Standard Drinks/Week Comments Yes 0 (1 standard drink = 0.6 oz pur e alcohol) cocktail once daily Sex and Gender Information Value Date Recorded Sex Assigned at Not on file Gender Identity Not on file Sexual Orientation Not on file Job Start Date Occupation Industry Not on file Not on file Not on file Last Filed Vital Signs Vital Sign Reading Time Taken Comments Blood Pressure 129/76 11/29/2023 1:00 PM EDT Pulse 61 11/29/2023 1:00 PM EDT Temperature 36.5 ??C (97.7 ??F) 11/29/2023 1:00 PM ED T Respiratory Rate 16 11/20/2021 10:33 AM EDT Oxygen Saturation 100% 01/13/2023 9:55 AM EDT Inhaled Oxygen Concentration - - Weight 70.1 kg (154 lb 9.6 oz) 01/13/2023 9:55 A M EDT Height 165.1 cm (5' 5 ) 01/13/2023 9:55 AM EDT Body Mass Index 25.73 01/13/2023 9:55 AM EDT Plan of Treatment Health Maintenance Due Date Last Done Comments Depression Screening 1953 Preventative Health Evaluation 1959 DTap / Tdap / Td (1 - Tdap) 1960 Shingrix-Zoster Vaccine (1 of 2) 1991 Fall Risk Assessment 2006 Osteoporosis Screening (DEXA Scan) 2006 Pneumococcal Vaccine (1 of 1 - PCV) 2006 RSV Adult > 60+ Yrs or Pregn ant (1 - 1-dose 75+ series) 2016 COVID-19 Vaccine (2 - 2023-2 5 season) 2024 03/02/2022 Influenza Vaccine (#1) 2024 Hepatitis B Vaccines Aged Out No long er eligible based on patient's age to complete this topic RSV Ped < 20 months Aged Out No longe r eligible based on patient's age to complete this topic Guarantor Name Account Type Relation to Patient Date of Phone Billing Address Hortensia Godoy Personal/Family Self [address] [place] [address] Hortensia Godoy Personal/Family Self [address] [place] [address] JayneVidyaHortensia [employer]/AUT[employer] Self 1940 [address] [place] [address] Advance Directives For more information, please contact: [phone] Documents on File Type Date Recorded Patient Lens Block Gauger Expl anation Advance Directive and Living Will 05/09/2023 INJ APPROVAL DOS 05/17/2023 Care Teams Back Up Scan Coordinator Relationship Specialty Start Date End Date Maria Teresa Mathur MD PCP - General Internal Medicine 04/25/20
--- OUTSIDE RECORDS SUMMARY | 2024-11-02 10:55 | XMS_ITS ---
Demographics Address [address] [place] [address] Phone Unavailable Preferred Language Unknown Marital Status Unknown Moravian Affiliation Unknown Race Unknown Ethnic Group Unknown [facility] Organization Unknown History of Medication Use Medication Directions Dispensed Refills Start Date End Date Stat Eliquis 5 mg tablet TAKE 1 TABLET BY MOUTH TWICE A DAY active cetirizine 10 mg tablet Take 10 mg by mouth daily. active atorvastatin 10 mg tablet TAKE 1 TABLET DAILY. active albuterol sulfate 90 mcg/actuation breath activated powder inhaler Inhale into the lungs. active nitrofurantoin macrocrystal 50 mg capsule TAKE 1 CAPSULE THREE TIMES A WEEK ON TUESDAY, TUESDAY AND TUESDAY AT BEDTIME active gabapentin 400 mg capsule Take 1 capsule twice a day by oral route. 10/30/2024 active fluticasone propionate 50 mcg/actuation nasal spray,suspension spray/apply 1 spray in each nostril daily. active gabapentin 400 mg capsule active tizanidine 2 mg tablet Take 1 tablet (2 mg total) by mouth 3 (three) times a day as needed (muscle spasms). 05/02/2024 active letrozole 2.5 mg tablet Take 2.5 mg by mouth daily. active meloxicam 15 mg tablet TAKE 1 TABLET BY MOUTH EVERY DAY NEEDED FOR PAIN 08/18/2022 active Multaq 400 mg tablet TAKE 1 TABLET BY MOUTH TWICE A DAY active dicyclomine 10 mg capsule Take 10 mg by mouth 3 (three) times a day. active meclizine 25 mg tablet TAKE 1 TABLET 3 TIMES A DAYAS NEEDED FOR MOTION SICKNESS. active levothyroxine 150 mcg tablet TAKE 1 TABLET BY MOUTH EVERY DAY active aspirin 81 mg tablet,delayed release Take 81 mg by mouth daily. active metoprolol tartrate 25 mg tablet TAKE 1 TABLET BY MOUTH TWICE A DAY active levothyroxine 137 mcg capsule Take 137 mcg by mouth daily. active methocarbamol 500 mg tablet active metaxalone 800 mg tablet Take 1 tablet (800 mg total) by mouth 3 (three) times a day. 12/13/2023 active albuterol sulfate HFA 90 mcg/actuation aerosol inhaler INHALE 2 PUFFS INTO THE LUNGS EVERY 4 HOURS NEEDED FOR COUGH OR WHEEZING. active clindamycin HCl 300 mg capsule TAKE 1 CAPSULE BY MOUTH THREE TIMES A DAY active cephalexin 500 mg capsule TAKE 1 CAPSULE BY MOUTH TWICE A DAY FOR 10 DAYS active amoxicillin 875 mg-potassium clavulanate 125 mg tablet TAKE 1 TABLET BY MOUTH 2 TIMES A DAY FOR 7 DAYS. TAKE WITH A DAILY PROBIOTIC active cholecalciferol (vitamin D3) 25 mcg (1,000 unit) tablet Take 1 tablet (1,000 Units total) by mouth daily. active naproxen sodium 220 mg capsule Take 220 mg by mouth 3 (three) times a day. active ascorbic acid buffered ER 1,000 mg tablet,extended release Take 1 tablet (1,000 mg total) by mouth daily. active omeprazole 20 mg capsule,delayed release TAKE 1 CAPSULE DAILY. active Allergies Allergen Reaction Severity Comment Documented Date Source Statu s SULFAMETHOXAZOLE-TRIMETHOPRI M hives [facility] Problems Problem Status Onset Date Problem Type Date of Resoluti on Source Lumbar spondylosis active 2024-07-17 [facility]Act [facility] Lumbar radiculopathy active 2024-07-17 ProblemAct [facility] Encounters Encounter Type Encounter Reason Primary Diagnosis Location Date [facility] 07/17/2024 Care Team Organization Name Specialty Phone Email Start Date End [facility] te [facility] 0 11/01/2024
--- OUTSIDE RECORDS SUMMARY | 2024-11-02 10:56 | XMS_ITS | Clinical Summary ---
Demographics Address [address] [place] [address] Home Phone Mobile Phone Email Address Email Address Preferred Language en Marital Status Hindu Affiliation Unknown Race White Ethnic Group Not or Lati no Author Organization [address] Address [address] [place] [address] Phone Support Name Relationship Address Phone Kirill Godoy Spouse [address] [place] [address] Kirill Godoy Personal Relationship [address] [place] [address] Care Team Providers Care Marketing Production Specialist Name Role Phone Maria Teresa Mathur MD Primary Care Provider [phone] Allergies Active Allergy Reactions Criticality Noted Date Comments Sulfamethoxazole-Trimethoprim 2005 Hives/Urticaria Sulfamethoxazole 08/28/2021 Trimethoprim 08/28/2021 Medications GUAIFENESIN ORAL Take by mouth. Activ e loratadine (CLARITIN) 10 mg tablet Take 1 Tablet by mouth daily. Active apixaban (ELIQUIS) 5 mg tablet TAKE 1 TABLET BY MOUTH 2 TIMES A DAY 09/01/19 23 Active dronedarone (Multaq) 400 mg tablet TAKE 1 TABLET BY MOUTH 2 TIMES A DAY 09/01/19 23 Active metoprolol tartrate (LOPRESSOR) 25 mg tablet TAKE 1 TABLET BY MOUTH 2 TIMES A DAY 09/01/19 23 Active methocarbamoL (ROBAXIN) 500 mg tablet Take 1 Tablet by mouth 3 times daily. 07/13/20 22 Active nitrofurantoin (MACRODANTIN) 25 mg capsule Take 1 Capsule by mouth three times a week. Mon, Wed, Fri Active gabapentin (NEURONTIN) 400 mg capsule Take 1 capsule by mouth 3 times daily. 07/13/20 21 Active ascorbic acid (VITAMIN C ORAL) Take by mouth 2 times daily. Active DIETARY SUPPLEMENT ORAL Take by mouth three times a week. Active calcium carbonate/juan antonio min D3 (CALCIUM + D ORAL) Take by mouth daily. Active CRANBERRY ORAL Take by mouth. Cranberry supplement for urinary health Active levothyroxine (SYNTHROID, LEVOTHROID) 150 mcg tablet TAKE 1 TABLET BY MOUTH EVERY DAY 90 tablet 1 07/13/20 24 Active albuterol HFA (PROAIR HFA ; PROVENTIL HFA ; VENTOLIN HFA) 90 mcg/actuation inhaler INHALE 2 PUFFS INTO THE LUNGS EVERY 4 HOURS NEEDED FOR COUGH OR WHEEZING. 8.5 each 07/31/20 24 Active atorvastatin (LIPITOR) 10 mg tablet TAKE 1 TABLET DAILY. 90 tablet 1 07/31/20 24 Active meclizine (ANTIVERT) 25 mg tablet TAKE 1 TABLET 3 TIMES A DAYAS NEEDED FOR MOTION SICKNESS. 270 tablet 1 07/31/20 24 Active omeprazole (PriLOSEC) [address] capsule TAKE 1 CAPSULE DAILY. 90 capsule 1 07/31/20 24 Active fluticasone propionate (FLONASE) 50 mcg/actuation nasal spray USE 1 SPRAY IN EACH NOSTRILTWICE DAILY 48 g 1 10/25/19 25 Active fluticasone propionate (FLONASE) 50 mcg/actuation nasal spray USE 1 SPRAY IN EACH NOSTRILTWICE DAILY 05/02/20 24 025 Discontinued Active Problems Problem Noted Date Diagnosed Date Atrial fibrillation with rapid ventricular respo nse 09/09/2022 Overview (05/17/2024): Under the setting of pneumonia, hospitalization August 2022, bradycardia/hypotension requiring ICU pressor support, status post pacer Sick sinus syndrome 09/09/2022 Overview (05/17/2024): A. 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 IBS (irritable bowel syndrome) 06/04/2008 Diverticulosis of colon 05/25/2006 Overview (05/17/2024): (without mention of hemorrhage) minimal diverticulosis, lower half of the bowel, identified at screening colonoscopy 05.25.06. Allergic rhinitis 11/25/2005 Overview (05/17/2024): cause unspecified Hypothyroidism 09/06/2005 Overview (05/17/2024): S/P FUENTES treatment for Grave's Disease Mixed hyperlipidemia 09/06/2005 GERD (gastroesophageal reflux disease) 6 Encounters Date Type Department Care Team Description 08/20/2024 Telephone Adult Medicine [address] [address] Maria Teresa Mathur MD ER Follow-Up from Last 3 Months Immunizations Name Administration Dates Next Due H1N1 Inj 11/04/2009 Influenza, Unspecified 10/11/2023,2022,05/18/2021,04/07,05/02/2019,05/22/2018,05/20/2017 ,06/02/2016,05/13/2015,07/31/2014,05/17,05/22/2012,04/26/2011, 9,05/06/2008,06/01/2007,06/15/2006 Pfizer SARS-CoV-2 COVID-19, mRNA, LNP-S, preservative free 03/02/2022,05/18/2021,10/14/2020,09/23 Pneumococcal conjugate 13 va lent (Prevnar 13, PCV13) 2mo and older 11/25/2015 Pneumococcal polysaccharide 23 valent (Pneumovax 23) 2yo and older 04/10/2007 Td, Unspecified 03/17/2006 Tdap Tetanus diptheria acell ular pertussis (Boostrix; Adacel) 7yo and older 11/17/2016 Zoster recombinant (Shingrix ) 19yo and older 06/30/2020,05/13/2020,05/13/2020,04/07,04/07/2020 Surgical History Surgery Date Site/Laterality Comments TONSILLECTOMY PROCEDURE: HISTORICAL TONSILLECTOMY APPENDECTOMY PROCEDURE: HISTORICAL APPENDECTOMY TUBAL LIGATION PROCEDURE: HISTORICAL TUBAL LIGATION ESOPHAGOGASTRODUODENOSCOPY 04/06/2001 PROCEDURE: NM ESOPHAGOGASTRODUODENOSCOPY TRANSORAL DIAGNOSTIC; COMMENT: Normal on H2 clotilde rx. FLEXIBLE SIGMOIDOSCOPY 06/16/2001 PROCEDURE: HISTORICAL FLEXIBLE SIGMOIDOSCOPY; COMMENT: Negative to 30 cm. COLONOSCOPY 05/25/2006 PROCEDURE: HISTORICAL COLONOSCOPY; COMMENT: diverticulosis OTHER SURGICAL HISTORY PROCEDURE: ---- OTHER ----; COMMENT: BCE left nose OOPHORECTOMY PROCEDURE: HISTORICAL OOPHORECTOMY; COMMENT: unilateral BREAST BIOPSY Right PROCEDURE: BX BREAST; PERC NEEDLE CORE W/IMAG GUID; COMMENT: cyst b9 BREAST BIOPSY 2014 Left PROCEDURE: BX BREAST; PERC NEEDLE CORE W/IMAG GUID; COMMENT: ca BREAST SURGERY 2014 Left PROCEDURE: NM UNLISTED PROCEDURE BREAST; COMMENT: lumpectomy COLONOSCOPY 01/20/2017 PROCEDURE: HISTORICAL COLONOSCOPY; COMMENT: Negative screening examination. OTHER SURGICAL HISTORY PROCEDURE: HISTORICAL MELANOMA Medical History Medical History Date Comments Unspecified hypothyroidism 09/06/2005 DX:Un specified hypothyroidism Heartburn 09/06/2005 DX:Heartburn Mixed hyperlipidemia 09/06/2005 DX:Mixed hy perlipidemia Allergic rhinitis, cause unspecified DX:Allergic rhinitis, cause unspecified Diverticulosis of colon (wit hout mention of hemorrhage) 05/25/2006 DX:Diverticulosis of colon ( without mention of hemorrhage); COMMENT: minimal diverticulosis, lower half of the bowel, identified at screening colonoscopy 05.25.06. Special screening for malign ant neoplasms, colon 05/25/2006 DX:Special screening for mal ignant neoplasms, colon; COMMENT: negative screening colonoscopy 05.25.06. No colon cancer screening necessary until 2015. IBS (irritable bowel syndrome) 06/04/2008 D X:IBS (irritable bowel syndrome) Bradycardia DX:Bradycardia Overweight(278.02) 11/14/2010 DX:Overweight (278.02) Other specified personal his tory presenting hazards to health(V15.89) DX:Other specifie d personal history presenting hazards to health(V15.89); COMMENT: basal cell face Unspecified malignant neopla sm of skin of other and unspecified parts of face DX:Unspecified malignant evelyn plasm of skin of other and unspecified parts of face History of basal cell carcinoma 11/13/2013 DX:History of basal cell carcinoma; COMMENT: 04/27 right lower eyelid Breast cancer, stage 1, estr ogen receptor positive 12/26/2014 DX:Breast cancer, stage 1, e strogen receptor positive (HCC); COMMENT: left History of actinic keratoses 12/13/2014 DX: History of actinic keratoses; COMMENT: 11/27 right cheek Raynaud's disease without gangrene 10/24/2020 DX:Raynaud's disease without gangrene Abdominal cramping DX:Abdominal cramping Family History Medical History Relation Name Comments Arthritis Maternal Grandmother Relation Name Status Comments Daughter Alive 1 daughter age 44, hernia, weight issues Father CAD, HTN 90 yea rs old Maternal Grandfather (Age 60's) DC Maternal Grandmother (Age 62) RA Paternal Grandfather (Age 70) DC Paternal Grandmother (Age 86) Al zheimer/Arthritis Sister Alive 1 sister age 57 , good health Son Alive 1 son age 43, g ood health Social History Tobacco Use Types Packs/Day Years Used Date Smoking Tobacco: Former Cigarettes 1 12.4 0 1967 - 08/15/1979 Smokeless Tobacco: Never Tobacco Cessation:Counseling Given: Not Answered Alcohol Use Standard Drinks/Week Comments Yes 0 (1 standard drink = 0.6 oz pur e alcohol) Comments Unknown Sex and Gender Information Value Date Recorded Sex Assigned at Female 06/16/2024 2:25 PM EDT Legal Sex Female 2:28 AM EST Gender Identity Female 06/16/2024 2:25 PM EDT Sexual Orientation Not on file Obstetrics History Last Filed Vital Signs Vital Sign Reading Time Taken Comments Blood Pressure 134/60 06/26/2024 10:58 AM EST Pulse 60 06/26/2024 10:58 AM EST Temperature 36.4 ??C (97.5 ??F) 06/26/2024 10:[address] Respiratory Rate 14 06/26/2024 10:58 AM EST Oxygen Saturation 99% 06/26/2024 10:58 AM EST Inhaled Oxygen Concentration - - Weight 65.8 kg (145 lb) 06/26/2024 10:58 AM EST Height 165.1 cm (5' 5 ) 06/26/2024 10:58 AM EST Body Mass Index 24.13 06/26/2024 10:58 AM EST Plan of Treatment Upcoming Encounters Date Type Department Care Team (Late st Contact Info) Description 02/20/2025 10:40 AM EDT Appointment Radiology Department - [address] [phone] 02/25/2025 9:00 AM EDT Office Visit Adult Medicine [place] - [address] [phone] Maria Teresa Mathur MD [address] [place] [address] Health Maintenance Due Date Last Done Comments RSV Immunization Patients 60+ Years Old (1 - 1-dose 75+ series) 2016 Cholesterol Screening (Lipid Panel) 07/22/2022 07/14/1999 Depression Screening 07/22/2022 Falls Risk Assessment 07/22/2022 Medicare Annual Wellness Visit 07/22/2022 Social Influencers of Health Screening 07/22/2022 Hypertension/CHF/CAD Annual BMP Blood Test 09/13/2023 07/14/1999 COVID-19 Vaccine ( season) 2024 03/02/2022, 05/18/2021, 10/14/2020, Additional history exists Influenza Vaccine (#1) 2024 , 08/27/2022, 05/18/2021, Additional history exists DTaP,Tdap,and Td Vaccines (3 - Td or Tdap) 11/17/2026 11/17/2016, 03/17/2006 Osteoporosis Screening (Bone Density Screening) 01/07/2032 01/06/2022, 11/06/2020, 09/17/2019, Additional history exists Pneumococcal Vaccine: 50+ Years Completed 11/25/2015, 04/10/2007 Zoster Vaccines Completed 06/30/2020, 04/16, 05/13/2020, Additional history exists HIB Vaccines Aged Out No longer eligi ble based on patient's age to complete this topic HPV Vaccines Aged Out No longer eligi ble based on patient's age to complete this topic Hepatitis A Vaccines Aged Out No long er eligible based on patient's age to complete this topic Hepatitis B Vaccines Aged Out No long er eligible based on patient's age to complete this topic IPV Vaccines Aged Out No longer eligi ble based on patient's age to complete this topic MMR Vaccines Aged Out No longer eligi ble based on patient's age to complete this topic Meningococcal ACWY Vaccine Aged Out N o longer eligible based on patient's age to complete this topic Meningococcal B Vacine Aged Out No lo nger eligible based on patient's age to complete this topic RSV Immunization Patients Under 20 months Aged Out No longer eligible based on patient's age to complete this topic Varicella Vaccines Aged Out No longer eligible based on patient's age to complete this topic Procedures Procedure Name Priority Date/Time Associated Diagnosis Comments [facility] DEXA AXIAL SKELETON Routine 01/06/2022 4:15 PM EDT Encounter for screening for osteoporosis ANNUAL BMP BLOOD TEST Routine 07/14/1999 LIPID PANEL Routine 07/14/1999 from Last 3 Months or Most Recently Relevant to Health Maintenance Results * [facility] DEXA AXIAL SKELETON (01/06/2022 4:15 PM EDT) Anatomical Region Laterality Modality Mammography 01/06/2022 11:0 2 AM EDT Narrative 01/06/2022 4:15 PM EDT [facility] Diagnostic Imaging Department [address] [place] [id number] Patient: ??MURTAZA GODOY ?/Age/Sex: 1940 - 81 - F Unit#: ??[id number] ? Location/Status: ??SPDIMAM/REG CLI ? Mnemonic/Ordering Site: ??MAMDEXAAX/SPMAM Ordering Physician: ??KEL EMMANUEL MD Emily Dexa Axial Skeleton - 01/06/22 - 1259 HISTORY: Post menopausal woman with hormone depletion for screening bone densitometry. The patient is on calcium supplement. TECHNIQUE: Bone densitometry is performed utilizing dual energy x-ray absorptiometry (DEXA) in the [employer] unit. The lumbar spine is evaluated in the AP projection and L1 through L4 are utilized. The proximal femora are evaluated in the AP projection bilaterally. FINDINGS: AP spine: Bone mineral density: 0.935 gm/cm2 T-score: -1.9 Z-score: -0.2 Dual Femur (mean): Bone mineral density: 1.024 gm/cm2 T-score: 0.1 Z-score: 2.1 IMPRESSION: Osteopenia in the lumbar spine. Normal bone mineralization in the bilateral hips. [id number] A report detailing these results has been enclosed. Dictating Physician: ??MARIO ALBERTO DUMONT MD Electronically Signed by: ??MARIO ALBERTO DUMONT MD Dic Date/Time: ??01/06/22 1614 Sign date/Time: ??01/06/22 1615 Procedure Note Mario Alberto Dumont MD - 08/04/2022 [facility] Diagnostic Imaging Department [address] [place] [address] Patient: MURTAZA GODOY.O.B./Age/Sex: 1940 - 81 - F Unit#: [id number] Location/Status: SPDIMAM/REG CLI Mnemonic/Ordering Site[facility] Ordering Physician: KEL EMMANUEL MD [facility] Dexa Axial Skeleton - 01/06/22 - 1259 HISTORY: Post menopausal woman with hormone depletion for screening bone densitometry. The patient is on calcium supplement. TECHNIQUE: Bone densitometry is performed utilizing dual energy x-ray absorptiometry (DEXA) in the [employer] unit. The lumbar spine isevaluated in the AP projection and L1 through L4 are utilized. The proximal femoraare evaluated in the AP projection bilaterally. FINDINGS: AP spine: Bone mineral density: 0.935 gm/cm2 T-score: -1.9 Z-score: -0.2 Dual Femur (mean): Bone mineral density: 1.024 gm/cm2 T-score: 0.1 Z-score: 2.1 IMPRESSION: Osteopenia in the lumbar spine. Normal bone mineralization in the bilateral hips. [id number] A report detailing these results has been enclosed. Dictating Physician: MARIO ALBERTO DUMONT MD Electronically Signed by: MARIO ALBERTO DUMONT MD Dic Date/Time: 01/06/221613 Sign date/Time: 01/06/221614 Kel Emmanuel MD IMG BI PROCEDURES Final Result * Annual BMP Blood Test (07/14/1999) Annual BMP Blood Test Abstracted Historical Provider HEALTH MAINTENANCE Final Result * (ABNORMAL) Lipid panel (07/14/1999) Pathologist [facility] LDL/HDL Ratio 4 0 - 4 Triglycerides 78 <=200 mg/dL Cholesterol 258(A) <=200 mg/dL HDL 68 >=34 mg/dL LDL Cholesterol 174(A) 0 - 130 mg/dL Blood Venous blood specimen / Unknown Historical Provider LAB BLOOD ORDERABLES Noa l Result from Last 3 Months or Most Recently Relevant to Health Maintenance Insurance * Guarantor: Murtaza Godoy Account Type Relation to Patient Date of Phone Billing Address Personal/Family Self 1940 [address] [place] [address] [employer] - [place] MEDICARE ADVANTAGE * Guarantor: Murtaza Godoy Account Type Relation to Patient Date of Phone Billing Address Personal/Family Self 1940 [address] [place] [address] Advance Directives Documents on File Type Date Recorded 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
--- OUTSIDE RECORDS SUMMARY | 2024-11-02 10:56 | XMS_ITS | Data Portability ---
Demographics Address [address] [place] [address] Home Phone Email Address Preferred Language en Marital Status Scientologist Affiliation Unknown Race White Ethnic Group Not or Lati no Author Organization [place] [facility] [employer] [facility], [id number] Address [address] [facility] [address] [place] [address] Care Team Providers Care Service Provider Name Role Phone FRANCOISE REEJONI Primary Care Provider Assessment Encounter Date Assessment Date Assessment LastModified by Organization Details LastModified Time 07/17/2024 07/17/2024 -OF NOTE, patient is on ANTI-COAGULATI ON (ELIQUIS) -patient doing well with her radicular pain, after most recent MOSES; encouraged continuing with PT/HEP -continue gabapentin 400mg? ? ?BID -continue tizanidine 2mg TID PRN -f/up in? ? ?3 months -10? ? ?minutes was used for chart review, interviewing/e xamining, and counseling the patient during today's visit, and patient denies having any other further questions/conc erns ? ? ? Thank you for allowing us to participate in your patient's care. Please do not hesitate to contact me if you have any questions or concerns regarding her treatment. [email or web address] Not available 07/17/2024 11:52:28 10/30/2024 10/30/2024 -OF NOTE, patient is on ANTI-COAGULATI ON (ELIQUIS) -patient doing well with her radicular pain, after most recent MOSES; encouraged continuing with PT/HEP -continue gabapentin 400mg? ? ?BID -continue tizanidine 2mg TID PRN -f/up in? ? ?3 months -12? ? ?minutes was used for chart review, interviewing/e xamining, and counseling the patient during today's visit, and patient denies having any other further questions/conc erns ? ? ? Thank you for allowing us to participate in your patient's care. Please do not hesitate to contact me if you have any questions or concerns regarding her treatment. [email or web address] Not available 10/30/2024 11:01:05 Plan of Treatment Reminders Order Date Submit Date Provider Last Modified By Organization Details Last Modified Time Details Appointments None recorded. Lab None recorded. Referral None recorded. Procedures None recorded. Surgeries None recorded. Imaging None recorded. Medication Orders gabapentin 400 mg capsule 2024 025 [facility], [facility] [place], [id number], 5 11:01:07 gabapentin 400 mg capsule 2023 024 [facility], [place], [id number], 4 11:53:08 Patient TargetsNo targets recorded. Patient InstructionsNo instructions recorded. Reason for Referral None Reported. Problems Name Problem SNOMED Code Status Onset Date Resolution Date Notes Provider Name and Address Organization Details Recorded Time Lumbar radiculopathy 440660903 Active 2023 Dennis Gonzalez MD null, [facility] 4 11:51:55 Lumbar spondylosis 124780004 Active 2023 Dennis Gonzalez MD null, [facility] 4 11:52:02 Problem Notes None recorded. Procedures Surgical History Date Name Laterality Status Provider Name and Address Organization Details Recorded Time Upper gi endoscopy w/suture completed Not Available [facility] 10/23/2024 03:39:32 Dig or surv colsco completed Not Available [facility] 10/23/2024 03:39:33 Appendectomy completed Not Available [facility] 10/23/2024 03:39:33 Imaging Results None recorded. Procedure Notes None recorded. Medical Equipment None Reported. Allergies Allergen ID Allergen Name Allergen Category Reaction Reaction Severity Criticality Documentation Date Start Date Code Code System Note Provider Name and Address Organization Details Recorded Time 1860 Bactrim medicatio n Not available Not available Not available 07/16/2024 72350 9 RxNoheather alex [facility] 4 10:36:16 89546 sulfameth oxazole / trimethop rim medicatio n hives Not available Not available 09/25/20242019 97867 RxNorm React ion: Hives ; Comme nt: dfnam e: Graciela ; dmini t: Kwadwo; dlnam e: Fidencio re; Physi cian_ Addr1 : [address]; Physi cian_ Addr2 : [facility]; Physi cian_ City: [place]; Physi cian_ State : [place]; Physi cian_ Posta lCode : [id number] ; Physi cian_ Phone : tel:[phone]; Physi cian_ Fax: fax:[phone]; Physi cian_ Suffi x: RN; Physi cian_ Speci alty: Fermin curtis Nurse ; ; Not Available [facility] 5 15:05:35 Medications Name Sig Start Date Stop Date Status Note LastModified by Organization Details LastModified Time methocarba mol 500 mg tablet active Not Available Not Available Not Available nitrofuran toin macrocryst al 50 mg capsule TAKE 1 CAPSULE THREE TIMES A WEEK ON TUESDAY, TUESDAY AND TUESDAY AT BEDTIME active Not Available Not Available No t Available tizanidine 2 mg tablet Take 1 tablet (2 mg total) by mouth 3 (three) times a day as needed (muscle spasms). 2023 active NPI: [id number]; Not Available Not Available Not Available clindamyci n HCl 300 mg capsule TAKE 1 CAPSULE BY MOUTH THREE TIMES A DAY active Not Available Not Available No t Available cetirizine 10 mg tablet Take 10 mg by mouth daily. active NPI: [id number] 2; Not Available Not Available Not Available atorvastat in 10 mg tablet TAKE 1 TABLET DAILY. active Not Available Not Available No t Available meloxicam 15 mg tablet TAKE 1 TABLET BY MOUTH EVERY DAY NEEDED FOR PAIN 2022 active dfname: Dennis; dminit: Hui; dlname: Carlos; Physician _Addr1: [address]; Physician _Addr2: [facility]; Physician _City: [place]; Physician _State: [place]; Physician _PostalCo de: [id number]; NPI: [id number]; Physician _Suffix: ; Physician _Phone: tel: [phone]; Physician _Fax: fax: [phone]; Physician _Specialt y: Anesthesi ology; Not Available Not Available Not Available ascorbic acid buffered ER 1,000 mg tablet,ext ended release Take 1 tablet (1,000 mg total) by mouth daily. active NPI: [id number] 2; Not Available Not Available Not Available gabapentin 400 mg capsule Take 1 capsule twice a day by oral route. 2024 active Not Available Not Available Not Avai lable aspirin 81 mg tablet,del ayed release Take 81 mg by mouth daily. active NPI: [id number] 2; Not Available Not Available Not Available meclizine 25 mg tablet TAKE 1 TABLET 3 TIMES A DAYAS NEEDED FOR MOTION SICKNESS. active Not Available Not Available No t Available cephalexin 500 mg capsule TAKE 1 CAPSULE BY MOUTH TWICE A DAY FOR 10 DAYS active Not Available Not Available No t Available levothyrox ine 150 mcg tablet TAKE 1 TABLET BY MOUTH EVERY DAY active Not Available Not Available No t Available omeprazole 20 mg capsule,de layed release TAKE 1 CAPSULE DAILY. active Not Available Not Available No t Available letrozole 2.5 mg tablet Take 2.5 mg by mouth daily. active NPI: [id number] 2; Not Available Not Available Not Available albuterol sulfate HFA 90 mcg/actuat ion aerosol inhaler INHALE 2 PUFFS INTO THE LUNGS EVERY 4 HOURS NEEDED FOR COUGH OR WHEEZING. active Not Available Not Available No t Available fluticason e propionate 50 mcg/actuat ion nasal spray,susp ension spray/jose ly 1 spray in each nostril daily. active Not Available Not Available No t Available dicyclomin e 10 mg capsule Take 10 mg by mouth 3 (three) times a day. active NPI: [id number] 2; Not Available Not Available Not Available amoxicilli n 875 mg-potassi um clavulanat e 125 mg tablet TAKE 1 TABLET BY MOUTH 2 TIMES A DAY FOR 7 DAYS. TAKE WITH A DAILY PROBIOTIC active Not Available Not Available No t Available metaxalone 800 mg tablet Take 1 tablet (800 mg total) by mouth 3 (three) times a day. 2023 active NPI: [id number] 0; Not Available Not Available Not Available metoprolol tartrate 25 mg tablet TAKE 1 TABLET BY MOUTH TWICE A DAY active Not Available Not Available No t Available cholecalci ferol (vitamin D3) 25 mcg (1,000 unit) tablet Take 1 tablet (1,000 Units total) by mouth daily. active NPI: [id number] 2; Not Available Not Available Not Available Multaq 400 mg tablet TAKE 1 TABLET BY MOUTH TWICE A DAY active Not Available Not Available No t Available levothyrox ine 137 mcg capsule Take 137 mcg by mouth daily. active NPI: [id number] 2; Not Available Not Available Not Available naproxen sodium 220 mg capsule Take 220 mg by mouth 3 (three) times a day. active NPI: [id number] 2; Not Available Not Available Not Available Eliquis 5 mg tablet TAKE 1 TABLET BY MOUTH TWICE A DAY active Not Available Not Available No t Available albuterol sulfate 90 mcg/actuat ion breath activated powder inhaler Inhale into the lungs. active NPI: [id number] 2; Not Available Not Available Not Available Vitals None Recorded Social History Question Answer Notes LastModified by [facility] Details LastModified Time Tobacco Smoking Status Current Every Day Smoker Not Available [facility] 10/23/2024 03:38:02 What Is Your Level Of Alcohol Consumption? Occasional [email or web address] Information not available 10/23/2024 Sex: Unknown Functional Status None recorded. Mental Status None recorded. Family History Relationship Description Onset Age of this Age Resolved Age Notes LastModified by Organization Details LastModified Time Mother Carcinoma in situ of other site of breast Breast cancer ; Member s: Mother [email or web address] Not available 10/23/2024 03:38:21 Medical History Condition Response Allergies/Hayfever Y Diabetes N Anxiety N Head Trauma/Injury N Hernia N Acid Reflux (GERD) Y Migraines N Asthma Y Depression N Substance Use N Back Injury N Ulcers N Heart Attack (CA) N Hypertension Y Gynecological HistoryNo gynecological history recorded. Obstetrics History GPAL:G 0 P 0 0 0 0 Past Encounters Encounter ID Performer Location Encounter Start Date Encounter Closed Date Diagnosis/Indication Diagnosis SNOMED-CT Code Diagnosis ICD10 Code Diagnosis Note [id number] Dennis Gonzalez MD [id number] [address] [place] [address] 07/17/2024 07:24:54 07/17/2024 12:02:21 Lumbar radiculopathy 380817720 M54.16 Lumbar spondylosis 25334 0009 M47.896 [id number] Dennis Gonzalez MD [id number] [address] [place] [address] 10/30/2024 07:16:17 10/30/2024 11:10:53 Lumbar radiculopathy 846539915 M54.16 Lumbar spondylosis 47361 0009 M47.896 Health Concerns Section Related Observation LastModified by Organization Detai ls LastModified Time None Recorded Concern Status LastModified by Organization Details LastModified Time None Recorded Advance Directives Directive None Recorded Payers Encounter Date Sequence Insurance Name Policy Number Policy Talbot Covered Member ID Talbot Member ID Guarantor Name 07/17/2024 1 [facility]: MEDICARE [place]PO BLUE (MEDICARE REPLACEMENT PPO) [id number] Joes J Page [id number] Hortensia Page 10/30/2024 1 [facility]: [place] (MEDICARE REPLACEMENT PPO) [id number] Hortensia J Page [id number] Joes Page Notes Date Note Type Note Provider Name and Address Organization Details Recorded Time 07/17/2024 text/html Hortensia Page? ? ?is a pleasant 84? ? ?y.o.? ? ?year old female, who?has a past medical history of Breast cancer (HCC), Disease of thyroid gland, GERD (gastroesophageal reflux disease), Graves disease, and Skin cancer, a-fib s/p pacemaker and ON ANTI-COAGULATION.? ? ?who presents with moderate? ? ?low back and bilateral feet/lower calf? ? ?pain. ? ? ?She states the low back pain has been present for >10 years, and the feet/lower calf pain has been present for ~1-2 months.? ? ?Current pain medications:? ? ?OTC NSAID's, gabapentin? ? ?400mg? ? ?BID, tizanidine? ? ?Previous Medications and doses tried/effect:? ? ?tizanidine--sleepy, methocarbamol--insur ance no longer covers? ? ?Previous Nerve Block or Injection:? ? ?L5/S1 MOSES (2019): did help, but patient was having different symptoms at that timeRight-sided L3/4, L4/5, and L5/S1 facet joint steroid injection (04/23/21): >90% pain relief? ? ?for several monthsRight-sided L3/4, L4/5, and L5/S1 facet joint steroid injection (11/20/21): minimal relief (performed by different pain MD)Right-sided L3/4, L4/5, and L5/S1 facet joint steroid injection (03/24/22): >90% pain relief? ? ?for several monthsL5/S1 interlaminar MOSES (R>L) (05/17/23): 80% reliefL4/5 interlaminar MOSES (R>L) (12/13/23): 75% relief?I personally reviewed prior radiological services. I also obtained relevant old records and reviewed lab data.? ? ?Imaging Studies:? ? ?MRI lumbar spine (02/2021):? ? ?FINDINGS: Conus medullaris terminates at the [L2-3] level, [...] disc herniation or central spinal canal stenosis. ? ? ?There is mild disc ? ? ?bulging, mild left neural foraminal narrowing, ligamentous bulging and mild facet arthropathy.At L1-L2, no significant disc herniation, central spinal canal stenosis or neuroforaminal narrowing. ? ? ?There is mild disc bulging, ligamentous bulging and mild facet arthropathy.At L2-L3, no significant disc herniation or central spinal canal stenosis. ? ? ?There is mild left neural foraminal narrowing, ligamentous bulging and facet arthropathy.At L3-L4, there is disc bulging with bilateral lateral disc bulging, marked ligamentous bulging, mild facet arthropathy, and moderate bilateral neural foraminal narrowing. There is no ? ? ?central spinal canal stenosis.At L4-L5, there is severe disc space narrowing, marked ligamentous bulging, moderate facet arthropathy, and moderate bilateral neural foraminal narrowing. ? ? ?There is no central spinal canal stenosis.At L5-S1, there is severe disc space narrowing,, posterior and lateral disc bulging, ligamentous bulging, moderate facet arthropathy, and moderate bilateral neural foraminal narrowing, right greater than left. ? ? ?There is no central spinal canal stenosis.There are [...] cyst in the canal at the S3 level.? ? ?IMPRESSION: ? ? ?Multilevel bony and discogenic degenerative changes as described. ? ? ?This is not significantly changed compared with the [...] phone visit in place of a physical appointment.? ? ?The patient was informed that provider would take precautions to ensure privacy of PHI as much as possible. The patient was informed that? ? ?they? ? ?can opt out or refuse services at anytime.? ? ?Visit included:- substantial medical advice- revising treatment plan- [...] 1 out of 10. Dennis Gonzalez MD [facility], [facility] 07/17/2024 11:53:31 10/30/2024 text/html Joes Page? ? ?is a pleasant 84? ? ?y.o.? ? ?year old female, who?has a past medical history of Breast cancer (HCC), Disease of thyroid gland, GERD (gastroesophageal reflux disease), Graves disease, and Skin cancer, a-fib s/p pacemaker and ON ANTI-COAGULATION.? ? ?who presents with moderate? ? ?low back and bilateral feet/lower calf? ? ?pain. ? ? ?She states the low back pain has been present for >10 years, and the feet/lower calf pain has been present for ~1-2 months.? ? ?Current pain medications:? ? ?OTC NSAID's, gabapentin? ? ?400mg? ? ?BID, tizanidine? ? ?Previous Medications and doses tried/effect:? ? ?tizanidine--sleepy, methocarbamol--insur ance no longer covers? ? ?Previous Nerve Block or Injection:? ? ?L5/S1 MOSES (2019): did help, but patient was having different symptoms at that timeRight-sided L3/4, L4/5, and L5/S1 facet joint steroid injection (04/23/21): >90% pain relief? ? ?for several monthsRight-sided L3/4, L4/5, and L5/S1 facet joint steroid injection (11/20/21): minimal relief (performed by different pain MD)Right-sided L3/4, L4/5, and L5/S1 facet joint steroid injection (03/24/22): >90% pain relief? ? ?for several monthsL5/S1 interlaminar MOSES (R>L) (05/17/23): 80% reliefL4/5 interlaminar MOSES (R>L) (12/13/23): 75% relief?I personally reviewed prior radiological services. I also obtained relevant old records and reviewed lab data.? ? ?Imaging Studies:? ? ?MRI lumbar spine (02/2021):? ? ?FINDINGS: Conus medullaris terminates at the [L2-3] level, [...] disc herniation or central spinal canal stenosis. ? ? ?There is mild disc ? ? ?bulging, mild left neural foraminal narrowing, ligamentous bulging and mild facet arthropathy.At L1-L2, no significant disc herniation, central spinal canal stenosis or neuroforaminal narrowing. ? ? ?There is mild disc bulging, ligamentous bulging and mild facet arthropathy.At L2-L3, no significant disc herniation or central spinal canal stenosis. ? ? ?There is mild left neural foraminal narrowing, ligamentous bulging and facet arthropathy.At L3-L4, there is disc bulging with bilateral lateral disc bulging, marked ligamentous bulging, mild facet arthropathy, and moderate bilateral neural foraminal narrowing. There is no ? ? ?central spinal canal stenosis.At L4-L5, there is severe disc space narrowing, marked ligamentous bulging, moderate facet arthropathy, and moderate bilateral neural foraminal narrowing. ? ? ?There is no central spinal canal stenosis.At L5-S1, there is severe disc space narrowing,, posterior and lateral disc bulging, ligamentous bulging, moderate facet arthropathy, and moderate bilateral neural foraminal narrowing, right greater than left. ? ? ?There is no central spinal canal stenosis.There are [...] cyst in the canal at the S3 level.? ? ?IMPRESSION: ? ? ?Multilevel bony and discogenic degenerative changes as described. ? ? ?This is not significantly changed compared with the [...] is currently a 2 out of 10. 07/17/24: Spoke with patient over telephone. She reports that overall pain is relatively well-controlled. She is currently taking gabapentin twice a day. She denies any side effects associated with her current medication regimen. She denies any weakness in her lower extremities. No bowel or bladder incontinence. No saddle anesthesia. She reports her pain is currently a 1 out of 10. This is a medically necessary visit as the patient would typically be seen in the office, however, due to the current COVID-19 pandemic, the patient verbally agreed to a virtual phone visit in place of a physical appointment.? ? ?The patient was informed that provider would take precautions to ensure privacy of PHI as much as possible. The patient was informed that? ? ?they? ? ?can opt out or refuse services at anytime.? ? ?Visit included:- substantial medical advice- revising treatment plan- prescribing/revising medications, if prescribed.- providing self-care/patient education information for new and/or chronic health problem 10/30/24: Spoke with patient over telephone. She states that she is doing well on her current medication regimen. Tolerating the gabapentin 400mg BID well, and that it is controlling her pain. Reports using the tizanidine sparingly, and also takes tylenol PRN. Denies any side effects associated with her current medication regimen. Dennis Gonzalez MD [facility], [place] [facility] 10/30/2024 11:01:27 OBGyn Episode No OBEpisode recorded.
--- OUTSIDE RECORDS SUMMARY | 2024-11-02 10:56 | XMS_ITS | Continuity of Care Document ---
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 [email or web address] Not available 10/30/2024 11:01:05 Plan of Treatment Reminders Order Date Submit Date Provider Last Modified By Organization Details Last Modified Time Details Appointments None recorded. Lab None recorded. Referral None recorded. Procedures None recorded. Surgeries None recorded. Imaging None recorded. Medication Orders gabapentin 400 mg capsule 2024 025 [facility], [facility], [place], [address], 11:01:07 Patient TargetsNo targets recorded. Patient InstructionsNo instructions recorded. Reason for Referral None Reported. Problems Name Problem SNOMED Code Status Onset Date Resolution Date Notes Provider Name and Address Organization Details Recorded Time Lumbar radiculopathy 131949447 Active 2023 Dennis Gonzalez MD null, [facility] 4 11:51:55 Lumbar spondylosis 053624615 Active 2023 Dennis Gonzalez MD [facility], [facility] 4 11:52:02 Problem Notes None recorded. Procedures Surgical History Date Name Laterality Status Provider Name and Address Organization Details Recorded Time Upper gi endoscopy w/suture completed Not Available Counts include 234 beds at the [facility] 10/23/2024 03:39:32 Dig or surv colsco completed Not Available Counts include 234 beds at the [facility] 10/23/2024 03:39:33 Appendectomy completed Not Available [facility] 10/23/2024 03:39:33 Imaging Results None recorded. Procedure Notes None recorded. Medical Equipment None Reported. Allergies Allergen ID Allergen Name Allergen Category Reaction Reaction Severity Criticality Documentation Date Start Date Code Code System Note Provider Name and Address Organization Details Recorded Time 1860 Bactrim medicatio n Not available Not available Not available 07/16/2024 22408 9 RxNorm Gina Garibay null, [facility] 4 10:36:16 30326 sulfameth oxazole / trimethop rim medicatio n hives Not available Not available 09/25/20242019 00202 RxNorm React ion: Hives ; Comme nt: dfnam e: Graciela ; carolina t: M; dlnam e: Fidencio re; Physi cian_ Addr1 : [address]; Physi cian_ Addr2 : [facility]; Physi cian_ City: [place] [facility]; Physi cian_ State : [place]; Physi cian_ Posta [place]Code : [id number] ; Physi cian_ Phone : tel:[phone]; Physi cian_ Fax: fax:+ [phone]; Physi cian_ Suffi x: RN; Physi cian_ Speci alty: Fermin curtis Nurse ; ; Not Available Counts include 234 beds at the [facility] 5 15:05:35 Medications Name Sig Start Date [...] as needed (muscle spasms). 2023 active NPI: [id number]; Not Available Not Available Not Available clindamyci n HCl 300 mg capsule TAKE 1 CAPSULE BY MOUTH THREE TIMES A DAY active Not Available Not Available No t Available cetirizine 10 mg tablet Take 10 mg by mouth daily. active NPI: [id number] 2; Not Available Not Available Not Available atorvastat in 10 mg tablet TAKE 1 TABLET DAILY. active Not Available Not Available No t Available meloxicam 15 mg tablet TAKE 1 TABLET BY MOUTH EVERY DAY NEEDED FOR PAIN 2022 active dfname: Dennis; dminit: Hui; dlname: Carlos; Physician _Addr1: [address] [facility]; Physician _Addr2: [facility]; Physician _City: [place]; Physician _State: [place]; Physician _PostalCo de: [id number]; NPI: [id number]; Physician _Suffix: MD; Physician _Phone: tel: [phone]; Physician _Fax: fax: [phone]; Physician _Specialt y: Anesthesi ology; Not Available Not Available Not Available ascorbic acid buffered ER 1,000 mg tablet,ext ended release Take 1 tablet (1,000 mg total) by mouth daily. active NPI: [id number] 2; Not Available Not Available Not Available gabapentin 400 mg capsule Take 1 capsule twice a day by oral route. 2024 active Not Available Not Available Not Avai lable aspirin 81 mg tablet,del ayed release Take 81 mg by mouth daily. active NPI: [id number] 2; Not Available Not Available Not Available [...] 2.5 mg by mouth daily. active NPI: [id number] 2; Not Available Not Available Not Available [...] 3 (three) times a day. active NPI: [id number] 2; Not Available Not Available Not Available amoxicilli n 875 mg-potassi um clavulanat e 125 mg tablet TAKE 1 TABLET BY MOUTH 2 TIMES A DAY FOR 7 DAYS. TAKE WITH A DAILY PROBIOTIC active Not Available Not Available No t Available metaxalone 800 mg tablet Take 1 tablet (800 mg total) by mouth 3 (three) times a day. 2023 active NPI: [id number] 0; Not Available Not Available Not Available metoprolol tartrate 25 mg tablet TAKE 1 TABLET BY MOUTH TWICE A DAY active Not Available Not Available No t Available cholecalci ferol (vitamin D3) 25 mcg (1,000 unit) tablet Take 1 tablet (1,000 Units total) by mouth daily. active NPI: [id number] 2; Not Available Not Available Not Available Multaq 400 mg tablet TAKE 1 TABLET BY MOUTH TWICE A DAY active Not Available Not Available No t Available levothyrox ine 137 mcg capsule Take 137 mcg by mouth daily. active NPI: [id number] 2; Not Available Not Available Not Available naproxen sodium 220 mg capsule Take 220 mg by mouth 3 (three) times a day. active NPI: [id number] 2; Not Available Not Available Not Available Eliquis 5 mg tablet TAKE 1 TABLET BY MOUTH TWICE A DAY active Not Available Not Available No t Available albuterol sulfate 90 mcg/actuat ion breath activated powder inhaler Inhale into the lungs. active NPI: [id number] 2; Not Available Not Available Not Available Vitals None Recorded Social History Question Answer Notes LastModified by Organizat ion Details LastModified Time Tobacco Smoking Status Current Every Day Smoker Not Available [facility] 10/23/2024 03:38:02 What Is Your Level Of [...] available 10/23/2024 03:38:21 Medical History Condition Response Diabetes N Allergies/Hayfever Y Anxiety N Hernia N Head Trauma/Injury N Acid Reflux (GERD) Y Migraines N Depression N Asthma Y Substance Use N Back Injury N Heart Attack (DC) N Ulcers N Hypertension Y Gynecological HistoryNo gynecological history recorded. Obstetrics History GPAL:G 0 P 0 0 0 0 Past Encounters Encounter ID Performer Location Encounter Start Date Encounter Closed Date Diagnosis/Indication Diagnosis SNOMED-CT Code Diagnosis ICD10 Code Diagnosis Note [id number] Dennis Gonzalez MD [id number] [address] [address] 10/30/2024 07:16:17 10/30/2024 11:10:53 Lumbar radiculopathy 783708739 M54.16 Lumbar spondylosis 37409 0009 M47.896 Health Concerns Section Related Observation LastModified by Organization Detai ls LastModified Time None Recorded Concern Status LastModified by Organization Details LastModified Time None Recorded Payers Encounter Date Sequence Insurance Name Policy Number Policy Talbot Covered Member ID Talbot Member ID Guarantor Name 10/30/2024 1 [place] (MEDICARE REPLACEMENT PPO) [id number] Hortensia Ames Page [id number] Hortensia Page Notes Date Note Type Note Provider Name and Address Organization Details Recorded Time 10/30/2024 text/html Hortensia Page? ? ?is a pleasant [...] her current medication regimen. Dennis Gonzalez MD [facility], [place] [facility] 10/30/2024 11:01:27 OBGyn Episode No OBEpisode recorded.
== END 2024-11-02 10:13 | disposition home or self-care (01) ==
LOC: HO.HCS 09:35
PROVIDERS: PCP Internal Medicine; Visit Provider Internal Medicine Cardiovascular Disease
DX: R07.89 Other chest pain (principal); R42 Dizziness and giddiness; I48.0 Paroxysmal atrial fibrillation; Z95.0 Presence of cardiac pacemaker
CPT/HCPCS: 93010; 93280; 99214; G2211

== ENCOUNTER → 2024-11-02 09:34 | Outpatient (BNVA) | payer MEDICARE, SELFPAY | PROVIDERS: PCP Internal Medicine; Visit Provider Internal Medicine Cardiovascular Disease | DX: Z45.018 Encounter for adjustment and management of other part of cardiac pacemaker (principal); R07.89 Other chest pain; R42 Dizziness and giddiness; I48.0 Paroxysmal atrial fibrillation; R94.31 Abnormal electrocardiogram [ECG] [EKG] | CPT/HCPCS: 93005; 93280; 99212 ==

== ENCOUNTER 2024-11-23 12:33 | Outpatient (AMB) | payer MEDICARE, SELFPAY ==
--- NOTE | 2024-11-23 12:41 | A.OFFVIS_ITS ---
Vital Signs 11/23/24 12:48 11/23/24 12:52 Height 5 ft 5 in 5 ft 5 in Weight 147 lb 147 lb BMI 24.5 24.5 BP 131/60 Blood Pressure Location Lt brachial Lt brachial Position Sitting Sitting Pulse 63 Pulse Oximetry (%) 97 Oxygen Delivery Method Room Air Intake Visit Reasons: unintentional weight loss f/u Intake Note: Patient follow up for unintentional weight loss Patient cc: diarrhea on and off and dizziness. Insurance Account Manager Required: No Accompanied by: Self / Same As Patient Allergies Sulfa (Sulfonamide Antibiotics) Allergy (Unknown, Verified 11/23/24 12:47) Unknown sulfamethoxazole [From Bactrim] Allergy (Verified 11/23/24 12:47) unknown trimethoprim [From Bactrim] Allergy (Verified 11/23/24 12:47) unknown HPI HPI unintentional weight loss f/u: Details: Assessment & Plan (1) Diarrhea due to drug: Code(s): K52.1 - Toxic gastroenteritis and colitis Category: Medical (2) Weight loss: Comment: Seems to have resolved Code(s): R63.4 - Abnormal weight loss Category: Medical Plan Apparently she has had diarrhea since starting Eliquis and metoprolol, and Multaq. She has been taking imodium but irregularly, this has been a problem for a out 2 years. She knows that when she has a soft bowel movement then she the next movement will be diarrheal. However she does have unexpected bouts of diarrhea like for instance when she went to a holiday democrat. This makes it very hard for her to plan her life understandably. This is been going on for over 2 years so the possibility of an infection is remote at best. There is no known family history of severe bowel disorder such as IBD, and she does still have a gallbladder so I feel this probably is a medication/iatrogenic side effect. I reassure her that there is nothing wrong with taking Imodium and it probably is 1 of the better medications that will not interact with her important anticoagulation drugs etc.. I encouraged her to try to find a schedule to take it on so that her bowels are more regular in her life is more predictable. She can do anything from half a tablet today to 1 tablet a day to a half alternating for the tablet etc. etc. whatever her body seems to require. With this she will experiment with this for about 8 weeks milk it back together and I will see what I can do to help her refined the process if she still having troubles. TODAY'S VISIT She tried taking 1/2 tab alt with 1 tab qod and for a while it worked. Then she developed diarrhea for a week, but at least she only would have it once a day and not all day long. She ia agreeable to continuing to try to refine her dosing schedule. ROV 3 mos. [facility] Medical History (Updated 11/23/24 @ 12:42 by TC Hunt) Pneumonia (~08/2022) IBS (irritable bowel syndrome) Basal cell carcinoma Lumbar compression fracture History of breast cancer Osteopenia Pacemaker (~08/2022) Graves disease History of radioactive iodine thyroid ablation Hypothyroidism Surgical History H/O colonoscopy History of basal cell carcinoma (BCC) excision History of pacemaker (~2022) History of tonsillectomy and adenoidectomy History of appendectomy History of lumpectomy of left breast Family History Mother Breast cancer Father Hypertension Social History Household Members: Spouse Housing: House Do you presently have visiting nurse or other home services: No Alcohol intake: current Alcohol intake frequency: a few times a week Alcohol type: wine Patient Tobacco Use Status: Former Tobacco user Tobacco use type: Cigarette e-Cigarette/Vaping Use: Never Used Second Hand Smoke Exposure: No Advance Directives Date on File: 08/18/24 service: No Current occupational status: retired Review of Systems Const Denies fatigue, Denies fever(s), Denies night sweats, Denies poor appetite and Denies weight loss Eyes Details: glasses Reports requires corrective lenses ENT Reports Normal hearing present, Denies dental pain, Denies dysphagia, Denies hearing loss, Denies mouth pain, Denies odynophagia, Denies throat swelling, Denies tongue swelling and Reports other (Dentition adequate) Card Reports no additional complaints Resp Reports no additional complaints GI Details: Denies abdominal pain, Denies melena, Denies bloating, Denies hematochezia, Denies constipation, Denies GI cramping, Denies dysphagia, Denies excessive flatus, Denies early satiety, Reports heartburn, Reports diarrhea, Denies nausea, Denies odynophagia, Denies vomiting and Denies hematemesis Skin/Breast Denies pruritus, Denies lesions, Denies rash and Denies jaundice Neuro Reports Normal hearing present and Denies Abnormal speech present Endo Denies fatigue Aller/Immun Denies throat swelling and Denies tongue swelling Physical Exam Vital Signs: Last Vital Signs Pulse 63 11/23/24 12:52 BP 131/60 11/23/24 12:52 Pulse Ox 97 11/23/24 12:52 Oxygen Delivery Method Room Air 11/23/24 12:52 BMI result Body Mass Index 24.5 Const General: cooperative, no acute distress, well developed and well groomed Nutritional Appearance: average body habitus and well nourished Orientation/consciousness: oriented to person, oriented to place and oriented to time Limitations: No language barrier HEENT Head: Yes normocephalic and Yes atraumatic Eyes General: appearance normal, both eyes and all related structures Pupils: Equal, round and reactive pupils present Neck Neck: Yes normal visual inspection and Yes no lymphadenopathy Thyroid: Thyroid normal Resp Effort & Inspection: normal respiratory effort and able to speak in complete sentences Auscultation: clear to auscultation bilaterally Cardio Rate: regular rate Rhythm: regular rhythm Heart sounds: Normal, physiologic split S2 sound present Peripheral pulses: radial pulses present and posterior tibial pulses present GI Inspection: No distended and No Abdominal panniculus present Palpation (GI): Soft to palpation, nontender, no guarding, not rigid and No hepatosplenomegaly present Percussion: Yes normal to percussion Auscultation: normal bowel sounds Rectal Exam - Female: deferred Skin General skin exam: no rashes or lesions noted, turgor normal, skin not dry, no jaundice, No spider nevi and no striae Rashes: no rashes Nails: normal Neuro General: oriented to person, oriented to place and oriented to time Cranial nerves: Yes Equal, round and reactive pupils present and Yes Normal hearing present Speech: No Abnormal speech present Extrem General: Yes normal to inspection, No clubbing, No cyanosis and No edema Psych Appearance: grossly normal and well kempt Mental Status: mental status grossly normal Speech and movement: Normal speech and movement present Affect: normal affect Attitude: cooperative Thought process: Normal thought process present and not confabulating Thought content: Normal thought content present Insight: Good insight present (Psych) Judgement: Good judgement present (Psych) Assessment & Plan Assessment & Plan (1) Diarrhea due to drug: Code(s): K52.1 - Toxic gastroenteritis and colitis Category: Medical (2) GERD (gastroesophageal reflux disease): Code(s): K21.9 - Gastro-esophageal reflux disease without esophagitis Category: Medical (3) Paroxysmal atrial fibrillation: Onset Date: ~08/2022 Code(s): I48.0 - Paroxysmal atrial fibrillation Category: Medical (4) Sick sinus syndrome: Onset Date: ~08/2022 Code(s): I49.5 - Sick sinus syndrome Category: Medical (5) Pacemaker: Onset Date: ~08/2022 Comment: ([facility] DCPP - placed 08/30/2022) Code(s): Z95.0 - Presence of cardiac pacemaker Category: Medical (6) Cardiomyopathy: Onset Date: ~08/2022 Code(s): I42.9 - Cardiomyopathy, unspecified Category: Medical Plan She tried taking 1/2 tab alt with 1 tab qod and for a while it worked. Then she developed diarrhea for a week, but at least she only would have it once a day and not all day long. She ia agreeable to continuing to try to refine her dosing schedule. ROV 3 mos. Medications: Changed From loperamide (Imodium A-D) 2 mg PO Q6H PRN K52.1 - Toxic gastroenteritis and colitis To loperamide (Imodium A-D) 4 mg (2 x 2 mg) PO Q6H 60 tabs 6RF K52.1 - Toxic gastroenteritis and colitis Coding Level of Care Code Est Pt Level 3 (56677) Diagnoses Diarrhea due to drug K52.1 GERD (gastroesophageal reflux disease) K21.9 Paroxysmal atrial fibrillation I48.0 Sick sinus syndrome I49.5 Pacemaker Z95.0 Cardiomyopathy I42.9
[2024-11-23 12:48] VITALS: BMI 24.5
[2024-11-23 12:52] VITALS: BP 131/60; PULSE 63; O2SAT 97; BMI 24.5
--- OUTSIDE RECORDS SUMMARY | 2024-11-23 13:12 | XMS_ITS | Clinical Summary ---
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 Name Role Phone Maria Teresa Mathur MD Primary Care Provider [phone] Allergies Active Allergy Reactions Criticality Noted Date [...] Address Hortensia Godoy Personal/Family Self [address] [place] [address] Hortensia Godoy Personal/Family Self [address] [place] [address] JayneVidyaHrotensia TPL/AUTO Self 1940 [address] [place] [address] Advance Directives For more information, please contact: [phone] Documents on File Type Date Recorded Patient Slubber Tender Expl anation Advance Directive and Living Will 05/09/2023 INJ APPROVAL DOS 05/17/2023 Care Teams Channeling Machine Operator Relationship Specialty Start Date End Date Maria Teresa Mathur MD PCP - General Internal Medicine 04/25/20
--- OUTSIDE RECORDS SUMMARY | 2024-11-23 13:12 | XMS_ITS | Clinical Summary ---
Demographics Address [address] [place] [address] Home Phone Mobile Phone Email Address Email Address Preferred Language en Marital Status Yarsanism Affiliation Unknown Race White Ethnic Group Not or Lati no Author Organization [address] Address [address] [place] [address] Phone Support Name Relationship Address Phone Kirill Godoy Spouse [address] [place] [address] Kirill Godoy Personal Relationship [address] [place] [address] Care Team Providers Care Account Information Clerk Name Role Phone Maria Teresa Mathur MD Primary Care Provider [phone] Allergies Active Allergy Reactions Criticality Noted Date Comments Sulfamethoxazole-Trimethoprim 2005 Hives/Urticaria Sulfamethoxazole 08/28/2021 Trimethoprim 08/28/2021 Medications GUAIFENESIN ORAL Take by mouth. Activ e loratadine (CLARITIN) 10 mg tablet Take 1 Tablet by mouth daily. Active apixaban (ELIQUIS) 5 mg tablet TAKE 1 TABLET BY MOUTH 2 TIMES A DAY 3 Active dronedarone (Multaq) 400 mg tablet TAKE 1 TABLET BY MOUTH 2 TIMES A DAY 3 Active metoprolol tartrate (LOPRESSOR) 25 mg tablet TAKE 1 TABLET BY MOUTH 2 TIMES A DAY 3 Active methocarbamoL (ROBAXIN) 500 mg tablet Take 1 Tablet by mouth 3 times daily. 2 Active nitrofurantoin (MACRODANTIN) 25 mg capsule Take 1 Capsule by mouth three times a week. Mon, Wed, Fri Active gabapentin (NEURONTIN) 400 mg capsule Take 1 capsule by mouth 3 times daily. 1 Active ascorbic acid (VITAMIN C ORAL) Take by mouth 2 times daily. Active DIETARY SUPPLEMENT ORAL Take by mouth three times a week. Active calcium carbonate/vitam in D3 (CALCIUM + D ORAL) Take by mouth daily. Active CRANBERRY ORAL Take by mouth. Cranberry supplement for urinary health Active levothyroxine (SYNTHROID, LEVOTHROID) 150 mcg tablet TAKE 1 TABLET BY MOUTH EVERY DAY 90 tablet 1 4 Active albuterol HFA (PROAIR HFA ; PROVENTIL HFA ; VENTOLIN HFA) 90 mcg/actuation inhaler INHALE 2 PUFFS INTO THE LUNGS EVERY 4 HOURS NEEDED FOR COUGH OR WHEEZING. 8.5 each 4 Active atorvastatin (LIPITOR) 10 mg tablet TAKE 1 TABLET DAILY. 90 tablet 1 4 Active meclizine (ANTIVERT) 25 mg tablet TAKE 1 TABLET 3 TIMES A DAYAS NEEDED FOR MOTION SICKNESS. 270 tablet 1 4 Active omeprazole (PriLOSEC) [address] capsule TAKE 1 CAPSULE DAILY. 90 capsule 1 4 Active fluticasone propionate (FLONASE) 50 mcg/actuation nasal spray USE 1 SPRAY IN EACH NOSTRILTWICE DAILY 48 g 1 5 Active Active Problems Problem Noted Date Diagnosed Date Atrial fibrillation with rap id ventricular response ([facility] V24, [facility] V28) 09/09/2022 Overview (05/17/2024): Under the setting of pneumonia, hospitalization August 2022, bradycardia/hypotension requiring ICU pressor support, status post pacer Sick sinus syndrome ([facility] V24, [facility] V28) 0 09/09/2022 Overview (05/17/2024): A. fib with rapid ventricular response, status post pacer Community acquired pneumonia of right lower lobe of lung 09/09/2022 Hypertension 08/23/2022 Dyspnea on exertion 07/15/2022 Raynaud's disease without gangrene 10/24/2020 Osteoarthritis of lumbar spine 10/24/2020 Sinus bradycardia 12/27/2018 Mild intermittent asthma with exacerbation 12/28 Lumbar compression fracture ([facility] V24, [facility] V28) 05/01/2016 Breast cancer, stage 1, estr ogen receptor positive ([facility] V24, [facility] V28) 12/26/2014 Overview (05/17/2024): Ductal carcinoma in situ [...] Encounters Date Type Department Care Team Description 11/02/2024 [place] [facility] [address] [address] Maria Teresa Mathur MD from Last 3 Months Immunizations Name Administration [...] PROCEDURE: HISTORICAL TUBAL LIGATION ESOPHAGOGASTRODUODENOSCOPY 04/06/2001 PROCEDURE: KS ESOPHAGOGASTRODUODENOSCOPY TRANSORAL DIAGNOSTIC; COMMENT: Normal on H2 [...] COMMENT: ca BREAST SURGERY 2014 Left PROCEDURE: KS UNLISTED PROCEDURE BREAST; COMMENT: lumpectomy COLONOSCOPY 01/20/2017 [...] cancer, stage 1, estr ogen receptor positive ([facility] V24, [facility] V28) 12/26/2014 DX:Breast cancer, stage 1, e strogen receptor positive ([facility]); COMMENT: left History of actinic keratoses 12/13/2014 DX: History of actinic keratoses; COMMENT: 11/27 right cheek Raynaud's disease without gangrene 10/24/2020 DX:Raynaud's disease without gangrene Abdominal cramping DX:Abdominal cramping Family History Medical History Relation Name Comments Arthritis Maternal Grandmother Relation Name Status Comments Daughter Alive 1 daughter age 44, hernia, weight issues Father CAD, HTN 90 yea rs old Maternal Grandfather (Age 60's) PR Maternal Grandmother (Age 62) RA Paternal Grandfather (Age 70) PR Paternal Grandmother (Age 86) Al zheimer/Arthritis Sister [...] 10:40 AM EDT Appointment Radiology Department - [address] [address] 02/25/2025 9:00 AM EDT Office Visit Adult Medicine [address] [phone] Maria Teresa Mathur MD [address] [place] [address] Health Maintenance Due Date Last Done Comments RSV Immunization Adult Patients (1 - 1-dose 75+ series) 2016 Cholesterol Screening (Lipid Panel) 07/22/2022 07/14/1999 Depression Screening 07/22/2022 Falls Risk Assessment 07/22/2022 Medicare Annual Wellness Visit 07/22/2022 Social Influencers of Health Screening 07/22/2022 Hypertension/CHF/CAD Annual BMP Blood Test 09/13/2023 07/14/1999 COVID-19 Vaccine ( season) 2024 03/02/2022, 05/18/2021, 10/14/2020, Additional history exists Influenza Vaccine (Season Ended) 2025 10/11/2023, 08/27/2022, 05/18/2021, Additional history exists DTaP,Tdap,and Td [...] age to complete this topic Meningococcal B Vaccine Aged Out No l onger eligible based on patient's age to complete this topic RSV Immunization Patients Under 20 months Aged Out No longer eligible based on patient's age to complete this topic Varicella Vaccines Aged Out No longer eligible based on patient's age to complete this topic Procedures Procedure Name Priority Date/Time Associated Diagnosis Comments [facility] DEXA AXIAL SKELETON Routine 01/06/2022 4:15 PM EDT Encounter for screening for osteoporosis ANNUAL BMP BLOOD TEST Routine 07/14/1999 LIPID PANEL Routine 07/14/1999 from Last 3 Months or Most Recently Relevant to Health Maintenance Results * [facility] DEXA AXIAL SKELETON (01/06/2022 4:15 PM EDT) Anatomical Region Laterality Modality Mammography 01/06/2022 11:0 2 AM EDT Narrative 01/06/2022 4:15 PM EDT [facility] Diagnostic Imaging Department [address] [place] [address] Patient: ??MURTAZA GODOY ?/Age/Sex: 1940 - 81 - F Unit#: ??[id number] ? Location/Status: ??SPDIMAM/REG CLI ? Mnemonic/Ordering Site: ??MAMDEXAAX/SPMAM Ordering Physician: ??KEL EMMANUEL MD Emily Dexa Axial Skeleton - 01/06/22 - 1259 HISTORY: Post menopausal woman with hormone depletion for screening bone densitometry. The patient is on calcium supplement. TECHNIQUE: Bone densitometry is performed utilizing dual energy x-ray absorptiometry (DEXA) in the Tinypay.me unit. The lumbar spine is evaluated in the AP projection and L1 through L4 are utilized. The proximal femora are evaluated in the AP projection bilaterally. FINDINGS: AP spine: Bone mineral density: 0.935 gm/cm2 T-score: -1.9 Z-score: -0.2 Dual Femur (mean): Bone mineral density: 1.024 gm/cm2 T-score: 0.1 Z-score: 2.1 IMPRESSION: Osteopenia in the lumbar spine. Normal bone mineralization in the bilateral hips. [id number] A report detailing these results has been enclosed. Dictating Physician: ??MARIO ALBERTO DUMONT MD Electronically Signed by: ??MARIO ALBERTO DUMONT MD Dic Date/Time: ??01/06/22 1614 Sign date/Time: ??01/06/22 1615 Procedure Note Mario Alberto Dumont MD - 08/04/2022 [facility] Diagnostic Imaging Department [address] [place] [address] Patient: MURTAZA GODOY /Age/Sex: 1940 - 81 - F Unit#: [id number] Location/Status: SPDIMAM/REG CLI Mnemonic[facility] Ordering Physician: KEL EMMANUEL MD Emily Dexa Axial Skeleton - 01/06/22 - 1259 HISTORY: Post menopausal woman with hormone depletion for screening bone densitometry. The patient is on calcium supplement. TECHNIQUE: Bone densitometry is performed utilizing dual energy x-ray absorptiometry (DEXA) in the Tinypay.me unit. The lumbar spine isevaluated in the AP projection and L1 through L4 are utilized. The proximal femoraare evaluated in the AP projection bilaterally. FINDINGS: AP spine: Bone mineral density: 0.935 gm/cm2 T-score: -1.9 Z-score: -0.2 Dual Femur (mean): Bone mineral density: 1.024 gm/cm2 T-score: 0.1 Z-score: 2.1 IMPRESSION: Osteopenia in the lumbar spine. Normal bone mineralization in the bilateral hips. [id number] A report detailing these results has been enclosed. Dictating Physician: MARIO ALBERTO DUMONT MD Electronically Signed by: MARIO ALBERTO DUMONT MD Dic Date/Time: 01/06/221613 Sign date/Time: 01/06/221614 us Kel Emmanuel MD IMG BI PROCEDURES Final Result * Annual BMP Blood Test (07/14/1999) Annual BMP Blood Test Abstracted Historical Provider HEALTH MAINTENANCE Final Result * (ABNORMAL) Lipid panel (07/14/1999) LDL/HDL Ratio 4 0 - 4 Triglycerides 78 <=200 mg/dL Cholesterol 258(A) <=200 mg/dL HDL 68 >=34 mg/dL LDL Cholesterol 174(A) 0 - 130 mg/dL Blood Venous blood specimen / Unknown us Historical Provider LAB BLOOD ORDERABLES Noa l Result from Last 3 Months or Most Recently Relevant to Health Maintenance Insurance * Guarantor: Murtaza Godoy Account Type Relation to Patient Date of Phone Billing Address Personal/Family Self 1940 [address] [place] [address] [employer] - [place] MEDICARE ADVANTAGE * Guarantor: Murtaza Godoy Account Type Relation to Patient Date of Phone Billing Address Personal/Family Self 1940 [address] [place] [address] Advance Directives Documents on File Type Date Recorded Patient Greensman Expl anation Health Care Decision (hx) 05/09/2023 ADVANCE DIRECTIVE AN D LIVING WILL Care Teams Account Information Clerk Relationship Specialty Start Date End Date Maria Teresa Mathur MD [address] [place] [address] PCP - General Internal Medicine 04/25/20
== END 2024-11-23 13:15 | disposition home or self-care (01) ==
LOC: HO.HGI 12:34
PROVIDERS: PCP Internal Medicine; Visit Provider Nurse Practitioner
DX: K52.1 Toxic gastroenteritis and colitis (principal); K21.9 Gastro-esophageal reflux disease without esophagitis; I48.0 Paroxysmal atrial fibrillation; I49.5 Sick sinus syndrome; Z95.0 Presence of cardiac pacemaker; I42.9 Cardiomyopathy, unspecified
CPT/HCPCS: 99213

== ENCOUNTER → 2024-11-23 12:33 | Outpatient (BNVA) | payer MEDICARE, SELFPAY | PROVIDERS: PCP Internal Medicine; Visit Provider Nurse Practitioner | DX: K52.1 Toxic gastroenteritis and colitis (principal); R63.4 Abnormal weight loss; K21.9 Gastro-esophageal reflux disease without esophagitis; I48.0 Paroxysmal atrial fibrillation; I49.5 Sick sinus syndrome; I42.9 Cardiomyopathy, unspecified; Z68.24 Body mass index [BMI] 24.0-24.9, adult; Z95.0 Presence of cardiac pacemaker; Z79.01 Long term (current) use of anticoagulants; Z79.899 Other long term (current) drug therapy | CPT/HCPCS: 99212 ==

== ENCOUNTER → 2025-01-24 08:20 | Outpatient (REF) | payer MEDICARE, SELFPAY ==
--- NOTE | ~2025-01-24 | NM_ITS ---
Lexiscan Myocardial perfusion study Indication: Atypical chest pain to evaluate for myocardial ischemia Technique: The patient was brought in for a Lexiscan perfusion study on January 24, 2025 and was injected 0.4 mg of Lexiscan intravenously. Within a minute of this injection 25 mCi of sestamibi was given intravenously. Images were obtained using the SPECT gamma camera interlaced with the gating device. Images were obtained in supine position. Resting perfusion study was performed on January 25, 2025. Patient was administered 25 mCi of sestamibi intravenously at rest. Images were then obtained in supine position. Images obtained without without CT attenuation. Total DLP 153 mGy-cm. Images were processed with the software and compared side to side in short axis, horizontal long axis and vertical long axis views. Findings: The stress perfusion study showed nonattenuated images show minimally to mildly reduced uptake in the distal lateral apical wall of the LV myocardium. Attenuated corrected images show minimal thinning of the apex of the LV myocardium. The gated study shows normal LV systolic function with calculated LVEF of 69%. LV cavity is normal in size. The gated study shows normal systolic wall thickening and contraction of segments. Resting study shows no significant change in perfusion pattern compared to stress perfusion study. Gating at rest reveals normal systolic wall motion with ejection fraction at 62%. The findings are consistent with normal myocardial perfusion. NM/NM sammy perf SPECT rest & str Impression: 1. Myocardial perfusion imaging study shows normal myocardial perfusion 2. Gated LVEF is 69% 3. Transient ischemic dilatation not present Nondiagnostic changes on EKG. Electronically signed by: Jl Starks MD 01/25/2025 03:32 PM EDT
--- NOTE | 2025-01-24 08:24 | CA_ITS ---
Acquisition Time: 2025-01-24 08:29:33 Total Exercise Time: 00:02:00 Test Indications: CP AFIB Medications: SEE H&P Protocol: LEXISCAN Max HR: 70 BPM 51% of Pred: 137 BPM Max BP: 144/72 mmHG Max Work Load: 1.0 METS Pharmacological stress test with Lexiscan while pt swings her legs, with reports of SOB and nausea, without any arrythmias, with normotensive response to injection. Nondiagnostic EKG for ischemia. In recovery, pt was treated with IVP Aminophylline 75 mg to reverse Lexiscan after which pt feeling back to baseline. Nuclear images pending. Test reviewed with Dr. Starks. Referred By: Jl Starks Electronically Signed By: Rodrigo Veronica
--- OUTSIDE RECORDS SUMMARY | 2025-01-24 08:25 | XMS_ITS | Clinical Summary ---
Demographics Address [address] [place] [address] Home Phone Email Address Preferred Language Luxembourgish Marital Status Spiritism Affiliation Unknown Race White Ethnic Group Not or Lati no Author Organization [facility] Address [address] [place] [address] Care Team Providers Care Tree Specialist Name Role Phone Maria Teresa Mathur MD Primary Care Provider [phone] Allergies Active Allergy Reactions Criticality Noted Date [...] 2023-2 5 season) 2024 03/02/2022 Influenza Vaccine (Season Ended) 2025 Hepatitis B Vaccines Aged Out No long er eligible based on patient's age to complete this topic RSV Ped < 20 months Aged Out No longe r eligible based on patient's age to complete this topic Guarantor Name Account Type Relation to Patient Date of Phone Billing Address Hortensia Godoy Personal/Family Self 1940 [address] [place] [address] Hortensia Godoy Personal/Family Self 1940 [address] [place] [address] Hortensia Godoy TPL/AUTO Self 1940 [address] [place] [address] Advance Directives For more information, please contact: [phone] Documents on File Type Date Recorded Patient Medical Receptionist Biller Expl anation Advance Directive and Living Will 05/09/2023 INJ APPROVAL DOS 05/17/2023 Care Teams Tree Specialist Relationship Specialty Start Date End Date Maria Teresa Mathur MD PCP - General Internal Medicine 04/25/20
== END ==
LOC: HO.CARD 08:20
PROVIDERS: Visit Provider Internal Medicine Cardiovascular Disease
DX: R07.89 Other chest pain (principal)
CPT/HCPCS: 78452; 93017; A9500; J0280; J2785

== ENCOUNTER → 2025-01-24 08:24 | Outpatient (BNV) | payer MEDICARE, SELFPAY | DX: R06.02 Shortness of breath (principal); R11.0 Nausea | CPT/HCPCS: 78452; 93016; 93018 ==

== ENCOUNTER 2025-03-20 11:59 | Outpatient (AMB) | payer MEDICARE, SELFPAY ==
[2025-03-20 12:15] VITALS: BP 122/64; PULSE 60; BMI 24.1
--- NOTE | 2025-03-20 12:15 | MHC.OFFVIS ---
Vital Signs 03/20/25 12:15 Height 5 ft 5 in Weight 145 lb 1.027 oz BMI 24.1 BP 122/64 Blood Pressure Location Lt brachial Position Sitting Pulse 60 Intake Visit Reasons: 3 month IBS Intake Note: Hortensia presents in office today in 3 months follow up of IBS. CC: Patient c/o epigastric pain and RUQ pain. Per patient she use to take hyoscyamine and bentyl before for IBS. Fourdrinier Wire Weaver Required: No Accompanied by: Self / Same As Patient Allergies Sulfa (Sulfonamide Antibiotics) Allergy (Unknown, Verified 03/20/25 12:17) Unknown sulfamethoxazole (From Bactrim) Allergy (Verified 03/20/25 12:17) unknown trimethoprim (From Bactrim) Allergy (Verified 03/20/25 12:17) unknown HPI HPI 3 month IBS: Details: Assessment & Plan (1) Diarrhea due to drug: Code(s): K52.1 - Toxic gastroenteritis and colitis Category: Medical (2) GERD (gastroesophageal reflux disease): Code(s): K21.9 - Gastro-esophageal reflux disease without esophagitis Category: Medical (3) Paroxysmal atrial fibrillation: Onset Date: ~08/2022 Code(s): I48.0 - Paroxysmal atrial fibrillation Category: Medical (4) Sick sinus syndrome: Onset Date: ~08/2022 Code(s): I49.5 - Sick sinus syndrome Category: Medical (5) Pacemaker: Onset Date: ~08/2022 Comment: ([facility] DCPP - placed 08/30/2022) Code(s): Z95.0 - Presence of cardiac pacemaker Category: Medical (6) Cardiomyopathy: Onset Date: ~08/2022 Code(s): I42.9 - Cardiomyopathy, unspecified Category: Medical Plan She tried taking 1/2 tab alt with 1 tab qod and for a while it worked. Then she developed diarrhea for a week, but at least she only would have it once a day and not all day long. She ia agreeable to continuing to try to refine her dosing schedule. ROV 3 mos. Medications: Changed From loperamide (Imodium A-D) 2 mg PO Q6H PRN K52.1 - Toxic gastroenteritis and colitis To loperamide (Imodium A-D) 4 mg (2 x 2 mg) PO Q6H 60 tabs 6RF K52.1 - Toxic gastroenteritis and colitis TODAYS VISIT Her diarrhea is well controlled with 1 imodium qd alt wtih 1/2 qod. However, she still having quite a bit of abdominal pain sometimes in the epigastric area sometimes to the right and sometimes to the left. In the past this was controlled well with dicyclomine, however it seems that it stopping covered by her insurance. It looks like it is covered now so will make this available to her again since it does sound consistent with bowel cramping. She will continues on omeprazole that is prescribed by her primary care provider. Return office visit in 6 months [facility] Medical History Pneumonia (~08/2022) IBS (irritable bowel syndrome) Basal cell carcinoma Lumbar compression fracture History of breast cancer Osteopenia Pacemaker (~08/2022) Graves disease History of radioactive iodine thyroid ablation Hypothyroidism Surgical History H/O colonoscopy History of basal cell carcinoma (BCC) excision History of pacemaker (~2022) History of tonsillectomy and adenoidectomy History of appendectomy History of lumpectomy of left breast Family History Mother Breast cancer Father Hypertension Social History Household Members: Spouse Housing: House Do you presently have visiting nurse or other home services: No Alcohol intake: current Alcohol intake frequency: a few times a week Alcohol type: wine Patient Tobacco Use Status: Former Tobacco user Tobacco use type: Cigarette e-Cigarette/Vaping Use: Never Used Second Hand Smoke Exposure: No Advance Directives Date on File: 08/18/24 service: No Current occupational status: retired Review of Systems Const Denies fatigue, Denies fever(s), Denies night sweats, Denies poor appetite and Denies weight loss Eyes Details: glasses Reports requires corrective lenses ENT Reports Normal hearing present, Denies dental pain, Denies dysphagia, Denies hearing loss, Denies mouth pain, Denies odynophagia, Denies throat swelling, Denies tongue swelling and Reports other (Dentition adequate) Card Reports no additional complaints Resp Reports no additional complaints GI Details: Denies abdominal pain, Denies melena, Denies bloating, Denies hematochezia, Denies constipation, Reports GI cramping, Denies dysphagia, Denies excessive flatus, Denies early satiety, Reports heartburn, Denies diarrhea, Reports loose stools, Denies nausea, Denies odynophagia, Denies vomiting and Denies hematemesis Skin/Breast Denies pruritus, Denies lesions, Denies rash and Denies jaundice Neuro Reports Normal hearing present and Denies Abnormal speech present Endo Denies fatigue Aller/Immun Denies throat swelling and Denies tongue swelling Physical Exam Vital Signs: Last Vital Signs Pulse 60 03/20/25 12:15 BP 122/64 03/20/25 12:15 BMI result Body Mass Index 24.1 Const General: cooperative, no acute distress, well developed and well groomed Nutritional Appearance: average body habitus and well nourished Orientation/consciousness: oriented to person, oriented to place and oriented to time Limitations: No language barrier HEENT Head: Yes normocephalic and Yes atraumatic Eyes General: appearance normal, both eyes and all related structures Pupils: Equal, round and reactive pupils present Neck Neck: Yes normal visual inspection and Yes no lymphadenopathy Thyroid: Thyroid normal Resp Effort & Inspection: normal respiratory effort and able to speak in complete sentences Auscultation: clear to auscultation bilaterally Cardio Rate: regular rate Rhythm: regular rhythm Heart sounds: Normal, physiologic split S2 sound present Peripheral pulses: radial pulses present and posterior tibial pulses present GI Inspection: No distended and No Abdominal panniculus present Palpation (GI): Soft to palpation, nontender, no guarding, not rigid and No hepatosplenomegaly present Percussion: Yes normal to percussion Auscultation: normal bowel sounds Rectal Exam - Female: deferred Skin General skin exam: no rashes or lesions noted, turgor normal, skin not dry, no jaundice, No spider nevi and no striae Rashes: no rashes Nails: normal Neuro General: oriented to person, oriented to place and oriented to time Cranial nerves: Yes Equal, round and reactive pupils present and Yes Normal hearing present Speech: No Abnormal speech present Extrem General: Yes normal to inspection, No clubbing, No cyanosis and No edema Psych Appearance: grossly normal and well kempt Mental Status: mental status grossly normal Speech and movement: Normal speech and movement present Affect: normal affect Attitude: cooperative Thought process: Normal thought process present and not confabulating Thought content: Normal thought content present Insight: Good insight present (Psych) Judgement: Good judgement present (Psych) Assessment & Plan Assessment & Plan (1) Diarrhea due to drug: Code(s): K52.1 - Toxic gastroenteritis and colitis Category: Medical (2) GERD (gastroesophageal reflux disease): Code(s): K21.9 - Gastro-esophageal reflux disease without esophagitis Category: Medical Plan Her diarrhea is well controlled with 1 imodium qd alt wtih 1/2 qod. However, she still having quite a bit of abdominal pain sometimes in the epigastric area sometimes to the right and sometimes to the left. In the past this was controlled well with dicyclomine, however it seems that it stopping covered by her insurance. It looks like it is covered now so will make this available to her again since it does sound consistent with bowel cramping. She will continues on omeprazole that is prescribed by her primary care provider. Return office visit in 6 months Medications: New dicyclomine 10 mg PO TID 90 caps 12RF Refilled loperamide (Imodium A-D) 4 mg (2 x 2 mg) PO Q6H 60 tabs 6RF K52.1 - Toxic gastroenteritis and colitis Coding Level of Care Code Est Pt Level 3 (61162) Diagnoses Diarrhea due to drug K52.1 GERD (gastroesophageal reflux disease) K21.9
--- OUTSIDE RECORDS SUMMARY | 2025-03-20 12:43 | XMS_ITS | Clinical Summary ---
Demographics Address [address] [place] [address] Home Phone Email Address Preferred Language Uzbek Marital Status Mosque Affiliation Unknown Race White Ethnic Group Not or Lati no Author Organization [facility] Address [address] [place] [address] Care Team Providers Care Eyeglass Inspector Name Role Phone Maria Teresa Mathur MD Primary Care Provider [phone] Allergies Active Allergy Reactions Criticality Noted Date [...] 61 11/29/2023 1:00 PM EDT Temperature 36.5 C (97.7 F) 11/29/2023 1:00 PM EDT Respiratory Rate 16 11/20/2021 10:33 AM EDT [...] 5 season) 2024 03/02/2022 Influenza Vaccine (#1) 2025 Hepatitis B Vaccines Aged Out No long er eligible based on patient's age to complete this topic RSV Ped < 20 months Aged Out No longe r eligible based on patient's age to complete this topic Guarantor Name Account Type Relation to Patient Date of Phone Billing Address JayneHortensia Personal/Family Self 1940 [address] [place] [address] [place] Personal/Family Self 1940 08[address] [place] [address] Hortensia Godoy TPL/AUTO Self 1940 08/[address] [place] [address] Advance Directives For more information, please contact: [phone] Documents on File Type Date Recorded Patient Stock Chaser Expl anation Advance Directive and Living Will 05/09/2023 INJ APPROVAL DOS 05/17/2023 Care Teams Eyeglass Inspector Relationship Specialty Start Date End Date Maria Teresa Mathur MD PCP - General Internal Medicine 04/25/20
--- OUTSIDE RECORDS SUMMARY | 2025-03-20 12:43 | XMS_ITS ---
Demographics Address [address] [place] [address] Email Address Preferred Language Unknown Marital Status Unknown Amish Affiliation Unknown Race Unknown Ethnic Group Unknown Author Name [facility] Organization Unknown History of Medication Use Medication Directions Dispensed Refills Start Date End Date Stat gabapentin 400 mg capsule Take 1 capsule twice a day by oral route. 10/30/2024 active tizanidine 2 mg tablet Take 1 tablet (2 mg total) by mouth 3 (three) times a day as needed (muscle spasms). 05/02/2024 active metaxalone 800 mg tablet Take 1 tablet (800 mg total) by mouth 3 (three) times a day. 12/13/2023 active meloxicam 15 mg tablet TAKE 1 TABLET BY MOUTH EVERY DAY NEEDED FOR PAIN 08/18/2022 active gabapentin 400 mg capsule active albuterol sulfate 90 mcg/actuation breath activated powder inhaler Inhale into the lungs. active albuterol sulfate HFA 90 mcg/actuation aerosol inhaler INHALE 2 PUFFS INTO THE LUNGS EVERY 4 HOURS NEEDED FOR COUGH OR WHEEZING. active amoxicillin 875 mg-potassium clavulanate 125 mg tablet TAKE 1 TABLET BY MOUTH 2 TIMES A DAY FOR 7 DAYS. TAKE WITH A DAILY PROBIOTIC active ascorbic acid buffered ER 1,000 mg tablet,extended release Take 1 tablet (1,000 mg total) by mouth daily. active aspirin 81 mg tablet,delayed release Take 81 mg by mouth daily. active atorvastatin 10 mg tablet TAKE 1 TABLET DAILY. active cephalexin 500 mg capsule TAKE 1 CAPSULE BY MOUTH TWICE A DAY FOR 10 DAYS active cetirizine 10 mg tablet Take 10 mg by mouth daily. active cholecalciferol (vitamin D3) 25 mcg (1,000 unit) tablet Take 1 tablet (1,000 Units total) by mouth daily. active clindamycin HCl 300 mg capsule TAKE 1 CAPSULE BY MOUTH THREE TIMES A DAY active dicyclomine 10 mg capsule Take 10 mg by mouth 3 (three) times a day. active Eliquis 5 mg tablet TAKE 1 TABLET BY MOUTH TWICE A DAY active fluticasone propionate 50 mcg/actuation nasal spray,suspension spray/apply 1 spray in each nostril daily. active letrozole 2.5 mg tablet Take 2.5 mg by mouth daily. active levothyroxine 137 mcg capsule Take 137 mcg by mouth daily. active levothyroxine 150 mcg tablet TAKE 1 TABLET BY MOUTH EVERY DAY active meclizine 25 mg tablet TAKE 1 TABLET 3 TIMES A DAYAS NEEDED FOR MOTION SICKNESS. active methocarbamol 500 mg tablet active metoprolol tartrate 25 mg tablet TAKE 1 TABLET BY MOUTH TWICE A DAY active Multaq 400 mg tablet TAKE 1 TABLET BY MOUTH TWICE A DAY active naproxen sodium 220 mg capsule Take 220 mg by mouth 3 (three) times a day. active nitrofurantoin macrocrystal 50 mg capsule TAKE 1 CAPSULE THREE TIMES A WEEK ON TUESDAY, TUESDAY AND TUESDAY AT BEDTIME active omeprazole 20 mg capsule,delayed release TAKE 1 CAPSULE DAILY. active Allergies Allergen Reaction Severity Comment Documented Date Source Statu s SULFAMETHOXAZOLE-TRIMETHOPRI M HIVES [facility] Problems Problem Status Onset Date Problem Type Date of Resoluti on Source Lumbar radiculopathy active 2024-07-17 [facility]Act [facility] Lumbar spondylosis active 2024-07-17 ProblemAct [facility] Encounters Encounter Type Encounter Reason Primary Diagnosis Location Date [facility] 01/15/2025 [facility] 07/17/2024 Care Team Organization Name Specialty Phone Email Start Date End Da [facility] 0 11/01/2024 [facility] 06/22/2022 04/02/2024
--- OUTSIDE RECORDS SUMMARY | 2025-03-20 12:43 | XMS_ITS | Clinical Summary ---
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 3 Active ascorbic acid, vitamin C, 1,000 mg TbER Take 1,000 mg by mouth daily. Active atorvastatin (LIPITOR) 10 MG tablet Take 10 mg by mouth every evening. Active cholecalciferol (VITAMIN D3) 25 MCG (1,000 unit) tablet Take 1,000 Units by mouth daily. Active MULTAQ 400 mg tablet Take 1 tablet by mouth 2 (two) times a day. 3 Active fluticasone propionate (FLONASE) 50 mcg/actuation nasal spray 1 spray. Active gabapentin (NEURONTIN) 400 MG capsule Take 400 mg by mouth. 3 Active hyoscyamine (ANASPAZ,LEVSIN ) 0.125 mg tablet TAKE 1 TABLET BY MOUTH EVERY 4 HOURS NEEDED FOR CRAMPING.NOT COVERED 3 Active omeprazole (PRILOSEC) 20 MG capsule Take 20 mg by mouth daily. Active nitrofurantoin (MACRODANTIN) 50 MG capsule Take 50 mg by mouth. Active metoprolol tartrate (LOPRESSOR) 25 MG tablet Take 1 tablet by mouth 2 (two) times a day. 3 Active methocarbamoL (ROBAXIN) 500 MG tablet Take 500 mg by mouth 3 (three) times a day as needed. 3 Active meclizine (ANTIVERT) 25 mg tablet Take 25 mg by mouth 3 (three) times a day as needed. Active levothyroxine (SYNTHROID, LEVOTHROID) 150 MCG tablet Take 1 tablet by mouth every morning. Active albuterol 90 mcg/actuation inhaler Inhale 2 puffs into the lungs every 6 (six) hours as needed for wheezing or shortness of breath/dyspnea . 8 g Active Social History Tobacco Use Types Packs/Day Years Used Date Smoking Tobacco: Never Assessed Education Answer Date Recorded Are you interested in more education? Not on julian e 12/11/2022 Are you concerned about learning? Not on file 12/11/2022 No 12/11/2022 No 12/11/2022 Digital Access Answer Date Recorded No 01/11/2023 No 01/11/2023 Reliable internet access at home? Not on file 01/11/2023 Device with a working camera? Not on file Comments Unknown Sex and Gender Information Value Date Recorded Sex Assigned at Not on file Legal Sex Female 11:57 AM EST Gender Identity Not on file Sexual Orientation Not on file Last Filed Vital Signs Vital Sign Reading Time Taken Comments Blood Pressure 143/76 07/17/2023 10:20 AM EST Pulse 64 07/17/2023 10:20 AM EST Temperature 36.9 C (98.4 F) 07/17/2023 10:20 AM EST Respiratory Rate 18 07/17/2023 10:20 AM EST Oxygen Saturation - - Inhaled Oxygen Concentration - - Weight 68 kg (150 lb) 07/17/2023 10:20 AM EST Height 165.1 cm (5' 5 ) 07/17/2023 10:20 AM EST Body Mass Index 24.96 07/17/2023 10:20 AM EST Plan of Treatment Health Maintenance Due Date Last Done Comments CREATININE LEVEL 1941 TSH LEVEL 1940 DEPRESSION SCREENING 1953 OSTEOPOROSIS SCREENING INITIAL (ONE-TIME) 2006 RSV VACCINE (1 - 1-dose 75+ series) 2016 COVID-19 VACCINE ( season) 2024 03/02/2022, 05/18/2021, 10/14/2020, Additional history exists Adult Td,Tdap Booster 11/17/2026 11/17/2016, 006 PNEUMOCOCCAL VACCINES (50+ years) Completed 11/25/2015, 04/10/2007 ZOSTER VACCINES Completed 06/30/2020, 04/16, 04/07/2020 HEPATITIS A VACCINES Aged Out No long er eligible based on patient's age to complete this topic HIB VACCINES Aged Out No longer eligi ble based on patient's age to complete this topic MENINGOCOCCAL VACCINES (ACWY) Aged Out No longer eligible based on patient's age to complete this topic MENINGOCOCCAL VACCINES (B) Aged Out N o longer eligible based on patient's age to complete this topic Medical Devices Not on file Insurance * Guarantor: Hortensia Godoy Account Type Relation to Patient Date of Phone Billing Address Personal/Family Self 1940 08/16 [place], [place] [id number] [place] [address] MEDICARE PPO BLUE REPLACEMENT 08/16 [place] [facility] MEDICARE PPO BLUE REPLACEMENT 15 08/16 [place] [facility] MEDICARE PPO BLUE REPLACEMENT 15 08/16 [place] [facility] MEDICARE PPO BLUE REPLACEMENT 15 08/16 [place] [facility] MEDICARE PPO BLUE REPLACEMENT * Guarantor: Jayne Hortensia Account Type Relation to Patient Date of Phone Billing Address Personal/Family Self 1940 [address] [place] [address] [place] MED[place] P[place] BLUE REPLACEMENT 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 It is not the complete legal health record.[facility]
--- OUTSIDE RECORDS SUMMARY | 2025-03-20 12:43 | XMS_ITS | Clinical Summary ---
Demographics Address [address] [place] [address] Home Phone Mobile Phone Email Address Email Address Preferred Language en Marital Status Pentecostal Affiliation Unknown Race White Ethnic Group Not or Lati no Author Organization [address] Address [address] [place] [phone] Phone Support Name Relationship Address Phone Kirill Page Spouse [address] [place] [address] Care Team Providers Care Dental Floss Packer Name Role Phone Maria Teresa Mathur MD Primary Care Provider [phone] Allergies Active Allergy Reactions Criticality Noted Date Comments Sulfamethoxazole-Trimethoprim Hives High 2005 Hives/Urticaria Sulfamethoxazole Hives High 08/28/2021 Trimethoprim 08/28/2021 Medications GUAIFENESIN ORAL Take [...] D ORAL) Take by mouth daily. Active fluticasone propionate (FLONASE) 50 mcg/actuation nasal spray USE 1 SPRAY IN EACH NOSTRILTWICE DAILY 48 g 1 5 Active albuterol HFA (PROAIR HFA ; PROVENTIL HFA ; VENTOLIN HFA) 90 mcg/actuation inhaler INHALE 2 PUFFS INTO THE LUNGS EVERY 4 HOURS NEEDED FOR COUGH OR WHEEZING. 6.7 each 5 Active meclizine (ANTIVERT) 25 mg tablet TAKE 1 TABLET 3 TIMES A DAYAS NEEDED FOR MOTION SICKNESS. 270 tablet 5 Active omeprazole (PriLOSEC) [address] capsule TAKE 1 CAPSULE DAILY. 90 capsule 5 Active atorvastatin (LIPITOR) 10 mg tablet TAKE 1 TABLET DAILY. 90 tablet 5 Active levothyroxine (SYNTHROID, LEVOTHROID) 150 mcg tablet TAKE 1 TABLET BY MOUTH EVERY DAY 90 tablet 5 Active diphenhydrAMINE (BENADRYL) 25 mg tablet Take 1 tablet (25 mg total) by mouth at bedtime as needed for sleep. Active Active Problems Problem Noted Date Diagnosed Date Patient has healthcare proxy 02/25/2025 Overview (02/25/2025): Rajinder amos, health proxy Assessment & Plan (02/25/2025 10:07 AM EDT): Atrial fibrillation with rap id ventricular response (CMS/HCC V24, CMS/HCC V28) 09/09/2022 Overview (05/17/2024): Under the setting of pneumonia, hospitalization August 2022, bradycardia/hypotension requiring ICU pressor support, status post pacer Assessment & Plan (02/25/2025 10:07 AM EDT): Orders: CBC and differential; Future Sick sinus syndrome (CMS/HCC V24, CMS/HCC V28) 0 09/09/2022 Overview (05/17/2024): A. fib with rapid ventricular response, status post pacer Community acquired pneumonia of right lower lobe of lung 09/09/2022 Hypertension 08/23/2022 Assessment & Plan (02/25/2025 10:07 AM EDT): Orders: Comprehensive metabolic panel; Future Dyspnea on exertion 07/15/2022 Raynaud's disease without gangrene 10/24/2020 Osteoarthritis of lumbar spine 10/24/2020 Sinus bradycardia 12/27/2018 Mild intermittent asthma with exacerbation 12/28 Lumbar compression fracture (CMS/HCC V24, CMS/ C V28) 05/01/2016 Breast cancer, stage 1, estr ogen receptor positive (CMS/HCC V24, CMS/[facility] V28) 12/26/2014 Overview (05/17/2024): 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 IBS (irritable bowel syndrome) 06/04/2008 Diverticulosis of colon 05/25/2006 Overview (05/17/2024): (without mention of hemorrhage) minimal diverticulosis, lower half of the bowel, identified at screening colonoscopy 05.25.06. Allergic rhinitis 11/25/2005 Overview (05/17/2024): cause unspecified Hypothyroidism 09/06/2005 Overview (05/17/2024): S/P FUENTES treatment for Grave's Disease Assessment & Plan (02/25/2025 10:07 AM EDT): Orders: Thyroid stimulating hormone with reflex to free t4 and free t3; Future Mixed hyperlipidemia 09/06/2005 Assessment & Plan (02/25/2025 10:07 AM EDT): Orders: Lipid panel with reflex to direct LDL; Future GERD (gastroesophageal reflux disease) 6 Encounters Date Type Department Care Team Description 02/25/2025 9:00 AM EDT Office Visit [facility] [address] [phone] Maria Teresa Mathur MD Routine general medical examination at a health care facility (Primary Dx); Patient has healthcare proxy; Atrial fibrillation with rapid ventricular response (CMS/[facility] V24, [facility] V28); Primary hypertension; Hypothyroidism, unspecified type; Malignant neoplasm of breast, stage 1, estrogen receptor positive, unspecified laterality ([facility] V24, [facility] V28); Mixed hyperlipidemia; Diarrhea, unspecified type 02/20/2025 10:06 AM EDT - 02/20/2025 11:59 PM EDT Hospital Encounter Radiology Department - [address] [phone] Encounter for screening mammogram for breast cancer Discharge Disposition: Home or Self Care 02/12/2025 9:13 AM EDT - 02/12/2025 11:59 PM EDT Hospital Encounter [facility] [address] [place] [address] Dennis Gonzalez MD Radiculopathy, lumbar region Discharge Disposition: Home or Self Care 02/12/2025 7:05 AM EDT - 02/12/2025 11:59 PM EDT Hospital Encounter [facility] X[facility] [address] [place] [address] Pain Discharge Disposition: Home or Self Care 01/29/2025 9:35 AM EDT - 01/29/2025 11:59 PM EDT Hospital Encounter [facility] [address] [place] [address] Dennis Gonzalez MD Radiculopathy, lumbar region Discharge Disposition: Home or Self Care from Last 3 Months Immunizations Name Administration [...] PROCEDURE: HISTORICAL TUBAL LIGATION ESOPHAGOGASTRODUODENOSCOPY 04/06/2001 PROCEDURE: VT ESOPHAGOGASTRODUODENOSCOPY TRANSORAL DIAGNOSTIC; COMMENT: Normal on H2 [...] COMMENT: ca BREAST SURGERY 2014 Left PROCEDURE: VT UNLISTED PROCEDURE BREAST; COMMENT: lumpectomy COLONOSCOPY 01/20/2017 [...] cancer, stage 1, estr ogen receptor positive ([facility]/HCC V24, [facility]/HCC V28) 12/26/2014 DX:Breast cancer, stage 1, e strogen receptor positive ([facility]); COMMENT: left History of actinic keratoses 12/13/2014 DX: History of actinic keratoses; COMMENT: 11/27 right cheek Raynaud's disease without gangrene 10/24/2020 DX:Raynaud's disease without gangrene Abdominal cramping DX:Abdominal cramping Family History Medical History Relation Name Comments Arthritis Maternal Grandmother Breast cancer Mother Relation Name Status Comments Daughter Alive 1 daughter age 44, hernia, weight issues Father CAD, HTN 90 yea rs old Maternal Grandfather (Age 60's) [place] Maternal Grandmother (Age 62) RA Mother Paternal Grandfather (Age 70) [place] Paternal Grandmother (Age 86) Al zheimer/Arthritis Sister Alive 1 sister age 57 , good health Son Alive 1 son age 43, g ood health Social History Tobacco Use Types Packs/Day Years Used Date Smoking Tobacco: Former Cigarettes 1 12.4 0 1967 - 08/15/1979 Smokeless Tobacco: Never Tobacco Cessation:Counseling Given: Not Answered Alcohol Use Standard Drinks/Week Comments Yes 4 (1 standard drink = 0.6 oz pur e alcohol) Housing Instability Answer Date Recorde d Are you worried that in the next 2 months you may not have stable housing? No 02/24/2025 Food Access & Nutrition Answer Date Rec orded Do you have access to a vari ety of food including fruits and vegetables? Yes 02/24/2025 Access to Healthcare Answer Date Record ed Within the last 3 months, ho w many times did you visit the emergency department for your medical care? 0 02/24/2025 Health Literacy Answer Date Recorded How often do you need to hav e someone help you when you read instructions, pamphlets, or other written material from your doctor or pharmacy? Never 02/24/2025 Caregiver: How often do you need to have someone help you when you read instructions, pamphlets, or other written material from your doctor or pharmacy? Not on file 02/24/2025 Financial Risk Answer Date Recorded How hard is it for you to pa y for the very basics like food, housing, medical care, and air conditioning / heating? Not very hard 02/24/2025 Transportation Answer Date Recorded Has the lack of transportati on kept you from meetings, work, or from getting things needed for daily living? No Has the lack of transportati on kept you from medical appointments or from getting medications? No 02/24/2025 Social Isolation Answer Date Recorded How often do you feel lonely or isolated from those around you? Sometimes 02/24/2025 Food Risk Answer Date Recorded Within the past 12 months we worried whether our food would run out before we got money to buy more. Never true 02/24/2025 Within the past 12 months th e food we bought just didn't last and we didn't have money to get more. Never true 02/24/2025 Dependent Care Answer Date Recorded Do you need help finding or paying for care for your loved ones. For example, child attendant or elderly care for an older adult? No 02/24/2025 Education Answer Date Recorded Do you think completing more education or training, like finishing a GED, going to college, or learning a trade, would be helpful for you? No 02/24/2025 Employment and Income Answer Date Recor ded During the last four weeks, have you been actively looking for work? No 02/24/2025 Living Situation Answer Date Recorded What is your living situation? 0 02/24/2025 Interpersonal Safety Answer Date Record ed Physical Abuse 02/12/2025 Verbal Abuse 02/12/2025 Comments No Sex and Gender Information Value Date Recorded Sex Assigned at Female 06/16/2024 2:25 PM EDT Legal Sex Female 2:28 AM EST Gender Identity Female 06/16/2024 2:25 PM EDT Sexual Orientation Not on file Obstetrics History Para Term AB IAB SAB Ectopic Multiple Livin g Live Births 2 2 2 2 Date Outcome GA Total Labor Labor/2nd/3rd Weight Sex Type Anes PTL Leslie A1 A5 Name Clin Term Term Last Filed Vital Signs Vital Sign Reading Time Taken Comments Blood Pressure 110/62 02/25/2025 9:07 AM EDT Pulse 60 02/25/2025 9:07 AM EDT Temperature 36 C (96.8 F) 02/25/2025 9:07 AM EDT Respiratory Rate 20 02/25/2025 9:07 AM EDT Oxygen Saturation 97% 02/12/2025 10:27 AM EDT Inhaled Oxygen Concentration - - Weight 65.3 kg (144 lb) 02/25/2025 9:07 AM EDT Height 165.1 cm (5' 5 ) 02/25/2025 9:07 AM EDT Body Mass Index 23.96 02/25/2025 9:07 AM EDT Plan of Treatment Upcoming Encounters Date Type Department Care Team (Late st Contact Info) Description 07/04/2025 9:45 AM EST Office Visit Adult Medicine [facility] [address] [place] [phone] Maria Teresa Mathur MD [address] [place] [address] Health Maintenance Due Date Last Done Comments Cholesterol Screening (Lipid Panel) 07/22/2022 07/14/1999 Falls Risk Assessment 07/22/2022 Hypertension/CHF/CAD Annual BMP Blood Test 09/13/2023 07/14/1999 COVID-19 Vaccine (6 - Pfizer risk season) 2024 05/08/2024, 03/02/2022, 05/18/2021, Additional history exists Influenza Vaccine (#1) 2025 , 10/11/2023, 08/27/2022, Additional history exists Social Influencers of Health Screening 02/24/2026 02/24/2025 Medicare Annual Wellness Visit 02/25/2026 02/25/2025 DTaP,Tdap,and Td Vaccines (3 - Td or Tdap) 11/17/2026 11/17/2016, 03/17/2006 Osteoporosis Screening (Bone Density Screening) 01/07/2032 01/06/2022, 11/06/2020, 09/17/2019, Additional history exists Pneumococcal Vaccine: 50+ Years Completed 11/25/2015, 04/10/2007 Zoster Vaccines Completed 06/30/2020, 04/16, 05/13/2020, Additional history exists RSV Immunization Adult Patients Completed 02/04/2025 Depression Screening Completed 02/24/2025 HIB Vaccines Aged Out No longer eligi [...] Procedure Name Priority Date/Time Associated Diagnosis Comments MG MAMMO DIGITAL SCREENING W OCTAVIANO BILAT Routine 02/20/2025 10:34 AM EDT Encounter for screening mammogram for breast cancer XR FLUORO UP TO 1 HOUR Routine 02/12/2025 10:25 AM EDT Pain JULIO DEXA AXIAL SKELETON Routine 01/06/2022 4:15 PM EDT Encounter for screening for osteoporosis HM ANNUAL BMP BLOOD TEST Routine 07/14/1999 LIPID PANEL Routine 07/14/1999 from Last 3 Months or Most Recently Relevant to Health Maintenance Results * MG Mammo Digital Screening w Octaviano bilat (02/20/2025 10:34 AM EDT) Anatomical Region Laterality Modality Breast Bilateral Mammography 02/21/2025 3:23 PM EDT Impressions 02/21/2025 3:33 PM EDT No mammographic evidence of malignancy. BREAST DENSITY: B - There are scattered areas of fibroglandular density. BI-RADS CATEGORY: 2 - BENIGN RECOMMENDATION: Screening bilateral mammogram is recommended in 1 year. MAMMO LOCATION: [facility], [address] [place] [address], [phone], . -------- FINAL REPORT -------- Dictated By: Chasity Desai Dictated Date: 02/21/2025 15:23 ET Assigned Physician: Chasity Desai Reviewed and Electronically Signed By: Chasity Desai Signed Date: 02/21/2025 15:33 ET Workstation ID: [id number] Transcribed By: Self Edit Transcribed Date: 02/21/2025 15:23 ET Narrative 02/21/2025 3:33 PM EDT EXAM: Screening Mammogram CLINICAL: 84 years old, Female, routine annual exam. History of left breast cancer status post lumpectomy and radiation therapy in 2015. COMPARISON: 02/09/2024 and as far back as 01/05/2021 TECHNIQUE: Bilateral MLO and CC views were obtained digitally with 3-D mammogram (digital breast tomosynthesis). Computer-aided detection was utilized in evaluation of this exam (CAD). FINDINGS: Stable lumpectomy changes in the central left breast with progressive coarse dystrophic calcification/fat necrosis at the lumpectomy site over prior exams. Bilateral secretory calcifications again noted. No new suspicious mass, architectural distortion, or suspicious calcifications. Procedure Note Chasity Desai MD - 02/21/2025 EXAM: Screening Mammogram CLINICAL: 84 years old, Female, routine annual exam. History of leftbreast cancer status post lumpectomy and radiation therapy in 2015. COMPARISON: 02/09/2024 and as far back as 01/05/2021 TECHNIQUE: Bilateral MLO and CC views were obtained digitally with 3-Dmammogram (digital breast tomosynthesis). Computer-aided detection wasutilized in evaluation of this exam (CAD). FINDINGS: Stable lumpectomy changes in the central left breast with progressivecoarse dystrophic calcification/fat necrosis at the lumpectomy site overprior exams. Bilateral secretory calcifications again noted. No newsuspicious mass, architectural distortion, or suspicious calcifications. IMPRESSION: No mammographic evidence of malignancy. BREAST DENSITY: B - There are scattered areas of fibroglandular density. BI-RADS CATEGORY: 2 - BENIGN RECOMMENDATION: Screening bilateral mammogram is recommended in 1 year. MAMMO LOCATION: [facility], [address] [place] [address], [phone], . -------- FINAL REPORT -------- Dictated By: Chasity Desai Dictated Date: 02/21/2025 15:23 ET Assigned Physician: Chasity Desai Reviewed and Electronically Signed By: Chasity Desai Signed Date: 02/21/2025 15:33 ET Workstation ID: [id number] Transcribed By: Self Edit Transcribed Date: 02/21/2025 15:23 ET us Maria Teresa Mathur MD IM BI PROCEDURES Final Result * XR Fluoro Up To 1 Hour (02/12/2025 10:25 AM EDT) Anatomical Region Laterality Modality Body Radio Fluoroscop y 02/12/2025 11:2 2 AM EDT Narrative 02/12/2025 11:23 AM EDT Fluoroscopic spot radiographs obtained during lumbar epidural injection are submitted. No radiologist consultation was requested or provided during this procedure and there is no radiologist professional charge. This report is generated for documentation purposes only. The dose for this procedure was 4.25 mGy. PQRI CPT II G9500 -------- FINAL REPORT -------- Dictated By: Jake Aviles Dictated Date: 02/12/2025 11:22 ET Assigned Physician: Jake Aviles Reviewed and Electronically Signed By: Jake Aviles Signed Date: 02/12/2025 11:23 ET Workstation ID: [id number] Transcribed By: Self Edit Transcribed Date: 02/12/2025 11:22 ET Procedure Note Jake Aviles MD - 02/12/2025 Fluoroscopic spot radiographs obtained during lumbar epidural injectionare submitted. No radiologist consultation was requested or providedduring this procedure and there is no radiologist professional charge.This report is generated for documentation purposes only. The dose for this procedure was 4.25 mGy. PQRI CPT II G9500 -------- FINAL REPORT -------- Dictated By: Jake Aviles Dictated Date: 02/12/2025 11:22 ET Assigned Physician: Jake Aviles Reviewed and Electronically Signed By: Jake Aviles Signed Date: 02/12/2025 11:23 ET Workstation ID: [id number] Transcribed By: Self Edit Transcribed Date: 02/12/2025 11:22 ET us Dennis Gonzalez MD IMG FLUOROSCOPY PROCEDURES Fin al Result * JULIO DEXA AXIAL SKELETON (01/06/2022 4:15 PM EDT) Anatomical Region Laterality Modality Mammography 01/06/2022 11:0 2 AM EDT Narrative 01/06/2022 4:15 PM EDT [facility] Diagnostic Imaging Department [address] [place] [address] [id number] Patient: MURTAZA GODOY.O.B./Age/Sex: 1940 - 81 - F Unit#: [id number] Location/Status: SPDIMAM/REG CLI Mnemonic/Ordering Site: [facility] Ordering Physician: CHLOE EMMANUEL MD [facility] Dexa Axial Skeleton - 01/06/22 - 125 HISTORY: Post menopausal woman with hormone depletion for screening bone densitometry. The patient is on calcium supplement. TECHNIQUE: Bone densitometry is performed utilizing dual energy x-ray absorptiometry (DEXA) in the efectivox unit. The lumbar spine is evaluated in the AP projection and L1 through L4 are utilized. The proximal femora are evaluated in the AP projection bilaterally. FINDINGS: AP spine: Bone mineral density: 0.935 gm/cm2 T-score: -1.9 Z-score: -0.2 Dual Femur (mean): Bone mineral density: 1.024 gm/cm2 T-score: 0.1 Z-score: 2.1 IMPRESSION: Osteopenia in the lumbar spine. Normal bone mineralization in the bilateral hips. [id number] A report detailing these results has been enclosed. Dictating Physician: MARIO ALBERTO DUMONT MD Electronically Signed by: MARIO ALBERTO DUMONT MD Dic Date/Time: 01/06/22 1614 Sign date/Time: 01/06/22 1615 Procedure Note Mario Alberto Dumont MD - 08/04/2022 [facility] Diagnostic Imaging Department [address] [place] [address] Patient: MURTAZA GODOY /Age/Sex: 1940 - 81 - F Unit#: [id number] Location/Status: SPDIMAM/REG CLI Mnemonic/Ordering Site: [facility] Ordering Physician: CHLOE EMMANUEL MD [facility] Dexa Axial Skeleton - 01/06/22 - 1259 HISTORY: Post menopausal woman with hormone depletion for screening bone densitometry. The patient is on calcium supplement. TECHNIQUE: Bone densitometry is performed utilizing dual energy x-ray absorptiometry (DEXA) in the efectivox unit. The lumbar spine isevaluated in the AP projection and L1 through L4 are utilized. The proximal femoraare evaluated in the AP projection bilaterally. FINDINGS: AP spine: Bone mineral density: 0.935 gm/cm2 T-score: -1.9 Z-score: -0.2 Dual Femur (mean): Bone mineral density: 1.024 gm/cm2 T-score: 0.1 Z-score: 2.1 IMPRESSION: Osteopenia in the lumbar spine. Normal bone mineralization in the bilateral hips. [id number] A report detailing these results has been enclosed. Dictating Physician: MARIO ALBERTO DUMONT MD Electronically Signed by: MARIO ALBERTO DUMONT MD Dic Date/Time: 01/06/22 1614 Sign date/Time: 01/06/22 1615 Chloe Emmanuel MD IMG BI PROCEDURES Final Result * Annual BMP Blood Test (07/14/1999) [facility] Annual BMP Blood Test Abstracted Historical Provider HEALTH MAINTENANCE Final Result * (ABNORMAL) Lipid panel (07/14/1999) [facility] LDL/HDL Ratio 4 0 - 4 Triglycerides [...] Phone Billing Address Personal/Family Self 1940 [address] [place] [address] [employer] - [place] MEDICARE ADVANTAGE * Guarantor: Murtaza Godoy Account Type Relation to Patient Date of Phone Billing Address Personal/Family Self 1940 [address] [place] [address] Advance Directives Documents on File Type Date Recorded 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
== END 2025-03-20 12:54 | disposition home or self-care (01) ==
LOC: HO.HGI 12:00
PROVIDERS: Visit Provider Nurse Practitioner
DX: K52.1 Toxic gastroenteritis and colitis (principal); K21.9 Gastro-esophageal reflux disease without esophagitis
CPT/HCPCS: 99213

== ENCOUNTER → 2025-03-20 11:59 | Outpatient (BNVA) | payer MEDICARE, SELFPAY | PROVIDERS: Visit Provider Nurse Practitioner | DX: K52.1 Toxic gastroenteritis and colitis (principal); K21.9 Gastro-esophageal reflux disease without esophagitis | CPT/HCPCS: 99212 ==

== ENCOUNTER 2025-06-17 08:40 | Outpatient (AMB) | payer MEDICARE, SELFPAY ==
[2025-06-17 08:42] VITALS: BP 114/58; PULSE 63; BMI 24.7
--- NOTE | 2025-06-17 08:42 | A.OFFVIS_ITS ---
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 Accompanied by: Spouse Allergies Sulfa (Sulfonamide Antibiotics) Allergy (Unknown, Verified 06/17/25 08:46) Unknown sulfamethoxazole (From Bactrim) Allergy (Verified 06/17/25 08:46) unknown trimethoprim (From Bactrim) Allergy (Verified 06/17/25 08:46) unknown Medication List - Last Reconciled 06/17/25 by Jl Starks MD acetaminophen 500 mg PO Q6H PRN albuterol sulfate 90 mcg/actuation 2 puffs inhalation Q6H PRN apixaban (Eliquis) 5 mg PO BID ascorbic acid (vitamin C) (Vitamin C) 500 mg PO .qd atorvastatin 10 mg PO DAILY calcium carbonate-vitamin D3 600 mg-5 mcg (200 unit) 1 tab PO DAILY cholecalciferol (vitamin D3) (Vitamin D3) 25 mcg PO MOWEFR@0900 cranberry 500 mg PO DAILY dicyclomine 10 mg PO TID dronedarone (Multaq) 400 mg PO BID fluticasone propionate 50 mcg/actuation 2 sprays intranasal BID PRN gabapentin 400 mg PO TID levothyroxine 150 mcg PO DAILY loperamide (Imodium A-D) 4 mg (2 x 2 mg) PO Q6H loratadine (Allergy Relief (loratadine)) 10 mg PO DAILY meclizine 25 mg PO TID metoprolol tartrate 25 mg PO BID nitrofurantoin macrocrystal 50 mg PO MOWEFR@0900 omeprazole 20 mg PO DAILY@0630 HPI Comments Details: Hortensia comes for follow-up. She complains of symptoms of fatigue. She does not get out there and do much aerobic activity. She has mostly sedentary lifestyle. Denies any exertional chest pain, shortness of breath. No orthopnea, PND, leg edema. No prolonged palpitation irregular heartbeat. No bleeding issues or neurologic events. Wonders if some of the medicines causing the side effects. [facility] Medical History Pneumonia (~08/2022) IBS (irritable bowel syndrome) Basal cell carcinoma Lumbar compression fracture History of breast cancer Osteopenia Pacemaker (~08/2022) Graves disease History of radioactive iodine thyroid ablation Hypothyroidism Surgical History H/O colonoscopy History of basal cell carcinoma (BCC) excision History of pacemaker (~2022) History of tonsillectomy and adenoidectomy History of appendectomy History of lumpectomy of left breast Family History Mother Breast cancer Father Hypertension Social History Household Members: Spouse Housing: House Do you presently have visiting nurse or other home services: No Alcohol intake: current Alcohol intake frequency: a few times a week Alcohol type: wine Patient Tobacco Use Status: Former Tobacco user Tobacco use type: Cigarette e-Cigarette/Vaping Use: Never Used Second Hand Smoke Exposure: No Advance Directives Date on File: 08/18/24 service: No Current occupational status: retired Review of Systems Const Denies daytime sleepiness, Denies difficulty sleeping, Denies snoring, Denies stops breathing during sleep and Denies weakness Card Denies chest pain, Denies rapid heart rate, Denies irregular heart rhythm, Denies claudication, Denies leg edema, Denies lightheadedness, Denies palpitations, Denies dyspnea, Denies dyspnea on exertion, Denies orthopnea, Denies paroxysmal nocturnal dyspnea and Denies slow heart rate Resp Denies cough, Denies dyspnea, Denies dyspnea on exertion and Denies snoring GI Reports no additional complaints, Denies hematochezia, Denies change in stool character and Denies dyspepsia Musc Denies abnormal gait, Denies muscle weakness and Denies numbness Neuro Denies abnormal gait, Denies numbness and Denies weakness Endo Denies palpitations Physical Exam Vital Signs: Last Vital Signs Pulse 63 06/17/25 08:42 BP 114/58 L 06/17/25 08:42 BMI result Body Mass Index 24.7 Const General: cooperative, healthy appearing, comfortable and no acute distress Orientation/consciousness: patient oriented x3 Neck Neck: Yes normal visual inspection Chest Other: pacemaker site Left upper chest intact, well healed, no swelling, nontender Resp Effort & Inspection: normal respiratory effort Auscultation: clear to auscultation bilaterally, no crackles, no rales, no rhonchi and no wheezes Cardio Jugular venous distension: no JVD Rate: regular rate Rhythm: regular rhythm Heart sounds: S1 normal heart sound present, S2 normal heart sound present and no rubs GI Inspection: Yes normal to inspection Neuro General: patient oriented x3 Extrem General: Yes normal to inspection, No no pedal edema and No calf tenderness Psych Appearance: grossly normal Mental Status: mental status grossly normal Speech and movement: Normal speech and movement present Office Procedures Cardiac Device Check Cardiac Device Check Details: Dual-chamber [employer]ir pacemaker in place programmed at 60 beats per minute in DDDR. Change to 70 beats per minute as well as made her rate response algorithm a little more aggressive. Atrial and ventricular capture thresholds are excellent and in auto capture mode. Ventricular sensing is adequate. Pacing lead impedance is stable. Battery life is 2 7 and half to 8 years 99343-[id number] Cardiac Device Check, pacemaker dual lead Procedure code (CPT) selection complete EKG Details: EKGs shows atrially paced rhythm with first-degree AV block 44103-[id number], Complete Assessment & Plan Assessment & Plan (1) Fatigue: Code(s): R53.83 - Other fatigue Plan: Symptoms of fatigue and more likely suggestive of underlying deconditioning and lack of exercise. Encouraged to increase activity level as tolerated. Less likely that this is related to sick sinus syndrome as pacemaker is pretty aggressively programmed but have reprogrammed pacemaker to provide more agg ressive rate enhancement with exercise. Less likely related to cardiomyopathy. Would suggest echocardiogram in the future. (2) Paroxysmal atrial fibrillation: Onset Date: ~08/2022 Code(s): I48.0 - Paroxysmal atrial fibrillation Category: Medical Plan: Paroxysmal atrial fibrillation which has remained completely suppressed on current therapy with Multaq. Doing well with rhythm control approach will co ntinue pursue rhythm control approach. That has minimal intermodal dispatcher extra cardiac toxicity with Multaq and advised to continue as long as it allows us to. Continue full oral anticoagulation, currently on Eliquis 5 mg b.i.d.. Semi annual renal function test should be pursued being pursue through your office. (3) Pacemaker: Onset Date: ~08/2022 Comment: (St. Abdulkadir DCPP - placed 08/30/2022) Code(s): Z95.0 - Presence of cardiac pacemaker Category: Medical Plan: Cardiac pacemaker in-situ for sick sinus syndrome. Pacemaker is working well. Reprogrammed for more rate response. Advise follow up remotely every 3 months. Follow up in the clinic in 6 months. (4) Cardiomyopathy: Onset Date: ~08/2022 Code(s): I42.9 - Cardiomyopathy, unspecified Category: Medical Plan: Prior history of cardiomyopathy in his setting of atrial fibrillation. Last echocardiogram showed low normal LV EF. No signs or symptoms of heart failure. Follow-up echocardiogram in 6 months time. Continue current rhythm control approach. Continue metoprolol therapy for neurohormonal modulation. Follow up in the clinic in 6 months time, sooner PRN. Thank you for allowing me to partake in her care Coding Level of Care Code Est Pt Level 4 (72224) Complex EM visit Add On G2211 Diagnoses Fatigue R53.83 Paroxysmal atrial fibrillation I48.0 Pacemaker Z95.0 Cardiomyopathy I42.9 CPT Codes Cardiac Device Check - Cardiac Device 2: [id number] Cardiac Device Check, pacemaker dual lead ([id number]) EKG - CPT: 41814-[id number], Complete ([id number])
--- OUTSIDE RECORDS SUMMARY | 2025-06-17 09:10 | XMS_ITS | Clinical Summary ---
Demographics Address [address] [place] [address] Home Phone Email Address Preferred Language Yoruba Marital Status Mosque Affiliation Unknown Race White Ethnic Group Not or Lati no Author Organization [facility] Address [address] [place] [address] Care Team Providers Care Claims Representative Name Role Phone Maria Teresa Mathur MD Primary Care Provider [phone] Allergies Active Allergy Reactions Criticality Noted Date [...] 75+ series) 2016 COVID-19 Vaccine (2 - 2024-2 6 season) 2025 03/02/2022 Influenza Vaccine (#1) 2025 Hepatitis B Vaccines Aged Out No long er eligible based on patient's age to complete this topic RSV Ped < 20 months Aged Out No longe r eligible based on patient's age to complete this topic Guarantor Name Account Type Relation to Patient Date of Phone Billing Address JayneHortensia Personal/Family Self 1940 [address] [place] [address] JayneHortensia Personal/Family Self 1940 [address] [place] [address] Hortensia Godoy TPL/AUTO Self 1940 [address] [place] [address] Advance Directives For more information, please contact: [phone] Documents on File Type Date Recorded 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
--- OUTSIDE RECORDS SUMMARY | 2025-06-17 09:10 | XMS_ITS | Clinical Summary ---
Demographics Address [address] [place] [address] Home Phone Mobile Phone Email Address Email Address Preferred Language en Marital Status Taoism Affiliation Unknown Race White Ethnic Group Not or Lati no Author Organization [address] Address [address] [place] [phone] Phone Support Name Relationship Address Phone Kirill Page Spouse [address] [place] [address] Care Team Providers Care Tobacco Shaker Name Role Phone Maria Teresa Mathur MD Primary Care Provider [phone] Allergies Active Allergy Reactions Criticality Noted Date [...] D ORAL) Take by mouth daily. Active albuterol HFA (PROAIR HFA ; PROVENTIL HFA ; VENTOLIN HFA) 90 mcg/actuation inhaler INHALE 2 PUFFS INTO THE LUNGS EVERY 4 HOURS NEEDED FOR COUGH OR WHEEZING. 6.7 each 5 Active diphenhydrAMINE (BENADRYL) 25 mg tablet Take 1 tablet (25 mg total) by mouth at bedtime as needed for sleep. Active meclizine (ANTIVERT) 25 mg tablet TAKE 1 TABLET 3 TIMES A DAYAS NEEDED FOR MOTION SICKNESS. 270 tablet 1 5 Active fluticasone propionate (FLONASE) 50 mcg/actuation nasal spray USE 1 SPRAY IN EACH NOSTRILTWICE DAILY 48 g 1 5 Active omeprazole (PriLOSEC) [address] capsule TAKE 1 CAPSULE DAILY. 90 capsule 5 Active atorvastatin (LIPITOR) 10 mg tablet TAKE 1 TABLET DAILY. 90 tablet 5 Active levothyroxine (SYNTHROID, LEVOTHROID) 150 mcg tablet TAKE 1 TABLET BY MOUTH EVERY DAY 90 tablet 5 Active Active Problems Problem Noted Date [...] asthma with exacerbation 12/28 Lumbar compression fracture ([facility] V24, [facility]/ C V28) 05/01/2016 Breast cancer, stage 1, estr ogen receptor positive (CMS/[facility] V24, [facility] V28) 12/26/2014 Overview (05/17/2024): Ductal carcinoma [...] LDL; Future GERD (gastroesophageal reflux disease) 6 Immunizations Immunization Administration Dates Next Due H1N1 Inj 11/04/2009 [...] PROCEDURE: HISTORICAL TUBAL LIGATION ESOPHAGOGASTRODUODENOSCOPY 04/06/2001 PROCEDURE: DC ESOPHAGOGASTRODUODENOSCOPY TRANSORAL DIAGNOSTIC; COMMENT: Normal on H2 clotilde rx. FLEXIBLE SIGMOIDOSCOPY 06/16/2001 PROCEDURE: HISTORICAL FLEXIBLE SIGMOIDOSCOPY; COMMENT: Negative to 30 cm. COLONOSCOPY 05/25/2006 PROCEDURE: HISTORICAL COLONOSCOPY; COMMENT: diverticulosis OTHER SURGICAL HISTORY PROCEDURE: ---- OTHER ----; COMMENT: BCE left nose OOPHORECTOMY PROCEDURE: HISTORICAL OOPHORECTOMY; COMMENT: unilateral BREAST BIOPSY Right PROCEDURE: BX BREAST; PERC NEEDLE CORE W/IMAG GUID; COMMENT: cyst b9 BREAST BIOPSY 2015 Left PROCEDURE: BX BREAST; PERC NEEDLE CORE W/IMAG GUID; COMMENT: ca BREAST SURGERY 2015 Left PROCEDURE: DC UNLISTED PROCEDURE BREAST; COMMENT: lumpectomy COLONOSCOPY 01/20/2017 [...] cancer, stage 1, estr ogen receptor positive ([facility]/HCC V24, CMS/HCC V28) 12/26/2014 DX:Breast cancer, stage 1, e strogen receptor positive ([facility]); COMMENT: left History of actinic keratoses [...] yea rs old Maternal Grandfather (Age 60's) SD Maternal Grandmother (Age 62) RA Mother Paternal Grandfather (Age 70) SD Paternal Grandmother (Age 86) Al zheimer/Arthritis Sister [...] for your loved ones. For example, child and family services specialist or elderly care for an older adult? [...] Date Recorded What is your living situation? Unrecognized valu e 02/24/2025 Interpersonal Safety Answer Date Record ed Physical Abuse Unrecognized value 02/12/2025 Verbal Abuse Unrecognized value 02/12/2025 Comments No Sex and Gender Information [...] 9:45 AM EST Office Visit Adult Medicine [address] [address] Maria Teresa Mathur MD [address] [place] [address] Health Maintenance Due Date Last Done Comments Cholesterol Screening (Lipid Panel) 07/22/2022 07/14/1999 Falls Risk Assessment 07/22/2022 Hypertension/CHF/CAD Annual BMP Blood Test 09/13/2023 07/14/1999 COVID-19 Vaccine (6 - Pfizer risk season) 2025 05/08/2024, 03/02/2022, 05/18/2021, Additional history exists Influenza [...] Procedure Name Priority Date/Time Associated Diagnosis Comments [facility] DEXA AXIAL SKELETON Routine 01/06/2022 4:15 PM EDT Encounter for screening for osteoporosis ANNUAL BMP BLOOD TEST Routine 07/14/1999 LIPID PANEL Routine 07/14/1999 from Last 3 Months or Most Recently Relevant to Health Maintenance Results * [facility] DEXA AXIAL SKELETON (01/06/2022 4:15 PM EDT) Anatomical Region Laterality Modality Mammography 01/06/2022 11:0 2 AM EDT Narrative 01/06/2022 4:15 PM EDT [facility] Diagnostic Imaging Department [address] [place] [address] Patient: MURTAZA GODOY/Age/Sex: 1940 - 81 - F Unit#: [id number] [facility] Ordering Physician: KEL EMMANUEL MD [facility] Dexa Axial Skeleton - 01/06/22 - 1528 HISTORY: Post menopausal woman with hormone depletion for screening bone densitometry. The patient is on calcium supplement. TECHNIQUE: Bone densitometry is performed utilizing dual energy x-ray absorptiometry (DEXA) in the [employer] unit. The lumbar spine is evaluated in the AP projection and L1 through L4 are utilized. The proximal femora are evaluated in the AP projection bilaterally. FINDINGS: AP spine: Bone mineral density: 0.935 gm/cm2 T-score: -1.9 Z-score: -0.2 Dual Femur (mean): Bone mineral density: 1.024 gm/cm2 T-score: 0.1 Z-score: 2.1 IMPRESSION: Osteopenia in the lumbar spine. Normal bone mineralization in the bilateral hips. [address] A report detailing these results has been enclosed. Dictating Physician: MARIO ALBERTO DUMONT MD Electronically Signed by: MARIO ALBERTO DUMONT MD Dic Date/Time: 01/06/221613 Sign date/Time: 01/06/221614 Procedure Note Mario Alberto Dumont MD - 08/04/2022 [facility] Diagnostic Imaging Department [address] [place] [address] Patient: NELLI GODOYCHUN Vasquez./Age/Sex: 1940 - 81 - F Unit#: [id number] Location/Status: [facility] Mnemonic[facility]ing [facility] Ordering Physician: KEL EMMANUEL MD [facility] Dexa Axial Skeleton - 01/06/22 - 1635 HISTORY: Post menopausal woman with hormone depletion for screening bone densitometry. The patient is on calcium supplement. TECHNIQUE: Bone densitometry is performed utilizing dual energy x-ray absorptiometry (DEXA) in the [employer] unit. The lumbar spine isevaluated in the AP projection and L1 through L4 are utilized. The proximal femoraare evaluated in the AP projection bilaterally. FINDINGS: AP spine: Bone mineral density: 0.935 gm/cm2 T-score: -1.9 Z-score: -0.2 Dual Femur (mean): Bone mineral density: 1.024 gm/cm2 T-score: 0.1 Z-score: 2.1 IMPRESSION: Osteopenia in the lumbar spine. Normal bone mineralization in the bilateral hips. 10074 A report detailing these results has been enclosed. Dictating Physician: MARIO ALBERTO DUMONT MD Electronically Signed by: MARIO ALBERTO DUMONT MD Dic Date/Time: 01/06/221613 Sign date/Time: 01/06/221614 Kel Emmanuel MD IMG BI PROCEDURES Final Result * Annual BMP Blood Test (07/14/1999) Pathologist [facility] Annual BMP Blood Test Abstracted Historical Provider [...] Billing Address Personal/Family Self 1940 [address] [place] [address] [employer] - [place] MEDICARE ADVANTAGE * Guarantor: Murtaza Godoy Account Type Relation to Patient Date of Phone Billing Address Personal/Family Self 1940 [address] [place] [address] Advance Directives Documents on File Type Date Recorded Patient Consultant Rn Expl [facility] Health Care Decision (hx) 05/09/2023 ADVANCE DIRECTIVE AN D LIVING WILL Care Teams Tobacco Shaker Relationship Specialty Start Date End Date Maria Teresa Mathur MD [address] [place] [address] PCP - General Internal Medicine 04/25/20
--- OUTSIDE RECORDS SUMMARY | 2025-06-17 09:10 | XMS_ITS | Clinical Summary ---
Demographics Address [address] [place] [address] Home Phone Email Address Preferred Language unv Marital Status Unknown Orthodoxy Affiliation Unknown Race Unknown Ethnic Group Not or Lati no Author Organization [facility] Address [address] [place], [place] [id number] Phone Care Team Providers Care Services Executive Name Role Phone Maria Teresa Mathur MD Primary Care Provider [phone] Allergies Active Allergy Reactions Criticality Noted Date [...] Take 1 tablet by mouth every morning. 3 Active albuterol 90 mcg/actuation inhaler Inhale 2 puffs into the lungs every 6 (six) hours as needed for wheezing or shortness of breath/dyspnea . 8 g 3 Active Social History Tobacco Use Types Packs/Day [...] VACCINE (1 - 1-dose 75+ series) 2016 INFLUENZA VACCINE (#1) 2025 3, 05/18/2021, 05/02/2019, Additional history exists COVID-19 VACCINE (2024- season) 2025 03/02/2022, 05/18/2021, 10/14/2020, Additional history exists Adult [...] topic Medical Devices Not on file Insurance 08/[address] MEDICARE PPO BLUE REPLACEMENT 08/16 [place] [facility] MEDICARE PPO BLUE REPLACEMENT Member Subscriber Plan / Payer (Ef fective 2006-Present) Name:Hortensia Godoy Relation to Subscriber:Self Name:Hortensia Godoy Payer ID:[id number] (NAIC) Type:Medicare Address: [address] [place], [place] 08/16 [place] [facility] MEDICARE PPO BLUE REPLACEMENT Member Subscriber Plan / Payer (Ef fective 2006-Present) Name:Hortensia Godoy Relation to Subscriber:Self Name:Hortensia Godoy Payer ID:[id number] (NAIC) Type:Medicare Address: [address] [place], [place] 08/16 [place] [facility] MEDICARE PPO BLUE REPLACEMENT Member Subscriber Plan / Payer (Ef fective 2006-Present) Name:Hortensia Godoy Relation to Subscriber:Self Name:Hortensia Godoy Payer ID:[id number] (NAIC) Type:Medicare Address: [facility] [id number] [place], [place] 08/16 [place] [facility] MEDICARE PPO BLUE REPLACEMENT * Guarantor: Hortensia Godoy Account Type Relation to Patient Date of Phone Billing Address Personal/Family Self 1940 [address] [place] [address] [employer] BLUE REPLACEMENT Care Teams Services Executive Relationship Specialty Start Date End Date Maria Teresa Mathur MD [address] [place] [id number] PCP - General Internal Medicine 07/17/23 Additional Source Comments The information contained in this document represents components of the legal health record. It is not the complete legal health record.[facility]
== END 2025-06-17 09:15 | disposition home or self-care (01) ==
PROVIDERS: PCP Internal Medicine; Visit Provider Internal Medicine Cardiovascular Disease
DX: R53.83 Other fatigue (principal); I48.0 Paroxysmal atrial fibrillation; Z95.0 Presence of cardiac pacemaker; I42.9 Cardiomyopathy, unspecified
CPT/HCPCS: 93010; 93280; 99214; G2211

== ENCOUNTER → 2025-06-17 08:40 | Outpatient (BNVA) | payer MEDICARE, SELFPAY | PROVIDERS: Visit Provider Internal Medicine Cardiovascular Disease | DX: I48.0 Paroxysmal atrial fibrillation (principal); I42.9 Cardiomyopathy, unspecified; Z95.0 Presence of cardiac pacemaker; R53.83 Other fatigue | CPT/HCPCS: 93005; 93280; 99212 ==

== ENCOUNTER → 2025-08-03 11:59 | Outpatient (BNV) | payer MEDICARE, SELFPAY | PROVIDERS: PCP Internal Medicine; Visit Provider Internal Medicine Cardiovascular Disease | DX: I48.91 Unspecified atrial fibrillation (principal); Z95.0 Presence of cardiac pacemaker | CPT/HCPCS: 93294 ==